=== PATIENT | female | born 1935 | race Caucasian/White ===

== ENCOUNTER 2016-10-25 12:06 | Inpatient (IN) | payer OTHER, MEDICARE ==
[2016-10-25] VITALS (7 sets, daily range): BP systolic 129–159; BP diastolic 65–78; PULSE 63–74; RESP 18–22; TEMP 95.4–97.8; O2SAT 90–99
[~2016-10-25] VITALS: Ht 144.8 cm; Wt 40.2 kg
[~2016-10-25 12:06] MED LIST: ALBU1AER INH; ALLO100 PO; CALC600T10 PO; DOCU1CAP39 PO; DUONI NEB; FERR324T4 PO; FOSA70TA PO; FURO1TAB93 PO; MAGN250T9 PO; METO50TA PO; METR-1 PO; PANT20 PO; POTA10TA2 PO; RIVA20 PO; TRAM50TA PO; Z.0.OXYGEN INH
[2016-10-25] MEDS ORDERED: ALBUAER3 INH (12:28)
[2016-10-25] MEDS ORDERED: FOSA70TA PO (12:28)
[2016-10-25] MEDS ORDERED: HYDR200T3 PO (12:28)
[2016-10-25] MEDS ORDERED: XARE20TA PO (12:28)
[2016-10-25] MEDS ORDERED: DOCU100T9 PO (12:28)
[2016-10-25] MEDS ORDERED: MAGN400T24 PO (12:28)
[2016-10-25] MEDS ORDERED: TRAM50TA PO (12:28)
[2016-10-25] MEDS ORDERED: LACTCAP8 PO (12:28)
[2016-10-25] MEDS ORDERED: METO50TA PO (12:28)
[2016-10-25] MEDS ORDERED: FERR324T4 PO (12:28)
[2016-10-25] MEDS ORDERED: IPRA0.02 NEB (12:28)
[2016-10-25] MEDS ORDERED: POTA10TA2 PO (12:28)
[2016-10-25] MEDS ORDERED: FURO1TAB60 PO (12:28)
[2016-10-25] MEDS ORDERED: ALLO100T PO (12:28)
[2016-10-25] MEDS ORDERED: PANT20 PO (12:28)
[2016-10-25] MEDS ORDERED: CALCTAB80 PO (12:28)
[2016-10-25] MEDS ORDERED: SODIUM CHLORIDE 0.9% FLUSH 10 ML FLUSH IVF PRN (12:45)
[2016-10-25 12:55] LABS: AUTOMATED NEUTROPHIL # 7.1 TH/MM3 (1.8-7.7); BASOPHIL # 0.1 TH/MM3 (0-0.2); BASOPHIL % 1.1 % (0.0-2.0); HEMATOCRIT 33.6 % (35.0-46.0); LYMPH % 15.5 % (9.0-44.0); LYMPHOCYTE # 1.4 TH/MM3 (1.0-4.8); MEAN CORPUSCULAR HEMOGLOBIN 26.6 PG (27.0-34.0); MEAN CORPUSCULAR HGB CONC 32.8 % (32.0-36.0); MONO % 6.9 % (0.0-8.0); NEUT % 76.5 % (16.0-70.0); PLATELET COUNT 367 TH/MM3 (150-450); RED BLOOD COUNT 4.14 MIL/MM3 (4.00-5.30); RED CELL DISTRIBUTION WIDTH 14.9 % (11.6-17.2); WHITE BLOOD COUNT 9.2 TH/MM3 (4.0-11.0)
--- NOTE | 2016-10-25 12:55 | PD ---
HPI Chief Complaint: Respiratory Symptoms Time Seen by Provider: 12:31 Travel History International Travel<30 days: No Contact w/Intl Traveler<30days: No Traveled to known affect area: No History of Present Illness HPI 81-year-old female with history of COPD, multiple medical issues, presents to the ER today because of one month history of worsening shortness of breath, coughing, not getting better, sent in by Dr. aguillon who is her primary care physician. She states that over last few days her breathing has been getting worse. She has been having chills but denies any fevers, vomiting, chest pains , or other symptoms. Modifying Factors: None Associated Signs & Symptoms: Worsening shortness of breath and dyspnea on exertion Risk Factors: COPD history PFSH Past Medical History Hx Anticoagulant Therapy: Yes Arthritis: Yes (RA) Asthma: Yes Atrial Fibrillation: Yes Autoimmune Disease: No Heart Rhythm Problems: Yes (afib) Cancer: No Cardiovascular Problems: Yes (PVD) High Cholesterol: No Chest Pain: No Congestive Heart Failure: No COPD: Yes Cerebrovascular Accident: Yes (TIA) Diabetes: No Diminished Hearing: No Endocrine: No Gastrointestinal Disorders: Yes (rectal prolapse, diverticulitis) GERD: Yes Gout: Yes Genitourinary: No Hepatitis: No Hiatal Hernia: No Hypertension: Yes Immune Disorder: No Kidney Stones: No Medical other: Yes (CKD STAGE 2) Musculoskeletal: No Neurologic: No Psychiatric: No Reproductive: Yes (3mm nodule r lung) Respiratory: Yes Migraines: No Renal Failure: No Seizures: No Sleep Apnea: No Thyroid Disease: No Ulcer: Yes Tetanus Vaccination: Unknown Influenza Vaccination: Yes Past Surgical History Abdominal Surgery: No AICD: No Cardiac Surgery: No Ear Surgery: No Endocrine Surgery: No Eye Surgery: Yes (Cataracts) Genitourinary Surgery: No Hysterectomy: Yes Joint Replacement: No Oral Surgery: No Pacemaker: No Thoracic Surgery: No Other Surgery: Yes Social History Alcohol Use: No Tobacco Use: No Substance Use: No Allergies-Medications (Allergen,Severity, Reaction): Coded Allergies: No Known Allergies (Unverified , 10/25/16) Reported Meds & Prescriptions Reported Meds & Active Scripts Active Reported Probiotic (Lactobacillus Acidophilus) 1 Cap Cap 1 Cap PO DAILY Calcium 1000 + D (Calcium Carbonate-Cholecalciferol) 1,000-800 Mg-Unit Tab 1 Tab PO Docusate Sodium 100 Mg Tab 100 Mg PO DIRECTED Ipratropium Neb (Ipratropium [place]) 0.5 Mg/2.5 Ml Amp 0.5 Mg NEB Q6HR NEB PRN Tramadol (Tramadol HCl) 50 Mg Tab 50 Mg PO Q8H PRN Fosamax (Alendronate Sodium) 70 Mg Tab 70 Mg PO Q7D Proair Hfa 8.5 GM Inh (Albuterol Sulfate) 90 Mcg/Act Aer 2 Puff INH Q4-6H PRN 108 mcg/actuation Ferrous Sulfate DR (Ferrous Sulfate) 324 Mg Tabdr 65 Mg PO BID Magnesium (Magnesium Oxide) 400 Mg Tablet 1 Tab PO BID Xarelto (Rivaroxaban) 20 Mg Tab 20 Mg PO DAILY Hydroxychloroquine (Hydroxychloroquine Sulfate) 200 Mg Tab 200 Mg PO BID Takw with food Protonix (Pantoprazole Sodium) 20 Mg Tab 20 Mg PO DAILY Allopurinol 100 Mg Tab 100 Mg PO DAILY Lasix (Furosemide) 40 Mg Tab 40 Mg PO DAILY Metoprolol Tartrate 50 Mg Tab 50 Mg PO Q6HR Potassium Chloride ER (Potassium Chloride) 10 Meq Tab 10 Meq PO DAILY Review of Systems Except as stated in HPI: all other systems reviewed are Neg Physical Exam Narrative GENERAL: Well-developed elderly white female patient currently in mild distress. Awake, alert, oriented 3. SKIN: Focused skin assessment warm/dry. HEAD: Atraumatic. Normocephalic. EYES: Pupils equal and round. No scleral icterus. No injection or drainage. ENT: No nasal bleeding or discharge. Mucous membranes pink and moist. NECK: Trachea midline. No JVD. CARDIOVASCULAR: Regular rate and rhythm. No murmur appreciated. RESPIRATORY: Mild accessory muscle use. Bibasilar crackles. Breath sounds equal bilaterally. GASTROINTESTINAL: Abdomen soft, non-tender, nondistended. Hepatic and splenic margins not palpable. MUSCULOSKELETAL: No obvious deformities. No clubbing. No cyanosis. No edema. NEUROLOGICAL: Awake and alert. No obvious cranial nerve deficits. Motor grossly within normal limits. Normal speech. PSYCHIATRIC: Appropriate mood and affect; insight and judgment normal. Data Data Last Documented VS Vital Signs Date Time Temp Pulse Resp B/P Pulse Ox O2 Delivery O2 Flow Rate FiO2 10/25/16 12:44 96 Nasal Cannula 3 10/25/16 12:20 10/25/16 12:15 97.8 63 22 Orders Complete Blood Count With Diff (10/25/16 12:31) Comprehensive Metabolic Panel (10/25/16 12:31) B-Type Natriuretic Peptide (10/25/16 12:31) Act Partial Throm Time (Ptt) (10/25/16 12:31) Prothrombin Time / Inr (Pt) (10/25/16 12:31) Ckmb (Isoenzyme) Profile (10/25/16 12:31) Troponin I (10/25/16 12:31) Iv Access Insert/Monitor (10/25/16 12:31) Electrocardiogram (10/25/16 12:31) Ecg Monitoring (10/25/16 12:31) Oximetry (10/25/16 12:31) Oxygen Administration (10/25/16 12:31) Chest, Single Ap (10/25/16 12:31) Sodium Chloride 0.9% Flush (Ns Flush) (10/25/16 12:45) Furosemide Inj (Lasix Inj) (10/25/16 13:45) Labs Laboratory Tests Test 10/25/16 12:40 White Blood Count 9.2 TH/MM3 Red Blood Count 4.14 MIL/MM3 Hemoglobin 11.0 GM/DL Hematocrit 33.6 % Mean Corpuscular Volume 81.0 FL Mean Corpuscular Hemoglobin 26.6 PG Mean Corpuscular Hemoglobin 32.8 % Concent Red Cell Distribution Width 14.9 % Platelet Count 367 TH/MM3 Mean Platelet Volume 7.8 FL Neutrophils (%) (Auto) 76.5 % Lymphocytes (%) (Auto) 15.5 % Monocytes (%) (Auto) 6.9 % Eosinophils (%) (Auto) 0.0 % Basophils (%) (Auto) 1.1 % Neutrophils # (Auto) 7.1 TH/MM3 Lymphocytes # (Auto) 1.4 TH/MM3 Monocytes # (Auto) 0.6 TH/MM3 Eosinophils # (Auto) 0.0 TH/MM3 Basophils # (Auto) 0.1 TH/MM3 CBC Comment DIFF FINAL Differential Comment Prothrombin Time 13.9 SEC Prothromb Time International 1.2 RATIO Ratio Activated Partial 34.5 SEC Thromboplast Time Sodium Level 136 MEQ/L Potassium Level 3.7 MEQ/L Chloride Level 94 MEQ/L Carbon Dioxide Level 35.0 MEQ/L Anion Gap 7 MEQ/L Blood Urea Nitrogen 7 MG/DL Creatinine 0.80 MG/DL Estimat Glomerular Filtration 69 ML/MIN Rate Random Glucose 87 MG/DL Calcium Level 9.4 MG/DL Total Bilirubin 0.5 MG/DL Aspartate Amino Transf 35 U/L (AST/SGOT) Alanine Aminotransferase 34 U/L (ALT/SGPT) Alkaline Phosphatase 275 U/L Total Creatine Kinase 61 U/L Troponin I LESS THAN 0.02 NG/ML B-Type Natriuretic Peptide 1079 PG/ML Total Protein 7.7 GM/DL Albumin 2.5 GM/DL [facility] Medical Decision Making Medical Screen Exam Complete: Yes Emergency Medical Condition: Yes Medical Record Reviewed: Yes Interpretation(s) EKG shows normal sinus rhythm at a rate of 60 bpm with no signs of acute ST-T elevations or depressions. Poor quality EKG. Laboratory Tests Test 10/25/16 12:40 Hemoglobin 11.0 GM/DL (11.6-15.3) Hematocrit 33.6 % (35.0-46.0) Mean Corpuscular Hemoglobin 26.6 PG (27.0-34.0) Neutrophils (%) (Auto) 76.5 % (16.0-70.0) Prothrombin Time 13.9 SEC (9.8-11.6) Activated Partial 34.5 SEC Thromboplast Time (24.3-30.1) Chloride Level 94 MEQ/L (98-107) Carbon Dioxide Level 35.0 MEQ/L (21.0-32.0) Estimat Glomerular Filtration 69 ML/MIN (>89) Rate Alkaline Phosphatase 275 U/L (45-117) Troponin I LESS THAN 0.02 NG/ML (0.02-0.05) B-Type Natriuretic Peptide 1079 PG/ML (0-100) Albumin 2.5 GM/DL (3.4-5.0) Last 24 hours Impressions Chest X-Ray 10/25/16 1231 Signed Impressions: Service Date/Time: Tuesday, October 25, 2016 13:00 - CONCLUSION: 1. Subtle ill-defined opacities in the lower lobes bilaterally which are likely artifactual. However, developing airspace disease cannot be entirely excluded. 2. Chronic diffuse interstitial lung disease. Nelson العراقي MD Differential Diagnosis Dyspnea on exertion, shortness of breathCOPD exacerbation versus pneumonia versus CHF Narrative Course Exam and lab work consistent with CHF. Patient was given Lasix in the ER. Case was discussed with Dr. Senior For admission. Diagnosis Primary Impression: CHF exacerbation Admitting Information Admitting Physician Requests: Admit Mónica Bautista MD Oct 25, 2016 12:54
[2016-10-25 13:07] LABS: CHLORIDE 94 MEQ/L (98-107); HEMO FLAGS DIFF FINAL; POTASSIUM 3.7 MEQ/L (3.5-5.1); SODIUM (NA) 136 MEQ/L (136-145)
[2016-10-25 13:11] LABS: ANION GAP 7 MEQ/L (5-15); BLOOD UREA NITROGEN 7 MG/DL (7-18)
[2016-10-25 13:14] LABS: ALT (GPT) 34 U/L (10-53); AST (GOT) 35 U/L (15-37); GLOMERULAR FILTRATION RATE 69 ML/MIN (>89)
[2016-10-25 13:16] LABS: TOTAL BILIRUBIN ADULT 0.5 MG/DL (0.2-1.0)
[2016-10-25 13:17] LABS: ALKALINE PHOSPHATASE 275 U/L (45-117); APTT (PATIENT) 34.5 SEC (24.3-30.1); INTERNATIONAL NORMALIZED RATIO 1.2 RATIO; PROTHROMBIN TIME - PATIENT 13.9 SEC (9.8-11.6)
--- NOTE | 2016-10-25 13:23 | RADHPO ---
EXAM DATE/TIME: 10/25/2016 13:00 [place] COMPARISON: CHEST SINGLE AP, September 10, 2015, 16:49. INDICATIONS : Short of breath, cough. MEDICAL HISTORY : Diverticulitis. Hypertension Chronic obstructive pulmonary disease. TIA.PVD . A-fib. Asthma. Rectal prolapse. GERD. Lung nodule. Arthritis. Osteoporosis. Gout. SURGICAL HISTORY : Partial hysterectomy. ENCOUNTER: Initial ACUITY: 1 month PAIN SCORE: 0/10 LOCATION: chest FINDINGS: Redemonstration of stable minimal blunting of the costophrenic angles bilaterally. Stable diffuse int erstitial prominence. Subtle ill-defined opacities in the lower lobes bilaterally may be artifactual in etiology. Cardiomediastinal contours are stable. Remainder of the exam is unchanged. CONCLUSION: 1. Subtle ill-defined opacities in the lower lobes bilaterally which are likely artifactual. However, developing airspace disease cannot be entirely excluded. 2. Chronic diffuse interstitial lung disease. Nelson العراقي MD on October 25, 2016 at 13:18 Board Certified Radiologist. This report was verified electronically.
[2016-10-25 13:24] LABS: CREATINE KINASE 61 U/L (26-192)
[2016-10-25] MEDS ORDERED: MAGNESIUM HYDROXIDE SUSP 30 ML CUP PO PRN (13:45)
[2016-10-25] MEDS ORDERED: SENNOSIDES 8.6 MG TAB PO PRN (13:45)
[2016-10-25] MEDS ORDERED: ACETAMINOPHEN 325 MG TAB PO PRN (13:45)
[2016-10-25] MEDS ORDERED: ONDANSETRON HCL 4 MG/2 ML VIAL IVP PRN (13:45)
[2016-10-25] MEDS ORDERED: NALOXONE HCL 0.4 MG/ML AMP IV PRN (13:45)
[2016-10-25] MEDS ORDERED: BISACODYL 10 MG SUPP RECTAL PRN (13:45)
[2016-10-25] MEDS ORDERED: SODIUM CHLORIDE 0.9% FLUSH 10 ML FLUSH IV FLUSH PRN (13:45)
[2016-10-25] MEDS ORDERED: FUROSEMIDE 40 MG/4 ML VIAL IV PUSH ONE (13:45)
[2016-10-25] MEDS ORDERED: LACTULOSE SYRUP 20 GM/30 ML CUP PO PRN (13:45)
[2016-10-25] MEDS ORDERED: HEPARIN SODIUM - SQ 10,000 UNITS/ML VIAL SQ SCH (15:00)
[2016-10-25] MEDS ORDERED: RESP: ALBUTEROL 2.5 MG/3 ML NEB (PRN) NEB (17:30)
[2016-10-25] MEDS ORDERED: BENZONATATE 100 MG CAP PO PRN (17:30)
[2016-10-25] MEDS ORDERED: traMADol HCL 50 MG TAB PO PRN (17:30)
--- NOTE | 2016-10-25 17:31 | HHI.HP ---
[facility] Primary Care Physician Khurram Apple MD Admission Diagnosis new onset CHF Diagnoses: (1) Atrial fibrillation (2) COPD (chronic obstructive pulmonary disease) (3) HTN (hypertension) (4) Dyspnea Chief Complaint: Dyspnea Travel History International Travel<30 Days: No Contact w/Intl Traveler <30 Da: No Traveled to Known Affected Are: No History of Present Illness The patient is an 81-year-old female with history of COPD. She presents to emergency department with complaint of worsening shortness of breath over the last few days. She denies chest pain. She reports significant cough that is occasionally productive. No fevers, but she does report chills. Denies nausea or vomiting. She has been seeing Dr. Esposito for pulmonology. Review of Systems Constitutional: DENIES: Fever, Chills, Night Sweats Eyes: DENIES: Blurred vision, Vision loss Ears, nose, mouth, throat: DENIES: Hearing loss Respiratory: COMPLAINS OF: Cough, Wheezing, Sputum production, Shortness of breath Cardiovascular: COMPLAINS OF: Dyspnea on Exertion, DENIES: Chest pain, Palpitations, Lower Extremity Edema Gastrointestinal: DENIES: Abdominal pain, Constipation, Diarrhea, Nausea, Vomiting Genitourinary: DENIES: Urinary frequency, Urinary incontinence, Urgency, Hematuria, Dysuria, Nocturia Musculoskeletal: DENIES: Joint pain, Muscle aches Integumentary: DENIES: Pruritus, Rash Hematologic/lymphatic: DENIES: Bruising Neurologic: DENIES: Headache Past Family Social History Past Medical History Osteoarthritis COPD History of CVA Hypertension Past Surgical History Cataract surgery Partial hysterectomy Reported Medications Probiotic (Lactobacillus Acidophilus) 1 Cap Cap 1 Cap PO DAILY Calcium 1000 + D (Calcium Carbonate-Cholecalciferol) 1,000-800 Mg-Unit Tab 1 Tab PO Docusate Sodium 100 Mg Tab 100 Mg PO DIRECTED Ipratropium Neb (Ipratropium [place]) 0.5 Mg/2.5 Ml Amp 0.5 Mg NEB Q6HR NEB PRN Tramadol (Tramadol HCl) 50 Mg Tab 50 Mg PO Q8H PRN Fosamax (Alendronate Sodium) 70 Mg Tab 70 Mg PO Q7D Proair Hfa 8.5 GM Inh (Albuterol Sulfate) 90 Mcg/Act Aer 2 Puff INH Q4-6H PRN 108 mcg/actuation Ferrous Sulfate DR (Ferrous Sulfate) 324 Mg Tabdr 65 Mg PO BID Magnesium (Magnesium Oxide) 400 Mg Tablet 1 Tab PO BID Xarelto (Rivaroxaban) 20 Mg Tab 20 Mg PO DAILY Hydroxychloroquine (Hydroxychloroquine Sulfate) 200 Mg Tab 200 Mg PO BID Takw with food Protonix (Pantoprazole Sodium) 20 Mg Tab 20 Mg PO DAILY Allopurinol 100 Mg Tab 100 Mg PO DAILY Lasix (Furosemide) 40 Mg Tab 40 Mg PO DAILY Metoprolol Tartrate 50 Mg Tab 50 Mg PO Q6HR Potassium Chloride ER (Potassium Chloride) 10 Meq Tab 10 Meq PO DAILY Allergies: Coded Allergies: No Known Allergies (Unverified , 10/25/16) Family History COPD Mouth/throat cancer CVA Social History Quit smoking about 15 years ago. Denies alcohol or illicit drug use. Physical Exam Vital Signs Vital Signs Date Time Temp Pulse Resp B/P Pulse Ox O2 Delivery O2 Flow Rate FiO2 10/25/16 16:32 95.4 70 19 152/68 95 10/25/16 15:24 97.8 66 18 159/74 99 Nasal Cannula 3 10/25/16 13:47 63 18 159/65 99 Nasal Cannula 3 10/25/16 12:44 96 Nasal Cannula 3 10/25/16 12:44 96 Nasal Cannula 3 10/25/16 12:20 10/25/16 12:15 Nasal Cannula 3 10/25/16 12:15 97.8 63 22 145/73 96 Nasal Cannula 3 Physical Exam GENERAL: Thin elderly female in no acute distress. HEENT: Normocephalic, atraumatic. Pupils equal, round and reactive. Extraocular movements intact. No scleral icterus. No injection or drainage. Oropharynx is clear. Mucous membranes are moist. CARDIOVASCULAR: Regular rate and rhythm without murmurs, gallops, or rubs. RESPIRATORY: Bilateral wheeze. Bibasilar crackles are noted. Breathing is non- labored. GASTROINTESTINAL: Abdomen soft, non-tender, nondistended. EXTREMITIES: No lower extremity edema. No calf tenderness. PSYCH: Alert and oriented x 3. Laboratory Laboratory Tests Test 10/25/16 12:40 White Blood Count 9.2 Red Blood Count 4.14 Hemoglobin 11.0 Hematocrit 33.6 Mean Corpuscular Volume 81.0 Mean Corpuscular Hemoglobin 26.6 Mean Corpuscular Hemoglobin 32.8 Concent Red Cell Distribution Width 14.9 Platelet Count 367 Mean Platelet Volume 7.8 Neutrophils (%) (Auto) 76.5 Lymphocytes (%) (Auto) 15.5 Monocytes (%) (Auto) 6.9 Eosinophils (%) (Auto) 0.0 Basophils (%) (Auto) 1.1 Neutrophils # (Auto) 7.1 Lymphocytes # (Auto) 1.4 Monocytes # (Auto) 0.6 Eosinophils # (Auto) 0.0 Basophils # (Auto) 0.1 CBC Comment DIFF FINAL Differential Comment Prothrombin Time 13.9 Prothromb Time International 1.2 Ratio Activated Partial 34.5 Thromboplast Time Sodium Level 136 Potassium Level 3.7 Chloride Level 94 Carbon Dioxide Level 35.0 Anion Gap 7 Blood Urea Nitrogen 7 Creatinine 0.80 Estimat Glomerular Filtration 69 Rate Random Glucose 87 Calcium Level 9.4 Total Bilirubin 0.5 Aspartate Amino Transf 35 (AST/SGOT) Alanine Aminotransferase 34 (ALT/SGPT) Alkaline Phosphatase 275 Total Creatine Kinase 61 Troponin I LESS THAN 0.02 B-Type Natriuretic Peptide 1079 Total Protein 7.7 Albumin 2.5 Result Diagram: 10/25/16 1240 10/25/16 1240 Imaging Last Impressions Chest X-Ray 10/25/16 1231 Signed Impressions: Service Date/Time: Tuesday, October 25, 2016 13:00 - CONCLUSION: 1. Subtle ill-defined opacities in the lower lobes bilaterally which are likely artifactual. However, developing airspace disease cannot be entirely excluded. 2. Chronic diffuse interstitial lung disease. Nelson العراقي MD Assessment and Plan Assessment and Plan 1. Dyspnea: Likely multifactorial secondary to COPD, probable CHF. BNP is elevated. Continue diuresis. Check 2-D echocardiogram. Continue supplemental oxygen, bronchodilators. Add prednisone. 2. Paroxysmal atrial fibrillation: Continue Xarelto, beta erich. 3. GI prophylaxis: PPI. 4. DVT prophylaxis: Xarelto. Mervin Senior MD Oct 25, 2016 17:31
[2016-10-25] MEDS: predniSONE 20 MG TAB PO SCH (17:51)
[2016-10-25] MEDS: METOPROLOL TARTRATE 50 MG TAB PO SCH (17:51)
[2016-10-25] MEDS: FUROSEMIDE 40 MG/4 ML VIAL IVP SCH (17:52)
[2016-10-25] MEDS: RESP: ALBUTEROL 2.5 MG/IPRATROPIUM 0.5 MG NEB (SCH) NEB (19:12)
[2016-10-25 19:32] LABS: CREATINE KINASE 52 U/L (26-192)
[2016-10-25] MEDS: HYDROXYCHLOROQUINE SULFATE 200 MG TAB PO SCH (21:47)
[2016-10-25] MEDS: POTASSIUM CHLORIDE 20 MEQ CONTROLLED RELEASE TAB PO SCH (21:47)
[2016-10-25] MEDS: MAGNESIUM OXIDE 400 MG TAB PO SCH (21:47)
[2016-10-25] MEDS: SODIUM CHLORIDE 0.9% FLUSH 10 ML FLUSH IV FLUSH SCH (21:47)
[2016-10-25] MEDS: FERROUS SULFATE 325 MG (65 MG ELEMENTAL IRON) TAB PO SCH (21:47)
[2016-10-25] MEDS: DOCUSATE SODIUM 50 MG/SENNA 8.6 MG TAB PO SCH (21:47)
[2016-10-26] VITALS (9 sets, daily range): BP systolic 116–146; BP diastolic 61–79; PULSE 59–87; RESP 16–20; TEMP 96–98.3; O2SAT 91–98
[2016-10-26] MEDS: METOPROLOL TARTRATE 50 MG TAB PO SCH ×4 (00:09→16:27)
[2016-10-26 02:02] LABS: CREATINE KINASE 43 U/L (26-192)
[2016-10-26 06:33] LABS: POTASSIUM 3.9 MEQ/L (3.5-5.1)
[2016-10-26 06:40] LABS: BICARBONATE 33.4 MEQ/L (21.0-32.0)
[2016-10-26] MEDS: RESP: ALBUTEROL 2.5 MG/IPRATROPIUM 0.5 MG NEB (SCH) NEB ×4 (07:57→19:36)
[2016-10-26] MEDS: FERROUS SULFATE 325 MG (65 MG ELEMENTAL IRON) TAB PO SCH ×2 (08:24→20:40)
[2016-10-26] MEDS: HYDROXYCHLOROQUINE SULFATE 200 MG TAB PO SCH ×2 (08:24→20:40)
[2016-10-26] MEDS: predniSONE 20 MG TAB PO SCH (08:24)
[2016-10-26] MEDS: MAGNESIUM OXIDE 400 MG TAB PO SCH ×2 (08:24→20:40)
[2016-10-26] MEDS: ALLOPURINOL 100 MG TAB PO SCH (08:24)
[2016-10-26] MEDS: PANTOPRAZOLE SOD 20 MG DELAYED RELEASE TAB PO SCH (08:24)
[2016-10-26] MEDS: LACTOBACILLUS ACIDOPHILUS TAB PO SCH (08:24)
[2016-10-26] MEDS: RIVAROXABAN 20 MG TAB PO SCH (08:24)
[2016-10-26] MEDS: SODIUM CHLORIDE 0.9% FLUSH 10 ML FLUSH IV FLUSH SCH ×2 (08:25→20:41)
[2016-10-26] MEDS: DOCUSATE SODIUM 50 MG/SENNA 8.6 MG TAB PO SCH ×2 (08:25→20:40)
[2016-10-26] MEDS: POTASSIUM CHLORIDE 20 MEQ CONTROLLED RELEASE TAB PO SCH ×2 (08:25→20:40)
[2016-10-26] MEDS: FUROSEMIDE 40 MG/4 ML VIAL IVP SCH ×2 (08:26→16:27)
--- NOTE | 2016-10-26 14:04 | HHI.PR ---
Subjective Remarks Follow-up dyspnea. Patient states that she is feeling better today. Still coughing. No chest pain. Shortness of breath has improved. Objective Vitals Vital Signs Date Time Temp Pulse Resp B/P Pulse Ox O2 Delivery O2 Flow Rate FiO2 10/26/16 11:59 98.2 67 119/61 95 10/26/16 08:00 96.3 60 18 126/77 98 10/26/16 07:58 98 Nasal Cannula 3.00 10/26/16 04:00 96.0 61 16 122/65 98 10/26/16 00:00 98.3 72 18 128/69 93 10/26/16 00:00 97.6 70 16 146/79 95 10/25/16 20:00 74 10/25/16 20:00 96.8 73 18 129/78 90 10/25/16 19:10 94 Nasal Cannula 3.00 10/25/16 16:32 95.4 70 19 152/68 95 10/25/16 15:24 97.8 66 18 159/74 99 Nasal Cannula 3 I/O 10/25/16 10/25/16 10/25/16 10/26/16 10/26/16 10/26/16 06:59 14:59 22:59 06:59 14:59 22:59 Intake Total 280 ml 240 ml Output Total 300 ml 200 ml Balance -20 ml 240 ml -200 ml Intake Oral 280 ml 240 ml Output Urine Total 300 ml 200 ml # Voids 1 0 # Bowel Movements 0 0 Result Diagram: 10/25/16 1240 10/26/16 0515 Imaging Last Impressions Chest X-Ray 10/25/16 1231 Signed Impressions: Service Date/Time: Tuesday, October 25, 2016 13:00 - CONCLUSION: 1. Subtle ill-defined opacities in the lower lobes bilaterally which are likely artifactual. However, developing airspace disease cannot be entirely excluded. 2. Chronic diffuse interstitial lung disease. Nelson العراقي MD Objective Remarks General: No acute distress. Heart: Regular rate and rhythm. No murmur. Lungs: Scattered wheeze. Bibasilar crackles. Breathing is nonlabored. Abdomen: Soft, nontender, nondistended. Extremities: No lower extremity edema. Psych: Alert and oriented. Procedures None Urinary Catheter: No Vascular Central Line Catheter: No A/P Problem List: (1) Atrial fibrillation ICD Code: I48.91 Status: Acute (2) COPD (chronic obstructive pulmonary disease) ICD Code: J44.9 Status: Chronic (3) HTN (hypertension) ICD Code: I10 Status: Chronic (4) Dyspnea ICD Code: R06.00 Status: Acute Assessment and Plan 1. Dyspnea: Likely multifactorial secondary to COPD, probable CHF. BNP is elevated. Continue diuresis. 2-D echocardiogram pending. Continue supplemental oxygen, bronchodilators, prednisone. Symptoms are improving. 2. Paroxysmal atrial fibrillation: Continue Xarelto, beta erich. 3. GI prophylaxis: PPI. 4. DVT prophylaxis: Xarelto. Discharge Planning Possible discharge home tomorrow pending further clinical improvement. Mervin Senior MD Oct 26, 2016 14:04
--- NOTE | 2016-10-26 16:51 | ECHRPT ---
Indication: Heart failure, unspecified CONCLUSIONS Normal left ventricular size. Wall thickness is normal. The left ventricular systolic function is [id number] reduced with an estimated ejection fra ction in the range of 35-40%. Trace mitral valve regurgitation. There is mild tricuspid valve regurgitation. There is estimated mild pulmonary hypertension present (range 40-50 mmHg). IVC 1.8The transthoracic study is normal by two-dimensional, color flow imaging and Doppler interrogation. BP: / HR: 63 Rhythm: MEASUREMENTS (Male / Female) Normal Values Technical Quality:Good 2D ECHO LV Diastolic Diameter PLAX 3.8 cm 4.2 - 5.9 / 3.9 - 5.3 cm LV Systolic Diameter PLAX 3.3 cm IVS Diastolic Thickness 1.2 cm 0.6 - 1.0 / 0.6 - 0.9 cm LVPW Diastolic Thickness 0.9 cm 0.6 - 1.0 / 0.6 - 0.9 cm LV Relative Wall Thickness 0.5 RV Internal Dim ED PLAX 2.4 cm M-MODE Aortic Root Diameter MM 2.3 cm LA Systolic Diameter MM 3.8 cm LA Ao Ratio MM 1.7 AV Cusp Separation MM 1.5 cm DOPPLER Mitral E Point Velocity 73.5 cm/s Mitral A Point Velocity 75.5 cm/s Mitral E to A Ratio 1.0 LV E' Lateral Velocity 8.6 cm/s Mitral E to LV E' Lateral Ratio 8.6 LV E' Septal Velocity 7.2 cm/s Mitral E to LV E' Septal Ratio 10.2 TR Peak Velocity 278.0 cm/s TR Peak Gradient 30.9 mmHg FINDINGS LEFT VENTRICLE Normal left ventricular size. Wall thickness is normal. The left ventricular systolic function is mildly reduced with an estimated ejection fraction in the range of 45- 50%. RIGHT VENTRICLE Normal right ventricular size and systolic function. MITRAL VALVE Mild mitral annular calcification. . Trace mitral valve regurgitation. Mild mitral annular calcification. AORTIC VALVE Trileaflet aortic valve. No aortic valve stenosis or rurg.aortic valve sclerosis is present. Mild aortic valve sclerosis is present. TRICUSPID VALVE Structurally normal tricuspid valve. There is mild tricuspid valve regurgitation. There is estimated mild pulmonary hypertension present (range 40-50 mmHg). PULMONARY VALVE No pulmonary valve regurgitation or stenosis. VESSELS IVC 1.8 Felix Vasquez MD (Electronically Signed) Final Date:26 October 2016 16:51 Amended: 26 October 2016 16:53
--- NOTE | 2016-10-26 16:58 | EKG ---
Date Performed: 10/25/2016 Time Performed: 12:46:34 PTAGE: 81 years EKG: Sinus rhythm MARKED LEFT AXIS DEVIATION Left anterior fasicular block. Poor R wave progression. ABNORMAL ECG PREVIOUS TRACING : 01/07/2016 18.51 DOCTOR: Christopher Mckeon Interpretating Date/Time 10/26/2016 16:57:32
--- NOTE | 2016-10-26 16:59 | EKG ---
Date Performed: 10/26/2016 Time Performed: 00:05:25 PTAGE: 81 years EKG: Sinus rhythm POSSIBLE LEFT ATRIAL ENLARGEMENT MARKED LEFT AXIS DEVIATION Left anterior fasicular block . Poor R w ave progression. ABNORMAL ECG PREVIOUS TRACING : 10/25/2016 18.15 DOCTOR: Christopher Mckeon Interpretating Date/Time 10/26/2016 16:58:36
--- NOTE | 2016-10-26 16:59 | EKG ---
Date Performed: 10/25/2016 Time Performed: 18:15:34 PTAGE: 81 years EKG: Sinus rhythm WITH OCCASIONAL VENTRICULAR PREMATURE COMPLEXES MARKED LEFT AXIS DEVIATION Left anterior fasicular b lock. Poor R wave progression. ABNORMAL ECG PREVIOUS TRACING : 10/25/2016 12.46 DOCTOR: Christopher Mckeon Interpretating Date/Time 10/26/2016 16:58:00
[2016-10-27] VITALS (12 sets, daily range): BP systolic 89–141; BP diastolic 50–68; PULSE 61–128; RESP 16–22; TEMP 96–98.4; O2SAT 94–96
[2016-10-27] MEDS: METOPROLOL TARTRATE 50 MG TAB PO SCH ×4 (05:38→11:51)
[2016-10-27] MEDS: RESP: ALBUTEROL 2.5 MG/IPRATROPIUM 0.5 MG NEB (SCH) NEB ×4 (09:00→19:17)
[2016-10-27] MEDS: FUROSEMIDE 40 MG/4 ML VIAL IVP SCH ×2 (09:18→17:26)
[2016-10-27] MEDS: MAGNESIUM OXIDE 400 MG TAB PO SCH ×2 (09:19→23:07)
[2016-10-27] MEDS: RIVAROXABAN 20 MG TAB PO SCH (09:19)
[2016-10-27] MEDS: predniSONE 20 MG TAB PO SCH (09:19)
[2016-10-27] MEDS: POTASSIUM CHLORIDE 20 MEQ CONTROLLED RELEASE TAB PO SCH ×2 (09:19→23:07)
[2016-10-27] MEDS: PANTOPRAZOLE SOD 20 MG DELAYED RELEASE TAB PO SCH (09:19)
[2016-10-27] MEDS: ALLOPURINOL 100 MG TAB PO SCH (09:19)
[2016-10-27] MEDS: HYDROXYCHLOROQUINE SULFATE 200 MG TAB PO SCH ×2 (09:19→23:06)
[2016-10-27] MEDS: DOCUSATE SODIUM 50 MG/SENNA 8.6 MG TAB PO SCH ×2 (09:19→23:06)
[2016-10-27] MEDS: LACTOBACILLUS ACIDOPHILUS TAB PO SCH (09:19)
[2016-10-27] MEDS: FERROUS SULFATE 325 MG (65 MG ELEMENTAL IRON) TAB PO SCH ×2 (09:19→23:07)
[2016-10-27] MEDS: SODIUM CHLORIDE 0.9% FLUSH 10 ML FLUSH IV FLUSH SCH ×2 (09:20→23:08)
--- NOTE | 2016-10-27 09:57 | HHI.PR ---
Subjective Remarks Follow-up CHF. Patient is now in atrial fibrillation with RVR. She denies chest pain. Dyspnea is improving. Objective Vitals Vital Signs Date Time Temp Pulse Resp B/P Pulse Ox O2 Delivery O2 Flow Rate FiO2 10/27/16 09:02 96 Nasal Cannula 3.00 10/27/16 08:00 96.9 65 20 141/61 94 10/27/16 04:00 96.0 71 16 128/67 96 10/27/16 00:00 98.4 72 16 109/64 96 10/26/16 20:00 97.3 73 18 116/70 92 10/26/16 19:35 95 Nasal Cannula 3.00 10/26/16 18:13 59 10/26/16 16:00 96.2 87 20 138/65 91 10/26/16 11:59 98.2 67 119/61 95 I/O 10/26/16 10/26/16 10/26/16 10/27/16 10/27/16 10/27/16 07:00 15:00 23:00 07:00 15:00 23:00 Intake Total 240 ml 480 ml 360 ml Output Total 200 ml Balance 240 ml -200 ml 480 ml 360 ml Intake Oral 240 ml 480 ml 360 ml Output Urine Total 200 ml # Voids 0 2 1 3 # Bowel Movements 0 0 1 Result Diagram: 10/25/16 1240 10/26/16 0515 Imaging Last Impressions Chest X-Ray 10/25/16 1231 Signed Impressions: Service Date/Time: Tuesday, October 25, 2016 13:00 - CONCLUSION: 1. Subtle ill-defined opacities in the lower lobes bilaterally which are likely artifactual. However, developing airspace disease cannot be entirely excluded. 2. Chronic diffuse interstitial lung disease. Nelson العراقي MD Objective Remarks General: No acute distress. Heart: Tachycardic, irregular. Lungs: Scattered wheeze. Bibasilar crackles. Breathing is nonlabored. Abdomen: Soft, nontender, nondistended. Extremities: No lower extremity edema. Psych: Alert and oriented. Procedures None Urinary Catheter: No Vascular Central Line Catheter: No A/P Problem List: (1) Atrial fibrillation ICD Code: I48.91 Status: Chronic (2) COPD (chronic obstructive pulmonary disease) ICD Code: J44.9 Status: Chronic (3) HTN (hypertension) ICD Code: I10 Status: Chronic (4) Dyspnea ICD Code: R06.00 Status: Acute (5) Atrial fibrillation with RVR ICD Code: I48.91 Status: Acute Assessment and Plan 1. Dyspnea: Likely multifactorial secondary to COPD, probable CHF. BNP is elevated. Continue diuresis. 2-D echocardiogram pending. Continue supplemental oxygen, bronchodilators, prednisone. Symptoms are improving. 2. Paroxysmal atrial fibrillation: Continue Xarelto, beta erich. 3. GI prophylaxis: PPI. 4. DVT prophylaxis: Xarelto. 5. Atrial fibrillation with RVR: Patient missed 1 dose of metoprolol overnight. Now with heart rate in the 130s sustained. Start Cardizem drip. 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 Discharge Planning Possible discharge home tomorrow pending further clinical improvement. Mervin Senior MD Oct 27, 2016 09:57
[2016-10-27] MEDS ORDERED: DILTIAZEM HCL 25 MG/5 ML VIAL IVP ONE (10:00)
[2016-10-27] MEDS ORDERED: DILTIAZEM INJ 125 MG in SODIUM CHLORIDE 0.9% INJ 100 ML IV SCH (10:00)
[2016-10-27] MEDS ORDERED: DILTIAZEM HCL 25 MG/5 ML VIAL IV SCH (11:00)
[2016-10-27 11:46] LABS: POTASSIUM 3.7 MEQ/L (3.5-5.1)
[2016-10-27 12:23] LABS: BICARBONATE 34.7 MEQ/L (21.0-32.0); MAGNESIUM 1.8 MG/DL (1.5-2.5)
--- NOTE | 2016-10-27 14:29 | PD.CONS ---
HPI Consult Requested By Reason for Consult Atrial fibrillation with rapid response Primary Care Physician Khurram Apple MD History of Present Illness I reviewed outside and hospital records. The patient has chronic severe dyspnea from severe obstructive lung disease and is on home oxygen. She is followed by Dr. Delvin aguillon. She was admitted with worsening dyspnea on exertion, dyspnea at rest, cough with purulent sputum. She notes no cardiac symptomatology. She has had paroxysmal rapid atrial fibrillation in the hospital and is presently on a diltiazem drip. Review of Systems Consitutional: COMPLAINS OF: Fatigue Respiratory: COMPLAINS OF: Cough, Shortness of breath, Wheezing, Sputum production Musculoskeletal: COMPLAINS OF: Joint pain Psychiatric: DENIES: Anxiety, Depression Hematologic: COMPLAINS OF: Bruising tendencies Endocrine: COMPLAINS OF: Weight loss Past Family Social History Allergies: Coded Allergies: No Known Allergies (Unverified , 10/25/16) Past Medical History Hypertension Paroxysmal atrial fibrillation COPD Chronic kidney disease 3 Possible CVA Gout osteoarthritis Past Surgical History Cataract partial hysterectomy Reported Medications Reported Meds & Active Scripts Active Reported Probiotic (Lactobacillus Acidophilus) 1 Cap Cap 1 Cap PO DAILY Calcium 1000 + D (Calcium Carbonate-Cholecalciferol) 1,000-800 Mg-Unit Tab 1 Tab PO Docusate Sodium 100 Mg Tab 100 Mg PO DIRECTED Ipratropium Neb (Ipratropium Norman) 0.5 Mg/2.5 Ml Amp 0.5 Mg NEB Q6HR NEB PRN Tramadol (Tramadol HCl) 50 Mg Tab 50 Mg PO Q8H PRN Fosamax (Alendronate Sodium) 70 Mg Tab 70 Mg PO Q7D Proair Hfa 8.5 GM Inh (Albuterol Sulfate) 90 Mcg/Act Aer 2 Puff INH Q4-6H PRN 108 mcg/actuation Ferrous Sulfate DR (Ferrous Sulfate) 324 Mg Tabdr 65 Mg PO BID Magnesium (Magnesium Oxide) 400 Mg Tablet 1 Tab PO BID Xarelto (Rivaroxaban) 20 Mg Tab 20 Mg PO DAILY Hydroxychloroquine (Hydroxychloroquine Sulfate) 200 Mg Tab 200 Mg PO BID Takw with food Protonix (Pantoprazole Sodium) 20 Mg Tab 20 Mg PO DAILY Allopurinol 100 Mg Tab 100 Mg PO DAILY Lasix (Furosemide) 40 Mg Tab 40 Mg PO DAILY Metoprolol Tartrate 50 Mg Tab 50 Mg PO Q6HR Potassium Chloride ER (Potassium Chloride) 10 Meq Tab 10 Meq PO DAILY Active Ordered Medications Current Medications Medications (Trade) Dose Ordered Sig/Jenifer Route Start Time Stop Time Status Last Admin (NS Flush) 2 ml UNSCH PRN IV FLUSH 10/25/16 13:45 (NS Flush) 2 ml BID IV FLUSH 10/25/16 21:00 10/27/16 09:20 (Tylenol) 650 mg Q4H PRN PO 10/25/16 13:45 (Zofran Inj) 4 mg Q6H PRN IVP 10/25/16 13:45 (Narcan Inj) 0.4 mg UNSCH PRN IV 10/25/16 13:45 (Venita-Colace) 1 tab BID PO 10/25/16 21:00 10/27/16 09:19 (Milk Of Magnesia Liq) 30 ml Q12H PRN PO 10/25/16 13:45 (Senokot) 17.2 mg Q12H PRN PO 10/25/16 13:45 (Dulcolax Supp) 10 mg DAILY PRN RECTAL 10/25/16 13:45 (Lactulose Liq) 30 ml DAILY PRN PO 10/25/16 13:45 (Lasix Inj) 40 mg BID@09,18 IVP 10/25/16 18:00 10/27/16 09:18 (KCl) 20 meq BID PO 10/25/16 21:00 10/27/16 09:19 (Tessalon) 100 mg TID PRN PO 10/25/16 17:30 (Deltasone) 20 mg DAILY PO 10/25/16 17:30 10/27/16 09:19 (Zyloprim) 100 mg DAILY PO 10/26/16 09:00 10/27/16 09:19 (Plaquenil) 200 mg BID PO 10/25/16 21:00 10/27/16 09:19 (Lactinex) 1 tab DAILY PO 10/26/16 09:00 10/27/16 09:19 (Mag-Ox) 400 mg BID PO 10/25/16 21:00 10/27/16 09:19 (Lopressor) 50 mg Q6HR PO 10/25/16 18:00 10/27/16 07:26 (Protonix) 20 mg DAILY PO 10/26/16 09:00 10/27/16 09:19 (Xarelto) 20 mg DAILY PO 10/26/16 09:00 10/27/16 09:19 (Ultram) 50 mg Q8H PRN PO 10/25/16 17:30 Ferrous Sulfate 325 mg 325 mg BID PO 10/25/16 21:00 10/27/16 09:19 (Cardizem Inj/NS Inj) 125 ml @ 0 mls/hr TITRATE IV 10/27/16 10:00 10/27/16 10:21 (Cardizem Inj) 5 mg UNSCH IV 10/27/16 11:00 10/28/16 11:01 Family History Noncontributory Social History The patient is a . She is a former heavy smoker. She does not drink. Physical Exam Vital Signs Vital Signs Date Time Temp Pulse Resp B/P Pulse Ox O2 Delivery O2 Flow Rate FiO2 10/27/16 12:00 97.2 67 18 135/68 95 10/27/16 10:45 61 105/60 10/27/16 10:23 94 95/64 10/27/16 10:23 128 89/66 10/27/16 09:02 96 Nasal Cannula 3.00 10/27/16 08:00 96.9 65 20 141/61 94 10/27/16 04:00 96.0 71 16 128/67 96 10/27/16 00:00 98.4 72 16 109/64 96 10/26/16 20:00 97.3 73 18 116/70 92 10/26/16 19:35 95 Nasal Cannula 3.00 10/26/16 18:13 59 10/26/16 16:00 96.2 87 20 138/65 91 Physical Exam CONSTITUTIONAL: A frail, thin patient in no apparent distress. EYES: Conjunctiva normal. Sclera nonicteric. Eyelids normal. No xanthelasma. HEENT: Oral mucosa normal without pallor or cyanosis. NECK: JVD less than or equal to 5 cm of water. RESPIRATORY: Mild shortness of breath with cough. Markedly decreased breath sounds with severe peacock expiratory wheezing. CARDIOVASCULAR: Normal point of maximal impulse. No cardiac thrill present. Regular rate and rhythm. No murmurs, gallops, rubs or clicks present. Distant heart sounds. PULSES: Carotid arteries: Normal pulses bilaterally without bruits. Palmar arteries: Radial pulses 1-2+ bilaterally Abdominal aorta: Aortic pulses normal without bruits or enlargement. Femoral arteries: 1+ bilaterally. No bruits present. Pedal pulses: Trace bilaterally PERIPHERAL CIRCULATION: No cyanosis, clubbing, edema or varicosities present. GASTROINTESTINAL: Normal bowel sounds. Nontender without rigidity or guarding. No masses present. No hepatomegaly. Liver is nontender to palpation and spleen is nonpalpable. Digital rectal exam-not indicated for cardiovascular exam. MUSCULOSKELETAL: Mild kyphosis . The patient is not ambulated. Able to undergo rehabilitation. SKIN: Skin turgor is normal. No rashes. NEUROLOGIC: Grossly oriented to person, place and time. Normal mood and appropriate affect. Laboratory Troponins negative 3. Hematocrit 33.6. BNP elevated at 1079. Echocardiogram with mild left ventricular dysfunction and mild valvular regurgitation. Laboratory Tests Test 10/27/16 11:00 Sodium Level 138 Potassium Level 3.7 Chloride Level 96 Carbon Dioxide Level 34.7 Anion Gap 7 Blood Urea Nitrogen 19 Creatinine 0.83 Estimat Glomerular Filtration 66 Rate Random Glucose 100 Calcium Level 9.8 Magnesium Level 1.8 Result Diagram: 10/25/16 1240 10/27/16 1100 Imaging Last Impressions Chest X-Ray 10/25/16 1231 Signed Impressions: Service Date/Time: Tuesday, October 25, 2016 13:00 - CONCLUSION: 1. Subtle ill-defined opacities in the lower lobes bilaterally which are likely artifactual. However, developing airspace disease cannot be entirely excluded. 2. Chronic diffuse interstitial lung disease. Nelson العراقي MD Assessment and Plan Assessment and Plan EKGs showed sinus rhythm with left axis deviation and no acute changes. Problems: Rapid atrial fibrillation Severe COPD with exacerbation Elevated BNP levelnonspecific. There is a suggestion of mild left ventricular dysfunction but I suspect the echocardiogram was suboptimal given her COPD. I do doubt think this is contributing to her wheezing or shortness of breath. Weight loss with failure to thrive Hypertension Recommendations: Switch to oral diltiazem for rate control. I am going to cut back on her beta erich as this could be exacerbating her COPD. LETY inhibitors for the mild left ventricular dysfunction. I will decrease her Xarelto to 15 mg per day as she is very tiny and elderly. Dr. Mays will follow tomorrow. All questions were answered. Jax Damon MD Oct 27, 2016 14:28
[2016-10-27] MEDS ORDERED: METOPROLOL TARTRATE 25 MG TAB PO SCH (21:00)
[2016-10-27] MEDS ORDERED: DILTIAZEM HCL 25 MG/5 ML VIAL IV PUSH ONE (21:30)
[2016-10-27] MEDS: DILTIAZEM-CD 120 MG CAP ER PO SCH (23:07)
[2016-10-27] MEDS: METOPROLOL TARTRATE 25 MG TAB PO SCH (23:07)
[2016-10-28] VITALS (10 sets, daily range): BP systolic 99–121; BP diastolic 48–67; PULSE 60–77; RESP 16–20; TEMP 96.6–97.6; O2SAT 84–96
[2016-10-28 06:33] LABS: AUTOMATED NEUTROPHIL # 11.1 TH/MM3 (1.8-7.7); BASOPHIL # 0.1 TH/MM3 (0-0.2); BASOPHIL % 0.5 % (0.0-2.0); EOSINOPHIL # 0.1 TH/MM3 (0-0.4); EOSINOPHIL % 0.8 % (0.0-4.0); HEMATOCRIT 33.2 % (35.0-46.0); HEMO FLAGS DIFF FINAL; LYMPH % 14.7 % (9.0-44.0); LYMPHOCYTE # 2.2 TH/MM3 (1.0-4.8); MEAN CELL VOLUME 81.7 FL (80.0-100.0); MEAN CORPUSCULAR HEMOGLOBIN 26.5 PG (27.0-34.0); MEAN CORPUSCULAR HGB CONC 32.5 % (32.0-36.0); MONO % 8.3 % (0.0-8.0); NEUT % 75.7 % (16.0-70.0); PLATELET COUNT 408 TH/MM3 (150-450); RED BLOOD COUNT 4.06 MIL/MM3 (4.00-5.30); RED CELL DISTRIBUTION WIDTH 14.5 % (11.6-17.2); WHITE BLOOD COUNT 14.7 TH/MM3 (4.0-11.0)
[2016-10-28 06:39] LABS: POTASSIUM 3.9 MEQ/L (3.5-5.1)
[2016-10-28 06:43] LABS: BICARBONATE 34.4 MEQ/L (21.0-32.0)
[2016-10-28] MEDS: RESP: ALBUTEROL 2.5 MG/IPRATROPIUM 0.5 MG NEB (SCH) NEB ×4 (08:05→19:23)
--- NOTE | 2016-10-28 08:40 | HHI.PR ---
Subjective Remarks Follow-up CHF, A. fib with RVR. Patient denies chest pain, dyspnea. Still coughing. Feels that her lungs are congested. Has not been out of bed yet this morning. Objective Vitals Vital Signs Date Time Temp Pulse Resp B/P Pulse Ox O2 Delivery O2 Flow Rate FiO2 10/28/16 08:09 94 Nasal Cannula 3.00 10/28/16 03:07 97.0 67 16 99/59 96 10/28/16 00:11 96.8 71 20 100/48 94 10/27/16 21:49 97.7 78 18 108/57 95 10/27/16 20:00 72 10/27/16 20:00 72 10/27/16 19:17 95 Nasal Cannula 2.00 10/27/16 17:28 69 10/27/16 16:00 97.8 71 22 89/50 94 10/27/16 12:00 97.2 67 18 135/68 95 10/27/16 10:45 61 105/60 10/27/16 10:23 94 95/64 10/27/16 10:23 128 89/66 10/27/16 09:02 96 Nasal Cannula 3.00 I/O 10/27/16 10/27/16 10/27/16 10/28/16 10/28/16 10/28/16 07:00 15:00 23:00 07:00 15:00 23:00 Intake Total 360 ml 525 ml Output Total 650 ml 400 ml 500 ml Balance 360 ml -125 ml -400 ml -500 ml Intake Oral 360 ml 525 ml Output Urine Total 650 ml 400 ml 500 ml # Voids 3 # Bowel Movements 1 0 0 Result Diagram: 10/28/16 0613 10/28/16 0613 Imaging Last Impressions Chest X-Ray 10/25/16 1231 Signed Impressions: Service Date/Time: Tuesday, October 25, 2016 13:00 - CONCLUSION: 1. Subtle ill-defined opacities in the lower lobes bilaterally which are likely artifactual. However, developing airspace disease cannot be entirely excluded. 2. Chronic diffuse interstitial lung disease. Nelson العراقي MD Objective Remarks General: Thin elderly female in no acute distress. Heart: Irregular rhythm. Lungs: Scattered rhonchi. Breathing is nonlabored. Abdomen: Soft, nontender, nondistended. Extremities: No lower extremity edema. Psych: Alert and oriented. Procedures None Urinary Catheter: No Vascular Central Line Catheter: No A/P Problem List: (1) Atrial fibrillation ICD Code: I48.91 Status: Chronic (2) COPD (chronic obstructive pulmonary disease) ICD Code: J44.9 Status: Chronic (3) HTN (hypertension) ICD Code: I10 Status: Chronic (4) Dyspnea ICD Code: R06.00 Status: Acute (5) Atrial fibrillation with RVR ICD Code: I48.91 Status: Acute Assessment and Plan 1. Dyspnea: Likely multifactorial secondary to COPD, probable CHF. BNP is elevated. Continue diuresis. 2-D echocardiogram shows ejection fraction 35-40%. Continue supplemental oxygen, bronchodilators, prednisone. Appreciate cardiology recommendations. 2. Paroxysmal atrial fibrillation: Continue Xarelto, beta erich. 3. GI prophylaxis: PPI. 4. DVT prophylaxis: Xarelto. 5. Atrial fibrillation with RVR: Rate is controlled. IV Cardizem discontinued. Started on oral Cardizem by cardiology. Metoprolol dose decreased. Discharge Planning Plan for discharge home when cleared by cardiology. Mervin Senior MD Oct 28, 2016 08:40
[2016-10-28] MEDS: DILTIAZEM-CD 120 MG CAP ER PO SCH ×2 (08:56→21:04)
[2016-10-28] MEDS: HYDROXYCHLOROQUINE SULFATE 200 MG TAB PO SCH ×2 (08:56→21:04)
[2016-10-28] MEDS: POTASSIUM CHLORIDE 20 MEQ CONTROLLED RELEASE TAB PO SCH ×2 (08:56→21:04)
[2016-10-28] MEDS: MAGNESIUM OXIDE 400 MG TAB PO SCH ×2 (08:57→21:04)
[2016-10-28] MEDS: RIVAROXABAN 15 MG TAB PO SCH (08:57)
[2016-10-28] MEDS: PANTOPRAZOLE SOD 20 MG DELAYED RELEASE TAB PO SCH (08:57)
[2016-10-28] MEDS: predniSONE 20 MG TAB PO SCH (08:57)
[2016-10-28] MEDS: ALLOPURINOL 100 MG TAB PO SCH (08:57)
[2016-10-28] MEDS: FERROUS SULFATE 325 MG (65 MG ELEMENTAL IRON) TAB PO SCH ×2 (08:57→21:05)
[2016-10-28] MEDS: LACTOBACILLUS ACIDOPHILUS TAB PO SCH (08:57)
[2016-10-28] MEDS: DOCUSATE SODIUM 50 MG/SENNA 8.6 MG TAB PO SCH ×2 (08:58→21:00)
[2016-10-28] MEDS: FUROSEMIDE 40 MG/4 ML VIAL IVP SCH ×2 (08:59→17:21)
[2016-10-28] MEDS ORDERED: METOPROLOL TARTRATE 25 MG TAB PO ONE (09:00)
[2016-10-28] MEDS: SODIUM CHLORIDE 0.9% FLUSH 10 ML FLUSH IV FLUSH SCH ×2 (09:03→21:00)
--- NOTE | 2016-10-28 09:20 | RADHPO ---
EXAM DATE/TIME: 10/28/2016 09:04 [facility] COMPARISON: CHEST SINGLE AP, March 28, 2015, 9:19. CHEST SINGLE AP, October 25, 2016, 13:00. INDICATIONS : Cough, short of breath MEDICAL HISTORY : Chronic obstructive pulmonary disease. SURGICAL HISTORY : None. ENCOUNTER: Subsequent ACUITY: 1 month PAIN SCORE: 0/10 LOCATION: Bilateral chest FINDINGS: Portable AP view of the chest demonstrates a normal-sized cardiac silhouette calcification of the aor ta. There is stable reticular interstitial prominence bilaterally relatively diffusely involving the lungs. There is stable slight blunting of the costophrenic sulci bilaterally. Bones and soft tissues demonstrate no acute finding. CONCLUSION: Chronic interstitial changes remain present bilaterally. No airspace consolidation is seen. Lexx Blair MD on October 28, 2016 at 9:15 Board Certified Radiologist. This report was verified electronically.
--- NOTE | 2016-10-28 15:41 | PD.CARD.PN ---
Subjective Subjective Remarks c/o cough Objective Medications Current Medications Medications (Trade) Dose Ordered Sig/Jenifer Route Start Time Stop Time Status Last Admin (NS Flush) 2 ml UNSCH PRN IV FLUSH 10/25/16 13:45 (NS Flush) 2 ml BID IV FLUSH 10/25/16 21:00 10/28/16 09:03 (Tylenol) 650 mg Q4H PRN PO 10/25/16 13:45 (Zofran Inj) 4 mg Q6H PRN IVP 10/25/16 13:45 (Narcan Inj) 0.4 mg UNSCH PRN IV 10/25/16 13:45 (Venita-Colace) 1 tab BID PO 10/25/16 21:00 10/27/16 23:06 (Milk Of Magnesia Liq) 30 ml Q12H PRN PO 10/25/16 13:45 (Senokot) 17.2 mg Q12H PRN PO 10/25/16 13:45 (Dulcolax Supp) 10 mg DAILY PRN RECTAL 10/25/16 13:45 (Lactulose Liq) 30 ml DAILY PRN PO 10/25/16 13:45 (Lasix Inj) 40 mg BID@09,18 IVP 10/25/16 18:00 10/28/16 08:59 (KCl) 20 meq BID PO 10/25/16 21:00 10/28/16 08:56 (Tessalon) 100 mg TID PRN PO 10/25/16 17:30 (Deltasone) 20 mg DAILY PO 10/25/16 17:30 10/28/16 08:57 (Zyloprim) 100 mg DAILY PO 10/26/16 09:00 10/28/16 08:57 (Plaquenil) 200 mg BID PO 10/25/16 21:00 10/28/16 08:56 (Lactinex) 1 tab DAILY PO 10/26/16 09:00 10/28/16 08:57 (Mag-Ox) 400 mg BID PO 10/25/16 21:00 10/28/16 08:57 (Protonix) 20 mg DAILY PO 10/26/16 09:00 10/28/16 08:57 (Ultram) 50 mg Q8H PRN PO 10/25/16 17:30 (Ferrous Sulfate) 325 mg BID PO 10/25/16 21:00 10/28/16 08:57 (Cardizem Cd) 120 mg BID PO 10/27/16 21:00 10/28/16 08:56 (Xarelto) 15 mg DAILY PO 10/28/16 09:00 10/28/16 08:57 (Lopressor) 25 mg Q12HR PO 10/28/16 09:00 10/27/16 23:07 Vital Signs / I&O Vital Signs Date Time Temp Pulse Resp B/P Pulse Ox O2 Delivery O2 Flow Rate FiO2 10/28/16 12:00 96.6 68 20 104/57 95 10/28/16 08:09 94 Nasal Cannula 3.00 10/28/16 08:00 97.3 62 18 114/61 84 10/28/16 06:15 60 10/28/16 03:07 97.0 67 16 99/59 96 10/28/16 00:11 96.8 71 20 100/48 94 10/27/16 21:49 97.7 78 18 108/57 95 10/27/16 20:00 72 10/27/16 20:00 72 10/27/16 19:17 95 Nasal Cannula 2.00 10/27/16 17:28 69 10/27/16 16:00 97.8 71 22 89/50 94 I/O 10/27/16 10/27/16 10/27/16 10/28/16 10/28/16 10/28/16 07:00 15:00 23:00 07:00 15:00 23:00 Intake Total 360 ml 525 ml 540 ml Output Total 650 ml 400 ml 500 ml Balance 360 ml -125 ml -400 ml -500 ml 540 ml Intake Oral 360 ml 525 ml 540 ml Output Urine Total 650 ml 400 ml 500 ml # Voids 3 5 # Bowel Movements 1 0 0 Physical Exam GENERAL: Well developed, well nourished. No acute distress. HEENT: Jugular venous pressure is normal. CHEST: Lungs decreased, clear to auscultation bilaterally. Unlabored respiratory effort. CARDIAC: irregular rate and rhythm without S3, S4, or murmur. ABDOMEN: Soft, nontender, no hepatosplenomegaly. Bowel sounds present. EXTREMITIES: No clubbing, cyanosis, or edema. Laboratory Laboratory Tests Test 10/28/16 06:13 White Blood Count 14.7 TH/MM3 Red Blood Count 4.06 MIL/MM3 Hemoglobin 10.8 GM/DL Hematocrit 33.2 % Mean Corpuscular Volume 81.7 FL Mean Corpuscular Hemoglobin 26.5 PG Mean Corpuscular Hemoglobin 32.5 % Concent Red Cell Distribution Width 14.5 % Platelet Count 408 TH/MM3 Mean Platelet Volume 7.8 FL Neutrophils (%) (Auto) 75.7 % Lymphocytes (%) (Auto) 14.7 % Monocytes (%) (Auto) 8.3 % Eosinophils (%) (Auto) 0.8 % Basophils (%) (Auto) 0.5 % Neutrophils # (Auto) 11.1 TH/MM3 Lymphocytes # (Auto) 2.2 TH/MM3 Monocytes # (Auto) 1.2 TH/MM3 Eosinophils # (Auto) 0.1 TH/MM3 Basophils # (Auto) 0.1 TH/MM3 CBC Comment DIFF FINAL Differential Comment Sodium Level 138 MEQ/L Potassium Level 3.9 MEQ/L Chloride Level 97 MEQ/L Carbon Dioxide Level 34.4 MEQ/L Anion Gap 7 MEQ/L Blood Urea Nitrogen 19 MG/DL Creatinine 0.83 MG/DL Estimat Glomerular Filtration 66 ML/MIN Rate Random Glucose 86 MG/DL Calcium Level 9.3 MG/DL Assessment and Plan Assessment and Plan AF- good rate control; continue metoprolol COPD- pt report 3 lpm at home is baseline -per primary Dispo- ok for D/C from CV perspective Esther Mays MD Oct 28, 2016 15:41
[2016-10-28] MEDS: METOPROLOL TARTRATE 25 MG TAB PO SCH (21:05)
[2016-10-29 00:06] VITALS: BP 109/63; PULSE 73; RESP 16; TEMP 96.8; O2SAT 94
[2016-10-29 04:17] VITALS: BP 105/63; PULSE 58; RESP 16; TEMP 96.8; O2SAT 95
[2016-10-29 06:59] VITALS: PULSE 63
[2016-10-29 07:24] LABS: AUTOMATED NEUTROPHIL # 10.1 TH/MM3 (1.8-7.7); BASOPHIL % 0.2 % (0.0-2.0); EOSINOPHIL % 0.1 % (0.0-4.0); HEMATOCRIT 34.6 % (35.0-46.0); HEMO FLAGS DIFF FINAL; LYMPH % 15.5 % (9.0-44.0); LYMPHOCYTE # 2.1 TH/MM3 (1.0-4.8); MEAN CELL VOLUME 81.5 FL (80.0-100.0); MEAN CORPUSCULAR HEMOGLOBIN 26.8 PG (27.0-34.0); MEAN CORPUSCULAR HGB CONC 32.8 % (32.0-36.0); MONO % 9.9 % (0.0-8.0); NEUT % 74.3 % (16.0-70.0); PLATELET COUNT 429 TH/MM3 (150-450); RED BLOOD COUNT 4.25 MIL/MM3 (4.00-5.30); RED CELL DISTRIBUTION WIDTH 15.1 % (11.6-17.2); WHITE BLOOD COUNT 13.6 TH/MM3 (4.0-11.0)
[2016-10-29 07:34] LABS: POTASSIUM 4.1 MEQ/L (3.5-5.1)
[2016-10-29 07:38] LABS: BICARBONATE 36.3 MEQ/L (21.0-32.0)
[2016-10-29 08:00] VITALS: BP 120/63; PULSE 59; RESP 20; TEMP 96.2; O2SAT 95
[2016-10-29] MEDS: RESP: ALBUTEROL 2.5 MG/IPRATROPIUM 0.5 MG NEB (SCH) NEB ×2 (08:39→12:28)
[2016-10-29 08:40] VITALS: O2SAT 96
[2016-10-29] MEDS: DOCUSATE SODIUM 50 MG/SENNA 8.6 MG TAB PO SCH (09:00)
[2016-10-29] MEDS: LACTOBACILLUS ACIDOPHILUS TAB PO SCH (09:02)
[2016-10-29] MEDS: ALLOPURINOL 100 MG TAB PO SCH (09:02)
[2016-10-29] MEDS: FERROUS SULFATE 325 MG (65 MG ELEMENTAL IRON) TAB PO SCH (09:02)
[2016-10-29] MEDS: RIVAROXABAN 15 MG TAB PO SCH (09:02)
[2016-10-29] MEDS: MAGNESIUM OXIDE 400 MG TAB PO SCH (09:02)
[2016-10-29] MEDS: POTASSIUM CHLORIDE 20 MEQ CONTROLLED RELEASE TAB PO SCH (09:02)
[2016-10-29] MEDS: PANTOPRAZOLE SOD 20 MG DELAYED RELEASE TAB PO SCH (09:02)
[2016-10-29] MEDS: predniSONE 20 MG TAB PO SCH (09:02)
[2016-10-29] MEDS: DILTIAZEM-CD 120 MG CAP ER PO SCH (09:03)
[2016-10-29] MEDS: HYDROXYCHLOROQUINE SULFATE 200 MG TAB PO SCH (09:03)
[2016-10-29] MEDS: METOPROLOL TARTRATE 25 MG TAB PO SCH (09:03)
[2016-10-29] MEDS: SODIUM CHLORIDE 0.9% FLUSH 10 ML FLUSH IV FLUSH SCH (09:03)
[2016-10-29] MEDS: FUROSEMIDE 40 MG/4 ML VIAL IVP SCH (09:03)
[2016-10-29] MEDS ORDERED: XARE15TA PO (09:29)
[2016-10-29] MEDS ORDERED: PRED5PAK PO (09:29)
[2016-10-29] MEDS ORDERED: POTA20TA5 PO (09:29)
[2016-10-29] MEDS ORDERED: BENZ100 PO (09:29)
[2016-10-29] MEDS ORDERED: CARD120C4 PO (09:29)
--- NOTE | 2016-10-29 09:29 | HHI.DCPOC ---
Discharge Care Plan Diagnosis: (1) Atrial fibrillation with RVR (2) Atrial fibrillation (3) HTN (hypertension) (4) Dyspnea (5) COPD (chronic obstructive pulmonary disease) (6) CHF exacerbation Goals to Promote Your Health * To prevent worsening of your condition and complications * To maintain your health at the optimal level Directions to Meet Your Goals Take your medications as prescribed Follow your dietary instruction Follow activity as directed Keep your appointments as scheduled Take your immunizations and boosters as scheduled If your symptoms worsen call your PCP, if no PCP go to Urgent Care Center or Emergency Room Smoking is Dangerous to Your Health. Avoid second hand smoke Call the 24-hour hour crisis hotline for domestic abuse at Mervin Senior MD Oct 29, 2016 09:29
--- NOTE | 2016-10-29 09:34 | HHI.DS ---
Discharge Summary Admission Date Oct 25, 2016 at 13:50 Discharge Date: Oct 29, 2016 Admitting Diagnosis new onset CHF (1) Atrial fibrillation ICD Code: I48.91 (2) COPD (chronic obstructive pulmonary disease) ICD Code: J44.9 (3) HTN (hypertension) ICD Code: I10 (4) Dyspnea ICD Code: R06.00 (5) Atrial fibrillation with RVR ICD Code: I48.91 Procedures None Brief History - From Admission The patient is an 81-year-old female with history of COPD. She presents to emergency department with complaint of worsening shortness of breath over the last few days. She denies chest pain. She reports significant cough that is occasionally productive. No fevers, but she does report chills. Denies nausea or vomiting. She has been seeing Dr. Esposito for pulmonology. CBC/BMP: 10/29/16 0645 10/29/16 0645 Significant Findings Laboratory Tests Test 10/27/16 10/28/16 10/29/16 11:00 06:13 06:45 Chloride Level 96 MEQ/L 97 MEQ/L 96 MEQ/L (98-107) (98-107) (98-107) Carbon Dioxide Level 34.7 MEQ/L 34.4 MEQ/L 36.3 MEQ/L (21.0-32.0) (21.0-32.0) (21.0-32.0) Blood Urea Nitrogen 19 MG/DL (7-18) 19 MG/DL (7-18) 26 MG/DL (7-18) Estimat Glomerular Filtration 66 ML/MIN (>89) 66 ML/MIN (>89) 59 ML/MIN (>89) Rate White Blood Count 14.7 TH/MM3 13.6 TH/MM3 (4.0-11.0) (4.0-11.0) Hemoglobin 10.8 GM/DL 11.4 GM/DL (11.6-15.3) (11.6-15.3) Hematocrit 33.2 % 34.6 % (35.0-46.0) (35.0-46.0) Mean Corpuscular Hemoglobin 26.5 PG 26.8 PG (27.0-34.0) (27.0-34.0) Neutrophils (%) (Auto) 75.7 % 74.3 % (16.0-70.0) (16.0-70.0) Monocytes (%) (Auto) 8.3 % (0.0-8.0) 9.9 % (0.0-8.0) Neutrophils # (Auto) 11.1 TH/MM3 10.1 TH/MM3 (1.8-7.7) (1.8-7.7) Monocytes # (Auto) 1.2 TH/MM3 1.4 TH/MM3 (0-0.9) (0-0.9) Imaging Last Impressions Chest X-Ray 10/28/16 0000 Signed Impressions: Service Date/Time: Sunday, October 28, 2016 09:04 - CONCLUSION: Chronic interstitial changes remain present bilaterally. No airspace consolidation is seen. Lexx Blair MD PE at Discharge General: Thin elderly female in no acute distress. Heart: Irregular rhythm. Lungs: Mild scattered rhonchi. Breathing is nonlabored. Abdomen: Soft, nontender, nondistended. Extremities: No lower extremity edema. Psych: Alert and oriented. Pt update on day of discharge The patient states that she feels much better today. Cough is improved with benzonatate. States that her breathing is at her baseline. Denies chest pain. She wants to go home. Hospital Course The patient was admitted for treatment of dyspnea, felt to be multifactorial secondary to COPD and probable CHF. She was continued on diuretics, steroids, bronchodilators. She developed atrial fibrillation with RVR. She was started on a Cardizem drip and then transitioned to oral Cardizem. Cardiology was consulted. The patient's rate was controlled on oral medications. She was cleared for discharge by cardiology. Cough improved. She was felt to be stable for discharge home. She is chronically on 3 L of oxygen continuously at home. Pt Condition on Discharge: Stable Discharge Disposition: Discharge Home Discharge Time: > 30 minutes Discharge Instructions DIET: Follow Instructions for: Heart Healthy Diet Activities you can perform: Regular-No Restrictions Follow up Referrals: Cardiology - 1 Week with Esther Mays MD PCP Follow-up - [address] Apple New Medications: Prednisone (21) 5 mg tab Dose Pack (Prednisone (21) 5 mg tab Dose Pack) 5 Mg Dspk 5 MG PO DIRECTED Inflammation #1 Ref 0 DSPK Benzonatate (Tessalon Perles) 100 Mg Cap 100 MG PO TID PRN COUGH #30 Ref 0 CAP Diltiazem CD 24 HR (Cardizem CD 24 HR) 120 Mg Caper 120 MG PO BID A-fib #60 Ref 0 CAP Potassium Chloride Microencaps (Potassium Chloride Microencaps) 20 Meq Tab 20 MEQ PO DAILY Nutritional Supplement #30 Ref 0 TAB Rivaroxaban (Xarelto) 15 Mg Tab 15 MG PO DAILY Blood Clot Prevention #30 Ref 0 TAB Continued Medications: Albuterol 8.5 GM Inh (Proair Hfa 8.5 GM Inh) 90 Mcg/Act Aer 2 PUFF INH Q4-6H 108 mcg/actuation PRN SHORTNESS OF BREATH #1 Ref 0 INHALER Alendronate (Fosamax) 70 Mg Tab 70 MG PO Q7D Osteoporosis Treatment #4 Ref 0 TAB Allopurinol (Allopurinol) 100 Mg Tab 100 MG PO DAILY Gout #30 Ref 0 TAB Calcium Carbonate-Cholecalciferol (Calcium 1000 + D) 1,000-800 Mg-Unit Tab 1 TAB PO TAB Docusate Sodium (Docusate Sodium) 100 Mg Tab 100 MG PO DIRECTED TAB Ferrous Sulfate DR (Ferrous Sulfate DR) 324 Mg Tabdr 65 MG PO BID Nutritional Supplement #30 Ref 0 TAB Furosemide (Lasix) 40 Mg Tab 40 MG PO DAILY #30 Ref 0 TAB Hydroxychloroquine (Hydroxychloroquine) 200 Mg Tab 200 MG PO BID Takw with food #60 Ref 0 TAB Ipratropium Neb (Ipratropium Neb) 0.5 Mg/2.5 Ml Amp 0.5 MG NEB Q6HR NEB PRN SHORTNESS OF BREATH #120 Ref 0 NEBULE Lactobacillus Acidophilus (Probiotic) 1 Cap Cap 1 CAP PO DAILY Nutritional Supplement #90 Ref 0 CAP Magnesium Oxide (Magnesium) 400 Mg Tablet 1 TAB PO BID Pantoprazole (Protonix) 20 Mg Tab 20 MG PO DAILY Reflux #30 Ref 0 TAB Potassium Chloride ER (Potassium Chloride ER) 10 Meq Tab 10 MEQ PO DAILY Electrolyte Replacement #30 Ref 0 TAB Tramadol (Tramadol) 50 Mg Tab 50 MG PO Q8H PRN PAIN Ref 0 TAB Discontinued Medications: Metoprolol Tartrate (Metoprolol Tartrate) 50 Mg Tab 50 MG PO Q6HR #60 Ref 0 TAB Rivaroxaban (Xarelto) 20 Mg Tab 20 MG PO DAILY Blood Clot Prevention Ref 0 TAB Mervin Senior MD Oct 29, 2016 09:34
[2016-10-29] MEDS ORDERED: METO25TA3 PO (10:17)
[2016-10-29 12:00] VITALS: BP 123/60; PULSE 52; RESP 20; TEMP 96.2; O2SAT 98
--- NOTE | 2016-11-09 11:19 | PQ ---
Physician Query Response Document PATIENT: LYNN PARNELL : 1935 ADMIT DATE: 10/25/2016 1:50 PM DISCH DATE: 10/29/2016 1:11 PM RESPONDING PROVIDER #: [email or web address] QUERY TEXT: CHF Acuity and Type Congestive Heart Failure is documented in the Medical Record. Please document the type and acuity (in cludes probable or suspected) Such as: Type: -- Systolic -- Diastolic -- Combined -- Other, please specify Acuity: -- Acute -- Chronic -- Acute on chronic -- Other, please specify Also please document the underlying cause of the CHF (includes probable or suspected) The patient's Clinical Indicators include: Dr. SENIOR, this patient has ED documentation of NEW ONSET CHF. Also documentation of probable CH F. CHF Exacerbation Patients BNP on admission was 1079 Patient's echo showed 35-40% EF on 10-26-16 please review the question below and answer to the best of your ability THANK YOU Query created by: Yvan Barrera on 11/01/2016 5:44 AM RESPONSE TEXT: Patient has acute systolic CHF. Electronically signed by: Mervin Senior MD 11/09/2016 11:14 AM
== END 2016-10-29 13:11 | disposition home or self-care (01) | DRG 291 ==
LOC: PHED 12:06 → PHEDA 13:50 → PH3B 15:45
PROVIDERS: ADMIT Family Medicine; ATTEND Family Medicine
DX: I13.0 Hypertensive heart and chronic kidney disease with heart failure and stage 1 through stage 4 chronic kidney disease, or unspecified chronic kidney disease (principal); I50.21 Acute systolic (congestive) heart failure; J44.1 Chronic obstructive pulmonary disease with (acute) exacerbation; Z99.81 Dependence on supplemental oxygen; I48.0 Paroxysmal atrial fibrillation; N18.3 Chronic kidney disease, stage 3 (moderate); M06.9 Rheumatoid arthritis, unspecified; Z79.01 Long term (current) use of anticoagulants; I73.9 Peripheral vascular disease, unspecified; Z86.73 Personal history of transient ischemic attack (TIA), and cerebral infarction without residual deficits; K21.9 Gastro-esophageal reflux disease without esophagitis; M10.9 Gout, unspecified; M19.90 Unspecified osteoarthritis, unspecified site; Z87.891 Personal history of nicotine dependence; R62.7 Adult failure to thrive; R63.4 Abnormal weight loss
CPT/HCPCS: 71010; 80048; 80053; 82550; 83735; 83880; 84484; 85025; 85610; 85730; 93005; 93306; 94640; 94664; J1644; J1940; J7512

== ENCOUNTER 2016-12-19 11:10 | Observation (INO) | payer MEDICARE, OTHER ==
[2016-12-19] VITALS (14 sets, daily range): BP systolic 84–153; BP diastolic 39–60; PULSE 79–95; RESP 18–24; TEMP 97.6–98.8; O2SAT 93–97
[~2016-12-19] VITALS: Ht 149.9 cm; Wt 44.1 kg
[~2016-12-19 11:10] MED LIST changes: -ALBU1AER INH; +ALBUAER3 INH; -ALLO100 PO; +ALLO100T PO; +BENZ100 PO; -CALC600T10 PO; +CALCTAB80 PO; +CARD120C4 PO; +DOCU100T9 PO; -DOCU1CAP39 PO; -DUONI NEB; +FURO1TAB60 PO; -FURO1TAB93 PO; +HYDR200T3 PO; +IPRA0.02 NEB; +LACTCAP8 PO; -MAGN250T9 PO; +MAGN400T24 PO; +METO25TA3 PO; -METO50TA PO; -METR-1 PO; +POTA20TA5 PO; +PRED5PAK PO; -RIVA20 PO; +XARE15TA PO; -Z.0.OXYGEN INH
--- NOTE | 2016-12-19 11:25 | PD ---
HPI Chief Complaint: Respiratory Symptoms Time Seen by Provider: 11:15 Travel History International Travel<30 days: No Contact w/Intl Traveler<30days: No Traveled to known affect area: No History of Present Illness HPI C/O RUNNY NOSE, PROD COUGH (GREYISH SPUTUM), AND SOB, WHEEZY IN NATURE SINCE TODAY THIS AM.........WEARS 3-4L NC OXYGEN AT HOME REGULARLY PFSH Past Medical History Hx Anticoagulant Therapy: Yes Arthritis: Yes (RA) Asthma: Yes Atrial Fibrillation: Yes Autoimmune Disease: No Heart Rhythm Problems: Yes (afib) Cancer: No Cardiovascular Problems: Yes (PVD) High Cholesterol: No Chest Pain: No Congestive Heart Failure: No COPD: Yes Cerebrovascular Accident: Yes (TIA) Diabetes: No Diminished Hearing: No Endocrine: No Gastrointestinal Disorders: Yes (rectal prolapse, diverticulitis) GERD: Yes Gout: Yes Genitourinary: No Hepatitis: No Hiatal Hernia: No Hypertension: Yes Immune Disorder: No Kidney Stones: No Musculoskeletal: No Neurologic: No Psychiatric: No Reproductive: Yes (3mm nodule r lung) Respiratory: Yes Migraines: No Renal Failure: No Seizures: No Sleep Apnea: No Thyroid Disease: No Ulcer: Yes Past Surgical History Abdominal Surgery: No AICD: No Cardiac Surgery: No Ear Surgery: No Endocrine Surgery: No Eye Surgery: Yes (Cataracts) Genitourinary Surgery: No Hysterectomy: Yes Joint Replacement: No Oral Surgery: No Pacemaker: No Thoracic Surgery: No Other Surgery: Yes Social History Alcohol Use: No Tobacco Use: No Substance Use: No Allergies-Medications (Allergen,Severity, Reaction): Coded Allergies: No Known Allergies (Unverified , 10/25/16) Reported Meds & Prescriptions Reported Meds & Active Scripts Active Metoprolol Tartrate 25 Mg Tab 25 Mg PO BID Xarelto (Rivaroxaban) 15 Mg Tab 15 Mg PO DAILY Potassium Chloride Microencaps 20 Meq Tab 20 Meq PO DAILY Cardizem CD 24 HR (Diltiazem CD 24 HR) 120 Mg Caper 120 Mg PO BID Reported Losartan (Losartan Potassium) 25 Mg Tab 25 Mg PO HS Probiotic (Lactobacillus Acidophilus) 1 Cap Cap 1 Cap PO DAILY Calcium 1000 + D (Calcium Carbonate-Cholecalciferol) 1,000-800 Mg-Unit Tab 1 Tab PO Docusate Sodium 100 Mg Tab 100 Mg PO DIRECTED Ipratropium Neb (Ipratropium [place]arners) 0.5 Mg/2.5 Ml Amp 0.5 Mg NEB Q6HR NEB PRN Tramadol (Tramadol HCl) 50 Mg Tab 50 Mg PO Q8H PRN Fosamax (Alendronate Sodium) 70 Mg Tab 70 Mg PO Q7D Proair Hfa 8.5 GM Inh (Albuterol Sulfate) 90 Mcg/Act Aer 2 Puff INH Q4-6H PRN 108 mcg/actuation Ferrous Sulfate DR (Ferrous Sulfate) 324 Mg Tabdr 65 Mg PO BID Magnesium (Magnesium Oxide) 400 Mg Tablet 1 Tab PO BID Hydroxychloroquine (Hydroxychloroquine Sulfate) 200 Mg Tab 200 Mg PO BID Takw with food Protonix (Pantoprazole Sodium) 20 Mg Tab 20 Mg PO DAILY Allopurinol 100 Mg Tab 100 Mg PO DAILY Lasix (Furosemide) 40 Mg Tab 40 Mg PO BID Review of Systems Except as stated in HPI: all other systems reviewed are Neg HENT: Positive: Rhinorrhea Respiratory: Positive: Cough, Shortness of Breath, Wheezing Physical Exam Narrative GENERAL: SKIN: Warm and dry. HEAD: Atraumatic. Normocephalic. EYES: Pupils equal and round. No scleral icterus. No injection or drainage. ENT: No nasal bleeding or discharge. Mucous membranes pink and moist. NECK: Trachea midline. No JVD. CARDIOVASCULAR: Regular rate and rhythm. RESPIRATORY: NO STRIDOR, BUT WHEEZING PRESENT DIFFUSELY, TACHYPNEIC, DECREASED TV GASTROINTESTINAL: Abdomen soft, non-tender, nondistended. Hepatic and splenic margins not palpable. MUSCULOSKELETAL: Extremities without clubbing, cyanosis, or edema. No obvious deformities. NEUROLOGICAL: Awake and alert. No obvious cranial nerve deficits. Motor grossly within normal limits. Five out of 5 muscle strength in the arms and legs. Normal speech. PSYCHIATRIC: Appropriate mood and affect; insight and judgment normal. Data Data Last Documented VS Vital Signs Date Time Temp Pulse Resp B/P Pulse Ox O2 Delivery O2 Flow Rate FiO2 12/19/16 12:30 79 20 111/58 96 Nasal Cannula 3 12/19/16 11:10 97.6 Orders Complete Blood Count With Diff (12/19/16 11:18) Comprehensive Metabolic Panel (12/19/16 11:18) B-Type Natriuretic Peptide (12/19/16 11:18) D-Dimer (12/19/16 11:18) Act Partial Throm Time (Ptt) (12/19/16 11:18) Prothrombin Time / Inr (Pt) (12/19/16 11:18) Troponin I (12/19/16 11:18) Influenzae A/B Antigen (12/19/16 11:18) Iv Access Insert/Monitor (12/19/16 11:18) Electrocardiogram (12/19/16 11:18) Ecg Monitoring (12/19/16 11:18) Oximetry (12/19/16 11:18) Oxygen Administration (12/19/16 11:18) Chest, Single Ap (12/19/16 11:18) Sodium Chloride 0.9% Flush (Ns Flush) (12/19/16 11:30) Methylprednisolone So Succ Inj (Solumedr (12/19/16 11:30) Albuterol Neb (Albuterol Neb) (12/19/16 11:30) Ct Pulmonary Angiogram (12/19/16 12:13) Ceftriaxone Inj (Rocephin Inj) (12/19/16 12:15) Azithromycin Inj (Zithromax Inj) (12/19/16 12:15) Iohexol 350 Inj (Omnipaque 350 Inj) (12/19/16 13:31) Place In Observation (12/19/16 ) Vital Signs (Adult) Q4H (12/19/16 14:06) Diet Heart Healthy (12/19/16 Dinner) Sodium Chloride 0.9% Flush (Ns Flush) (12/19/16 21:00) Sodium Chloride 0.9% Flush (Ns Flush) (12/19/16 14:15) Albuterol-Ipratropium Neb (Duoneb Neb) (12/19/16 20:00) Albuterol Neb (Albuterol Neb) (12/19/16 15:00) Methylprednisolone So Succ Inj (Solumedr (12/19/16 18:00) Sputum Culture And Gram Stain (12/19/16 14:09) Sputum Culture And Gram Stain (12/19/16 14:06) Arterial Blood Gas (Abg) (12/19/16 ) Resp Oxygen Bi C Titrat 1-4 L (12/19/16 ) Enoxaparin Inj (Lovenox Inj) (12/19/16 15:00) Admit Order (Ed Use Only) (12/19/16 14:10) Azithromycin (Zithromax) (12/20/16 13:00) Ceftriaxone Inj (Rocephin Inj) (12/20/16 14:00) Labs Laboratory Tests Test 12/19/16 11:30 White Blood Count 15.2 TH/MM3 Red Blood Count 4.30 MIL/MM3 Hemoglobin 11.7 GM/DL Hematocrit 35.8 % Mean Corpuscular Volume 83.2 FL Mean Corpuscular Hemoglobin 27.2 PG Mean Corpuscular Hemoglobin 32.7 % Concent Red Cell Distribution Width 15.4 % Platelet Count 428 TH/MM3 Mean Platelet Volume 7.9 FL Neutrophils (%) (Auto) 75.8 % Lymphocytes (%) (Auto) 12.8 % Monocytes (%) (Auto) 8.8 % Eosinophils (%) (Auto) 2.0 % Basophils (%) (Auto) 0.6 % Neutrophils # (Auto) 11.6 TH/MM3 Lymphocytes # (Auto) 1.9 TH/MM3 Monocytes # (Auto) 1.3 TH/MM3 Eosinophils # (Auto) 0.3 TH/MM3 Basophils # (Auto) 0.1 TH/MM3 CBC Comment DIFF FINAL Differential Comment Prothrombin Time 15.6 SEC Prothromb Time International 1.4 RATIO Ratio Activated Partial 41.0 SEC Thromboplast Time D-Dimer Quantitative (PE/DVT) 0.89 MG/L FEU Sodium Level 138 MEQ/L Potassium Level 4.1 MEQ/L Chloride Level 99 MEQ/L Carbon Dioxide Level 32.7 MEQ/L Anion Gap 6 MEQ/L Blood Urea Nitrogen 15 MG/DL Creatinine 1.00 MG/DL Estimat Glomerular Filtration 53 ML/MIN Rate Random Glucose 107 MG/DL Calcium Level 9.5 MG/DL Total Bilirubin 0.5 MG/DL Aspartate Amino Transf 23 U/L (AST/SGOT) Alanine Aminotransferase 21 U/L (ALT/SGPT) Alkaline Phosphatase 214 U/L Troponin I LESS THAN 0.02 NG/ML B-Type Natriuretic Peptide 99 PG/ML Total Protein 7.9 GM/DL Albumin 2.8 GM/DL MDM Medical Decision Making Medical Screen Exam Complete: Yes Emergency Medical Condition: Yes Medical Record Reviewed: Yes Interpretation(s) NSR 79, PMITRALE, NONSPEC STT CHANGES, NO STEMI PATTERN Differential Diagnosis FLU V PNA V COPD EXAC V CHF EXAC Narrative Course PATIENT EKG DID NOT SHOW MAJOR STEMI PATTERN, CXR DID NOT SHOW MAJOR PNA EITHER , AND WITH D DIMER ELEV WILL CT CHEST....CT CHEST NEG FOR PE BUT POSITIVE FOR HILAR LAD WHICH MAY BE DUE TO INFECTION NOT YET VISIBLE, PATIENT GIVEN IV ABX WELL HOURLONG NEBS, SOLUMEDROL AND SUPPLEMENTAL OXYGEN AFTER WHICH PATIENT FELT IMPROVED Diagnosis Primary Impression: COPD with acute exacerbation Additional Impressions: POSSIBLE PNA AFIB WITH CVR Admitting Information Admitting Physician Requests: Observation Scripts Prednisone 20 Mg Tab20 Mg PO DIRECTED #20 TAB Ref 0 40 MG twice a day x 3 days, then 20 MG daily x 3 days, then 10 MG daily x 3 days Prov:Leigh Ann Rod MD 12/20/16 Doxycycline Hyclate 100 Mg [id number] Mg PO BID #20 CAP Ref 0 Prov:Leigh Ann Rod MD 12/20/16 Paul Yeager MD Dec 19, 2016 11:24
[2016-12-19] MEDS ORDERED: methylPREDNISolone SOD SUCC 125 MG/2 ML VIAL IVP ONE (11:30)
[2016-12-19] MEDS ORDERED: SODIUM CHLORIDE 0.9% FLUSH 10 ML FLUSH IVF PRN (11:30)
[2016-12-19] MEDS: RESP: ALBUTEROL 2.5 MG/3 ML NEB (SCH) INH ×2 (11:35→11:37)
--- NOTE | 2016-12-19 11:42 | RADRPT ---
EXAM DATE/TIME: 12/19/2016 11:25 [facility] COMPARISON: CHEST SINGLE AP, October 28, 2016, 9:04. INDICATIONS : Short of breath. MEDICAL HISTORY : Chronic obstructive pulmonary disease. SURGICAL HISTORY : None. ENCOUNTER: Initial ACUITY: 1 day PAIN SCORE: 0/10 LOCATION: Bilateral chest FINDINGS: A single view of the chest demonstrates the lungs to be symmetrically aerated without evidence of mas s, infiltrate or effusion. There is hyperaeration of the lung chacko bilaterally. There is chronic b ilateral interstitial changes. The cardiomediastinal contours are unremarkable. Osseous structures a re intact. No significant changes compared to the prior study. CONCLUSION: Normal examination for a patient of this age. No significant change has occurred. Anastacio Morin MD on December 19, 2016 at 11:41 Board Certified Radiologist. This report was verified electronically.
[2016-12-19] MEDS ORDERED: LOSA25TA PO (11:44)
[2016-12-19 11:51] LABS: AUTOMATED NEUTROPHIL # 11.6 TH/MM3 (1.8-7.7); BASOPHIL # 0.1 TH/MM3 (0-0.2); BASOPHIL % 0.6 % (0.0-2.0); EOSINOPHIL # 0.3 TH/MM3 (0-0.4); HEMATOCRIT 35.8 % (35.0-46.0); LYMPH % 12.8 % (9.0-44.0); LYMPHOCYTE # 1.9 TH/MM3 (1.0-4.8); MEAN CELL VOLUME 83.2 FL (80.0-100.0); MEAN CORPUSCULAR HEMOGLOBIN 27.2 PG (27.0-34.0); MEAN CORPUSCULAR HGB CONC 32.7 % (32.0-36.0); MONO % 8.8 % (0.0-8.0); NEUT % 75.8 % (16.0-70.0); PLATELET COUNT 428 TH/MM3 (150-450); RED CELL DISTRIBUTION WIDTH 15.4 % (11.6-17.2); WHITE BLOOD COUNT 15.2 TH/MM3 (4.0-11.0)
[2016-12-19 11:56] LABS: HEMO FLAGS DIFF FINAL
[2016-12-19 12:00] LABS: CHLORIDE 99 MEQ/L (98-107); POTASSIUM 4.1 MEQ/L (3.5-5.1); SODIUM (NA) 138 MEQ/L (136-145)
[2016-12-19 12:05] LABS: ANION GAP 6 MEQ/L (5-15); BICARBONATE 32.7 MEQ/L (21.0-32.0); BLOOD UREA NITROGEN 15 MG/DL (7-18)
[2016-12-19 12:06] LABS: INTERNATIONAL NORMALIZED RATIO 1.4 RATIO; PROTHROMBIN TIME - PATIENT 15.6 SEC (9.8-11.6)
[2016-12-19 12:07] LABS: ALT (GPT) 21 U/L (10-53)
[2016-12-19 12:08] LABS: AST (GOT) 23 U/L (15-37); GLOMERULAR FILTRATION RATE 53 ML/MIN (>89)
[2016-12-19 12:09] LABS: TOTAL BILIRUBIN ADULT 0.5 MG/DL (0.2-1.0)
[2016-12-19 12:10] LABS: ALKALINE PHOSPHATASE 214 U/L (45-117)
[2016-12-19] MEDS ORDERED: cefTRIAXone INJ 1,000 MG in SODIUM CHLORIDE 0.9% INJ 100 ML IV ONE (12:15)
[2016-12-19] MEDS ORDERED: AZITHROMYCIN INJ 500 MG in SODIUM CHLOR 0.9% 250 ML INJ 250 ML IV ONE (12:15)
[2016-12-19] MEDS ORDERED: IOHEXOL 350 MG/ML 10 ML VIAL (for RAD DIAG) IV ONE (13:31)
--- NOTE | 2016-12-19 13:42 | RADRPT ---
EXAM DATE/TIME: 12/19/2016 13:22 [facility] COMPARISON: No previous studies available for comparison. INDICATIONS : Short of breath. Evaluate for embolism. IV CONTRAST: 65 cc Omnipaque 350 (iohexol) IV RADIATION DOSE: 6.91 CTDIvol (mGy) MEDICAL HISTORY : Hypertension. Chronic obstructive pulmonary disease. Gastroesophageal reflux disease.Anticoagulant th erapy. SURGICAL HISTORY : Hysterectomy. ENCOUNTER: Initial ACUITY: 1 day PAIN SCALE: 0/10 LOCATION: chest TECHNIQUE: Volumetric scanning of the chest was performed using a pulmonary embolism protocol MIP images were re constructed. Using automated exposure control and adjustment of the mA and/or kV according to patien t size, radiation dose was kept as low as reasonably achievable to obtain optimal diagnostic quality images. DICOM format image data is available electronically for review and comparison. Follow-up recommendations for incidentally detected pulmonary nodules are based at a minimum on nodul e size and patient risk factors according to Fleischner Society Guidelines. FINDINGS: PULMONARY ARTERIES: No filling defects are seen in the pulmonary arteries through the segmental level. LUNGS: There is moderate emphysematous change and patchy interstitial fibrosis. Moderate changes of bronchie ctasis are present primarily in the bases, right worse than left. There is no evidence of lobar conso lidation. PLEURAE: There is no pleural thickening or pleural effusion. MEDIASTINUM: There is bilateral poornima are martin enlargement and adenopathy in the central mediastinum, most signifi cantly in the AP window where a martin conglomerate measures greater than 2 cm in size. MUSCULOSKELETAL: Within normal limits for patient age. MISCELLANEOUS: The visualized upper abdominal organs demonstrate no acute abnormality. CONCLUSION: No evidence of pulmonary embolism. Extensive chronic lung disease. Hilar and mediastinal adenopathy. Lexx Romero MD on December 19, 2016 at 13:36 Board Certified Radiologist. This report was verified electronically.
[2016-12-19 14:27] LABS: BLOOD GAS CARBOXYHEMOGLOBIN 1.7 % (0-4); BLOOD GAS HCO3 28 mmol/L (22-26); BLOOD GAS METHEMOGLOBIN 0.7 % (0-2); BLOOD GAS O2 HGB SATURATION 91 % (90-100); BLOOD GAS OXYGEN CONTENT 14.6 Vol % (12.0-20.0); BLOOD GAS PCO2 46 mmHG (38-42); BLOOD GAS PO2 71 mmHG (61-120); BLOOD GAS TOTAL HGB 11.4 G/DL (12.0-16.0); CRITICAL VALUE NO; DRAW SITE RT RADIAL; LITER FLOW 3.5 L/M; NUMBER OF ARTERIAL PUNCTURES 1; OXYGEN DEVICE NASAL CANNULA; STAT YES; TEMP CORR TO 98.6; ULNAR PULSE PRESENT
[2016-12-19] MEDS ORDERED: RESP: ALBUTEROL 2.5 MG/3 ML NEB (PRN) INH (15:00)
[2016-12-19] MEDS ORDERED: ENOXAPARIN SODIUM 40 MG/0.4 ML SYRINGE SQ SCH (15:00)
--- NOTE | 2016-12-19 15:12 | HHI.HP ---
[facility] Khurram Apple MD Admission Diagnosis COPD EXACERBATION, POSSIBLE PNA, AFIB Diagnoses: Chief Complaint: sob and greenwood Travel History International Travel<30 Days: No Contact w/Intl Traveler <30 Da: No Traveled to Known Affected Are: No History of Present Illness 81 Female with increased sob for two weeks despite home o2 of 3-4 Liters. Increased severe GREEN[place] with daily activities and increased sputum production. She has been using her nebs usage at home and her breathing is not better. She felt better after updrafts in the ER. She is still working hard to breath but is overall improved. I reviewed the CXR and EKG and there is no evidence of pneumonia or ischemia on my review. She will be observed in the hospital. Review of Systems Constitutional: DENIES: Diaphoretic episodes, Fatigue, Fever, Weight gain, Weight loss, Chills, Dizziness, Change in appetite, Night Sweats Endocrine: DENIES: Abnorml menstrual pattern, Heat/cold intolerance, Polydipsia , Polyuria, Polyphagia Eyes: DENIES: Blurred vision, Diplopia, Eye inflammation, Eye pain, Vision loss , Photosensitivity, Double Vision Respiratory: COMPLAINS OF: Cough, Wheezing, Sputum production, Shortness of breath, DENIES: Apneas, Snoring, Hemoptysis Cardiovascular: COMPLAINS OF: Dyspnea on Exertion, DENIES: Chest pain, Palpitations, Syncope, PND, Lower Extremity Edema, Orthopnea, Claudication Gastrointestinal: DENIES: Abdominal pain, Black stools, Bloody stools, Constipation, Diarrhea, Nausea, Vomiting, Difficulty Swallowing, Anorexia Genitourinary: DENIES: Abnormal vaginal bleeding, Dysmenorrhea, Dyspareunia, Sexual dysfunction, Urinary frequency, Urinary incontinence, Urgency, Hematuria , Dysuria, Nocturia, Vaginal discharge Musculoskeletal: DENIES: Joint pain, Muscle aches, Stiffness, Joint Swelling, Back pain, Neck pain Integumentary: DENIES: Abnormal pigmentation, Pruritus, Rash, Nail changes, Breast masses, Breast skin changes, Nipple discharge Hematologic/lymphatic: DENIES: Bruising, Lymphadenopathy Immunologic/allergic: DENIES: Eczema, Urticaria Neurologic: DENIES: Abnormal gait, Headache, Localized weakness, Paresthesias, Seizures, Speech Problems, Tremor, Poor Balance Psychiatric: DENIES: Anxiety, Confusion, Mood changes, Depression, Hallucinations, Agitation, Suicidal Ideation, Homicidal Ideation, Delusions Except as stated in HPI: all other systems reviewed are Neg Past Family Social History Allergies: Coded Allergies: No Known Allergies (Unverified , 10/25/16) Physical Exam Vital Signs Vital Signs Date Time Temp Pulse Resp B/P Pulse Ox O2 Delivery O2 Flow Rate FiO2 12/19/16 14:36 82 20 118/57 94 Nasal Cannula 3 12/19/16 12:30 79 20 111/58 96 Nasal Cannula 3 12/19/16 11:30 94 Nasal Cannula 3.50 12/19/16 11:15 94 Nasal Cannula 3 12/19/16 11:15 22 94 Nasal Cannula 3 12/19/16 11:15 22 94 Nasal Cannula 3 12/19/16 11:10 97.6 82 22 153/53 94 Physical Exam GENERAL: This is a well-nourished, well-developed patient, dyspnea at rest with accessory muscle use SKIN: No rashes, ecchymoses or lesions. Cool and dry. HEAD: Atraumatic. Normocephalic. No temporal or scalp tenderness. EYES: Pupils equal round and reactive. Extraocular motions intact. No scleral icterus. No injection or drainage. ENT: Nose without bleeding, purulent drainage or septal hematoma. Throat without erythema, tonsillar hypertrophy or exudate. Uvula midline. Airway patent. NECK: Trachea midline. No JVD or lymphadenopathy. Supple, nontender, no meningeal signs. CARDIOVASCULAR: Regular rate and rhythm without murmurs, gallops, or rubs. RESPIRATORY: bilateral wheezes and ronchi, rales, or rhonchi. GASTROINTESTINAL: Abdomen soft, non-tender, nondistended. No hepato-splenomegaly , or palpable masses. No guarding. MUSCULOSKELETAL: Extremities without clubbing, cyanosis, or edema. No joint tenderness, effusion, or edema noted. No calf tenderness. Negative Homans sign bilaterally. NEUROLOGICAL: Awake and alert. Cranial nerves II through XII intact. Motor and sensory grossly within normal limits. Five out of 5 muscle strength in all muscle groups. Normal speech. Laboratory Laboratory Tests Test 12/19/16 12/19/16 11:30 14:19 White Blood Count 15.2 Red Blood Count 4.30 Hemoglobin 11.7 Hematocrit 35.8 Mean Corpuscular Volume 83.2 Mean Corpuscular Hemoglobin 27.2 Mean Corpuscular Hemoglobin 32.7 Concent Red Cell Distribution Width 15.4 Platelet Count 428 Mean Platelet Volume 7.9 Neutrophils (%) (Auto) 75.8 Lymphocytes (%) (Auto) 12.8 Monocytes (%) (Auto) 8.8 Eosinophils (%) (Auto) 2.0 Basophils (%) (Auto) 0.6 Neutrophils # (Auto) 11.6 Lymphocytes # (Auto) 1.9 Monocytes # (Auto) 1.3 Eosinophils # (Auto) 0.3 Basophils # (Auto) 0.1 CBC Comment DIFF FINAL Differential Comment Prothrombin Time 15.6 Prothromb Time International 1.4 Ratio Activated Partial 41.0 Thromboplast Time D-Dimer Quantitative (PE/DVT) 0.89 Sodium Level 138 Potassium Level 4.1 Chloride Level 99 Carbon Dioxide Level 32.7 Anion Gap 6 Blood Urea Nitrogen 15 Creatinine 1.00 Estimat Glomerular Filtration 53 Rate Random Glucose 107 Calcium Level 9.5 Total Bilirubin 0.5 Aspartate Amino Transf 23 (AST/SGOT) Alanine Aminotransferase 21 (ALT/SGPT) Alkaline Phosphatase 214 Troponin I LESS THAN 0.02 B-Type Natriuretic Peptide 99 Total Protein 7.9 Albumin 2.8 Blood Gas Puncture Site RT RADIAL Blood Gas Patient Temperature 98.6 Blood Gas HCO3 28 Blood Gas Base Excess 4.0 Blood Gas Oxygen Saturation 91 Arterial Blood pH 7.41 Arterial Blood Partial 46 Pressure CO2 Arterial Blood Partial 71 Pressure O2 Arterial Blood Oxygen Content 14.6 Arterial Blood 1.7 Carboxyhemoglobin Arterial Blood Methemoglobin 0.7 Blood Gas Hemoglobin 11.4 Oxygen Delivery Device NASAL CANNULA Blood Gas Liter Flow 3.5 Date/Time Procedure Status Source Growth 12/19/16 11:20 Influenza Types A,B Antigen (LILIAN) - Final Complete Nasal Washing NEGATIVE FOR FLU A AND B ANTIGEN.... Result Diagram: 12/19/16 1130 12/19/[address] Angiography 12/19/16 1213 Signed Impressions: Service Date/Time: Monday, December 19, 2016 13:22 - CONCLUSION: No evidence of pulmonary embolism. Extensive chronic lung disease. Hilar and mediastinal adenopathy. Lexx Romero MD Chest X-Ray 12/19/16 1118 Signed Impressions: Service Date/Time: Monday, December 19, 2016 11:25 - CONCLUSION: Normal examination for a patient of this age. No significant change has occurred. Anastacio Morin MD Assessment and Plan Problem List: (1) COPD with acute exacerbation ICD Code: J44.1 Status: Acute Plan: IV steroids, Iv Abx Bronchodilators Incentive spirometry 3 L o2 at baseline sputum pending (2) HTN (hypertension) ICD Code: I10 Status: Chronic Plan: Controlled on Metoprolol, cardizem and losartan (3) Atrial fibrillation ICD Code: I48.91 Status: Chronic Plan: rate controlled continue to monitor on metoprolol, cardizem and xarelto Code Status full code Discussed Condition With ER MD, Patient, PLATEN GRINDER Problem Qualifiers (1) Atrial fibrillation: Qualified Code: I48.2 - Chronic atrial fibrillation Leigh Ann Rod MD Dec 19, 2016 15:12
[2016-12-19] MEDS ORDERED: traMADol HCL 50 MG TAB PO PRN (15:15)
[2016-12-19] MEDS: methylPREDNISolone SOD SUCC 125 MG/2 ML VIAL IVP SCH (18:01)
[2016-12-19] MEDS: RESP: ALBUTEROL 2.5 MG/IPRATROPIUM 0.5 MG NEB (SCH) INH (20:24)
[2016-12-19] MEDS: DILTIAZEM-CD 120 MG CAP ER PO SCH (21:00)
[2016-12-19] MEDS ORDERED: LOSARTAN 25 MG TAB PO SCH (21:00)
[2016-12-19] MEDS: METOPROLOL TARTRATE 25 MG TAB PO SCH (21:00)
[2016-12-19] MEDS: SODIUM CHLORIDE 0.9% FLUSH 10 ML FLUSH IV FLUSH SCH (22:26)
[2016-12-20] VITALS (9 sets, daily range): BP systolic 18–153; BP diastolic 52–77; PULSE 86–96; RESP 22–28; TEMP 97.7–98.6; O2SAT 95–98
[2016-12-20] MEDS: SODIUM CHLORIDE 0.9% FLUSH 10 ML FLUSH IV FLUSH PRN ×2 (01:57→07:36)
[2016-12-20] MEDS: methylPREDNISolone SOD SUCC 125 MG/2 ML VIAL IVP SCH ×3 (01:57→12:00)
[2016-12-20] MEDS: RESP: ALBUTEROL 2.5 MG/IPRATROPIUM 0.5 MG NEB (SCH) INH ×2 (08:16→14:00)
[2016-12-20] MEDS: METOPROLOL TARTRATE 25 MG TAB PO SCH (08:18)
[2016-12-20] MEDS: DILTIAZEM-CD 120 MG CAP ER PO SCH (08:18)
--- NOTE | 2016-12-20 08:37 | EKG ---
Date Performed: 12/19/2016 Time Performed: 12:09:24 PTAGE: 81 years EKG: Sinus rhythm NORMAL ECG PREVIOUS TRACING : 10/26/2016 00.05 DOCTOR: Carlos Mendez Interpretating Date/Time 12/20/2016 08:32:09
[2016-12-20] MEDS ORDERED: PANTOPRAZOLE SOD 20 MG DELAYED RELEASE TAB PO SCH (09:00)
[2016-12-20] MEDS ORDERED: RIVAROXABAN 15 MG TAB PO SCH (09:00)
[2016-12-20] MEDS: SODIUM CHLORIDE 0.9% FLUSH 10 ML FLUSH IV FLUSH SCH (09:00)
[2016-12-20] MEDS ORDERED: LACTOBACILLUS ACIDOPHILUS TAB PO SCH (09:00)
[2016-12-20] MEDS ORDERED: PRED20 PO ×2 (12:28→16:24)
[2016-12-20] MEDS ORDERED: DOXY100C PO (12:28)
--- NOTE | 2016-12-20 12:28 | HHI.DCPOC ---
Discharge Care Plan Diagnosis: (1) COPD with acute exacerbation Goals to Promote Your Health * To prevent worsening of your condition and complications * To maintain your health at the optimal level Directions to Meet Your Goals Take your medications as prescribed Follow your dietary instruction Follow activity as directed Keep your appointments as scheduled Take your immunizations and boosters as scheduled If your symptoms worsen call your PCP, if no PCP go to Urgent Care Center or Emergency Room Smoking is Dangerous to Your Health. Avoid second hand smoke Call the 24-hour hour crisis hotline for domestic abuse at Leigh Ann Rod MD Dec 20, 2016 12:28
--- NOTE | 2016-12-20 12:30 | HHI.DS ---
Discharge Summary Admission Date Dec 19, 2016 at 14:11 Discharge Date: Dec 20, 2016 Admitting Diagnosis COPD EXACERBATION, POSSIBLE PNA, AFIB (1) COPD with acute exacerbation ICD Code: J44.1 (2) HTN (hypertension) ICD Code: I10 (3) Atrial fibrillation ICD Code: I48.91 Procedures none Brief History - From Admission 81 Female with increased sob for two weeks despite home o2 of 3-4 Liters. Increased severe GEORGE with daily activities and increased sputum production. She has been using her nebs usage at home and her breathing is not better. She felt better after updrafts in the ER. She is still working hard to breath but is overall improved. I reviewed the CXR and EKG and there is no evidence of pneumonia or ischemia on my review. She will be observed in the hospital. CBC/BMP: 12/19/16 1130 12/19/16 1130 Significant Findings Laboratory Tests Test 12/19/16 12/19/16 11:30 14:19 White Blood Count 15.2 TH/MM3 (4.0-11.0) Neutrophils (%) (Auto) 75.8 % (16.0-70.0) Monocytes (%) (Auto) 8.8 % (0.0-8.0) Neutrophils # (Auto) 11.6 TH/MM3 (1.8-7.7) Monocytes # (Auto) 1.3 TH/MM3 (0-0.9) Prothrombin Time 15.6 SEC (9.8-11.6) Activated Partial 41.0 SEC Thromboplast Time (24.3-30.1) D-Dimer Quantitative (PE/DVT) 0.89 MG/L FEU (0.00-0.50) Carbon Dioxide Level 32.7 MEQ/L (21.0-32.0) Estimat Glomerular Filtration 53 ML/MIN (>89) Rate Random Glucose 107 MG/DL (74-106) Alkaline Phosphatase 214 U/L (45-117) Troponin I LESS THAN 0.02 NG/ML (0.02-0.05) Albumin 2.8 GM/DL (3.4-5.0) Blood Gas HCO3 28 mmol/L (22-26) Blood Gas Base Excess 4.0 mmol/L (-2-2) Arterial Blood Partial 46 mmHG (38-42) Pressure CO2 Blood Gas Hemoglobin 11.4 G/DL (12.0-16.0) Imaging Last Impressions CT Angiography 12/19/16 1213 Signed Impressions: Service Date/Time: Monday, December 19, 2016 13:22 - CONCLUSION: No evidence of pulmonary embolism. Extensive chronic lung disease. Hilar and mediastinal adenopathy. Lexx Romero MD Chest X-Ray 12/19/16 1118 Signed Impressions: Service Date/Time: Monday, December 19, 2016 11:25 - CONCLUSION: Normal examination for a patient of this age. No significant change has occurred. Anastacio Morin MD PE at Discharge GENERAL: This is a well-nourished, well-developed patient, in no apparent distress. CARDIOVASCULAR: Regular rate and rhythm without murmurs, gallops, or rubs. RESPIRATORY: Clear to auscultation. Breath sounds equal bilaterally. No wheezes , rales, or rhonchi. GASTROINTESTINAL: Abdomen soft, non-tender, nondistended. Normal active bowel sounds MUSCULOSKELETAL: Extremities without clubbing, cyanosis, or edema. NEURO: Alert & Oriented x4 to person, place, time, situation. Moves all ext x4 Pt update on day of discharge Seen today in follow-up for COPD exacerbation. Overall doing very well. Respiratory status is at baseline. Hay patient discharge discussed with patient and daughter at bedside Hospital Course Patient is a 81-year-old female had some evidence of COPD exacerbation. She was started on antibiotics and steroids. Patient continues to improve dramatically overnight and was discharged home Pt Condition on Discharge: Good Discharge Disposition: Discharge Home Discharge Time: <= 30 minutes Discharge Instructions DIET: Follow Instructions for: As Tolerated, No Restrictions Activities you can perform: Regular-No Restrictions Follow up Referrals: Pulmonology - 2 Weeks with Trang Esposito MD New Medications: Doxycycline Hyclate (Doxycycline Hyclate) 100 Mg Cap 100 MG PO BID Infection #20 Ref 0 CAP Prednisone (Prednisone) 20 Mg Tab 20 MG PO DIRECTED 40 MG twice a day x 3 days, then 20 MG daily x 3 days, then 10 MG daily x 3 days Inflammation #15 Ref 0 TAB Continued Medications: Albuterol 8.5 GM Inh (Proair Hfa 8.5 GM Inh) 90 Mcg/Act Aer 2 PUFF INH Q4-6H 108 mcg/actuation PRN SHORTNESS OF BREATH #1 Ref 0 INHALER Alendronate (Fosamax) 70 Mg Tab 70 MG PO Q7D Osteoporosis Treatment #4 Ref 0 TAB Allopurinol (Allopurinol) 100 Mg Tab 100 MG PO DAILY Gout #30 Ref 0 TAB Calcium Carbonate-Cholecalciferol (Calcium 1000 + D) 1,000-800 Mg-Unit Tab 1 TAB PO TAB Diltiazem CD 24 HR (Cardizem CD 24 HR) 120 Mg Caper 120 MG PO BID A-fib #60 Ref 0 CAP Docusate Sodium (Docusate Sodium) 100 Mg Tab 100 MG PO DIRECTED TAB Ferrous Sulfate DR (Ferrous Sulfate DR) 324 Mg Tabdr 65 MG PO BID Nutritional Supplement #30 Ref 0 TAB Furosemide (Lasix) 40 Mg Tab 40 MG PO BID #30 Ref 0 TAB Hydroxychloroquine (Hydroxychloroquine) 200 Mg Tab 200 MG PO BID Takw with food #60 Ref 0 TAB Ipratropium Neb (Ipratropium Neb) 0.5 Mg/2.5 Ml Amp 0.5 MG NEB Q6HR NEB PRN SHORTNESS OF BREATH #120 Ref 0 NEBULE Lactobacillus Acidophilus (Probiotic) 1 Cap Cap 1 CAP PO DAILY Nutritional Supplement #90 Ref 0 CAP Losartan (Losartan) 25 Mg Tab 25 MG PO HS Blood Pressure Management #30 Ref 0 TAB Magnesium Oxide (Magnesium) 400 Mg Tablet 1 TAB PO BID Metoprolol Tartrate (Metoprolol Tartrate) 25 Mg Tab 25 MG PO BID A-fib #60 Ref 0 TAB Pantoprazole (Protonix) 20 Mg Tab 20 MG PO DAILY Reflux #30 Ref 0 TAB Potassium Chloride Microencaps (Potassium Chloride Microencaps) 20 Meq Tab 20 MEQ PO DAILY Nutritional Supplement #30 Ref 0 TAB Rivaroxaban (Xarelto) 15 Mg Tab 15 MG PO DAILY Blood Clot Prevention #30 Ref 0 TAB Tramadol (Tramadol) 50 Mg Tab 50 MG PO Q8H PRN PAIN Ref 0 TAB Leigh Ann Rod MD Dec 20, 2016 12:30
[2016-12-20] MEDS ORDERED: AZITHROMYCIN 250 MG TAB PO SCH (13:00)
[2016-12-20] MEDS ORDERED: cefTRIAXone INJ 1,000 MG in SODIUM CHLORIDE 0.9% INJ 100 ML IV SCH (14:00)
== END 2016-12-20 14:38 | disposition home or self-care (01) ==
LOC: PHED 11:10 → PHEDA 14:11 → PHICU 21:36
PROVIDERS: ADMIT Hospitalist; ATTEND Hospitalist
DX: J44.1 Chronic obstructive pulmonary disease with (acute) exacerbation (principal); I10 Essential (primary) hypertension; K21.9 Gastro-esophageal reflux disease without esophagitis; I73.9 Peripheral vascular disease, unspecified; Z79.899 Other long term (current) drug therapy; I48.91 Unspecified atrial fibrillation; M10.9 Gout, unspecified; Z86.73 Personal history of transient ischemic attack (TIA), and cerebral infarction without residual deficits; Z99.81 Dependence on supplemental oxygen; Z79.01 Long term (current) use of anticoagulants; M06.9 Rheumatoid arthritis, unspecified
CPT/HCPCS: 36600; 71010; 71275; 80053; 82805; 83880; 84484; 85025; 85379; 85610; 85730; 87804; 93005; 94150; 94640; 94664; 96365; 96366; 96372; 96375; 96376; 99285; G0378; J0456; J0696; J1650; J2930; J7050; J7613; Q9967

== ENCOUNTER 2017-03-01 15:02 | Emergency (ER) | payer OTHER ==
[~2017-03-01] VITALS: Ht 147.3 cm; Wt 45.0 kg
[~2017-03-01 15:02] MED LIST changes: -BENZ100 PO; +DOXY100C PO; +LOSA25TA PO; -POTA10TA2 PO; +PRED20 PO; -PRED5PAK PO
[2017-03-01 15:09] VITALS: BP 121/56; PULSE 90; RESP 18; TEMP 97.9; O2SAT 93
[2017-03-01] MEDS ORDERED: PRED5TAB PO (15:31)
[2017-03-01] MEDS ORDERED: METO25TA3 PO (15:31)
[2017-03-01] MEDS ORDERED: METH2.5T PO (15:31)
[2017-03-01] MEDS ORDERED: TYLE325T PO (15:40)
--- NOTE | 2017-03-01 15:51 | PD ---
HPI Chief Complaint: Fall Time Seen by Provider: 15:19 Travel History International Travel<30 days: No Contact w/Intl Traveler<30days: No Traveled to known affect area: No History of Present Illness HPI This 81-year-old female is complaining of pain in her left hand. She had a fall 2 days ago and landed on her hand. She is on Xarelto. He is also been having pain in both of her legs. In the past she has seen Dr. St, the vascular surgeon. He advised that she was not a candidate for surgery because of her significant comorbidities of severe COPD. She is on oxygen continuously. She has had increasing pain in her legs. The left leg is worse than the right of the right leg is also affected. She had taken tramadol for pain but did not like the way it made her feel. Her daughter thinks that he cannot take Tylenol but do not see any contraindications. I reviewed her recent lab work and her liver function tests are fine. She is ONLY able to walk a few feet because of pain in her legs. This has been going on for at least 2 years PFSH Past Medical History Hx Anticoagulant Therapy: Yes Arthritis: Yes (RA hands and feet) Asthma: Yes Atrial Fibrillation: Yes Autoimmune Disease: No Heart Rhythm Problems: Yes (afib sees Dr Chaudhary) Cancer: No Cardiovascular Problems: Yes (PVD, AFIB) High Cholesterol: No Chest Pain: No Congestive Heart Failure: No COPD: Yes Cerebrovascular Accident: Yes (TIA 20 yrs ago) Diabetes: No Diminished Hearing: No Endocrine: No Gastrointestinal Disorders: Yes (rectal prolapse, diverticulitis) GERD: No Gout: Yes Genitourinary: No Headaches: No Hepatitis: No Hiatal Hernia: No Hypertension: Yes Immune Disorder: No Implanted Vascular Access Dvce: No Kidney Stones: No Musculoskeletal: No Neurologic: No Psychiatric: No Reproductive: Yes (3mm nodule r lung) Respiratory: Yes (COPD, EMPHYSEMA) Migraines: No Renal Failure: No Seizures: No Sleep Apnea: No Thyroid Disease: No Ulcer: Yes Tetanus Vaccination: Unknown ?: Not Past Surgical History Abdominal Surgery: Yes (abd surgery for "holes in my stomach" about 2 yrs ago) AICD: No Cardiac Surgery: No Ear Surgery: No Endocrine Surgery: No Eye Surgery: Yes (Cataracts) Genitourinary Surgery: No Hysterectomy: Yes Joint Replacement: No Neurologic Surgery: No Oral Surgery: No Pacemaker: No Thoracic Surgery: No Other Surgery: Yes Social History Alcohol Use: No Tobacco Use: No Substance Use: No Allergies-Medications (Allergen,Severity, Reaction): Coded Allergies: No Known Allergies (Unverified , 03/01/17) Reported Meds & Prescriptions Reported Meds & Active Scripts Active Tylenol (Acetaminophen) 325 Mg Tab 650 Mg PO Q4H PRN Xarelto (Rivaroxaban) 15 Mg Tab 15 Mg PO DAILY Potassium Chloride Microencaps 20 Meq Tab 20 Meq PO DAILY Cardizem CD 24 HR (Diltiazem CD 24 HR) 120 Mg Caper 120 Mg PO BID Reported Metoprolol Tartrate 25 Mg Tab 25 Mg PO BID Prednisone 5 Mg Tab 5 Mg PO DAILY Methotrexate 2.5 Mg Tab 2.5 Mg PO Q7D Losartan (Losartan Potassium) 25 Mg Tab 25 Mg PO HS Probiotic (Lactobacillus Acidophilus) 1 Cap Cap 1 Cap PO DAILY Calcium 1000 + D (Calcium Carbonate-Cholecalciferol) 1,000-800 Mg-Unit Tab 1 Tab PO Docusate Sodium 100 Mg Tab 100 Mg PO DIRECTED Ipratropium Neb (Ipratropium Lorman) 0.5 Mg/2.5 Ml Amp 0.5 Mg NEB Q6HR NEB PRN Fosamax (Alendronate Sodium) 70 Mg Tab 70 Mg PO Q7D Proair Hfa 8.5 GM Inh (Albuterol Sulfate) 90 Mcg/Act Aer 2 Puff INH Q4-6H PRN 108 mcg/actuation Ferrous Sulfate DR (Ferrous Sulfate) 324 Mg Tabdr 65 Mg PO BID Magnesium (Magnesium Oxide) 400 Mg Tablet 1 Tab PO BID Protonix (Pantoprazole Sodium) 20 Mg Tab 20 Mg PO DAILY Allopurinol 100 Mg Tab 100 Mg PO DAILY Lasix (Furosemide) 40 Mg Tab 40 Mg PO BID Review of Systems General / Constitutional: No: Fever, Chills Eyes: No: Diploplia, Blurred Vision HENT: No: Headaches, Vertigo Cardiovascular: No: Chest Pain or Discomfort, Palpitations Respiratory: No: Cough, Shortness of Breath Gastrointestinal: No: Nausea, Vomiting Musculoskeletal: Positive: Myalgias, Arthralgias Physical Exam Narrative GENERAL: Chronically ill-appearing female. She is on supplemental oxygen SKIN: Focused skin assessment warm/dry. HEAD: Atraumatic. Normocephalic. EYES: Pupils equal and round. No scleral icterus. No injection or drainage. ENT: No nasal bleeding or discharge. Mucous membranes pink and moist. NECK: Trachea midline. No JVD. CARDIOVASCULAR: Regular rate and rhythm. No murmur appreciated. RESPIRATORY: Diminished breath sounds bilaterally GASTROINTESTINAL: Abdomen soft, non-tender, nondistended. Hepatic and splenic margins not palpable. MUSCULOSKELETAL: No obvious deformities. No clubbing. No cyanosis. No edema. The left leg is slightly cooler than the right. I really don't feel pulses in either foot. She does have brisk pulses bilaterally at the groin. She is able to wiggle her toes bilaterally and has sensation NEUROLOGICAL: Awake and alert. No obvious cranial nerve deficits. Motor grossly within normal limits. Normal speech. PSYCHIATRIC: Appropriate mood and affect; insight and judgment normal. Data Data Last Documented VS Vital Signs Date Time Temp Pulse Resp B/P (MAP) Pulse Ox O2 Delivery O2 Flow Rate FiO2 03/01/17 15:19 18 93 Nasal Cannula 3.00 03/01/17 15:09 97.9 90 121/56 (77) Orders Orders Hand, Complete ([id number]) (03/01/17 15:36) [facility] Medical Decision Making Medical Screen Exam Complete: Yes Emergency Medical Condition: Yes Medical Record Reviewed: Yes Differential Diagnosis Differential includes contusion of the hand, fracture, peripheral vascular disease Narrative Course Patient does have severe peripheral vascular disease. She has been fully evaluated by Dr. St and was said not to be a candidate for surgery. sHe is on Xarelto. She does not smoke. She is requesting something for pain for her legs. She had taken tramadol but didn't like the way it made her feel. She cannot take anti-inflammatories because of the Xarelto. I have written a prescription for Tylenol because daughter says that facility will not even give her Tylenol without a prescription. X-ray of the hand is negative for fracture. There is evidence of rheumatoid arthritis Diagnosis Primary Impression: Contusion of hand Qualified Codes: S60.222A - Contusion of left hand, initial encounter Scripts Acetaminophen (Tylenol) 325 Mg Tab 650 MG PO Q4H Y for pain, #90 TAB 0 Refills Prov: Renzo Cristina MD 03/01/17 Disposition: 01 DISCHARGE HOME Condition: Stable Renzo Cristina MD Mar 01, 2017 15:51
--- NOTE | 2017-03-01 15:53 | RADRPT ---
EXAM DATE/TIME: 03/01/2017 15:40 [facility] COMPARISON: No previous studies available for comparison. INDICATIONS : Fell two days ago. MEDICAL HISTORY : Chronic obstructive pulmonary disease. SURGICAL HISTORY : None. ENCOUNTER: Initial ACUITY: 2 days PAIN SCORE: 8/10 LOCATION: Left Hand FINDINGS: 3 views of the left hand demonstrate undermineralization of the bones. There is ulnar deviation and s ubluxation at the second through fifth metacarpophalangeal joints. No fracture is identified. There i s mild posterior hand soft tissue swelling. Arterial vascular calcification is present in the wrist. CONCLUSION: 1. No acute fracture is identified. 2. Under mineralized bones with ulnar deviation at the MCP joints suggestive of rheumatoid arthritis. Lexx Blair MD on March 01, 2017 at 15:50 Board Certified Radiologist. This report was verified electronically.
== END 2017-03-01 17:58 | disposition home or self-care (01) ==
LOC: PHED 15:02
DX: S60.222A Contusion of left hand, initial encounter (principal); I73.9 Peripheral vascular disease, unspecified; W19.XXXA Unspecified fall, initial encounter; Z79.01 Long term (current) use of anticoagulants
CPT/HCPCS: 73130; 99283

== ENCOUNTER 2017-03-06 13:44 | Inpatient (IN) | payer OTHER, MEDICARE ==
[2017-03-06] VITALS (12 sets, daily range): BP systolic 84–101; BP diastolic 40–51; PULSE 73–94; RESP 20–31; TEMP 98.6–99.8; O2SAT 87–95
[~2017-03-06] VITALS: Ht 142.2 cm; Wt 48.6 kg
[~2017-03-06 13:44] MED LIST changes: -DOXY100C PO; -HYDR200T3 PO; +METH2.5T PO; -PRED20 PO; +PRED5TAB PO; -TRAM50TA PO; +TYLE325T PO
[2017-03-06] MEDS ORDERED: PLAQ200T PO (14:25)
[2017-03-06] MEDS ORDERED: RESP: LIDOCAINE HCL 4% PF 5 ML NEB NEB ONE (14:30)
[2017-03-06] MEDS ORDERED: methylPREDNISolone SOD SUCC 125 MG/2 ML VIAL IV PUSH ONE (14:30)
[2017-03-06] MEDS ORDERED: SODIUM CHLORIDE 0.9% FLUSH 10 ML FLUSH IVF PRN (14:30)
[2017-03-06] MEDS: RESP: ALBUTEROL 2.5 MG/IPRATROPIUM 0.5 MG NEB (SCH) INH ×2 (14:33→14:34)
[2017-03-06 14:35] LABS: BASOPHIL # 0.7 TH/MM3 (0-0.2); BASOPHIL % 2.6 % (0.0-2.0); HEMATOCRIT 29.6 % (35.0-46.0); HEMOGLOBIN 9.9 GM/DL (11.6-15.3); LYMPH % 4.5 % (9.0-44.0); LYMPHOCYTE # 1.1 TH/MM3 (1.0-4.8); MEAN CELL VOLUME 85.7 FL (80.0-100.0); MEAN CORPUSCULAR HEMOGLOBIN 28.7 PG (27.0-34.0); MEAN CORPUSCULAR HGB CONC 33.4 % (32.0-36.0); MEAN PLATELET VOLUME 8.4 FL (7.0-11.0); MONO % 6.2 % (0.0-8.0); MONOCYTE # 1.6 TH/MM3 (0-0.9); NEUT % 86.7 % (16.0-70.0); PLATELET COUNT 356 TH/MM3 (150-450); RED BLOOD COUNT 3.45 MIL/MM3 (4.00-5.30); RED CELL DISTRIBUTION WIDTH 14.9 % (11.6-17.2); WHITE BLOOD COUNT 25.4 TH/MM3 (4.0-11.0)
--- NOTE | 2017-03-06 14:50 | PD ---
HPI Chief Complaint: Respiratory Symptoms Time Seen by Provider: 13:58 Travel History International Travel<30 days: No Contact w/Intl Traveler<30days: No Traveled to known affect area: No History of Present Illness HPI The patient is a 81-year-old female who presents to the emergency department for shortness of breath from her physician's office, Dr. Khurram Apple. The patient has a history of COPD and is on oxygen at home 3 L. The patient also uses nebulizers at home. The patient notes increasing shortness of breath for the last 24-48 hours with a productive cough producing green sputum. She also complains of wheezing, shortness of breath worse with exertion , and subjective fevers without chills or sweats. The patient denies any chest pain, nausea, vomiting, or abdominal pain. Symptoms are moderate, possibly exacerbated by underlying COPD, there are no current alleviating factors. The patient saw primary physician earlier today and was referred to the emergency department for IV steroids and outpatient follow-up with her diagnostics sales developer, Dr. Delvin Esposito. PFSH Past Medical History Hx Anticoagulant Therapy: Yes Arthritis: Yes (RA hands and feet) Asthma: Yes Atrial Fibrillation: Yes Autoimmune Disease: No Heart Rhythm Problems: Yes (afib sees Dr Chaudhary) Cancer: No Cardiovascular Problems: Yes High Cholesterol: No Chest Pain: No Congestive Heart Failure: No COPD: Yes Cerebrovascular Accident: Yes (TIA 20 yrs ago) Diabetes: No Diminished Hearing: No Endocrine: No Gastrointestinal Disorders: Yes (rectal prolapse, diverticulitis) GERD: No Gout: Yes Genitourinary: No Headaches: No Hepatitis: No Hiatal Hernia: No Hypertension: Yes Immune Disorder: No Implanted Vascular Access Dvce: No Kidney Stones: No Musculoskeletal: No Neurologic: No Psychiatric: No Reproductive: Yes (3mm nodule r lung) Respiratory: Yes Migraines: No Renal Failure: No Seizures: No Sleep Apnea: No Thyroid Disease: No Ulcer: Yes Tetanus Vaccination: > 5 Years Influenza Vaccination: Yes Past Surgical History Abdominal Surgery: Yes (abd surgery for "holes in my stomach" about 2 yrs ago) AICD: No Cardiac Surgery: No Ear Surgery: No Endocrine Surgery: No Eye Surgery: Yes (Cataracts) Genitourinary Surgery: No Hysterectomy: Yes Joint Replacement: No Neurologic Surgery: No Oral Surgery: No Pacemaker: No Thoracic Surgery: No Other Surgery: Yes Social History Alcohol Use: No Tobacco Use: No Substance Use: No Allergies-Medications (Allergen,Severity, Reaction): Coded Allergies: No Known Allergies (Unverified , 03/01/17) Reported Meds & Prescriptions Reported Meds & Active Scripts Active Tylenol (Acetaminophen) 325 Mg Tab 650 Mg PO Q4H PRN Xarelto (Rivaroxaban) 15 Mg Tab 15 Mg PO DAILY Potassium Chloride Microencaps 20 Meq Tab 20 Meq PO DAILY Cardizem CD 24 HR (Diltiazem CD 24 HR) 120 Mg Caper 120 Mg PO BID Reported Plaquenil (Hydroxychloroquine Sulfate) 200 Mg Tab 200 Mg PO BID Take with food Metoprolol Tartrate 25 Mg Tab 25 Mg PO BID Prednisone 5 Mg Tab 5 Mg PO DAILY Methotrexate 2.5 Mg Tab 2.5 Mg PO Q7D Losartan (Losartan Potassium) 25 Mg Tab 25 Mg PO HS Probiotic (Lactobacillus Acidophilus) 1 Cap Cap 1 Cap PO DAILY Calcium 1000 + D (Calcium Carbonate-Cholecalciferol) 1,000-800 Mg-Unit Tab 1 Tab PO Docusate Sodium 100 Mg Tab 100 Mg PO DIRECTED Ipratropium Neb (Ipratropium Kirwin) 0.5 Mg/2.5 Ml Amp 0.5 Mg NEB Q6HR NEB PRN Fosamax (Alendronate Sodium) 70 Mg Tab 70 Mg PO Q7D Proair Hfa 8.5 GM Inh (Albuterol Sulfate) 90 Mcg/Act Aer 2 Puff INH Q4-6H PRN 108 mcg/actuation Ferrous Sulfate DR (Ferrous Sulfate) 324 Mg Tabdr 65 Mg PO BID Magnesium (Magnesium Oxide) 400 Mg Tablet 1 Tab PO BID Protonix (Pantoprazole Sodium) 20 Mg Tab 20 Mg PO DAILY Allopurinol 100 Mg Tab 100 Mg PO DAILY Lasix (Furosemide) 40 Mg Tab 40 Mg PO BID Review of Systems Except as stated in HPI: all other systems reviewed are Neg General / Constitutional: Positive: Fever (subjective) Cardiovascular: Positive: Dyspnea on exertion, No: Chest Pain or Discomfort Respiratory: Positive: Cough, Shortness of Breath, Wheezing Gastrointestinal: No: Nausea, Vomiting Genitourinary: No: Dysuria Musculoskeletal: No: Edema Physical Exam Narrative GENERAL: Awake, alert, pleasant 81-year-old female who appears her stated age and is in mild respiratory distress. SKIN: Focused skin assessment warm/dry. HEAD: Atraumatic. Normocephalic. EYES: No injection or drainage. ENT: No nasal bleeding or discharge. Mucous membranes pink and moist. NECK: Trachea midline. No JVD. CARDIOVASCULAR: Regular rate and rhythm. No murmur appreciated. RESPIRATORY: Mild tachypnea with a respiratory rate of 22. Diffuse prolonged expiratory wheezes with a few scattered rhonchi. GASTROINTESTINAL: Abdomen soft, non-tender, nondistended. No rebound tenderness. MUSCULOSKELETAL: No obvious deformities. No clubbing. No cyanosis. No edema. NEUROLOGICAL: Awake and alert. No obvious cranial nerve deficits. Motor grossly within normal limits. Normal speech. PSYCHIATRIC: Appropriate mood and affect; insight and judgment normal. Data Data Last Documented VS Vital Signs Date Time Temp Pulse Resp B/P (MAP) Pulse Ox O2 Delivery O2 Flow Rate FiO2 03/06/17 15:37 98.6 89 20 93/49 (64) 93 Nasal Cannula 3.00 Orders Orders Complete Blood Count With Diff (03/06/17 14:17) Comprehensive Metabolic Panel (03/06/17 14:17) B-Type Natriuretic Peptide (03/06/17 14:17) Magnesium (Mg) (03/06/17 14:17) Iv Access Insert/Monitor (03/06/17 14:17) Electrocardiogram (03/06/17 14:17) Ecg Monitoring (03/06/17 14:17) Oximetry (03/06/17 14:17) Oxygen Administration (03/06/17 14:17) Chest, Single Ap (03/06/17 14:17) Sodium Chloride 0.9% Flush (Ns Flush) (03/06/17 14:30) Methylprednisolone So Succ Inj (Solumedr (03/06/17 14:30) Albuterol-Ipratropium Neb (Duoneb Neb) (03/06/17 14:30) Lidocaine Pf 4% Neb (Lidocaine Pf 4% Neb (03/06/17 14:30) Lactic Acid (03/06/17 15:42) Blood Culture (03/06/17 15:42) Ceftriaxone Inj (Rocephin Inj) (03/06/17 15:45) Azithromycin Inj (Zithromax Inj) (03/06/17 15:45) Sodium Chlor 0.9% 1000 Ml Inj (Ns 1000 M (03/06/17 15:45) Sodium Chlor 0.9% 1000 Ml Inj (Ns 1000 M (03/06/17 15:45) Admit Order (Ed Use Only) (03/06/17 ) Perpetual Inventory Clerk / Telemetry [id number] (03/06/17 15:50) Vital Signs (Adult) Q4H (03/06/17 15:50) Diet Heart Healthy (03/06/17 Dinner) Activity Oob With Assistance (03/06/17 15:50) Labs Laboratory Tests Test 03/06/17 14:30 White Blood Count 25.4 TH/MM3 Red Blood Count 3.45 MIL/MM3 Hemoglobin 9.9 GM/DL Hematocrit 29.6 % Mean Corpuscular Volume 85.7 FL Mean Corpuscular Hemoglobin 28.7 PG Mean Corpuscular Hemoglobin Concent 33.4 % Red Cell Distribution Width 14.9 % Platelet Count 356 TH/MM3 Mean Platelet Volume 8.4 FL Neutrophils (%) (Auto) 86.7 % Lymphocytes (%) (Auto) 4.5 % Monocytes (%) (Auto) 6.2 % Eosinophils (%) (Auto) 0.0 % Basophils (%) (Auto) 2.6 % Neutrophils # (Auto) 22.0 TH/MM3 Lymphocytes # (Auto) 1.1 TH/MM3 Monocytes # (Auto) 1.6 TH/MM3 Eosinophils # (Auto) 0.0 TH/MM3 Basophils # (Auto) 0.7 TH/MM3 CBC Comment AUTO DIFF Differential Comment AUTO DIFF CONFIRMED Toxic Granulation 1+ Platelet Estimate NORMAL Platelet Morphology Comment NORMAL Blood Urea Nitrogen 18 MG/DL Creatinine 1.20 MG/DL Random Glucose 115 MG/DL Total Protein 7.9 GM/DL Albumin 2.8 GM/DL Calcium Level 9.8 MG/DL Magnesium Level 1.4 MG/DL Alkaline Phosphatase 245 U/L Aspartate Amino Transf (AST/SGOT) 35 U/L Alanine Aminotransferase (ALT/SGPT) 26 U/L Total Bilirubin 0.9 MG/DL Sodium Level 131 MEQ/L Potassium Level 4.0 MEQ/L Chloride Level 92 MEQ/L Carbon Dioxide Level 30.3 MEQ/L Anion Gap 9 MEQ/L Estimat Glomerular Filtration Rate 43 ML/MIN B-Type Natriuretic Peptide 227 PG/ML MDM Medical Decision Making Medical Screen Exam Complete: Yes Emergency Medical Condition: Yes Medical Record Reviewed: Yes Interpretation(s) EKG reveals normal sinus rhythm with a rate in 92. Nonspecific T wave changes. Last Impressions Chest X-Ray 03/06/17 1417 Signed Impressions: Service Date/Time: Monday, March 06, 2017 14:39 - CONCLUSION: Bilateral lower lung infiltrates, left greater than right and possible small left pleural effusion. Joe Green MD Laboratory Tests Test 03/06/17 14:30 White Blood Count 25.4 TH/MM3 Red Blood Count 3.45 MIL/MM3 Hemoglobin 9.9 GM/DL Hematocrit 29.6 % Mean Corpuscular Volume 85.7 FL Mean Corpuscular Hemoglobin 28.7 PG Mean Corpuscular Hemoglobin Concent 33.4 % Red Cell Distribution Width 14.9 % Platelet Count 356 TH/MM3 Mean Platelet Volume 8.4 FL Neutrophils (%) (Auto) 86.7 % Lymphocytes (%) (Auto) 4.5 % Monocytes (%) (Auto) 6.2 % Eosinophils (%) (Auto) 0.0 % Basophils (%) (Auto) 2.6 % Neutrophils # (Auto) 22.0 TH/MM3 Lymphocytes # (Auto) 1.1 TH/MM3 Monocytes # (Auto) 1.6 TH/MM3 Eosinophils # (Auto) 0.0 TH/MM3 Basophils # (Auto) 0.7 TH/MM3 CBC Comment AUTO DIFF Differential Comment AUTO DIFF CONFIRMED Toxic Granulation 1+ Platelet Estimate NORMAL Platelet Morphology Comment NORMAL Blood Urea Nitrogen 18 MG/DL Creatinine 1.20 MG/DL Random Glucose 115 MG/DL Total Protein 7.9 GM/DL Albumin 2.8 GM/DL Calcium Level 9.8 MG/DL Magnesium Level 1.4 MG/DL Alkaline Phosphatase 245 U/L Aspartate Amino Transf (AST/SGOT) 35 U/L Alanine Aminotransferase (ALT/SGPT) 26 U/L Total Bilirubin 0.9 MG/DL Sodium Level 131 MEQ/L Potassium Level 4.0 MEQ/L Chloride Level 92 MEQ/L Carbon Dioxide Level 30.3 MEQ/L Anion Gap 9 MEQ/L Estimat Glomerular Filtration Rate 43 ML/MIN B-Type Natriuretic Peptide 227 PG/ML Differential Diagnosis Differential diagnosis includes COPD exacerbation, bursitis, pneumonia, congestive heart rate, pulmonary edema, pleural effusion, pulmonary embolism. Narrative Course IV was established, labs are drawn and sent, and the patient was placed on cardiac telemetry monitoring and continuous pulse oximetry monitoring. Patient' s white count was noted be elevated at 25.4. LFTs and lipase are unremarkable. Creatinine is elevated at 1.2. BNP is mildly elevated at 227. Chest x-ray reveals bilateral lower lobe infiltrates, white count is elevated, patient's blood pressure systolic was in the 90s, she has a history of hypertension in the past. She is not tachycardic, lightheaded, or dizzy. However, she does meet severe sepsis criteria, therefore, lactic acid blood cultures were sent to lab, the patient was administered 2 L of IV fluids, Rocephin 1 g intravenously, Zithromax 500 mg intravenously. The patient will be medicine medical floor. The patient has [employer], therefore, [facility]. Sepsis Criteria SIRS Criteria (2 or more): Heart rate over 90, WBC > 30107, < 4000 or > 10% bands Sepsis Criteria (SIRS+source): Infect source susp/known Criteria Outcome: Meets sepsis criteria Physician Communication Physician Communication [facility] I discussed the patient with Dr. Ying who agrees with admission. Diagnosis Primary Impression: PNA (pneumonia) Qualified Codes: J18.9 - Pneumonia, unspecified organism Additional Impressions: COPD with acute exacerbation Sepsis Qualified Codes: A41.9 - Sepsis, unspecified organism Admitting Information Admitting Physician Requests: Admit Condition: Stable Navdeep Ortez MD Mar 06, 2017 14:50
[2017-03-06 14:56] LABS: CHLORIDE 92 MEQ/L (98-107); SODIUM (NA) 131 MEQ/L (136-145)
[2017-03-06 14:58] LABS: CALCIUM 9.8 MG/DL (8.5-10.1)
[2017-03-06 14:59] LABS: ALBUMIN 2.8 GM/DL (3.4-5.0); BLOOD UREA NITROGEN 18 MG/DL (7-18); GLUCOSE,RANDOM 115 MG/DL (74-106); MAGNESIUM 1.4 MG/DL (1.5-2.5)
[2017-03-06 15:02] LABS: ALT (GPT) 26 U/L (10-53); AST (GOT) 35 U/L (15-37); GLOMERULAR FILTRATION RATE 43 ML/MIN (>89)
[2017-03-06 15:04] LABS: TOTAL BILIRUBIN ADULT 0.9 MG/DL (0.2-1.0); TOTAL PROTEIN 7.9 GM/DL (6.4-8.2)
[2017-03-06 15:05] LABS: ALKALINE PHOSPHATASE 245 U/L (45-117); BICARBONATE 30.3 MEQ/L (21.0-32.0)
[2017-03-06 15:29] LABS: TOXIC GRANULATION 1+ (NORMAL)
--- NOTE | 2017-03-06 15:32 | RADRPT ---
EXAM DATE/TIME: 03/06/2017 14:39 [facility] COMPARISON: CHEST SINGLE AP, October 28, 2016, 9:04. CHEST SINGLE AP, December 19, 2016, 11:25. INDICATIONS : Short of breath. MEDICAL HISTORY : Hypertension. Chronic obstructive pulmonary disease. Gastroesophageal reflux disease.Anticoagulant th erapy. SURGICAL HISTORY : Hysterectomy. ENCOUNTER: Initial ACUITY: 1 day PAIN SCORE: 0/10 LOCATION: chest FINDINGS: There are patchy partially consolidative infiltrates in the left lower lobe and patchy non-consolidat sharath infiltrates in the lateral right lower lung. Diffuse mild interstitial prominence throughout bot h lungs is unchanged from prior chest x-rays. The heart is normal in size. Mild loss of delineation of the left hemidiaphragm may be due to the infiltrates or a small pleural effusion. CONCLUSION: Bilateral lower lung infiltrates, left greater than right and possible small left pleural effusion. Joe Green MD on March 06, 2017 at 15:27 Board Certified Radiologist. This report was verified electronically.
[2017-03-06] MEDS ORDERED: AZITHROMYCIN INJ 500 MG in SODIUM CHLOR 0.9% 250 ML INJ 250 ML IV ONE (15:45)
[2017-03-06] MEDS ORDERED: cefTRIAXone INJ 1,000 MG in SODIUM CHLORIDE 0.9% INJ 100 ML IV ONE (15:45)
[2017-03-06] MEDS ORDERED: SODIUM CHLOR 0.9% 1000 ML INJ 1,000 ML IV ONE ×2 (15:45)
[2017-03-06] MEDS ORDERED: VANCOMYCIN INJ 700 MG in SODIUM CHLOR 0.9% 250 ML INJ 250 ML IV SCH (16:15)
[2017-03-06] MEDS ORDERED: SODIUM CHLORIDE 0.9% FLUSH 10 ML FLUSH IV FLUSH PRN (16:15)
[2017-03-06] MEDS ORDERED: NALOXONE HCL 0.4 MG/ML AMP IV PUSH PRN (16:15)
[2017-03-06] MEDS ORDERED: ACETAMINOPHEN 325 MG TAB PO PRN (16:15)
[2017-03-06] MEDS ORDERED: Vancomycin Consult Pharmacy 1 EA OTHER SCH (17:00)
--- NOTE | 2017-03-06 17:32 | HHI.HP ---
[facility] Non-Staff Admission Diagnosis sepsis, bilateral pneumonia, COPD exacerbation, dyspnea Diagnoses: (1) Severe sepsis Diagnosis: Principal (2) Acute and chronic respiratory failure with hypoxia Diagnosis: Principal (3) Hypotension Diagnosis: Principal (4) Acute systolic congestive heart failure Diagnosis: Principal (5) COPD with acute exacerbation Diagnosis: Principal (6) Acute renal failure superimposed on stage 2 chronic kidney disease Diagnosis: Principal (7) Atrial fibrillation Diagnosis: Secondary Chief Complaint: Shortness of breath and dyspnea Travel History International Travel<30 Days: No Contact w/Intl Traveler <30 Da: No Traveled to Known Affected Are: No Sepsis Criteria SIRS Criteria (2 or more): Heart rate over 90, WBC > 98015, < 4000 or > 10% bands Sepsis Criteria (SIRS+source): Infect source susp/known Severe Sepsis (+one): Hypotension Criteria Outcome: Meets severe sepsis criteria History of Present Illness Written by Mervin Forrester, acting as scribe for Dr. Ying on 03/06/17 at 17 :08. 81-year-old female rather complex medical history of chronic hypoxic respiratory failure, chronic systolic congestive heart failure, chronic atrial fibrillation, chronic obstructive pulmonary disease, chronic kidney disease stage II, peripheral blasts or disease, history CVA, rheumatoid arthritis who presented to hospital because of shortness of breath and dyspnea. Patient states that her last 3-4 days she has had difficulty with shortness of breath, dyspnea. Patient does have chronic oxygen use at 3 L at home. She states that she is had difficulty with getting air out. She is had a significant cough with brown green phlegm production. She states that last night she could not sleep very well because of the cough and shortness of breath. She does walk at home with walker, and indicates that walking from one side of the mobile home to the other she has been getting shortness of breath. She does not indicate that this is any worse than usual. She denies any lower extremity edema. She states that recently she has been discontinued off of her prednisone. She does go to Dr. Esposito for pulmonology and Dr. Mays for cardiology. Patient had workup done in emergency department found to have multiple medical problems with severe sepsis, hypotension, hypoxia, acute renal failure, bilateral infiltrates. Patient is undergoing IV bolus at this time to maintain blood pressure and will be monitored in the ICU. Review of Systems Constitutional: COMPLAINS OF: Fever Respiratory: COMPLAINS OF: Cough, Shortness of breath Cardiovascular: COMPLAINS OF: Dyspnea on Exertion Neurologic: COMPLAINS OF: Abnormal gait Except as stated in HPI: all other systems reviewed are Neg Past Family Social History Past Medical History Hypertension Atrial fibrillation Chronic systolic congestive heart failure Chronic hypoxic respiratory failure Chronic obstructive pulmonary disease History CVA Atherosclerosis History gout Peripheral vascular disease History of rectal prolapse history of C. difficile infection 2 Past Surgical History Cataract surgery EGD/colonoscopy Partial hysterectomy Reported Medications Reported Meds & Active Scripts Active Tylenol (Acetaminophen) 325 Mg Tab 650 Mg PO Q4H PRN Xarelto (Rivaroxaban) 15 Mg Tab 15 Mg PO DAILY Potassium Chloride Microencaps 20 Meq Tab 20 Meq PO DAILY Cardizem CD 24 HR (Diltiazem CD 24 HR) 120 Mg Caper 120 Mg PO BID Reported Plaquenil (Hydroxychloroquine Sulfate) 200 Mg Tab 200 Mg PO BID Take with food Metoprolol Tartrate 25 Mg Tab 25 Mg PO BID Prednisone 5 Mg Tab 5 Mg PO DAILY Methotrexate 2.5 Mg Tab 2.5 Mg PO Q7D Losartan (Losartan Potassium) 25 Mg Tab 25 Mg PO HS Probiotic (Lactobacillus Acidophilus) 1 Cap Cap 1 Cap PO DAILY Calcium 1000 + D (Calcium Carbonate-Cholecalciferol) 1,000-800 Mg-Unit Tab 1 Tab PO Docusate Sodium 100 Mg Tab 100 Mg PO DIRECTED Ipratropium Neb (Ipratropium [place]) 0.5 Mg/2.5 Ml Amp 0.5 Mg NEB Q6HR NEB PRN Fosamax (Alendronate Sodium) 70 Mg Tab 70 Mg PO Q7D Proair Hfa 8.5 GM Inh (Albuterol Sulfate) 90 Mcg/Act Aer 2 Puff INH Q4-6H PRN 108 mcg/actuation Ferrous Sulfate DR (Ferrous Sulfate) 324 Mg Tabdr 65 Mg PO BID Magnesium (Magnesium Oxide) 400 Mg Tablet 1 Tab PO BID Protonix (Pantoprazole Sodium) 20 Mg Tab 20 Mg PO DAILY Allopurinol 100 Mg Tab 100 Mg PO DAILY Lasix (Furosemide) 40 Mg Tab 40 Mg PO BID Allergies: Coded Allergies: No Known Allergies (Unverified , 03/01/17) Family History Reviewed is significant for cancer, heart disease, diabetes Social History Patient states that she quit smoking 16 years ago prior to that she smoked 2-3 pack a cigarettes a day for 15 years. She drinks 1 beer monthly. Denies any illicit drug use Physical Exam Vital Signs Vital Signs Date Time Temp Pulse Resp B/P (MAP) Pulse Ox O2 Delivery O2 Flow Rate FiO2 03/06/17 16:20 92 20 94/44 (61) 91 Nasal Cannula 3.00 03/06/17 15:52 94 20 94/49 (64) 89 Nasal Cannula 3.00 03/06/17 15:37 98.6 89 20 93/49 (64) 93 Nasal Cannula 3.00 03/06/17 15:01 86 20 92/51 (65) 91 Nasal Cannula 3.00 03/06/17 14:40 73 22 89/48 (62) 93 Nasal Cannula 3.00 03/06/17 14:35 95 Nasal Cannula 3.00 03/06/17 14:35 Nasal Cannula 03/06/17 14:35 93 Nasal Cannula 3.00 03/06/17 14:34 82 22 101/40 (60) 92 Nasal Cannula 3.00 03/06/17 14:08 90 Nasal Cannula 3.00 03/06/17 13:55 99.8 87 22 94/48 (63) 87 Physical Exam GENERAL: Well-developed, frail and cachectic, in no acute distress. alert and orientated HEENT: Head is normocephalic without any lesions or masses noted. Facial features are symmetric. Eyes: Pupils equal round reactive to light. Extraocular muscles are intact. Conjunctivae were clear. Oropharyngeal: Pharynx without any erythema edema. Tongue is midline without deviation. Buccal mucosa is moist without any masses or lesions NECK: Supple without any masses. Trachea midline no deviation. No JVD, no bruits are appreciated CARDIAC: Regular rhythm, regular rate. S1/S2 are heard. No murmurs gallops or rubs. LUNGS: Clear to auscultation bilaterally. Wheeze noted bilaterally, no rhonchi or rales. No use of accessory muscles on inspiration or expiration. Pain on palpation of right lateral ribs. Patient with obvious productive cough and green phlegm ABDOMEN: Soft, nontender. Nondistended. Bowel sounds heard in all 4 quadrants. No organomegaly or masses. Negative rebound, negative guarding EXTREMITIES: No edema, pulses are equal bilaterally. No cyanosis or clubbing, obvious hand deformity from arthritis NEUROLOGY: Mood and affect appear appropriate. Cranial nerves II through XII grossly intact. Muscle strength 5/5 in upper and lower extremities bilaterally. Deep tendon reflexes are 2+ in upper and lower extremities bilaterally. Laboratory Laboratory Tests Test 03/06/17 14:30 03/06/17 16:20 White Blood Count 25.4 Red Blood Count 3.45 Hemoglobin 9.9 Hematocrit 29.6 Mean Corpuscular Volume 85.7 Mean Corpuscular Hemoglobin 28.7 Mean Corpuscular Hemoglobin Concent 33.4 Red Cell Distribution Width 14.9 Platelet Count 356 Mean Platelet Volume 8.4 Neutrophils (%) (Auto) 86.7 Lymphocytes (%) (Auto) 4.5 Monocytes (%) (Auto) 6.2 Eosinophils (%) (Auto) 0.0 Basophils (%) (Auto) 2.6 Neutrophils # (Auto) 22.0 Lymphocytes # (Auto) 1.1 Monocytes # (Auto) 1.6 Eosinophils # (Auto) 0.0 Basophils # (Auto) 0.7 CBC Comment AUTO DIFF Differential Comment AUTO DIFF CONFIRMED Toxic Granulation 1+ Platelet Estimate NORMAL Platelet Morphology Comment NORMAL Blood Urea Nitrogen 18 Creatinine 1.20 Random Glucose 115 Total Protein 7.9 Albumin 2.8 Calcium Level 9.8 Magnesium Level 1.4 Alkaline Phosphatase 245 Aspartate Amino Transf (AST/SGOT) 35 Alanine Aminotransferase (ALT/SGPT) 26 Total Bilirubin 0.9 Sodium Level 131 Potassium Level 4.0 Chloride Level 92 Carbon Dioxide Level 30.3 Anion Gap 9 Estimat Glomerular Filtration Rate 43 B-Type Natriuretic Peptide 227 Lactic Acid Level 1.4 Date/Time Source Procedure Growth Status 03/06/17 16:20 Blood Peripheral Aerobic Blood Culture Pending Received 03/06/17 16:20 Blood Peripheral Anaerobic Blood Culture Pending Received Result Diagram: 03/06/17 1430 03/06/17 1430 Imaging Last Impressions Chest X-Ray 03/06/17 1417 Signed Impressions: Service Date/Time: Monday, March 06, 2017 14:39 - CONCLUSION: Bilateral lower lung infiltrates, left greater than right and possible small left pleural effusion. Joe Green MD Septic Shock Reassessment Heart: Irregular Lungs: Course Skin: Warm, [employer] Peripheral Pulses: Bounding Right Radial Bounding Left Radial Capillary Refill: Brisk, <2 seconds Caprini VTE Risk Assessment Caprini VTE Risk Assessment: Mod/High Risk (score >= 2) Caprini Risk Assessment Model Point Value = 1 Point Value = 2 Point Value = 3 Point Value = 5 Age 41-60 Minor surgery BMI > 25 kg/m2 Swollen legs Varicose veins or History of unexplained or recurrent spontaneous Oral contraceptives or hormone replacement Sepsis (< 1 month) Serious lung disease, including pneumonia (< 1 month) Abnormal pulmonary function Acute myocardial infarction Congestive heart failure (< 1 month) History of inflammatory bowel disease Medical patient at bed rest Age 61-74 Arthroscopic surgery Major open surgery (> 45 min) Laparoscopic surgery (> 45 min) Malignancy Confined to bed (> 72 hours) Immobilizing plaster cast Central venous access Age >= 75 History of VTE Family history of VTE Factor V Leiden Prothrombin [id number] Lupus anticoagulant Anticardiolipin antibodies Elevated serum homocysteine Heparin-induced thrombocytopenia Other congenital or acquired thrombophilia Stroke (< 1 month) Elective arthroplasty Hip, pelvis, or leg fracture Acute spinal cord injury (< 1 month) Prophylaxis Regimen Total Risk Factor Score Risk Level Prophylaxis Regimen 0-1 Low Early ambulation 2 Moderate Order ONE of the following: *Sequential Compression Device (SCD) *Heparin 5000 units SQ BID 3-4 Higher Order ONE of the following medications: *Heparin 5000 units SQ TID *Enoxaparin/Lovenox 40 mg SQ daily (WT < 150 kg, CrCl > 30 mL/min) *Enoxaparin/Lovenox 30 mg SQ daily (WT < 150 kg, CrCl > 10-29 mL/min) *Enoxaparin/Lovenox 30 mg SQ BID (WT < 150 kg, CrCl > 30 mL/min) AND/OR *Sequential Compression Device (SCD) 5 or more Highest Order ONE of the following medications: *Heparin 5000 units SQ TID (Preferred with Epidurals) *Enoxaparin/Lovenox 40 mg SQ daily (WT < 150 kg, CrCl > 30 mL/min) *Enoxaparin/Lovenox 30 mg SQ daily (WT < 150 kg, CrCl > 10-29 mL/min) *Enoxaparin/Lovenox 30 mg SQ BID (WT < 150 kg, CrCl > 30 mL/min) AND *Sequential Compression Device (SCD) Assessment and Plan Assessment and Plan Severe sepsis Patient meets criteria with leukocytosis, tachycardia, bilateral infiltrates on x-ray, hypotension Patient given 1 L IV fluid bolus Patient to be monitored in ICU for more aggressive management and care Continue monitor blood pressure to keep map above 65 Patient started on empirical antibiotics to include Zosyn, vancomycin to cover for HCAP (recently hospitalized) Influenza testing is negative Continue monitor blood cultures Obtain sputum culture, pneumococcal antigen, Legionella antigen Obtain urinalysis - repeat CXR in AM Acute on chronic hypoxic respiratory failure Etiology would include chronic obstructive pulmonary disease exacerbation, bilateral pneumonia, acute systolic congestive heart failure continue O2 someone takes maintain O2 sats greater 92% Continue nebulizer treatment Cautious hydration, will need to monitor for fluid overload Acute systolic congestive heart failure Chest x-ray does show bilateral infiltrates which could be heart failure Patient being treated for hypotension this time, will need monitor hydration status closely Patient has not had any lower extremity edema or worsening dyspnea on exertion Strict input and output Unable to continue Lasix, losartan, metoprolol secondary to hypotension. Will resume as clinically indicated. Acute renal failure superimposed on chronic kidney disease stage II Patient undergoing IV hydration this time Monitor renal function Avoid nephrotoxins Atrial fibrillation Rate controlled at this time Unable continue metoprolol, Cardizem due to hypotension Continue telemetry, monitor heart rate DVT prevention Patient is on Xarelto Code Status Full code Physician Certification 2 Midnight Certification Type: Admission for Inpatient Services Order for Inpatient Services The services are ordered in accordance with Medicare regulations or non- Medicare payer requirements, as applicable. In the case of services not specified as inpatient-only, they are appropriately provided as inpatient services in accordance with the 2-midnight benchmark. Estimated LOS (days): 4 days is the estimated time the patient will need to remain in the hospital, assuming treatment plan goals are met and no additional complications. Post-Hospital Plan: Not yet determined Notes: This note was transcribed by joanne Forrester. I, Dr. Imtiaz Ying personally performed the history, physical exam, and medical decision making; and confirmed the accuracy of the information in the transcribed note. Authenticated by Dr. Imtiaz Ying on 03/06/17 at 18:05. Mervin Forrester Mar 06, 2017 17:32 Imtiaz Ying DO Mar 06, 2017 18:05
[2017-03-06] MEDS: SODIUM CHLOR 0.9% 1000 ML INJ 1,000 ML IV SCH (18:40)
[2017-03-06] MEDS: PIPERACIL-TAZO 3.375 GM PREMIX 50 ML IV SCH ×2 (18:44→23:34)
[2017-03-06] MEDS: FERROUS SULFATE 325 MG (65 MG ELEMENTAL IRON) TAB PO SCH (20:01)
[2017-03-06] MEDS: DOCUSATE SODIUM 50 MG/SENNA 8.6 MG TAB PO SCH (20:01)
[2017-03-06] MEDS: VANCOMYCIN 500 MG/NS 100 ML IV SCH ×2 (20:01)
[2017-03-06] MEDS: SODIUM CHLORIDE 0.9% FLUSH 10 ML FLUSH IV FLUSH SCH (20:02)
[2017-03-06] MEDS: RESP: ALBUTEROL 2.5 MG/IPRATROPIUM 0.5 MG NEB (SCH) NEB (20:49)
[2017-03-06] MEDS: HYDROXYCHLOROQUINE SULFATE 200 MG TAB PO SCH (21:23)
--- NOTE | 2017-03-06 21:58 | EKG ---
Date Performed: 03/06/2017 Time Performed: 14:30:07 PTAGE: 81 years EKG: Sinus rhythm BORDERLINE LEFT AXIS DEVIATION NONSPECIFIC T-WAVE ABNORMALITY BORDERLINE ECG PREVIOUS TRACING : 12/19/2016 12.09 Compared to prior tracing no significant change DOCTOR: Mica Shaikh Interpretating Date/Time 03/06/2017 21:57:58
[2017-03-06] MEDS: ACETAMINOPHEN/CODEINE ELIX 120 MG/12 MG/5 ML CUP PO PRN (22:00)
[2017-03-07] VITALS (8 sets, daily range): BP systolic 101–143; BP diastolic 51–71; PULSE 27–112; RESP 18–29; TEMP 98.2–98.8; O2SAT 9–99
[2017-03-07] MEDS: ACETAMINOPHEN/CODEINE ELIX 120 MG/12 MG/5 ML CUP PO PRN ×4 (03:09→23:33)
[2017-03-07 05:10] LABS: AUTOMATED NEUTROPHIL # 17.6 TH/MM3 (1.8-7.7); EOSINOPHIL % 0.1 % (0.0-4.0); HEMATOCRIT 23.9 % (35.0-46.0); HEMOGLOBIN 7.9 GM/DL (11.6-15.3); LYMPH % 3.5 % (9.0-44.0); LYMPHOCYTE # 0.7 TH/MM3 (1.0-4.8); MEAN CELL VOLUME 86.2 FL (80.0-100.0); MEAN CORPUSCULAR HEMOGLOBIN 28.5 PG (27.0-34.0); MEAN PLATELET VOLUME 7.8 FL (7.0-11.0); MONOCYTE # 0.4 TH/MM3 (0-0.9); NEUT % 94.4 % (16.0-70.0); PLATELET COUNT 338 TH/MM3 (150-450); RED BLOOD COUNT 2.77 MIL/MM3 (4.00-5.30); RED CELL DISTRIBUTION WIDTH 15.1 % (11.6-17.2); WHITE BLOOD COUNT 18.7 TH/MM3 (4.0-11.0)
--- NOTE | 2017-03-07 05:22 | RADRPT ---
EXAM DATE/TIME: 03/07/2017 04:52 [facility] COMPARISON: CHEST SINGLE AP, March 06, 2017, 14:39. INDICATIONS : Short of breath. MEDICAL HISTORY : Hypertension. Chronic obstructive pulmonary disease. Gastroesophageal reflux disease. SURGICAL HISTORY : Hysterectomy. ENCOUNTER: Subsequent ACUITY: 2 days PAIN SCORE: Non-responsive. LOCATION: Bilateral chest FINDINGS: A single view of the chest demonstrates hyperinflation which can be seen with COPD. Patchy bibasilar densities. Heart is normal in size. The mediastinal contours are unremarkable. Osseous structures ar e intact. CONCLUSION: Hyperinflation which can be seen with COPD. Bibasilar patchy infiltrates, unchanged. Avel Paiz MD on March 07, 2017 at 5:19 Board Certified Radiologist. This report was verified electronically.
[2017-03-07 05:39] LABS: ALBUMIN 2.1 GM/DL (3.4-5.0); ALKALINE PHOSPHATASE 236 U/L (45-117); ALT (GPT) 24 U/L (10-53); AST (GOT) 20 U/L (15-37); BICARBONATE 25.1 MEQ/L (21.0-32.0); BLOOD UREA NITROGEN 19 MG/DL (7-18); CALCIUM 7.8 MG/DL (8.5-10.1); CHLORIDE 103 MEQ/L (98-107); GLOMERULAR FILTRATION RATE 53 ML/MIN (>89); GLUCOSE,RANDOM 162 MG/DL (74-106); SODIUM (NA) 139 MEQ/L (136-145); TOTAL BILIRUBIN ADULT 0.3 MG/DL (0.2-1.0); TOTAL PROTEIN 6.2 GM/DL (6.4-8.2)
[2017-03-07] MEDS: RESP: ALBUTEROL 2.5 MG/IPRATROPIUM 0.5 MG NEB (PRN) NEB ×2 (05:40→10:59)
[2017-03-07] MEDS: SODIUM CHLOR 0.9% 1000 ML INJ 1,000 ML IV SCH (05:49)
[2017-03-07] MEDS: PIPERACIL-TAZO 3.375 GM PREMIX 50 ML IV SCH ×4 (05:49→23:32)
[2017-03-07] MEDS: RESP: ALBUTEROL 2.5 MG/IPRATROPIUM 0.5 MG NEB (SCH) NEB ×3 (07:26→20:15)
[2017-03-07] MEDS: RIVAROXABAN 15 MG TAB PO SCH (08:26)
[2017-03-07] MEDS: DOCUSATE SODIUM 50 MG/SENNA 8.6 MG TAB PO SCH ×2 (08:26→20:57)
[2017-03-07] MEDS: PANTOPRAZOLE SOD 20 MG DELAYED RELEASE TAB PO SCH (08:26)
[2017-03-07] MEDS: ALLOPURINOL 100 MG TAB PO SCH (08:26)
[2017-03-07] MEDS: SODIUM CHLORIDE 0.9% FLUSH 10 ML FLUSH IV FLUSH SCH ×2 (08:26→20:57)
[2017-03-07] MEDS: FERROUS SULFATE 325 MG (65 MG ELEMENTAL IRON) TAB PO SCH ×2 (08:26→20:59)
[2017-03-07] MEDS: HYDROXYCHLOROQUINE SULFATE 200 MG TAB PO SCH ×2 (08:26→20:57)
[2017-03-07] MEDS ORDERED: predniSONE 5 MG TAB PO SCH (09:00)
[2017-03-07] MEDS: ACETAMINOPHEN 325 MG TAB PO PRN (11:11)
--- NOTE | 2017-03-07 12:49 | HHI.PR ---
Subjective Remarks The pt said she was congested earlier, but was breathing better now. She complained of chronic left thigh pain. She had no other acute complaints. Discussed with nursing. Objective Vitals Vital Signs Date Time Temp Pulse Resp B/P (MAP) Pulse Ox O2 Delivery O2 Flow Rate FiO2 03/07/17 12:00 110 03/07/17 08:00 98.2 110 29 101/51 (68) 90 03/07/17 07:40 92 Nasal Cannula 3.00 03/07/17 04:00 84 03/07/17 04:00 98.8 84 21 109/52 (71) 95 03/07/17 00:00 86 03/07/17 00:00 98.6 86 23 101/51 (68) 92 03/06/17 20:49 92 Nasal Cannula 3.00 03/06/17 20:00 99.1 88 31 97/43 (61) 94 03/06/17 20:00 88 03/06/17 17:25 98.7 89 24 91/44 (60) 92 03/06/17 17:20 92 22 84/48 (60) 90 3.00 03/06/17 16:20 92 20 94/44 (61) 91 Nasal Cannula 3.00 03/06/17 15:52 94 20 94/49 (64) 89 Nasal Cannula 3.00 03/06/17 15:37 98.6 89 20 93/49 (64) 93 Nasal Cannula 3.00 03/06/17 15:01 86 20 92/51 (65) 91 Nasal Cannula 3.00 03/06/17 14:40 73 22 89/48 (62) 93 Nasal Cannula 3.00 03/06/17 14:35 95 Nasal Cannula 3.00 03/06/17 14:35 Nasal Cannula 03/06/17 14:35 93 Nasal Cannula 3.00 03/06/17 14:34 82 22 101/40 (60) 92 Nasal Cannula 3.00 03/06/17 14:08 90 Nasal Cannula 3.00 03/06/17 13:55 99.8 87 22 94/48 (63) 87 I/O 03/06/17 03/06/17 03/06/17 03/07/17 03/07/17 03/07/17 07:00 15:00 23:00 07:00 15:00 23:00 Intake Total 2500 ml 1100 ml Output Total 500 ml Balance 2500 ml 600 ml Intake IV Total 2500 ml 1100 ml Output Urine Total 500 ml Result Diagram: 03/07/1743403/07/17 043 Imaging Last Impressions Chest X-Ray 03/07/17 0600 Signed Impressions: Service Date/Time: Tuesday, March 07, 2017 04:52 - CONCLUSION: Hyperinflation which can be seen with COPD. Bibasilar patchy infiltrates, unchanged. Avel Paiz MD Objective Remarks GENERAL: Well-developed, frail and cachectic, in no acute distress. HEENT: Head is normocephalic without any lesions or masses noted. Facial features are symmetric. Eyes: Pupils equal round reactive to light. Extraocular muscles are intact. Conjunctivae were clear. Oropharyngeal: Pharynx without any erythema edema. Tongue is midline without deviation. Buccal mucosa is moist without any masses or lesions NECK: Supple without any masses. Trachea midline no deviation. No JVD, no bruits are appreciated CARDIAC: Tachycardic. S1/S2 are heard. No murmurs gallops or rubs. LUNGS: No rhonchi or rales. Decreased air movement. No use of accessory muscles on inspiration or expiration. Pain on palpation of right lateral ribs. ABDOMEN: Soft, nontender. Nondistended. Bowel sounds heard in all 4 quadrants. No organomegaly or masses. Negative rebound, negative guarding. EXTREMITIES: No edema, pulses are equal bilaterally. No cyanosis or clubbing, obvious hand deformity from arthritis. NEUROLOGY: Cranial nerves II through XII grossly intact. Muscle strength 5/5 in upper and lower extremities bilaterally. Deep tendon reflexes are 2+ in upper and lower extremities bilaterally. PSYCH: Mood and affect appropriate. Medications and IVs Current Medications Medications (Trade) Dose Ordered Sig/Jenifer Route Start Time Stop Time Status Last Admin (Zyloprim) 100 mg DAILY PO 03/07/17 09:00 03/07/17 08:26 (Plaquenil) 200 mg BID PO 03/06/17 21:00 03/07/17 08:26 (Protonix) 20 mg DAILY PO 03/07/17 09:00 03/07/17 08:26 (Xarelto) 15 mg DAILY PO 03/07/17 09:00 03/07/17 08:26 (Ferrous Sulfate) 325 mg BID PO 03/06/17 21:00 03/07/17 08:26 Pharmacy Profile Note 0 ml @ 0 mls/hr UNSCH OTHER 03/06/17 17:00 Piperacillin Sod/ Tazobactam Sod 50 ml @ 200 mls/hr Q6H IV 03/06/17 18:00 03/07/17 12:37 Sodium Chloride 1,000 ml @ 75 mls/hr [id number] IV 03/06/17 16:05 03/07/17 18:44 03/07/17 05:49 (NS Flush) 2 ml UNSCH PRN IV FLUSH 03/06/17 16:15 (NS Flush) 2 ml BID IV FLUSH 03/06/17 21:00 03/07/17 08:26 (Tylenol) 650 mg Q4H PRN PO 03/06/17 16:15 (Tylenol) 650 mg Q6H PRN PO 03/06/17 16:15 03/07/17 11:11 (Narcan Inj) 0.4 mg UNSCH PRN IV PUSH 03/06/17 16:15 (Venita-Colace) 1 tab BID PO 03/06/17 21:00 03/07/17 08:26 Vancomycin HCl 500 mg/Sodium Chloride 100 ml @ 200 mls/hr Q24H IV 03/06/17 20:00 03/06/17 20:01 Miscellaneous Information SPECIFIC LAB TO BE DRAWN:VANCOMYCIN TROUGH DATE TO... ONCE ONCE .XX 03/09/17 19:45 03/09/17 19:46 (Tylenol - Codeine 120-12 Liq) 10 ml Q4H PRN PO 03/06/17 17:15 03/07/17 08:25 (Duoneb Neb) 1 ampule Q2HR NEB PRN NEB 03/06/17 17:15 03/07/17 10:59 (Duoneb Neb) 1 ampule Q6HR WHILE AWAKE NEB NEB 03/06/17 20:00 03/07/17 07:26 A/P Problem List: (1) Severe sepsis ICD Code: A41.9 - Sepsis, unspecified organism; R65.20 - Severe sepsis without septic shock (2) Acute and chronic respiratory failure with hypoxia ICD Code: J96.21 - Acute and chronic respiratory failure with hypoxia (3) Hypotension ICD Code: I95.9 - Hypotension, unspecified (4) Acute systolic congestive heart failure ICD Code: I50.21 - Acute systolic (congestive) heart failure (5) COPD with acute exacerbation ICD Code: J44.1 - Chronic obstructive pulmonary disease with (acute) exacerbation Status: Acute (6) Acute renal failure superimposed on stage 2 chronic kidney disease ICD Code: N17.9 - Acute kidney failure, unspecified; N18.2 - Chronic kidney disease, stage 2 (mild) (7) Atrial fibrillation ICD Code: I48.91 - Unspecified atrial fibrillation Status: Chronic Assessment and Plan Severe sepsis Patient meets criteria with leukocytosis, tachycardia, bilateral infiltrates on x-ray, hypotension. Patient given 1 L IV fluid bolus. - Patient to be monitored in ICU for more aggressive management and care - Patient started on empirical antibiotics to include Zosyn and vancomycin to cover for HCAP (recently hospitalized). - Influenza testing is negative - Continue monitor blood cultures - Obtain sputum culture, pneumococcal antigen, Legionella antigen. - Obtain urinalysis Acute on chronic hypoxemic respiratory failure Etiology would include chronic obstructive pulmonary disease exacerbation and bilateral pneumonia - antibiotics as above. - incentive spirometry. - encourage ambulation. - continue O2 someone takes maintain O2 sats greater 92%. - Continue nebulizer treatment. - Solumedrol IV. - Codeine and Tessalon for cough. Chronic systolic congestive heart failure Stable. - Patient being treated for hypotension this time, will need to monitor hydration status closely. - Patient has not had any lower extremity edema or worsening dyspnea on exertion. - Strict input and output - Unable to continue Lasix, losartan. Will resume as clinically indicated. Acute renal failure Superimposed on chronic kidney disease stage II. Improved with fluids. - Monitor renal function - Avoid nephrotoxins Atrial fibrillation HR has been elevated. - resume metoprolol and Cardizem with holding parameters. - Continue telemetry, monitor heart rate Anemia May be dilutional. Pt on Xarelto. - check iron studies, B12 level, folate level and Hemoccult. DVT prevention Patient is on Xarelto Discharge Planning Awaiting improvement Imtiaz Ying DO Mar 07, 2017 12:49
[2017-03-07] MEDS: BENZONATATE 100 MG CAP PO PRN ×2 (14:06→22:23)
[2017-03-07] MEDS: methylPREDNISolone SOD SUCC 40 MG/1 ML VIAL IV PUSH SCH ×2 (14:06→21:59)
[2017-03-07] MEDS: METOPROLOL TARTRATE 25 MG TAB PO SCH ×2 (14:06→20:58)
[2017-03-07 15:57] LABS: % SATURATION IRON PROFILE 6.3 % (20-50); IRON (FE) 12 MCG/DL (50-170); TOTAL IRON BINDING CAPACITY 189 MCG/DL (250-450)
[2017-03-07 16:21] LABS: FERRITIN 531 NG/ML (8-252); FOLATE 10.5 NG/ML (3.1-17.5)
[2017-03-07] MEDS: VANCOMYCIN 500 MG/NS 100 ML IV SCH ×2 (19:42)
[2017-03-07] MEDS: DILTIAZEM-CD 120 MG CAP ER PO SCH (20:58)
[2017-03-07] MEDS ORDERED: LORazepam 2 MG/ML VIAL IV PUSH ONE (23:45)
[2017-03-08] VITALS (7 sets, daily range): BP systolic 103–132; BP diastolic 57–87; PULSE 65–91; RESP 20–29; TEMP 98.1–98.7; O2SAT 89–94
[2017-03-08] MEDS: ACETAMINOPHEN/CODEINE ELIX 120 MG/12 MG/5 ML CUP PO PRN ×2 (03:58→16:04)
[2017-03-08 05:25] LABS: HEMATOCRIT 26.6 % (35.0-46.0); HEMOGLOBIN 8.6 GM/DL (11.6-15.3); MEAN CELL VOLUME 86.8 FL (80.0-100.0); MEAN CORPUSCULAR HEMOGLOBIN 27.9 PG (27.0-34.0); MEAN CORPUSCULAR HGB CONC 32.2 % (32.0-36.0); MEAN PLATELET VOLUME 7.9 FL (7.0-11.0); PLATELET COUNT 395 TH/MM3 (150-450); RED BLOOD COUNT 3.06 MIL/MM3 (4.00-5.30); RED CELL DISTRIBUTION WIDTH 14.9 % (11.6-17.2); WHITE BLOOD COUNT 26.1 TH/MM3 (4.0-11.0)
[2017-03-08 05:32] LABS: CALCIUM 8.1 MG/DL (8.5-10.1)
[2017-03-08 05:33] LABS: BICARBONATE 27.9 MEQ/L (21.0-32.0); MAGNESIUM 1.8 MG/DL (1.5-2.5)
[2017-03-08 05:36] LABS: CREATININE 0.86 MG/DL (0.50-1.00)
[2017-03-08] MEDS: PIPERACIL-TAZO 3.375 GM PREMIX 50 ML IV SCH ×4 (05:49→23:47)
[2017-03-08] MEDS: methylPREDNISolone SOD SUCC 40 MG/1 ML VIAL IV PUSH SCH ×2 (05:50→20:40)
[2017-03-08] MEDS: RESP: ALBUTEROL 2.5 MG/IPRATROPIUM 0.5 MG NEB (SCH) NEB ×3 (08:00→19:58)
[2017-03-08] MEDS: DOCUSATE SODIUM 50 MG/SENNA 8.6 MG TAB PO SCH ×2 (09:00→20:42)
[2017-03-08] MEDS: SODIUM CHLORIDE 0.9% FLUSH 10 ML FLUSH IV FLUSH SCH ×2 (09:00→20:41)
[2017-03-08] MEDS: DILTIAZEM-CD 120 MG CAP ER PO SCH ×2 (10:12→20:40)
[2017-03-08] MEDS: METOPROLOL TARTRATE 25 MG TAB PO SCH ×2 (10:12→20:40)
[2017-03-08] MEDS: ALLOPURINOL 100 MG TAB PO SCH (10:12)
[2017-03-08] MEDS: RIVAROXABAN 15 MG TAB PO SCH (10:13)
[2017-03-08] MEDS: PANTOPRAZOLE SOD 20 MG DELAYED RELEASE TAB PO SCH (10:13)
[2017-03-08] MEDS: FERROUS SULFATE 325 MG (65 MG ELEMENTAL IRON) TAB PO SCH ×2 (10:13→20:41)
[2017-03-08] MEDS: HYDROXYCHLOROQUINE SULFATE 200 MG TAB PO SCH ×2 (10:13→20:40)
[2017-03-08] MEDS ORDERED: GLUCAGON 1 MG/ML VIAL OTHER PRN (11:15)
[2017-03-08] MEDS ORDERED: DEXTROSE 50% IN WATER 50 ML VIAL(D50) IV PUSH PRN (11:15)
[2017-03-08] MEDS: BENZONATATE 100 MG CAP PO PRN (11:42)
[2017-03-08] MEDS: INSULIN ASPART SUPPLEMENTAL SCALE SQ SCH ×3 (12:00→20:52)
--- NOTE | 2017-03-08 14:49 | HHI.PR ---
Subjective Remarks The patient was feeling much better this afternoon. She said that she has been breathing better. She says she has not had much of an appetite. She has not had a bowel movement in the past few days. Overall, she is feeling better. Objective Vitals Vital Signs Date Time Temp Pulse Resp B/P (MAP) Pulse Ox O2 Delivery O2 Flow Rate FiO2 03/08/17 12:06 84 03/08/17 12:06 98.7 88 29 113/60 (77) 89 03/08/17 11:18 90 Venturi Mask 26 Humidified 03/08/17 08:41 94 Nasal Cannula 3.50 03/08/17 08:00 88 03/08/17 08:00 88 20 103/66 (78) 90 03/08/17 04:00 98.6 83 24 132/70 (90) 90 03/08/17 04:00 79 03/08/17 00:33 23 03/08/17 00:00 98.1 81 24 119/87 (98) 92 03/08/17 00:00 65 03/07/17 20:15 92 Nasal Cannula 3.50 03/07/17 20:00 98.8 90 18 143/71 (95) 99 03/07/17 20:00 89 03/07/17 16:00 98.3 27 27 133/70 (91) 90 03/07/17 16:00 96 I/O 03/07/17 03/07/17 03/07/17 03/08/17 03/08/17 03/08/17 07:00 15:00 23:00 07:00 15:00 23:00 Intake Total 1100 ml 50 ml 530 ml 240 ml Output Total 500 ml 350 ml 4 ml Balance 600 ml 50 ml 180 ml 236 ml Intake Oral 480 ml 240 ml IV Total 1100 ml 50 ml 50 ml Output Urine Total 500 ml 350 ml 4 ml # Bowel Movements 0 1 Result Diagram: 03/08/1742903/08/17 043 Imaging Last Impressions Chest X-Ray 03/07/17 06 Signed Impressions: Service Date/Time: Tuesday, March 07, 2017 04:52 - CONCLUSION: Hyperinflation which can be seen with COPD. Bibasilar patchy infiltrates, unchanged. Avel Paiz MD Objective Remarks GENERAL: Well-developed, frail, in no acute distress. HEENT: Head is normocephalic without any lesions or masses noted. Facial features are symmetric. Eyes: Pupils equal round reactive to light. Extraocular muscles are intact. Conjunctivae were clear. Oropharyngeal: Pharynx without any erythema edema. Tongue is midline without deviation. Buccal mucosa is moist without any masses or lesions NECK: Supple without any masses. Trachea midline no deviation. No JVD, no bruits are appreciated CARDIAC: Tachycardic. S1/S2 are heard. No murmurs gallops or rubs. LUNGS: Decreased air movement. No use of accessory muscles on inspiration or expiration. ABDOMEN: Soft, nontender. Nondistended. Bowel sounds heard in all 4 quadrants. No organomegaly or masses. Negative rebound, negative guarding. EXTREMITIES: No edema, pulses are equal bilaterally. No cyanosis or clubbing, obvious hand deformity from arthritis. NEUROLOGY: Cranial nerves II through XII grossly intact. Muscle strength 5/5 in upper and lower extremities bilaterally. Deep tendon reflexes are 2+ in upper and lower extremities bilaterally. PSYCH: Mood and affect appropriate. Medications and IVs Current Medications Medications (Trade) Dose Ordered Sig/Jenifer Route Start Time Stop Time Status Last Admin (Zyloprim) 100 mg DAILY PO 03/07/17 09:00 03/08/17 10:12 (Plaquenil) 200 mg BID PO 03/06/17 21:00 03/08/17 10:13 (Protonix) 20 mg DAILY PO 03/07/17 09:00 03/08/17 10:13 (Xarelto) 15 mg DAILY PO 03/07/17 09:00 03/08/17 10:13 (Ferrous Sulfate) 325 mg BID PO 03/06/17 21:00 03/08/17 10:13 Pharmacy Profile Note 0 ml @ 0 mls/hr UNSCH OTHER 03/06/17 17:00 Piperacillin Sod/ Tazobactam Sod 50 ml @ 200 mls/hr Q6H IV 03/06/17 18:00 03/08/17 12:51 (NS Flush) 2 ml UNSCH PRN IV FLUSH 03/06/17 16:15 (NS Flush) 2 ml BID IV FLUSH 03/06/17 21:00 03/08/17 09:00 (Tylenol) 650 mg Q4H PRN PO 10/24/17 16:15 (Tylenol) 650 mg Q6H PRN PO 03/06/17 16:15 03/07/17 11:11 (Narcan Inj) 0.4 mg UNSCH PRN IV PUSH 03/06/17 16:15 (Venita-Colace) 1 tab BID PO 03/06/17 21:00 03/08/17 09:00 Miscellaneous Information SPECIFIC LAB TO BE DRAWN:VANCOMY... ONCE ONCE .XX 03/10/17 19:45 03/10/17 19:46 (Tylenol - Codeine 120-12 Liq) 10 ml Q4H PRN PO 03/06/17 17:15 03/08/17 03:58 (Duoneb Neb) 1 ampule Q2HR NEB PRN NEB 03/06/17 17:15 03/07/17 10:59 (Duoneb Neb) 1 ampule Q6HR WHILE AWAKE NEB NEB 03/06/17 20:00 03/08/17 13:42 (Lopressor) 25 mg Q12HR PO 03/07/17 13:00 03/08/17 10:12 (Cardizem Cd) 120 mg BID PO 03/07/17 21:00 03/08/17 10:12 (Tessalon) 200 mg TID PRN PO 03/07/17 13:00 03/08/17 11:42 (NovoLOG SUPPLEMENTAL SCALE) 1 ACHS SLIDING SCALE SQ 03/08/17 12:00 (D50w (Vial) Inj) 50 ml UNSCH PRN IV PUSH 03/08/17 11:15 (Glucagon Inj) 1 mg UNSCH PRN OTHER 03/08/17 11:15 Vancomycin HCl 750 mg/Sodium Chloride 257.5 ml @ 200 mls/hr DAILY@1999 IV 03/08/17 20:00 (SoluMEDROL INJ) 40 mg BID IV PUSH 03/08/17 21:00 UNV A/P Problem List: (1) Severe sepsis ICD Code: A41.9 - Sepsis, unspecified organism; R65.20 - Severe sepsis without septic shock (2) Acute and chronic respiratory failure with hypoxia ICD Code: J96.21 - Acute and chronic respiratory failure with hypoxia (3) Hypotension ICD Code: I95.9 - Hypotension, unspecified (4) Acute systolic congestive heart failure ICD Code: I50.21 - Acute systolic (congestive) heart failure (5) COPD with acute exacerbation ICD Code: J44.1 - Chronic obstructive pulmonary disease with (acute) exacerbation Status: Acute (6) Acute renal failure superimposed on stage 2 chronic kidney disease ICD Code: N17.9 - Acute kidney failure, unspecified; N18.2 - Chronic kidney disease, stage 2 (mild) (7) Atrial fibrillation ICD Code: I48.91 - Unspecified atrial fibrillation Status: Chronic Assessment and Plan Severe sepsis/ HCAP Patient meets criteria with leukocytosis, tachycardia, bilateral infiltrates on x-ray, hypotension. Patient given 1 L IV fluid bolus. Patient initially monitored in the ICU for more aggressive management and care. Sputum culture with normal rajani. - Patient started on empirical antibiotics to include Zosyn and vancomycin to cover for HCAP (recently hospitalized). - Influenza testing is negative. - Continue monitor blood cultures. - Obtain urinalysis. Acute on chronic hypoxemic respiratory failure Etiology would include chronic obstructive pulmonary disease exacerbation and bilateral pneumonia. - antibiotics as above. - incentive spirometry. - encourage ambulation. - continue O2 someone takes maintain O2 sats greater 92%. - Continue nebulizer treatment. - Solumedrol IV BID. - Codeine and Tessalon for cough. Chronic systolic congestive heart failure Stable. - Patient being treated for hypotension this time, will need to monitor hydration status closely. - Patient has not had any lower extremity edema or worsening dyspnea on exertion. - Strict input and output - Unable to continue Lasix, losartan. Will resume as clinically indicated. Acute renal failure Superimposed on chronic kidney disease stage II. Improved with fluids. - Monitor renal function - Avoid nephrotoxins Atrial fibrillation HR has been elevated. Improved. - resume metoprolol and Cardizem with holding parameters. - Continue telemetry, monitor heart rate Anemia May be dilutional. Pt on Xarelto. Seems consistent with anemia of chronic disease. - check Hemoccult. DVT prevention Patient is on Xarelto Discharge Planning Transfer to floor. Anticipate discharge in 1-2 days. Imtiaz Ying DO Mar 08, 2017 14:49
[2017-03-08] MEDS ORDERED: POTASSIUM CHLORIDE 25 MEQ EFFERVESCENT TAB PO ONE (15:00)
[2017-03-08] MEDS: VANCOMYCIN INJ 750 MG in SODIUM CHLOR 0.9% 250 ML INJ 250 ML IV SCH (19:46)
[2017-03-08] MEDS: ALPRAZolam 0.25 MG TAB PO PRN (21:07)
[2017-03-09] VITALS (9 sets, daily range): BP systolic 124–158; BP diastolic 58–73; PULSE 69–88; RESP 18–20; TEMP 96.4–98.8; O2SAT 93–98
[2017-03-09] MEDS: ACETAMINOPHEN/CODEINE ELIX 120 MG/12 MG/5 ML CUP PO PRN ×4 (02:27→20:08)
[2017-03-09] MEDS: PIPERACIL-TAZO 3.375 GM PREMIX 50 ML IV SCH ×4 (06:33→23:41)
[2017-03-09 07:14] LABS: HEMATOCRIT 24.5 % (35.0-46.0); HEMOGLOBIN 8.2 GM/DL (11.6-15.3); MEAN CELL VOLUME 87.9 FL (80.0-100.0); MEAN CORPUSCULAR HEMOGLOBIN 29.4 PG (27.0-34.0); MEAN CORPUSCULAR HGB CONC 33.4 % (32.0-36.0); MEAN PLATELET VOLUME 7.8 FL (7.0-11.0); PLATELET COUNT 340 TH/MM3 (150-450); RED BLOOD COUNT 2.79 MIL/MM3 (4.00-5.30); RED CELL DISTRIBUTION WIDTH 15.7 % (11.6-17.2); WHITE BLOOD COUNT 18.3 TH/MM3 (4.0-11.0)
[2017-03-09 07:26] LABS: CALCIUM 8.2 MG/DL (8.5-10.1)
[2017-03-09 07:27] LABS: BICARBONATE 29.9 MEQ/L (21.0-32.0); MAGNESIUM 2.1 MG/DL (1.5-2.5)
[2017-03-09 07:30] LABS: CREATININE 0.83 MG/DL (0.50-1.00)
[2017-03-09] MEDS: INSULIN ASPART SUPPLEMENTAL SCALE SQ SCH ×4 (08:00→20:14)
[2017-03-09] MEDS: RESP: ALBUTEROL 2.5 MG/IPRATROPIUM 0.5 MG NEB (SCH) NEB ×3 (08:32→21:12)
[2017-03-09] MEDS: DOCUSATE SODIUM 50 MG/SENNA 8.6 MG TAB PO SCH ×2 (08:37→20:06)
[2017-03-09] MEDS: ALLOPURINOL 100 MG TAB PO SCH (08:37)
[2017-03-09] MEDS: HYDROXYCHLOROQUINE SULFATE 200 MG TAB PO SCH ×2 (08:37→20:07)
[2017-03-09] MEDS: PANTOPRAZOLE SOD 20 MG DELAYED RELEASE TAB PO SCH (08:37)
[2017-03-09] MEDS: BENZONATATE 100 MG CAP PO PRN ×2 (08:37→20:07)
[2017-03-09] MEDS: FERROUS SULFATE 325 MG (65 MG ELEMENTAL IRON) TAB PO SCH ×2 (08:37→20:07)
[2017-03-09] MEDS: RIVAROXABAN 15 MG TAB PO SCH (08:37)
[2017-03-09] MEDS: METOPROLOL TARTRATE 25 MG TAB PO SCH ×2 (08:37→20:07)
[2017-03-09] MEDS: ACETAMINOPHEN 325 MG TAB PO PRN (08:37)
[2017-03-09] MEDS: DILTIAZEM-CD 120 MG CAP ER PO SCH ×2 (08:38→20:07)
[2017-03-09] MEDS: ALPRAZolam 0.25 MG TAB PO PRN ×2 (08:38→20:07)
[2017-03-09] MEDS: methylPREDNISolone SOD SUCC 40 MG/1 ML VIAL IV PUSH SCH ×2 (08:38→20:06)
[2017-03-09] MEDS: SODIUM CHLORIDE 0.9% FLUSH 10 ML FLUSH IV FLUSH SCH ×2 (08:39→20:05)
--- NOTE | 2017-03-09 14:36 | HHI.PR ---
Subjective Remarks The patient said she was feeling better. She said she was sleepy all day. She says she has still not had a bowel movement. She is hoping to go home in the next few days. Objective Vitals Vital Signs Date Time Temp Pulse Resp B/P (MAP) Pulse Ox O2 Delivery O2 Flow Rate FiO2 03/09/17 12:00 97.8 73 20 124/60 (81) 95 03/09/17 11:30 94 Nasal Cannula 4.00 03/09/17 09:37 22 03/09/17 08:00 69 03/09/17 08:00 92 Nasal Cannula 4.00 03/09/17 08:00 96.5 73 20 133/65 (87) 95 03/09/17 07:33 22 03/09/17 07:00 89 Nasal Cannula 4.00 03/09/17 04:00 98.8 78 18 133/69 (90) 95 03/09/17 00:00 98.8 78 18 134/64 (87) 96 03/08/17 21:16 86 Venturi Mask 35 03/08/17 20:00 92 Nasal Cannula 3.50 03/08/17 20:00 98.3 90 29 124/57 (79) 90 03/08/17 20:00 78 03/08/17 20:00 Nasal Cannula 03/08/17 20:00 91 03/08/17 19:00 90 Nasal Cannula 3.00 03/08/17 17:44 80 20 126/63 (84) 93 I/O 03/08/17 03/08/17 03/08/17 03/09/17 03/09/17 03/09/17 07:00 15:00 23:00 07:00 15:00 23:00 Intake Total 240 ml 50 ml 50 ml 50 ml 480 ml Output Total 4 ml 125 ml 300 ml Balance 236 ml 50 ml -75 ml -250 ml 480 ml Intake Oral 240 ml 480 ml IV Total 50 ml 50 ml 50 ml Output Urine Total 4 ml 125 ml 300 ml # Voids 3 # Bowel Movements 1 Result Diagram: 03/09/1761003/09/17610 Imaging Last Impressions Chest X-Ray 03/07/17599 Signed Impressions: Service Date/Time: Tuesday, March 07, 2017 04:52 - CONCLUSION: Hyperinflation which can be seen with COPD. Bibasilar patchy infiltrates, unchanged. Avel Paiz MD Objective Remarks GENERAL: Well-developed, frail, in no acute distress. HEENT: Head is normocephalic without any lesions or masses noted. Facial features are symmetric. Eyes: Pupils equal round reactive to light. Extraocular muscles are intact. Conjunctivae were clear. Oropharyngeal: Pharynx without any erythema edema. Tongue is midline without deviation. Buccal mucosa is moist without any masses or lesions NECK: Supple without any masses. Trachea midline no deviation. No JVD, no bruits are appreciated CARDIAC: Regular rate and rhythm. S1/S2 are heard. No murmurs gallops or rubs. LUNGS: Bilateral crackles. ABDOMEN: Soft, nontender. Nondistended. No organomegaly or masses. Negative rebound, negative guarding. EXTREMITIES: No edema, pulses are equal bilaterally. No cyanosis or clubbing. NEUROLOGY: Cranial nerves II through XII grossly intact. Muscle strength 5/5 in upper and lower extremities bilaterally. Deep tendon reflexes are 2+ in upper and lower extremities bilaterally. PSYCH: Mood and affect appropriate. Medications and IVs Current Medications Medications (Trade) Dose Ordered Sig/Jenifer Route Start Time Stop Time Status Last Admin (Zyloprim) 100 mg DAILY PO 03/07/17 09:00 03/09/17 08:37 (Plaquenil) 200 mg BID PO 03/06/17 21:00 03/09/17 08:37 (Protonix) 20 mg DAILY PO 03/07/17 09:00 03/09/17 08:37 (Xarelto) 15 mg DAILY PO 03/07/17 09:00 03/09/17 08:37 (Ferrous Sulfate) 325 mg BID PO 03/06/17 21:00 03/09/17 08:37 Pharmacy Profile Note 0 ml @ 0 mls/hr UNSCH OTHER 03/06/17 17:00 Piperacillin Sod/ Tazobactam Sod 50 ml @ 200 mls/hr Q6H IV 03/06/17 18:00 03/09/17 06:33 (NS Flush) 2 ml UNSCH PRN IV FLUSH 03/06/17 16:15 (NS Flush) 2 ml BID IV FLUSH 03/06/17 21:00 03/09/17 08:39 (Tylenol) 650 mg Q4H PRN PO 03/06/17 16:15 (Tylenol) 650 mg Q6H PRN PO 03/06/17 16:15 03/09/17 08:37 (Narcan Inj) 0.4 mg UNSCH PRN IV PUSH 03/06/17 16:15 (Venita-Colace) 1 tab BID PO 03/06/17 21:00 03/09/17 08:37 Miscellaneous Information SPECIFIC LAB TO BE DRAWN:VANCOMY... ONCE ONCE .XX 03/10/17 19:45 03/10/17 19:46 (Tylenol - Codeine 120-12 Liq) 10 ml Q4H PRN PO 03/06/17 17:15 03/09/17 06:33 (Duoneb Neb) 1 ampule Q2HR NEB PRN NEB 03/06/17 17:15 03/07/17 10:59 (Duoneb Neb) 1 ampule Q6HR WHILE AWAKE NEB NEB 03/06/17 20:00 03/09/17 08:32 (Lopressor) 25 mg Q12HR PO 03/07/17 13:00 03/09/17 08:37 (Cardizem Cd) 120 mg BID PO 03/07/17 21:00 03/09/17 08:38 (Tessalon) 200 mg TID PRN PO 03/07/17 13:00 03/09/17 08:37 (NovoLOG SUPPLEMENTAL SCALE) 1 ACHS SLIDING SCALE SQ 03/08/17 12:00 03/08/17 20:52 (D50w (Vial) Inj) 50 ml UNSCH PRN IV PUSH 03/08/17 11:15 (Glucagon Inj) 1 mg UNSCH PRN OTHER 03/08/17 11:15 Vancomycin HCl 750 mg/Sodium Chloride 257.5 ml @ 200 mls/hr DAILY@2000 IV 03/08/17 20:00 03/08/17 19:46 (SoluMEDROL INJ) 40 mg BID IV PUSH 03/08/17 21:00 03/09/17 08:38 (Xanax) 0.25 mg Q8H PRN PO 03/08/17 17:30 03/09/17 08:38 A/P Problem List: (1) Severe sepsis ICD Code: A41.9 - Sepsis, unspecified organism; R65.20 - Severe sepsis without septic shock (2) Acute and chronic respiratory failure with hypoxia ICD Code: J96.21 - Acute and chronic respiratory failure with hypoxia (3) Hypotension ICD Code: I95.9 - Hypotension, unspecified (4) Acute systolic congestive heart failure ICD Code: I50.21 - Acute systolic (congestive) heart failure (5) COPD with acute exacerbation ICD Code: J44.1 - Chronic obstructive pulmonary disease with (acute) exacerbation Status: Acute (6) Acute renal failure superimposed on stage 2 chronic kidney disease ICD Code: N17.9 - Acute kidney failure, unspecified; N18.2 - Chronic kidney disease, stage 2 (mild) (7) Atrial fibrillation ICD Code: I48.91 - Unspecified atrial fibrillation Status: Chronic Assessment and Plan Severe sepsis/ HCAP Patient meets criteria with leukocytosis, tachycardia, bilateral infiltrates on x-ray, hypotension. Patient given 1 L IV fluid bolus. Patient initially monitored in the ICU for more aggressive management and care. Sputum culture with normal rajani. - Patient started on empirical antibiotics to include Zosyn and vancomycin to cover for HCAP (recently hospitalized). - Influenza testing is negative. - Continue monitor blood cultures. - Obtain urinalysis. Acute on chronic hypoxemic respiratory failure Etiology would include chronic obstructive pulmonary disease exacerbation and bilateral pneumonia. On 3L home oxygen. - antibiotics as above. - incentive spirometry. - encourage ambulation. - continue O2 someone takes maintain O2 sats greater 92%. - Continue nebulizer treatment. - Solumedrol IV BID. Wean to prednisone in a.m. - Codeine and Tessalon for cough. Chronic systolic congestive heart failure Stable. Patient has not had any lower extremity edema. - Strict input and output - Resume Lasix. Hold losartan for now. Acute renal failure Superimposed on chronic kidney disease stage II. Improved with fluids. - Monitor renal function while being diuresed. - Avoid nephrotoxins Atrial fibrillation HR has been elevated. Improved. - resume metoprolol and Cardizem with holding parameters. - Continue telemetry, monitor heart rate Anemia May be dilutional. Pt on Xarelto. Seems consistent with anemia of chronic disease. - check Hemoccult. DVT prevention Patient is on Xarelto Discharge Planning Anticipate discharge with home health care in 1-2 days. Imtiaz Ying DO Mar 09, 2017 14:36
[2017-03-09] MEDS ORDERED: PILL SPLITTER OTHER PRN (14:45)
[2017-03-09] MEDS: POLYETHYLENE GLYCOL 17 GM PKG PO SCH (15:00)
[2017-03-09] MEDS: VANCOMYCIN INJ 750 MG in SODIUM CHLOR 0.9% 250 ML INJ 250 ML IV SCH (20:05)
[2017-03-09] MEDS: FUROSEMIDE 40 MG TAB PO SCH (20:07)
[2017-03-10] VITALS (8 sets, daily range): BP systolic 130–167; BP diastolic 63–76; PULSE 78–93; RESP 18–20; TEMP 96.4–98; O2SAT 91–98
[2017-03-10] MEDS: ACETAMINOPHEN/CODEINE ELIX 120 MG/12 MG/5 ML CUP PO PRN (05:45)
[2017-03-10] MEDS: PIPERACIL-TAZO 3.375 GM PREMIX 50 ML IV SCH ×4 (05:45→23:20)
[2017-03-10] MEDS: BENZONATATE 100 MG CAP PO PRN ×2 (05:45→20:17)
[2017-03-10] MEDS ORDERED: ONDANSETRON HCL 4 MG/2 ML VIAL IV PUSH PRN (06:15)
[2017-03-10] MEDS: RESP: ALBUTEROL 2.5 MG/IPRATROPIUM 0.5 MG NEB (SCH) NEB ×2 (08:00→14:18)
[2017-03-10] MEDS: INSULIN ASPART SUPPLEMENTAL SCALE SQ SCH ×4 (08:00→20:59)
[2017-03-10] MEDS: POLYETHYLENE GLYCOL 17 GM PKG PO SCH (09:00)
[2017-03-10] MEDS: methylPREDNISolone SOD SUCC 40 MG/1 ML VIAL IV PUSH SCH (10:00)
[2017-03-10] MEDS: DILTIAZEM-CD 120 MG CAP ER PO SCH ×2 (10:01→20:17)
[2017-03-10] MEDS: SODIUM CHLORIDE 0.9% FLUSH 10 ML FLUSH IV FLUSH SCH ×2 (10:01→20:23)
[2017-03-10] MEDS: DOCUSATE SODIUM 50 MG/SENNA 8.6 MG TAB PO SCH ×2 (10:01→20:17)
[2017-03-10] MEDS: METOPROLOL TARTRATE 25 MG TAB PO SCH ×2 (10:01→20:17)
[2017-03-10] MEDS: ALLOPURINOL 100 MG TAB PO SCH (10:01)
[2017-03-10] MEDS: FERROUS SULFATE 325 MG (65 MG ELEMENTAL IRON) TAB PO SCH ×2 (10:02→20:17)
[2017-03-10] MEDS: RIVAROXABAN 15 MG TAB PO SCH (10:02)
[2017-03-10] MEDS: PANTOPRAZOLE SOD 20 MG DELAYED RELEASE TAB PO SCH (10:02)
[2017-03-10] MEDS: FUROSEMIDE 40 MG TAB PO SCH ×2 (10:02→20:17)
[2017-03-10] MEDS: HYDROXYCHLOROQUINE SULFATE 200 MG TAB PO SCH ×2 (10:02→20:17)
[2017-03-10] MEDS ORDERED: MINERAL OIL ENEMA 118 ML BTL RECTAL ONE (12:00)
[2017-03-10] MEDS ORDERED: BISACODYL EC 5 MG TABEC PO ONE (12:00)
--- NOTE | 2017-03-10 12:13 | HHI.PR ---
Subjective Remarks The patient said she did not sleep well because there was a patient yelling all night. She said she thought her breathing was better and was hoping to go home by tomorrow if possible. She says she still has not had a bowel movement and she was concerned about that. Objective Vitals Vital Signs Date Time Temp Pulse Resp B/P (MAP) Pulse Ox O2 Delivery O2 Flow Rate FiO2 03/10/17 08:08 92 Nasal Cannula 3.00 03/10/17 08:00 97.1 78 20 136/63 (87) 95 03/10/17 07:00 16 03/10/17 04:00 96.4 92 18 167/76 (106) 93 03/10/17 00:00 97.6 93 18 142/75 (97) 91 03/09/17 21:15 93 Nasal Cannula 3.00 03/09/17 20:00 93 Nasal Cannula 3.00 03/09/17 20:00 96.4 88 18 158/73 (101) 93 03/09/17 20:00 86 03/09/17 16:00 92 Nasal Cannula 3.00 03/09/17 16:00 97.3 73 20 128/58 (81) 98 03/09/17 15:43 97.3 73 20 128/58 (81) 98 03/09/17 15:15 93 Nasal Cannula 3.00 I/O 03/09/17 03/09/17 03/09/17 03/10/17 03/10/17 03/10/17 07:00 15:00 23:00 07:00 15:00 23:00 Intake Total 50 ml 480 ml 650 ml 820 ml Output Total 300 ml Balance -250 ml 480 ml 650 ml 820 ml Intake Oral 480 ml 400 ml 720 ml IV Total 50 ml 250 ml 100 ml Output Urine Total 300 ml # Voids 3 3 3 # Bowel Movements 0 Result Diagram: 03/09/1761003/09/17610 Imaging Last Impressions Chest X-Ray 03/07/17599 Signed Impressions: Service Date/Time: Tuesday, March 07, 2017 04:52 - CONCLUSION: Hyperinflation which can be seen with COPD. Bibasilar patchy infiltrates, unchanged. Avel Paiz MD Objective Remarks GENERAL: Well-developed, frail, in no acute distress. HEENT: Head is normocephalic without any lesions or masses noted. Facial features are symmetric. Eyes: Pupils equal round reactive to light. Extraocular muscles are intact. Conjunctivae were clear. Oropharyngeal: Pharynx without any erythema edema. Tongue is midline without deviation. Buccal mucosa is moist without any masses or lesions NECK: Supple without any masses. Trachea midline no deviation. No JVD, no bruits are appreciated CARDIAC: Regular rate and rhythm. S1/S2 are heard. No murmurs gallops or rubs. LUNGS: Bilateral crackles. No wheezing. ABDOMEN: Soft, nontender. Nondistended. No organomegaly or masses. Negative rebound, negative guarding. Positive bowel sounds. EXTREMITIES: No edema, pulses are equal bilaterally. No cyanosis or clubbing. NEUROLOGY: Cranial nerves II through XII grossly intact. Muscle strength 5/5 in upper and lower extremities bilaterally. Deep tendon reflexes are 2+ in upper and lower extremities bilaterally. PSYCH: Mood and affect appropriate. Medications and IVs Current Medications Medications (Trade) Dose Ordered Sig/[facility] Route Start Time Stop Time Status Last Admin (Zyloprim) 100 mg DAILY PO 03/07/17 09:00 03/10/17 10:01 (Plaquenil) 200 mg BID PO 03/06/17 21:00 03/10/17 10:02 (Protonix) 20 mg DAILY PO 03/07/17 09:00 03/10/17 10:02 (Xarelto) 15 mg DAILY PO 03/07/17 09:00 03/10/17 10:02 (Ferrous Sulfate) 325 mg BID PO 03/06/17 21:00 03/10/17 10:02 Pharmacy Profile Note 0 ml @ 0 mls/hr UNSCH OTHER 03/06/17 17:00 Piperacillin Sod/ Tazobactam Sod 50 ml @ 200 mls/hr Q6H IV 03/06/17 18:00 03/10/17 05:45 (NS Flush) 2 ml UNSCH PRN IV FLUSH 03/06/17 16:15 (NS Flush) 2 ml BID IV FLUSH 03/06/17 21:00 03/10/17 10:01 (Tylenol) 650 mg Q4H PRN PO 03/06/17 16:15 (Tylenol) 650 mg Q6H PRN PO 03/06/17 16:15 03/09/17 08:37 (Narcan Inj) 0.4 mg UNSCH PRN IV PUSH 03/06/17 16:15 (Venita-Colace) 1 tab BID PO 03/06/17 21:00 03/10/17 10:01 Miscellaneous Information SPECIFIC LAB TO BE DRAWN:VANCOMY... ONCE ONCE .XX 03/10/17 19:45 03/10/17 19:46 (Tylenol - Codeine 120-12 Liq) 10 ml Q4H PRN PO 03/06/17 17:15 03/10/17 05:45 (Duoneb Neb) 1 ampule Q2HR NEB PRN NEB 03/06/17 17:15 03/07/17 10:59 (Duoneb Neb) 1 ampule Q6HR WHILE AWAKE NEB NEB 03/06/17 20:00 03/09/17 21:12 (Lopressor) 25 mg Q12HR PO 03/07/17 13:00 03/10/17 10:01 (Cardizem Cd) 120 mg BID PO 03/07/17 21:00 03/10/17 10:01 (Tessalon) 200 mg TID PRN PO 03/07/17 13:00 03/10/17 05:45 (NovoLOG SUPPLEMENTAL SCALE) 1 ACHS SLIDING SCALE SQ 03/08/17 12:00 03/08/17 20:52 (D50w (Vial) Inj) 50 ml UNSCH PRN IV PUSH 03/08/17 11:15 (Glucagon Inj) 1 mg UNSCH PRN OTHER 03/08/17 11:15 Vancomycin HCl 750 mg/Sodium Chloride 257.5 ml @ 200 mls/hr DAILY@2000 IV 03/08/17 20:00 03/09/17 20:05 (Xanax) 0.125 mg Q8H PRN PO 03/09/17 17:30 03/09/17 20:07 (Miralax) 17 gm DAILY PO 03/09/17 15:00 03/10/17 09:00 (Lasix) 40 mg BID PO 03/09/17 21:00 03/10/17 10:02 (Pill Splitter) 1 ea UNSCH PRN OTHER 03/09/17 14:45 (Zofran Inj) 4 mg Q6HR PRN IV PUSH 03/10/17 06:15 03/10/17 06:23 (Dulcolax Ec) 10 mg ONCE ONCE PO 03/10/17 12:00 03/10/17 12:01 UNV (Fleet Mineral Oil Enema) 118 ml ONCE ONCE RECTAL 03/10/17 12:00 03/10/17 12:01 UNV (Deltasone) 20 mg BID PO 03/10/17 21:00 UNV A/P Problem List: (1) Severe sepsis ICD Code: A41.9 - Sepsis, unspecified organism; R65.20 - Severe sepsis without septic shock (2) Acute and chronic respiratory failure with hypoxia ICD Code: J96.21 - Acute and chronic respiratory failure with hypoxia (3) Hypotension ICD Code: I95.9 - Hypotension, unspecified (4) Acute systolic congestive heart failure ICD Code: I50.21 - Acute systolic (congestive) heart failure (5) COPD with acute exacerbation ICD Code: J44.1 - Chronic obstructive pulmonary disease with (acute) exacerbation Status: Acute (6) Acute renal failure superimposed on stage 2 chronic kidney disease ICD Code: N17.9 - Acute kidney failure, unspecified; N18.2 - Chronic kidney disease, stage 2 (mild) (7) Atrial fibrillation ICD Code: I48.91 - Unspecified atrial fibrillation Status: Chronic Assessment and Plan Severe sepsis/ HCAP Patient meets criteria with leukocytosis, tachycardia, bilateral infiltrates on x-ray, hypotension. Patient given 1 L IV fluid bolus. Patient initially monitored in the ICU for more aggressive management and care. Sputum culture with normal rajani. - Patient started on empirical antibiotics to include Zosyn and vancomycin to cover for HCAP (recently hospitalized). Antibiotics will be complete on 03/12. - Influenza testing is negative. - Continue monitor blood cultures. - Obtain urinalysis. Acute on chronic hypoxemic respiratory failure Etiology would include chronic obstructive pulmonary disease exacerbation and bilateral pneumonia. On 3L home oxygen. Improving. - antibiotics as above. - incentive spirometry. - encourage ambulation. - continue O2 someone takes maintain O2 sats greater 92%. - Continue nebulizer treatment. - Solumedrol weaned to prednisone BID. - Codeine and Tessalon for cough. Chronic systolic congestive heart failure Stable. Patient has not had any lower extremity edema. - Strict input and output - Resume Lasix, metoprolol and losartan. Acute renal failure Superimposed on chronic kidney disease stage II. Improved with fluids. - Monitor renal function while being diuresed. Stable. - Avoid nephrotoxins Atrial fibrillation HR has been elevated. Improved. - resume metoprolol and Cardizem with holding parameters. - Continue telemetry, monitor heart rate Anemia May be dilutional. Pt on Xarelto. Seems consistent with anemia of chronic disease. - check Hemoccult. Constipation The patient does have bowel sounds. - Stool softeners. MiraLAX daily. Dulcolax by mouth 1. Enema if no resolution. DVT prevention Patient is on Xarelto Discharge Planning Anticipate discharge with home health care in 1-2 days. Imtiaz Ying DO Mar 10, 2017 12:13
[2017-03-10 16:59] LABS: BILIRUBIN, URINE NEG (NEG); BLOOD, URINE NEG (NEG); GLUCOSE,URINE NEG (NEG); KETONE, URINE NEG (NEG); NITRITE,URINE NEG (NEG); PH, URINE 5.5 (5.0-8.5); URINE LEUKOCYTE ESTERASE NEG (NEG)
[2017-03-10 17:04] LABS: URINE COLOR YELLOW (YELLW/STRAW)
[2017-03-10 17:05] LABS: SQUAMOUS EPITHELIAL CELL URINE 0-5 /hpf (0-5)
[2017-03-10] MEDS ORDERED: VANCOMYCIN TROUGH ONE (19:45)
[2017-03-10] MEDS: LOSARTAN 25 MG TAB PO SCH (20:17)
[2017-03-10] MEDS: predniSONE 20 MG TAB PO SCH (20:17)
[2017-03-10] MEDS: VANCOMYCIN INJ 750 MG in SODIUM CHLOR 0.9% 250 ML INJ 250 ML IV SCH (20:23)
[2017-03-10] MEDS: RESP: ALBUTEROL 2.5 MG/IPRATROPIUM 0.5 MG NEB (PRN) NEB (20:51)
[2017-03-11] VITALS (8 sets, daily range): BP systolic 120–175; BP diastolic 63–88; PULSE 72–93; RESP 18–20; TEMP 95.6–97.3; O2SAT 93–100
[2017-03-11] MEDS: ACETAMINOPHEN/CODEINE ELIX 120 MG/12 MG/5 ML CUP PO PRN ×2 (00:15→20:59)
[2017-03-11] MEDS: PIPERACIL-TAZO 3.375 GM PREMIX 50 ML IV SCH ×3 (05:00→18:35)
[2017-03-11] MEDS: INSULIN ASPART SUPPLEMENTAL SCALE SQ SCH ×4 (08:00→20:58)
[2017-03-11 08:14] LABS: BICARBONATE 38.8 MEQ/L (21.0-32.0); CREATININE 0.84 MG/DL (0.50-1.00); MAGNESIUM 1.5 MG/DL (1.5-2.5)
[2017-03-11] MEDS: DOCUSATE SODIUM 50 MG/SENNA 8.6 MG TAB PO SCH ×2 (08:34→20:46)
[2017-03-11] MEDS: ALLOPURINOL 100 MG TAB PO SCH (08:34)
[2017-03-11] MEDS: predniSONE 20 MG TAB PO SCH ×2 (08:34→20:46)
[2017-03-11] MEDS: FUROSEMIDE 40 MG TAB PO SCH ×2 (08:35→20:46)
[2017-03-11] MEDS: METOPROLOL TARTRATE 25 MG TAB PO SCH ×2 (08:35→20:46)
[2017-03-11] MEDS: PANTOPRAZOLE SOD 20 MG DELAYED RELEASE TAB PO SCH (08:35)
[2017-03-11] MEDS: DILTIAZEM-CD 120 MG CAP ER PO SCH ×2 (08:35→20:46)
[2017-03-11] MEDS: HYDROXYCHLOROQUINE SULFATE 200 MG TAB PO SCH ×2 (08:35→20:46)
[2017-03-11] MEDS: POLYETHYLENE GLYCOL 17 GM PKG PO SCH (08:35)
[2017-03-11] MEDS: RIVAROXABAN 15 MG TAB PO SCH (08:35)
[2017-03-11] MEDS: FERROUS SULFATE 325 MG (65 MG ELEMENTAL IRON) TAB PO SCH ×2 (08:35→20:46)
[2017-03-11] MEDS: SODIUM CHLORIDE 0.9% FLUSH 10 ML FLUSH IV FLUSH SCH ×2 (08:36→20:47)
[2017-03-11] MEDS ORDERED: POTASSIUM CHLORIDE 10 MEQ CONTROLLED RELEASE TAB PO SCH (10:00)
[2017-03-11] MEDS: ALPRAZolam 0.25 MG TAB PO PRN (12:27)
--- NOTE | 2017-03-11 17:28 | HHI.PR ---
Subjective Remarks Patient seen and examined today for follow-up on acute on chronic respiratory failure, bilateral pneumonia, systolic congestive heart failure. Breathing has improved. She is on her baseline oxygenation at 3 L. Physical therapy walked here today without any worsening of her respiratory status. Patient states that she is doing much better and if she continues to improve she thinks that she might be only go back to the [facility] in the next 24-48 hours Objective Vitals Vital Signs Date Time Temp Pulse Resp B/P (MAP) Pulse Ox O2 Delivery O2 Flow Rate FiO2 03/11/17 12:00 96.8 80 20 137/71 (93) 100 03/11/17 08:17 96 Nasal Cannula 3.00 03/11/17 08:00 Nasal Cannula 3.00 35 03/11/17 08:00 95.6 83 18 154/88 (110) 98 03/11/17 04:00 96.4 72 20 175/74 (107) 99 03/11/17 01:30 18 03/11/17 00:00 97.3 72 18 132/88 (103) 93 03/10/17 20:49 98 Nasal Cannula 3.00 03/10/17 20:00 81 03/10/17 20:00 96.7 79 18 158/74 (102) 96 03/10/17 20:00 94 Nasal Cannula 3.00 I/O 03/10/17 03/10/17 03/10/17 03/11/17 03/11/17 03/11/17 07:00 15:00 23:00 07:00 15:00 23:00 Intake Total 820 ml 50 ml 325 ml 820 ml 480 ml Balance 820 ml 50 ml 325 ml 820 ml 480 ml Intake Oral 720 ml 720 ml 480 ml IV Total 100 ml 50 ml 325 ml 100 ml # Voids 3 2 2 3 # Bowel Movements 1 2 3 Result Diagram: 03/09/17 0611 03/11/17 0732 Objective Remarks GENERAL: Well-developed, well-nourished, in no acute distress. alert and orientated HEENT: Head is normocephalic without any lesions or masses noted. Facial features are symmetric. Eyes: Extraocular muscles are intact. Conjunctivae were clear. NECK: Supple without any masses. Trachea midline no deviation. No JVD, CARDIAC: Regular rhythm, regular rate. S1/S2 are heard. No murmurs gallops or rubs. LUNGS: Clear to auscultation, with diminished lung sounds. No wheeze, rhonchi or rales. No use of accessory muscles on inspiration or expiration. ABDOMEN: Soft, nontender. Nondistended. Bowel sounds heard in all 4 quadrants. No organomegaly or masses. Negative rebound, negative guarding EXTREMITIES: No edema, pulses are equal bilaterally. No cyanosis or clubbing NEUROLOGY: Mood and affect appear appropriate. Cranial nerves II through XII grossly intact. Moving all extremities, speech is clear Urinary Catheter: No Vascular Central Line Catheter: No A/P Assessment and Plan Severe sepsis, improved - Patient met criteria with leukocytosis, tachycardia, bilateral infiltrates on x-ray, hypotension - Patient was monitored in ICU for more aggressive management and suddenly transferred to medical floor - Status post Patient given 1 L IV fluid bolus - Patient started on empirical antibiotics to include Zosyn, vancomycin to cover for HCAP (recently hospitalized) - Influenza testing is negative, blood cultures are negative for 5 days, Legionella, streptococcal testing were negative, sputum culture heavy growth normal rajani - Continue monitor blood cultures, pneumococcal antigen, Legionella antigen were negative, sputum culture shows mixed respiratory rajani. Urinalysis was clear Acute on chronic hypoxic respiratory failure, stable - Etiology would include chronic obstructive pulmonary disease exacerbation, bilateral pneumonia, acute systolic congestive heart failure - continue O2 supplementation to maintain O2 sats greater 92%, patient is at baseline 3 L - Continue nebulizer treatment - Patient has been weaned down to prednisone 20 mg twice daily - Codeine and Tessalon for cough Chronic systolic congestive heart failure - Patient has not had any lower extremity edema or worsening dyspnea on exertion - Strict input and output - Metoprolol, Lasix, Cozaar has been continued Acute renal failure superimposed on chronic kidney disease stage II, improved - Monitor renal function - Avoid nephrotoxins Atrial fibrillation - Rate is controlled, however patient has had episodes of tachycardia 120-140. With movement and albuterol treatment - Home medications have been continued - Patient anticoagulated on Xarelto DVT prevention - Patient is on Xarelto Discharge Planning Discharge planning, hopefully back to [facility] with home health care within 24-48 hours Mervin Forrester Mar 11, 2017 17:28
--- NOTE | 2017-03-11 17:43 | HHI.FF ---
Face to Face Verification Diagnosis: (1) Acute and chronic respiratory failure with hypoxia (2) COPD with acute exacerbation Physical Therapy Order: Evaluate and Treat, Improve ambulation, Strength and gait training Home Health Nursing Order: Medical education Signs/symptoms of disease process CHF education Nursing assessment with vital signs I have seen patient Zoë Cummings on 03/11/17. My clinical findings support the need for the requested home health care services because: Patient has SOB Deconditioned w/ increased weakness I certify that my clinical findings support that this patient is homebound because: Hx COPD- exertion dyspnea/weakness Mervin Forrester Mar 11, 2017 17:43
[2017-03-11] MEDS: RESP: ALBUTEROL 1.25 MG/3 ML NEB (SCH) NEB (19:19)
[2017-03-11] MEDS ORDERED: VANCOMYCIN INJ 900 MG in SODIUM CHLOR 0.9% 250 ML INJ 250 ML IV SCH (20:00)
[2017-03-11] MEDS: LOSARTAN 25 MG TAB PO SCH (20:46)
[2017-03-12] VITALS (8 sets, daily range): BP systolic 126–169; BP diastolic 69–79; PULSE 72–100; RESP 17–20; TEMP 96.2–97.8; O2SAT 93–99
[2017-03-12] MEDS: PIPERACIL-TAZO 3.375 GM PREMIX 50 ML IV SCH ×3 (00:20→12:00)
[2017-03-12] MEDS: BENZONATATE 100 MG CAP PO PRN (00:54)
[2017-03-12] MEDS: ACETAMINOPHEN/CODEINE ELIX 120 MG/12 MG/5 ML CUP PO PRN ×2 (03:23→16:46)
[2017-03-12] MEDS: RESP: ALBUTEROL 1.25 MG/3 ML NEB (SCH) NEB ×3 (07:27→21:27)
[2017-03-12] MEDS: INSULIN ASPART SUPPLEMENTAL SCALE SQ SCH ×4 (08:00→21:00)
[2017-03-12] MEDS: DOCUSATE SODIUM 50 MG/SENNA 8.6 MG TAB PO SCH ×2 (09:00→21:06)
[2017-03-12] MEDS: POLYETHYLENE GLYCOL 17 GM PKG PO SCH (09:00)
[2017-03-12 09:08] LABS: AUTOMATED NEUTROPHIL # 25.7 TH/MM3 (1.8-7.7); BASOPHIL % 0.1 % (0.0-2.0); EOSINOPHIL # 0.1 TH/MM3 (0-0.4); EOSINOPHIL % 0.3 % (0.0-4.0); HEMATOCRIT 34.5 % (35.0-46.0); HEMOGLOBIN 10.9 GM/DL (11.6-15.3); LYMPH % 7.4 % (9.0-44.0); LYMPHOCYTE # 2.2 TH/MM3 (1.0-4.8); MEAN CELL VOLUME 87.9 FL (80.0-100.0); MEAN CORPUSCULAR HEMOGLOBIN 27.7 PG (27.0-34.0); MEAN CORPUSCULAR HGB CONC 31.5 % (32.0-36.0); MONO % 4.5 % (0.0-8.0); MONOCYTE # 1.3 TH/MM3 (0-0.9); NEUT % 87.7 % (16.0-70.0); PLATELET COUNT 525 TH/MM3 (150-450); RED BLOOD COUNT 3.93 MIL/MM3 (4.00-5.30); RED CELL DISTRIBUTION WIDTH 15.3 % (11.6-17.2); WHITE BLOOD COUNT 29.3 TH/MM3 (4.0-11.0)
[2017-03-12 09:39] LABS: BICARBONATE 42.8 MEQ/L (21.0-32.0); CALCIUM 8.5 MG/DL (8.5-10.1); CREATININE 0.91 MG/DL (0.50-1.00); MAGNESIUM 1.4 MG/DL (1.5-2.5)
[2017-03-12 09:47] LABS: STOMATOCYTES 1+ (NORMAL); TARGET CELLS 2+ (NORMAL)
[2017-03-12 09:48] LABS: TOXIC GRANULATION 2+ (NORMAL)
[2017-03-12 09:49] LABS: HYPERSEGMENTED POLYS 1+ (NORMAL)
[2017-03-12] MEDS: HYDROXYCHLOROQUINE SULFATE 200 MG TAB PO SCH ×2 (09:54→21:06)
[2017-03-12] MEDS: RIVAROXABAN 15 MG TAB PO SCH (09:54)
[2017-03-12] MEDS: PANTOPRAZOLE SOD 20 MG DELAYED RELEASE TAB PO SCH (09:54)
[2017-03-12] MEDS: ALLOPURINOL 100 MG TAB PO SCH (09:54)
[2017-03-12] MEDS: predniSONE 20 MG TAB PO SCH (09:54)
[2017-03-12] MEDS: FERROUS SULFATE 325 MG (65 MG ELEMENTAL IRON) TAB PO SCH ×2 (09:54→21:07)
[2017-03-12] MEDS: METOPROLOL TARTRATE 25 MG TAB PO SCH ×2 (09:54→21:06)
[2017-03-12] MEDS: SODIUM CHLORIDE 0.9% FLUSH 10 ML FLUSH IV FLUSH SCH ×2 (09:55→21:07)
[2017-03-12] MEDS: DILTIAZEM-CD 120 MG CAP ER PO SCH ×2 (09:55→21:06)
[2017-03-12] MEDS: FUROSEMIDE 40 MG TAB PO SCH ×2 (09:55→20:12)
[2017-03-12] MEDS: POTASSIUM CHLORIDE 20 MEQ CONTROLLED RELEASE TAB PO SCH ×2 (11:00→21:00)
[2017-03-12] MEDS: POTASSIUM CHLOR 20 MEQ PREMIX 100 ML IV SCH ×2 (11:24→14:41)
[2017-03-12] MEDS: RESP: ALBUTEROL 2.5 MG/IPRATROPIUM 0.5 MG NEB (PRN) NEB (14:10)
--- NOTE | 2017-03-12 15:53 | HHI.PR ---
Subjective Remarks Patient seen and examined today for follow-up on acute on chronic respiratory failure, bilateral pneumonia, systolic congestive heart failure. Patient breathing much better. She is very eager to go back to the [facility]. Objective Vitals Vital Signs Date Time Temp Pulse Resp B/P (MAP) Pulse Ox O2 Delivery O2 Flow Rate FiO2 03/12/17 11:17 96.2 72 18 161/75 (103) 99 03/12/17 08:00 97.5 79 19 126/79 (95) 93 03/12/17 07:30 98 Nasal Cannula 3.00 03/12/17 03:47 96.7 72 20 161/75 (103) 94 03/12/17 00:00 97.0 100 18 169/69 (102) 95 03/11/17 20:00 95 Nasal Cannula 3.00 03/11/17 19:55 97.0 93 19 139/63 (88) 95 03/11/17 19:19 95 Nasal Cannula 3.00 03/11/17 16:00 97.3 86 18 120/79 (93) 98 I/O 03/11/17 03/11/17 03/11/17 03/12/17 03/12/17 03/12/17 07:00 15:00 23:00 07:00 15:00 23:00 Intake Total 820 ml 480 ml 499 ml 580 ml Balance 820 ml 480 ml 499 ml 580 ml Intake Oral 720 ml 480 ml 240 ml 480 ml IV Total 100 ml 259 ml 100 ml # Voids 2 3 3 # Bowel Movements 2 3 1 Result Diagram: 03/12/17 0850 03/12/17 0850 Objective Remarks GENERAL: Well-developed, well-nourished, in no acute distress. alert and orientated HEENT: Head is normocephalic without any lesions or masses noted. Facial features are symmetric. Eyes: Extraocular muscles are intact. Conjunctivae were clear. NECK: Supple without any masses. Trachea midline no deviation. No JVD, CARDIAC: Regular rhythm, regular rate. S1/S2 are heard. No murmurs gallops or rubs. LUNGS: Clear to auscultation, with diminished lung sounds. No wheeze, rhonchi or rales. No use of accessory muscles on inspiration or expiration. ABDOMEN: Soft, nontender. Nondistended. Bowel sounds heard in all 4 quadrants. No organomegaly or masses. Negative rebound, negative guarding EXTREMITIES: No edema, pulses are equal bilaterally. No cyanosis or clubbing NEUROLOGY: Mood and affect appear appropriate. Cranial nerves II through XII grossly intact. Moving all extremities, speech is clear Urinary Catheter: No Vascular Central Line Catheter: No A/P Assessment and Plan Severe sepsis, improved - Patient met criteria with leukocytosis, tachycardia, bilateral infiltrates on x-ray, hypotension - Patient was monitored in ICU for more aggressive management and suddenly transferred to medical floor - Status post Patient given 1 L IV fluid bolus - Discontinue Zosyn, vancomycin to cover for HCAP (recently hospitalized) patient received 7 days of antibiotics - Influenza testing is negative, blood cultures are negative for 5 days, Legionella, streptococcal testing were negative, sputum culture heavy growth normal rajani - Blood cultures negative for 5 days, pneumococcal, Legionella testing was negative, sputum culture heavy growth of normal respiratory rajani,urinalysis was clear Acute on chronic hypoxic respiratory failure, patient is now baseline - Etiology would include chronic obstructive pulmonary disease exacerbation, bilateral pneumonia, acute systolic congestive heart failure - continue O2 supplementation to maintain O2 sats greater 92%, patient is at baseline 3 L - Continue nebulizer treatment - Patient has been weaned down to prednisone 10 mg twice daily for 2 more days - Codeine and Tessalon for cough Chronic systolic congestive heart failure - Patient has not had any lower extremity edema or worsening dyspnea on exertion - Strict input and output - Metoprolol, Lasix, Cozaar has been continued Acute renal failure superimposed on chronic kidney disease stage II, improved - Monitor renal function - Avoid nephrotoxins Electrolyte abnormalities with hypokalemia, hypomagnesemia - Continue to monitor and replete as needed Atrial fibrillation - Rate is controlled, - Home medications have been continued - Patient anticoagulated on Xarelto DVT prevention - Patient is on Xarelto Discharge Planning Discharge to [facility] with home health care has been arranged with case management. However due to inability of nursing staff to replace electrolytes in a timely manner in order to obtain follow-up labs because of patient intolerance. Patient is unable to discharge today. Patient will likely discharge tomorrow morning Mervin Forrester Mar 12, 2017 15:53
--- NOTE | 2017-03-12 15:54 | HHI.DCPOC ---
Discharge Care Plan Diagnosis: (1) Acute and chronic respiratory failure with hypoxia (2) Acute systolic congestive heart failure (3) Acute renal failure superimposed on stage 2 chronic kidney disease (4) PNA (pneumonia) Goals to Promote Your Health * To prevent worsening of your condition and complications * To maintain your health at the optimal level Directions to Meet Your Goals Take your medications as prescribed Follow your dietary instruction Follow activity as directed Keep your appointments as scheduled Take your immunizations and boosters as scheduled If your symptoms worsen call your PCP, if no PCP go to Urgent Care Center or Emergency Room Smoking is Dangerous to Your Health. Avoid second hand smoke Call the 24-hour hour crisis hotline for domestic abuse at Mervin Forrester Mar 12, 2017 15:54
--- NOTE | 2017-03-12 15:54 | HHI.DCPOC ---
Discharge Care Plan Diagnosis: (1) Acute and chronic respiratory failure with hypoxia (2) Acute systolic congestive heart failure (3) Acute renal failure superimposed on stage 2 chronic kidney disease (4) PNA (pneumonia) Goals to Promote Your Health * To prevent worsening of your condition and complications * To maintain your health at the optimal level Directions to Meet Your Goals Take your medications as prescribed Follow your dietary instruction Follow activity as directed Keep your appointments as scheduled Take your immunizations and boosters as scheduled If your symptoms worsen call your PCP, if no PCP go to Urgent Care Center or Emergency Room Smoking is Dangerous to Your Health. Avoid second hand smoke Call the 24-hour hour crisis hotline for domestic abuse at Mervin Forrester Mar 12, 2017 15:54
--- NOTE | 2017-03-12 15:54 | HHI.DCPOC ---
Discharge Care Plan Diagnosis: (1) Acute and chronic respiratory failure with hypoxia (2) Acute systolic congestive heart failure (3) Acute renal failure superimposed on stage 2 chronic kidney disease (4) PNA (pneumonia) Goals to Promote Your Health * To prevent worsening of your condition and complications * To maintain your health at the optimal level Directions to Meet Your Goals Take your medications as prescribed Follow your dietary instruction Follow activity as directed Keep your appointments as scheduled Take your immunizations and boosters as scheduled If your symptoms worsen call your PCP, if no PCP go to Urgent Care Center or Emergency Room Smoking is Dangerous to Your Health. Avoid second hand smoke Call the 24-hour hour crisis hotline for domestic abuse at Mervin Forrester Mar 12, 2017 15:54
[2017-03-12 16:00] LABS: BICARBONATE 38.5 MEQ/L (21.0-32.0)
[2017-03-12] MEDS: MAGNESIUM SULFATE 1 GM PREMIX 100 ML IV SCH ×2 (17:24→18:53)
[2017-03-12] MEDS: LOSARTAN 25 MG TAB PO SCH (21:05)
[2017-03-12] MEDS: predniSONE 10 MG TAB PO SCH (21:07)
[2017-03-12 21:28] LABS: MAGNESIUM 1.6 MG/DL (1.5-2.5)
[2017-03-13] VITALS: BP 158/74; PULSE 70; RESP 16; TEMP 96.5; O2SAT 97
[2017-03-13] MEDS: RESP: ALBUTEROL 1.25 MG/3 ML NEB (SCH) NEB (07:32)
[2017-03-13 07:36] VITALS: O2SAT 96
[2017-03-13 07:44] LABS: AUTOMATED NEUTROPHIL # 27.3 TH/MM3 (1.8-7.7); BASOPHIL % 0.1 % (0.0-2.0); EOSINOPHIL # 0.2 TH/MM3 (0-0.4); EOSINOPHIL % 0.7 % (0.0-4.0); HEMATOCRIT 32.9 % (35.0-46.0); HEMOGLOBIN 10.7 GM/DL (11.6-15.3); LYMPH % 7.2 % (9.0-44.0); LYMPHOCYTE # 2.2 TH/MM3 (1.0-4.8); MEAN CELL VOLUME 86.9 FL (80.0-100.0); MEAN CORPUSCULAR HEMOGLOBIN 28.4 PG (27.0-34.0); MEAN CORPUSCULAR HGB CONC 32.6 % (32.0-36.0); MEAN PLATELET VOLUME 7.5 FL (7.0-11.0); MONO % 3.6 % (0.0-8.0); MONOCYTE # 1.1 TH/MM3 (0-0.9); NEUT % 88.4 % (16.0-70.0); PLATELET COUNT 495 TH/MM3 (150-450); RED BLOOD COUNT 3.78 MIL/MM3 (4.00-5.30); RED CELL DISTRIBUTION WIDTH 15.2 % (11.6-17.2); WHITE BLOOD COUNT 30.8 TH/MM3 (4.0-11.0)
[2017-03-13 07:58] LABS: BICARBONATE 39.7 MEQ/L (21.0-32.0); CALCIUM 8.3 MG/DL (8.5-10.1)
[2017-03-13 08:00] VITALS: BP 175/79; PULSE 73; RESP 18; TEMP 96.3; O2SAT 96
[2017-03-13] MEDS: INSULIN ASPART SUPPLEMENTAL SCALE SQ SCH (08:00)
[2017-03-13 08:01] LABS: CREATININE 0.83 MG/DL (0.50-1.00)
[2017-03-13 08:20] LABS: BANDS 2 % (0-6); LYMPHOCYTES 6 % (9-44); METAMYELOCYTES 2 % (0-1); MONOCYTES 3 % (0-8); POLYS (SEG NEUTROPHILS) 87 % (16-70)
[2017-03-13 08:21] LABS: STOMATOCYTES 1+ (NORMAL); TARGET CELLS 1+ (NORMAL); TOXIC GRANULATION 1+ (NORMAL)
[2017-03-13] MEDS: ALLOPURINOL 100 MG TAB PO SCH (08:49)
[2017-03-13] MEDS: METOPROLOL TARTRATE 25 MG TAB PO SCH (08:49)
[2017-03-13] MEDS: predniSONE 10 MG TAB PO SCH (08:50)
[2017-03-13] MEDS: HYDROXYCHLOROQUINE SULFATE 200 MG TAB PO SCH (08:50)
[2017-03-13] MEDS: PANTOPRAZOLE SOD 20 MG DELAYED RELEASE TAB PO SCH (08:50)
[2017-03-13] MEDS: POTASSIUM CHLORIDE 20 MEQ CONTROLLED RELEASE TAB PO SCH (08:50)
[2017-03-13] MEDS: RIVAROXABAN 15 MG TAB PO SCH (08:50)
[2017-03-13] MEDS: DOCUSATE SODIUM 50 MG/SENNA 8.6 MG TAB PO SCH (08:50)
[2017-03-13] MEDS: FERROUS SULFATE 325 MG (65 MG ELEMENTAL IRON) TAB PO SCH (08:51)
[2017-03-13] MEDS: FUROSEMIDE 40 MG TAB PO SCH (08:51)
[2017-03-13] MEDS: SODIUM CHLORIDE 0.9% FLUSH 10 ML FLUSH IV FLUSH SCH (08:51)
[2017-03-13] MEDS: DILTIAZEM-CD 120 MG CAP ER PO SCH (08:51)
--- NOTE | 2017-03-13 11:25 | HHI.PR ---
Subjective Remarks Patient seen and evaluated today in follow-up for discharge planning. Patient feels well. Respiratory status is stable. Leukocytosis discussed with patient , daughter and with nursing team. I do believe is related to her steroids. Patient had made a decision today for DO NOT RESUSCITATE status with our conversation at the bedside in the presence of her daughter. Objective Vitals Vital Signs Date Time Temp Pulse Resp B/P (MAP) Pulse Ox O2 Delivery O2 Flow Rate FiO2 03/13/17 08:00 96.3 73 18 175/79 (111) 96 03/13/17 07:36 96 Nasal Cannula 3.00 03/13/17 00:00 96.5 70 16 158/74 (102) 97 03/12/17 21:30 95 3.00 03/12/17 21:00 Nasal Cannula 3.00 35 03/12/17 20:00 96.8 80 18 161/73 (102) 96 03/12/17 18:55 18 03/12/17 16:00 97.8 81 17 133/75 (94) 95 I/O 03/12/17 03/12/17 03/12/17 03/13/17 03/13/17 03/13/17 07:00 15:00 23:00 07:00 15:00 23:00 Intake Total 580 ml 120 ml 640 ml Output Total 600 ml Balance 580 ml 120 ml 40 ml Intake Oral 480 ml 120 ml 640 ml IV Total 100 ml Output Urine Total 600 ml # Voids 3 # Bowel Movements 1 2 Result Diagram: 03/13/17 0720 03/13/17 0720 Objective Remarks GENERAL: This is a well-nourished, well-developed patient, frail elderly female CARDIOVASCULAR: Regular rate and rhythm without murmurs, gallops, or rubs. RESPIRATORY: Clear to auscultation. Breath sounds equal bilaterally. No wheezes , rales, or rhonchi. GASTROINTESTINAL: Abdomen soft, non-tender, nondistended. Normal active bowel sounds MUSCULOSKELETAL: Extremities without clubbing, cyanosis, or edema. NEURO: Alert & Oriented x4 to person, place, time, situation. Moves all ext x4 A/P Problem List: (1) Severe sepsis ICD Code: A41.9 - Sepsis, unspecified organism; R65.20 - Severe sepsis without septic shock (2) Acute and chronic respiratory failure with hypoxia ICD Code: J96.21 - Acute and chronic respiratory failure with hypoxia (3) Hypotension ICD Code: I95.9 - Hypotension, unspecified (4) Acute systolic congestive heart failure ICD Code: I50.21 - Acute systolic (congestive) heart failure (5) COPD with acute exacerbation ICD Code: J44.1 - Chronic obstructive pulmonary disease with (acute) exacerbation Status: Acute (6) Acute renal failure superimposed on stage 2 chronic kidney disease ICD Code: N17.9 - Acute kidney failure, unspecified; N18.2 - Chronic kidney disease, stage 2 (mild) (7) Atrial fibrillation ICD Code: I48.91 - Unspecified atrial fibrillation Status: Chronic Assessment and Plan Continue with plans for discharge. Electrolytes have been replaced. Home health care has been arranged. I did discuss with the patient regarding DO NOT RESUSCITATE status and she has made the decision in our conversation to elect DO NOT RESUSCITATE status. Care plan discussed with Nalini JACINTO, case management Leigh Ann Rod MD Mar 13, 2017 11:25
[2017-03-13] MEDS: BENZONATATE 100 MG CAP PO PRN (11:48)
[2017-03-13 11:49] VITALS: BP 148/78
[2017-03-14] MEDS ORDERED: VANCOMYCIN TROUGH ONE (19:45)
== END 2017-03-13 12:12 | disposition home health service (06) | DRG 871 ==
LOC: PHED 13:44 → PHEDA 15:51 → PHICU 17:25 → PH3A 03-08 23:32
PROVIDERS: ADMIT Hospitalist; ATTEND Hospitalist
DX: A41.9 Sepsis, unspecified organism (principal); J18.9 Pneumonia, unspecified organism; J96.21 Acute and chronic respiratory failure with hypoxia; I50.23 Acute on chronic systolic (congestive) heart failure; N17.9 Acute kidney failure, unspecified; I95.9 Hypotension, unspecified; J44.0 Chronic obstructive pulmonary disease with (acute) lower respiratory infection; I13.0 Hypertensive heart and chronic kidney disease with heart failure and stage 1 through stage 4 chronic kidney disease, or unspecified chronic kidney disease; E83.42 Hypomagnesemia; J44.1 Chronic obstructive pulmonary disease with (acute) exacerbation; Z99.81 Dependence on supplemental oxygen; I48.2 Chronic atrial fibrillation; M06.9 Rheumatoid arthritis, unspecified; Z66 Do not resuscitate; M10.9 Gout, unspecified; N18.2 Chronic kidney disease, stage 2 (mild); R65.20 Severe sepsis without septic shock; D63.8 Anemia in other chronic diseases classified elsewhere; E87.6 Hypokalemia; I73.9 Peripheral vascular disease, unspecified; K59.00 Constipation, unspecified; Y95 Nosocomial condition; Z79.01 Long term (current) use of anticoagulants; Z87.891 Personal history of nicotine dependence; Z86.73 Personal history of transient ischemic attack (TIA), and cerebral infarction without residual deficits
CPT/HCPCS: 71010; 80048; 80053; 80202; 81001; 82607; 82728; 82746; 82948; 83540; 83550; 83605; 83735; 83880; 84132; 84484; 85007; 85025; 85027; 87040; 87070; 87205; 87449; 93005; 94150; 94640; 94664; 96374; J0456; J0696; J1815; J2060; J2405; J2543; J2920; J2930; J3370; J3475; J3480; J7030; J7050; J7512; J7613

== ENCOUNTER 2017-03-31 19:55 | Emergency (ER) | payer MEDICARE, OTHER ==
[~2017-03-31] VITALS: Ht 142.2 cm; Wt 42.5 kg
[~2017-03-31 19:55] MED LIST changes: +PLAQ200T PO
[2017-03-31] MEDS ORDERED: SODIUM CHLORIDE 0.9% FLUSH 10 ML FLUSH IVF PRN (20:15)
[2017-03-31] MEDS ORDERED: methylPREDNISolone SOD SUCC 125 MG/2 ML VIAL IV PUSH ONE (20:15)
[2017-03-31] MEDS: RESP: ALBUTEROL 2.5 MG/IPRATROPIUM 0.5 MG NEB (SCH) INH ×3 (20:19→20:42)
[2017-03-31 20:25] VITALS: BP 124/74; PULSE 88; RESP 20; TEMP 98.6; O2SAT 95
--- NOTE | 2017-03-31 20:27 | PD ---
HPI Chief Complaint: Respiratory Symptoms Time Seen by Provider: 19:59 Travel History International Travel<30 days: No Contact w/Intl Traveler<30days: No Traveled to known affect area: No History of Present Illness HPI The patient was seen and examined in the presence of the nurse. This patient complains of shortness of breath. Duration 2 days. Symptoms are moderately severe. She has chronic severe COPD on 3 L oxygen around the clock. She uses nebulizers. She denies fever or chest pain. She does have a cough. She was discharged hospital 2 weeks ago for respiratory problems of pneumonia and COPD. No alleviating factors. Symptoms are exacerbated her severe chronic lung disease. PFSH Past Medical History Hx Anticoagulant Therapy: Yes Arthritis: Yes (RA hands and feet) Asthma: Yes Atrial Fibrillation: Yes Autoimmune Disease: No Heart Rhythm Problems: Yes (afib sees Dr Chaudhary) Cancer: No Cardiovascular Problems: Yes High Cholesterol: No Chest Pain: No Congestive Heart Failure: No COPD: Yes Cerebrovascular Accident: Yes (TIA 35 yrs ago) Diabetes: No Diminished Hearing: No Endocrine: No Gastrointestinal Disorders: Yes (rectal prolapse, diverticulitis) GERD: No Gout: Yes Genitourinary: No Headaches: No Hepatitis: No Hiatal Hernia: No Hypertension: Yes Immune Disorder: No Implanted Vascular Access Dvce: No Kidney Stones: No Musculoskeletal: No Neurologic: No Psychiatric: No Reproductive: Yes Respiratory: Yes (3MM MASS RIGHT LUNG) Migraines: No Renal Failure: No Seizures: No Sleep Apnea: No Thyroid Disease: No Ulcer: Yes Past Surgical History Abdominal Surgery: Yes (abd surgery for "holes in my stomach" ) AICD: No Cardiac Surgery: No Ear Surgery: No Endocrine Surgery: No Eye Surgery: Yes (Cataracts) Genitourinary Surgery: No Hysterectomy: Yes Joint Replacement: No Neurologic Surgery: No Oral Surgery: No Pacemaker: No Thoracic Surgery: No Other Surgery: Yes Social History Alcohol Use: No Tobacco Use: No Substance Use: No Allergies-Medications (Allergen,Severity, Reaction): Coded Allergies: No Known Allergies (Unverified , 03/01/17) Reported Meds & Prescriptions Reported Meds & Active Scripts Active Tylenol (Acetaminophen) 325 Mg Tab 650 Mg PO Q4H PRN Xarelto (Rivaroxaban) 15 Mg Tab 15 Mg PO DAILY Potassium Chloride Microencaps 20 Meq Tab 20 Meq PO DAILY Cardizem CD 24 HR (Diltiazem CD 24 HR) 120 Mg Caper 120 Mg PO BID Reported Plaquenil (Hydroxychloroquine Sulfate) 200 Mg Tab 200 Mg PO BID Take with food Metoprolol Tartrate 25 Mg Tab 25 Mg PO BID Prednisone 5 Mg Tab 5 Mg PO DAILY Methotrexate 2.5 Mg Tab 2.5 Mg PO Q7D Losartan (Losartan Potassium) 25 Mg Tab 25 Mg PO HS Probiotic (Lactobacillus Acidophilus) 1 Cap Cap 1 Cap PO DAILY Calcium 1000 + D (Calcium Carbonate-Cholecalciferol) 1,000-800 Mg-Unit Tab 1 Tab PO Docusate Sodium 100 Mg Tab 100 Mg PO DIRECTED Ipratropium Neb (Ipratropium [place]) 0.5 Mg/2.5 Ml Amp 0.5 Mg NEB Q6HR NEB PRN Fosamax (Alendronate Sodium) 70 Mg Tab 70 Mg PO Q7D Proair Hfa 8.5 GM Inh (Albuterol Sulfate) 90 Mcg/Act Aer 2 Puff INH Q4-6H PRN 108 mcg/actuation Ferrous Sulfate DR (Ferrous Sulfate) 324 Mg Tabdr 65 Mg PO BID Magnesium (Magnesium Oxide) 400 Mg Tablet 1 Tab PO BID Protonix (Pantoprazole Sodium) 20 Mg Tab 20 Mg PO DAILY Allopurinol 100 Mg Tab 100 Mg PO DAILY Lasix (Furosemide) 40 Mg Tab 40 Mg PO BID Review of Systems General / Constitutional: No: Fever Eyes: No: Visual changes HENT: No: Headaches Cardiovascular: No: Chest Pain or Discomfort Respiratory: Positive: Cough, Shortness of Breath Gastrointestinal: No: Abdominal Pain Genitourinary: No: Dysuria Musculoskeletal: No: Pain Skin: No Rash Neurologic: No: Weakness Psychiatric: No: Depression Endocrine: No: Polydipsia Hematologic/Lymphatic: No: Easy Bruising Physical Exam Narrative GENERAL: Thin elderly well-developed patient with shortness of breath . SKIN: Focused skin assessment reveals no rash and nodules. Skin is Warm and dry. HEAD: Atraumatic. Normocephalic. EYES: Pupils equal and round. No scleral icterus. No injection or drainage. ENT: No nasal bleeding or discharge. Mucous membranes pink and moist. NECK: Trachea midline. No JVD. CARDIOVASCULAR: Regular rate and rhythm. No murmur appreciated. RESPIRATORY: Positive accessory muscle use. Diffuse rhonchi with some expiratory wheeze. Breath sounds equal bilaterally. GASTROINTESTINAL: Abdomen soft, non-tender, nondistended. Hepatic and splenic margins not palpable. MUSCULOSKELETAL: No obvious deformities. No clubbing. No cyanosis. No edema. NEUROLOGICAL: Awake and alert. No obvious cranial nerve deficits. Motor grossly within normal limits. Normal speech. PSYCHIATRIC: Appropriate mood and affect; insight and judgment normal. Data Data Last Documented VS Vital Signs Date Time Temp Pulse Resp B/P (MAP) Pulse Ox O2 Delivery O2 Flow Rate FiO2 03/31/17 20:56 95 20 122/50 (74) 93 Nasal Cannula 3.00 03/31/17 20:25 98.6 Orders Orders Complete Blood Count With Diff (03/31/17 20:13) Basic Metabolic Panel (Bmp) (03/31/17 20:13) Influenzae A/B Antigen (03/31/17 20:13) Iv Access Insert/Monitor (03/31/17 20:13) Electrocardiogram (03/31/17 20:13) Ecg Monitoring (03/31/17 20:13) Oximetry (03/31/17 20:13) Oxygen Administration (03/31/17 20:13) Chest, Single Ap (03/31/17 20:13) Sodium Chloride 0.9% Flush (Ns Flush) (03/31/17 20:15) Methylprednisolone So Succ Inj (Solumedr (03/31/17 20:15) Albuterol-Ipratropium Neb (Duoneb Neb) (03/31/17 20:15) Labs Laboratory Tests Test 03/31/17 20:21 White Blood Count 11.7 TH/MM3 Red Blood Count 3.56 MIL/MM3 Hemoglobin 9.9 GM/DL Hematocrit 31.3 % Mean Corpuscular Volume 88.0 FL Mean Corpuscular Hemoglobin 27.9 PG Mean Corpuscular Hemoglobin Concent 31.8 % Red Cell Distribution Width 16.1 % Platelet Count 271 TH/MM3 Mean Platelet Volume 8.3 FL Neutrophils (%) (Auto) 71.3 % Lymphocytes (%) (Auto) 14.5 % Monocytes (%) (Auto) 6.8 % Eosinophils (%) (Auto) 5.5 % Basophils (%) (Auto) 1.9 % Neutrophils # (Auto) 8.4 TH/MM3 Lymphocytes # (Auto) 1.7 TH/MM3 Monocytes # (Auto) 0.8 TH/MM3 Eosinophils # (Auto) 0.6 TH/MM3 Basophils # (Auto) 0.2 TH/MM3 CBC Comment DIFF FINAL Differential Comment Blood Urea Nitrogen 14 MG/DL Creatinine 0.81 MG/DL Random Glucose 145 MG/DL Calcium Level 9.1 MG/DL Sodium Level 137 MEQ/L Potassium Level 4.4 MEQ/L Chloride Level 104 MEQ/L Carbon Dioxide Level 25.8 MEQ/L Anion Gap 7 MEQ/L Estimat Glomerular Filtration Rate 68 ML/MIN MDM Medical Decision Making Medical Screen Exam Complete: Yes Emergency Medical Condition: Yes Medical Record Reviewed: Yes Differential Diagnosis Differential diagnosis includes COPD, asthma, pneumonia, bronchitis, CHF Narrative Course I have reviewed the patient's electronic medical record. Reviewed her admission history and physical from February 2017 IV placed I gave her series of 3 nebulizer treatments and placed her on her usual oxygen I gave her IV Solu-Medrol I reviewed her EKG which shows sinus rhythm with ectopic beats but no ST elevation I reviewed her chest x-ray which shows no pneumonia or pneumothorax. There is some chronic scarring unchanged from prior CBC shows mild anemia and her white count is much improved from prior Metabolic profile is normal On recheck the patient looks remarkably much better. She has saturations between 95 and 97% on her usual oxygen She wants to go home. I don't see a compelling indication to hospitalize her given that she has nebulizers and oxygen at home and is probably doing is clinically well as can be expected given her poor baseline lung function I did write her 5 days of prednisone She should call her physician Sunday for follow-up but will return if worsening Diagnosis Primary Impression: COPD (chronic obstructive pulmonary disease) Qualified Codes: J44.1 - Chronic obstructive pulmonary disease with (acute) exacerbation Additional Instructions: The patient was advised to follow up with their physician and return if they worsen. Med/Other Pt SpecificInfo: Prescription(s) given Scripts Prednisone (Prednisone) 20 Mg Tab 40 MG PO DAILY, #10 TAB 0 Refills Take 40 mg (2 tablets) daily for 5 days Prov: Mervin Martinez MD 03/31/17 Disposition: 01 DISCHARGE HOME Condition: Stable Mervin Martinez MD Mar 31, 2017 20:27
[2017-03-31 20:31] LABS: AUTOMATED NEUTROPHIL # 8.4 TH/MM3 (1.8-7.7); BASOPHIL # 0.2 TH/MM3 (0-0.2); BASOPHIL % 1.9 % (0.0-2.0); EOSINOPHIL # 0.6 TH/MM3 (0-0.4); EOSINOPHIL % 5.5 % (0.0-4.0); HEMATOCRIT 31.3 % (35.0-46.0); HEMO FLAGS DIFF FINAL; LYMPH % 14.5 % (9.0-44.0); LYMPHOCYTE # 1.7 TH/MM3 (1.0-4.8); MEAN CORPUSCULAR HEMOGLOBIN 27.9 PG (27.0-34.0); MEAN CORPUSCULAR HGB CONC 31.8 % (32.0-36.0); MONO % 6.8 % (0.0-8.0); NEUT % 71.3 % (16.0-70.0); PLATELET COUNT 271 TH/MM3 (150-450); RED BLOOD COUNT 3.56 MIL/MM3 (4.00-5.30); RED CELL DISTRIBUTION WIDTH 16.1 % (11.6-17.2); WHITE BLOOD COUNT 11.7 TH/MM3 (4.0-11.0)
--- NOTE | 2017-03-31 20:38 | RADRPT ---
EXAM DATE/TIME: 03/31/2017 20:23 [facility] COMPARISON: CHEST SINGLE AP, September 10, 2015, 16:49. CHEST SINGLE AP, March 07, 2017, 4:52. INDICATIONS : Shortness of breath. MEDICAL HISTORY : Hypertension. Chronic obstructive pulmonary disease. Gastroesophageal reflux disease. Anticoagula nt therapy SURGICAL HISTORY : Hysterectomy. ENCOUNTER: Initial ACUITY: 1 day PAIN SCORE: 0/10 LOCATION: Bilateral chest FINDINGS: Mild to moderate subpleural chronic interstitial opacities are again noted, not significantly changed . Mild basilar pleural scarring also similar to before. No acute pneumonia seen. No pleural effusion or pneumothorax. Heart size stable, normal. CONCLUSION: Chronic scarring and interstitial lung disease, similar to before. No pneumonia or other acute cardio pulmonary disease demonstrated. Lexx Graves MD on March 31, 2017 at 20:36 Board Certified Radiologist. This report was verified electronically.
[2017-03-31 20:39] VITALS: RESP 20; O2SAT 98
[2017-03-31 20:42] VITALS: O2SAT 96
[2017-03-31 20:42] LABS: BICARBONATE 25.8 MEQ/L (21.0-32.0)
[2017-03-31 20:56] VITALS: BP 122/50; PULSE 95; RESP 20; O2SAT 93
[2017-03-31 21:03] LABS: POTASSIUM 4.4 MEQ/L (3.5-5.1)
[2017-03-31] MEDS ORDERED: PRED20 PO (21:28)
[2017-03-31 21:46] VITALS: BP 152/66
--- NOTE | 2017-04-01 11:50 | EKG ---
Date Performed: 03/31/2017 Time Performed: 20:03:53 PTAGE: 81 years EKG: Sinus rhythm WITH OCCASIONAL SUPRAVENTRICULAR PREMATURE COMPLEXES Nonspecific ST-T changes ABNORMAL ECG PREVIOUS TRACING 03/06/2017 Compared to prior tracing no significant change DOCTOR: Kenneth Rojas Interpretating Date/Time 04/01/2017 11:48:16
== END 2017-03-31 21:52 | disposition home or self-care (01) ==
LOC: PHED 19:55
DX: J44.1 Chronic obstructive pulmonary disease with (acute) exacerbation (principal); I10 Essential (primary) hypertension; R94.31 Abnormal electrocardiogram [ECG] [EKG]; M06.9 Rheumatoid arthritis, unspecified; Z86.73 Personal history of transient ischemic attack (TIA), and cerebral infarction without residual deficits; Z79.52 Long term (current) use of systemic steroids; Z79.899 Other long term (current) drug therapy
CPT/HCPCS: 71010; 80048; 85025; 93005; 94640; 94664; 96374; 99285; J2930

== ENCOUNTER 2017-05-04 13:53 | Emergency (ER) | payer OTHER ==
[~2017-05-04] VITALS: Ht 142.2 cm; Wt 47.6 kg
[~2017-05-04 13:53] MED LIST changes: +PRED20 PO
[2017-05-04 14:06] VITALS: BP 137/67; PULSE 83; RESP 16; TEMP 98.5; O2SAT 95
[2017-05-04] MEDS ORDERED: L. A1CAP (14:40)
[2017-05-04] MEDS ORDERED: PROPARACAINE HCL 0.5% OPHT SOLN 15 ML BTL LEFT EYE ONE (14:45)
--- NOTE | 2017-05-04 14:46 | PD ---
HPI Chief Complaint: Eye Problems/Injury Time Seen by Provider: 14:21 Travel History International Travel<30 days: No Contact w/Intl Traveler<30days: No Traveled to known affect area: No History of Present Illness HPI The patient was seen and examined in the presence of the nurse. This patient has had blurry vision in the left eye for a solid month. She saw her primary physician and get a referral to an solvent mixer but that hasn't happened yet. 4 days ago she developed redness and pain in the left eye. She has history of glaucoma and had laser eye surgery bilaterally. Moderate to severe in nature. No alleviating factors. No exacerbating factors. PFSH Past Medical History Hx Anticoagulant Therapy: Yes Arthritis: Yes (RA hands and feet) Asthma: Yes Atrial Fibrillation: Yes Autoimmune Disease: No Heart Rhythm Problems: Yes (afib sees Dr Chaudhary) Cancer: No Cardiovascular Problems: Yes High Cholesterol: No Chest Pain: No Congestive Heart Failure: No COPD: Yes Cerebrovascular Accident: Yes (TIA 35 yrs ago) Diabetes: No Diminished Hearing: No Endocrine: No Gastrointestinal Disorders: Yes (rectal prolapse, diverticulitis) GERD: No Gout: Yes Genitourinary: No Headaches: No Hepatitis: No Hiatal Hernia: No Hypertension: Yes Immune Disorder: No Implanted Vascular Access Dvce: No Kidney Stones: No Musculoskeletal: No Neurologic: No Psychiatric: No Reproductive: Yes Respiratory: Yes (3MM MASS RIGHT LUNG) Migraines: No Renal Failure: No Seizures: No Sleep Apnea: No Thyroid Disease: No Ulcer: Yes Past Surgical History Abdominal Surgery: Yes (abd surgery for "holes in my stomach" ) AICD: No Cardiac Surgery: No Ear Surgery: No Endocrine Surgery: No Eye Surgery: Yes (Cataracts) Genitourinary Surgery: No Hysterectomy: Yes Joint Replacement: No Neurologic Surgery: No Oral Surgery: No Pacemaker: No Thoracic Surgery: No Other Surgery: Yes Social History Alcohol Use: No Tobacco Use: No Substance Use: No Allergies-Medications (Allergen,Severity, Reaction): Coded Allergies: No Known Allergies (Verified Adverse Reaction, Unknown, 05/04/17) Reported Meds & Prescriptions Reported Meds & Active Scripts Active Prednisone 20 Mg Tab 40 Mg PO DAILY Take 40 mg (2 tablets) daily for 5 days Tylenol (Acetaminophen) 325 Mg Tab 650 Mg PO Q4H PRN Xarelto (Rivaroxaban) 15 Mg Tab 15 Mg PO DAILY Potassium Chloride Microencaps 20 Meq Tab 20 Meq PO DAILY Cardizem CD 24 HR (Diltiazem CD 24 HR) 120 Mg Caper 120 Mg PO BID Reported Acidophilus Capsule (L. Acidophilus/Pectin, [place]) 7.5 Mg (30 Million Cell)- 100 Mg Capsule Plaquenil (Hydroxychloroquine Sulfate) 200 Mg Tab 200 Mg PO BID Take with food Metoprolol Tartrate 25 Mg Tab 25 Mg PO BID Prednisone 5 Mg Tab 5 Mg PO DAILY Methotrexate 2.5 Mg Tab 2.5 Mg PO Q7D Losartan (Losartan Potassium) 25 Mg Tab 25 Mg PO HS Probiotic (Lactobacillus Acidophilus) 1 Cap Cap 1 Cap PO DAILY Calcium 1000 + D (Calcium Carbonate-Cholecalciferol) 1,000-800 Mg-Unit Tab 1 Tab PO Docusate Sodium 100 Mg Tab 100 Mg PO DIRECTED Ipratropium Neb (Ipratropium [place]) 0.5 Mg/2.5 Ml Amp 0.5 Mg NEB Q6HR NEB PRN Proair Hfa 8.5 GM Inh (Albuterol Sulfate) 90 Mcg/Act Aer 2 Puff INH Q4-6H PRN 108 mcg/actuation Ferrous Sulfate DR (Ferrous Sulfate) 324 Mg Tabdr 65 Mg PO BID Magnesium (Magnesium Oxide) 400 Mg Tablet 1 Tab PO BID Protonix (Pantoprazole Sodium) 20 Mg Tab 20 Mg PO DAILY Allopurinol 100 Mg Tab 100 Mg PO DAILY Lasix (Furosemide) 40 Mg Tab 40 Mg PO BID Review of Systems General / Constitutional: No: Fever Eyes: Positive: Blurred Vision, Redness, Pain, Tearing, Visual changes HENT: No: Headaches Cardiovascular: No: Chest Pain or Discomfort Respiratory: No: Shortness of Breath Gastrointestinal: No: Abdominal Pain Genitourinary: No: Dysuria Musculoskeletal: No: Pain Skin: No Rash Neurologic: No: Weakness Psychiatric: No: Depression Endocrine: No: Polydipsia Hematologic/Lymphatic: No: Easy Bruising Physical Exam Narrative GENERAL: Well-nourished, well-developed patient in no apparent distress. SKIN: Focused skin assessment reveals no rash and nodules. Skin is Warm and dry. HEAD: Atraumatic. Normocephalic. EYES: Pupils are not equal. Both react to light. Both are round. Left eye is 7 mm and right eyes 4 mm. Right eyes clear. Left eye shows conjunctival injection diffusely. No drainage. ENT: No nasal bleeding or discharge. Mucous membranes pink and moist. NECK: Trachea midline. No JVD. CARDIOVASCULAR: Regular rate and rhythm. No murmur appreciated. RESPIRATORY: No accessory muscle use. Clear to auscultation. Breath sounds equal bilaterally. GASTROINTESTINAL: Abdomen soft, non-tender, nondistended. Hepatic and splenic margins not palpable. MUSCULOSKELETAL: No obvious deformities. No clubbing. No cyanosis. No edema. NEUROLOGICAL: Awake and alert. No obvious cranial nerve deficits. Motor grossly within normal limits. Normal speech. PSYCHIATRIC: Appropriate mood and affect; insight and judgment normal. Data Data Last Documented VS Vital Signs Date Time Temp Pulse Resp B/P (MAP) Pulse Ox O2 Delivery O2 Flow Rate FiO2 05/04/17 15:30 85 20 149/75 (99) 93 Nasal Cannula 2.00 05/04/17 14:06 98.5 Orders Orders Proparacaine 0.5% Opth Soln (Alcaine 0.5 (05/04/17 14:45) MDM Medical Decision Making Medical Screen Exam Complete: Yes Emergency Medical Condition: Yes Medical Record Reviewed: Yes Differential Diagnosis Glaucoma, foreign body, iritis Narrative Course I have reviewed the patient's electronic medical record. Patient's visual acuity is very poor in the left eye. She can see how many fingers held up in front of her eye at about 8 inches but beyond that she cannot tell Placed a drop of proparacaine followed by fluorescein exam which is negative Brian-Pen readings were done twice, I received readings of 17 and 31 I reviewed the case in detail with the solvent mixer court commissioner from [facility]. I do not have any local solvent mixer available. I spoke with Dr. Pereira and he recommended I start her on [facility]. He is going to see her on Sunday in his office. He says most of her symptoms are expected for her diagnosis of central retinal vein occlusion. As noted her vision loss is chronic. He did not feel emergent transfer for evaluation right now was indicated. Diagnosis Primary Impression: Central retinal vein occlusion of left eye Additional Impression: Vision loss of left eye Additional Instructions: Call the office of Dr. Pereira [phone] and he will see you on Sunday Med/Other Pt SpecificInfo: Prescription(s) given Scripts Brimonidine-Timolol Opth Drops (Combigan Opth Drops) 0.2-0.5% Soln 1 DROP LEFT EYE Q12HR for Glaucoma, #1 BOTTLE 0 Refills Prov: Mervin Martinez MD 05/04/17 Disposition: 01 DISCHARGE HOME Condition: Stable Mervin Martinez MD May 04, 2017 14:45
[2017-05-04 15:30] VITALS: BP 149/75; PULSE 85; RESP 20; O2SAT 93
[2017-05-04] MEDS ORDERED: COMB0.2S LEFT EYE (16:06)
== END 2017-05-04 16:22 | disposition home or self-care (01) ==
LOC: PHED 13:53
DX: H34.8122 Central retinal vein occlusion, left eye, stable (principal); H54.62 Unqualified visual loss, left eye, normal vision right eye; M06.9 Rheumatoid arthritis, unspecified; I48.91 Unspecified atrial fibrillation; J44.9 Chronic obstructive pulmonary disease, unspecified; M10.9 Gout, unspecified; I10 Essential (primary) hypertension; Z86.73 Personal history of transient ischemic attack (TIA), and cerebral infarction without residual deficits; Z79.899 Other long term (current) drug therapy
CPT/HCPCS: 99283

== ENCOUNTER 2017-06-12 22:10 | Emergency (ER) | payer OTHER ==
[~2017-06-12] VITALS: Ht 147.3 cm; Wt 46.8 kg
[~2017-06-12 22:10] MED LIST changes: +COMB0.2S LEFT EYE; -FOSA70TA PO; +L. A1CAP
[2017-06-12 22:18] VITALS: BP 120/56; PULSE 91; RESP 20; TEMP 97.8; O2SAT 85
[2017-06-12 22:53] VITALS: BP 126/70; PULSE 85; RESP 18; O2SAT 95
--- NOTE | 2017-06-12 22:59 | PD ---
HPI Chief Complaint: Back/ Neck Pain or Injury Time Seen by Provider: 22:50 Travel History International Travel<30 days: No Contact w/Intl Traveler<30days: No Traveled to known affect area: No History of Present Illness HPI 82-year-old female presents to the emergency department for 3-4 days of low back pain. Pain is nonradiating. Patient denies any new lower extremity numbness tingling or weakness saddle anesthesia or bladder or bowel dysfunction. Patient denies injury or fall. Patient denies fever or chills. Patient's had no dysuria frequency urgency flank pain or hematuria. Patient denies abdominal pain. Patient's had no new shortness of breath or chest pain. Patient denies orthopnea or PND. Patient states sitting for prolonged amount of time or trying to get in and out of her chair or attempted walking increases her low back pain. Patient has history of COPD and is on continuous supplemental oxygen 3 L/m nasal cannula at all times as well as atrial fibrillation on Xarelto PAD and the care of Dr. St or recent left eye visual disturbance with possible retinal vein occlusion rheumatoid arthritis gouty arthritis CVA and hypertension. Patient rates back pain 10 over 10 in intensity. Patient states tramadol has provided no relief. Patient denies shortness of breath; reportedly noted in triage on 3 L/m nasal cannula to have O2 saturation of 85%, but patient denies experiencing any shortness of breath chest pain pleuritic chest pain midscapular pain or abdominal pain. [facility] Past Medical History Narrative Medical COPD and is on continuous supplemental oxygen 3 L/m nasal cannula at all times as well as atrial fibrillation on Xarelto PAD and the care of Dr. St or recent left eye visual disturbance with possible retinal vein occlusion rheumatoid arthritis gouty arthritis CVA and hypertension; nursing notes reviewed Hx Anticoagulant Therapy: Yes Arthritis: Yes (RA hands and feet) Asthma: Yes Atrial Fibrillation: Yes Autoimmune Disease: No Heart Rhythm Problems: Yes (afib sees Dr Chaudhary) Cancer: No Cardiovascular Problems: Yes High Cholesterol: No Chest Pain: No Congestive Heart Failure: No COPD: Yes Cerebrovascular Accident: Yes Diabetes: No Diminished Hearing: No Endocrine: No Gastrointestinal Disorders: Yes (rectal prolapse, diverticulitis) GERD: No Gout: Yes Genitourinary: No Headaches: No Hepatitis: No Hiatal Hernia: No Hypertension: Yes Immune Disorder: No Implanted Vascular Access Dvce: No Kidney Stones: No Musculoskeletal: No Neurologic: No Psychiatric: No Reproductive: Yes Respiratory: Yes (O2 3L) Migraines: No Renal Failure: No Seizures: No Sleep Apnea: No Thyroid Disease: No Ulcer: Yes ?: Not Menopausal: Yes Past Surgical History Abdominal Surgery: Yes (abd surgery for "holes in my stomach" ) AICD: No Cardiac Surgery: No Ear Surgery: No Endocrine Surgery: No Eye Surgery: Yes (Cataracts) Genitourinary Surgery: No Hysterectomy: Yes Joint Replacement: No Neurologic Surgery: No Oral Surgery: No Pacemaker: No Thoracic Surgery: No Other Surgery: Yes Social History Alcohol Use: No Tobacco Use: No Substance Use: No Allergies-Medications (Allergen,Severity, Reaction): Coded Allergies: No Known Allergies (Verified Adverse Reaction, Unknown, 06/12/17) Reported Meds & Prescriptions Reported Meds & Active Scripts Active Combigan Opth Drops (Brimonidine-Timolol Opth Drops) 0.2-0.5% Soln 1 Drop LEFT EYE Q12HR Prednisone 20 Mg Tab 40 Mg PO DAILY Take 40 mg (2 tablets) daily for 5 days Tylenol (Acetaminophen) 325 Mg Tab 650 Mg PO Q4H PRN Xarelto (Rivaroxaban) 15 Mg Tab 15 Mg PO DAILY Potassium Chloride Microencaps 20 Meq Tab 20 Meq PO DAILY Cardizem CD 24 HR (Diltiazem CD 24 HR) 120 Mg Caper 120 Mg PO BID Reported Acidophilus Capsule (L. Acidophilus/Pectin, [place]) 7.5 Mg (30 Million Cell)- 100 Mg Capsule Plaquenil (Hydroxychloroquine Sulfate) 200 Mg Tab 200 Mg PO BID Take with food Metoprolol Tartrate 25 Mg Tab 25 Mg PO BID Prednisone 5 Mg Tab 5 Mg PO DAILY Methotrexate 2.5 Mg Tab 2.5 Mg PO Q7D Losartan (Losartan Potassium) 25 Mg Tab 25 Mg PO HS Probiotic (Lactobacillus Acidophilus) 1 Cap Cap 1 Cap PO DAILY Calcium 1000 + D (Calcium Carbonate-Cholecalciferol) 1,000-800 Mg-Unit Tab 1 Tab PO Docusate Sodium 100 Mg Tab 100 Mg PO DIRECTED Ipratropium Neb (Ipratropium [place]) 0.5 Mg/2.5 Ml Amp 0.5 Mg NEB Q6HR NEB PRN Proair Hfa 8.5 GM Inh (Albuterol Sulfate) 90 Mcg/Act Aer 2 Puff INH Q4-6H PRN 108 mcg/actuation Ferrous Sulfate DR (Ferrous Sulfate) 324 Mg Tabdr 65 Mg PO BID Magnesium (Magnesium Oxide) 400 Mg Tablet 1 Tab PO BID Protonix (Pantoprazole Sodium) 20 Mg Tab 20 Mg PO DAILY Allopurinol 100 Mg Tab 100 Mg PO DAILY Lasix (Furosemide) 40 Mg Tab 40 Mg PO BID Review of Systems Except as stated in HPI: all other systems reviewed are Neg Physical Exam Narrative GENERAL: Well-developed well-nourished female in no acute distress no respiratory distress; using supplemental oxygen 2 L per minute nasal cannula O2 saturation 94% SKIN: Warm and dry. HEAD: Normocephalic. EYES: No scleral icterus. No injection or drainage. NECK: Supple, trachea midline. No JVD or lymphadenopathy. CARDIOVASCULAR: Regular rate and rhythm without murmurs, gallops, or rubs. RESPIRATORY: Breath sounds equal bilaterally except for crackles right base no palpable pulsatile mass. No guarding or rebound.. No accessory muscle use. GASTROINTESTINAL: Abdomen soft, non-tender, nondistended. MUSCULOSKELETAL: No cyanosis, or edema. BACK: Nontender without obvious deformity except for reproducible lower lumbar spine tenderness to direct palpation without bony step-off.. No CVA tenderness. Data Data Last Documented VS Vital Signs Date Time Temp Pulse Resp B/P (MAP) Pulse Ox O2 Delivery O2 Flow Rate FiO2 06/13/17 00:03 16 06/12/17 22:53 85 126/70 (88) 95 Room Air 06/12/17 22:18 97.8 Orders Orders Chest, Single Ap (06/12/17 ) Spine, Lumbar - Ltd (Ap & Lat) (06/12/17 ) Albuterol-Ipratropium Neb (Duoneb Neb) (06/12/17 23:00) Complete Blood Count With Diff (06/12/17 22:50) Basic Metabolic Panel (Bmp) (06/12/17 22:50) B-Type Natriuretic Peptide (06/12/17 22:50) Troponin I (06/12/17 22:50) Urinalysis - C+S If Indicated (06/12/17 22:50) Ondansetron Inj (Zofran Inj) (06/12/17 23:00) Morphine Inj (Morphine Inj) (06/12/17 23:00) Ct Abd/Pel W Iv Contrast(Rout) (06/13/17 ) Iohexol 350 Inj (Omnipaque 350 Inj) (06/13/17 01:14) Labs Laboratory Tests Test 06/12/17 23:13 06/12/17 23:30 Urine Color YELLOW Urine Turbidity CLEAR Urine pH 6.5 Urine Specific [place] 1.011 Urine Protein NEG mg/dL Urine Glucose (UA) NEG mg/dL Urine Ketones NEG mg/dL Urine Occult Blood NEG Urine Nitrite NEG Urine Bilirubin NEG Urine Leukocyte Esterase NEG Urine WBC 0-2 /hpf Urine Squamous Epithelial Cells 0-5 /hpf Urine Hyaline Casts 6-9 /lpf Urine Mucus OCC /lpf Microscopic Urinalysis Comment CULT NOT INDICATED White Blood Count 15.3 TH/MM3 Red Blood Count 3.72 MIL/MM3 Hemoglobin 10.6 GM/DL Hematocrit 33.0 % Mean Corpuscular Volume 88.8 FL Mean Corpuscular Hemoglobin 28.5 PG Mean Corpuscular Hemoglobin Concent 32.1 % Red Cell Distribution Width 16.4 % Platelet Count 492 TH/MM3 Mean Platelet Volume 7.0 FL Neutrophils (%) (Auto) 83.2 % Lymphocytes (%) (Auto) 10.2 % Monocytes (%) (Auto) 6.5 % Eosinophils (%) (Auto) 0.1 % Basophils (%) (Auto) 0.0 % Neutrophils # (Auto) 12.7 TH/MM3 Lymphocytes # (Auto) 1.6 TH/MM3 Monocytes # (Auto) 1.0 TH/MM3 Eosinophils # (Auto) 0.0 TH/MM3 Basophils # (Auto) 0.0 TH/MM3 CBC Comment AUTO DIFF Differential Comment AUTO DIFF CONFIRMED Platelet Estimate HIGH Platelet Morphology Comment NORMAL Red Cell Morphology Comment NORMAL Blood Urea Nitrogen 15 MG/DL Creatinine 1.20 MG/DL Random Glucose 114 MG/DL Calcium Level 9.5 MG/DL Sodium Level 132 MEQ/L Potassium Level 3.7 MEQ/L Chloride Level 91 MEQ/L Carbon Dioxide Level 32.1 MEQ/L Anion Gap 9 MEQ/L Estimat Glomerular Filtration Rate 43 ML/MIN Troponin I LESS THAN 0.02 NG/ML B-Type Natriuretic Peptide 76 PG/ML MDM Medical Decision Making Medical Screen Exam Complete: Yes Emergency Medical Condition: Yes Medical Record Reviewed: Yes Interpretation(s) CT A/P: FINDINGS: On the first image obtained through the lung bases there is a 1 cm nodule in the lingula which was not present on prior CT from December 2016. Further evaluation with chest CT is recommended. There is bronchiectasis at the lung bases with peribronchial thickening and distal airway disease as well as some mild fibrotic changes. No acute findings in the liver, spleen, adrenals, kidneys or pancreas. There is no free fluid. There is no bowel obstruction. There is no adenopathy. Mild constipation present. Colonic diverticula noted without evidence for diverticulitis. Moderate compression deformity of L1 probably subacute. CONCLUSION: 1. No acute findings within the abdomen or pelvis 2 mild constipation. Colonic diverticula without evidence for diverticulitis. 2. 1 cm nodule in the lingula not seen on prior chest CT. Further evaluation with chest CT is recommended. 3. Bronchiectasis at the lung bases with peribronchial thickening and distal airway disease and minimal subsegmental air space consolidation. 4. Compression deformity of L1 which appears subacute although it does appear to be a new finding compared to March 2015. Bebeto Rajan MD on June 13, 2017 at 1:24 Board Certified Radiologist. This report was verified electronically. Last Impressions Lumbar Spine X-Ray 06/12/17 0000 Signed Impressions: Service Date/Time: Monday, June 12, 2017 23:07 - CONCLUSION: 1. Moderate compression deformity of L1. Moderate degenerative change. Bebeto Rajan MD Chest X-Ray 06/12/17 0000 Signed Impressions: Service Date/Time: Monday, June 12, 2017 23:07 - CONCLUSION: 1. No acute findings. Stable mild fibrotic changes at the lung bases compared with March 31, 2017. No new infiltrate or effusion. Bebeto Rajan MD CBC & BMP Diagram 06/12/17 23:30 Calcium Level 9.5 Vital Signs Date Time Temp Pulse Resp B/P (MAP) Pulse Ox O2 Delivery O2 Flow Rate FiO2 06/13/17 00:03 16 06/12/17 23:21 20 06/12/17 22:53 85 18 126/70 (88) 95 Room Air 06/12/17 22:18 97.8 91 20 120/56 (77) 85 trop: less than 0.02, not elevated; BNP: 76, not elevated Differential Diagnosis Lumbar disc disease, compression fracture, sciatica, abdominal aortic aneurysm, dissection, CHF, PE, ACS, UTI; no exam findings for limits ischemia or ischemic bowel Narrative Course Imaging studies and lab values ordered to be collected; patient compensation administrator Zofran 4 mg IV and morphine sulfate 1 mg IV as well as DuoNeb updraft 1 @ 12:40 patient feels well O2 sat 96% denies ever having dyspnea; cxr nad; patient and son informed of lab and imaging results; CT a/p pending CT abdomen and pelvis identifies the L1 compression fracture to be subacute and probable with a source of the patient's pain. Patient remains comfortable and essentially pain-free after 1 mg of morphine. Patient will be given prescription for Percocet for breakthrough pain for use related to back pain greater than 5/10 in intensity but encouraged to use tramadol if that controls her pain. Patient was sent at bedside also informed of CT identifies a small pulmonary nodule that will require follow-up with CT imaging of the chest. Patient is otherwise stable for outpatient management and follow-up with her managing provider. Diagnosis Primary Impression: Acute lumbar back pain Qualified Codes: M54.5 - Low back pain Additional Impressions: Non-traumatic compression fracture of L1 lumbar vertebra Pulmonary nodule, left Constipation Referrals: Primary Care Physician call for appointment Patient Instructions: General Instructions, Narcotic given in the ED Additional Instructions: Continue current medications as prescribed Use nebulizer as needed and as prescribed routinely May take pain medication Percocet for breakthrough pain be aware that this may increase risk for fall, impaired judgment, altered mentation, and cause constipation Take MiraLAX for constipation Return to the emergency department for a concerns or change in condition Med/Other Pt SpecificInfo: Prescription(s) given Scripts Oxycodone-Acetaminophen (Percocet) 5-325 mg Tab 0.5-1 TAB PO Q6H Y for PAIN GREATER THAN 5, #10 TAB 0 Refills Prov: Aracely Garcia MD 06/13/17 Disposition: 01 DISCHARGE HOME Condition: Stable Aracely Garcia MD Jun 12, 2017 22:59
[2017-06-12] MEDS ORDERED: RESP: ALBUTEROL 2.5 MG/IPRATROPIUM 0.5 MG NEB (SCH) NEB ONE (23:00)
[2017-06-12] MEDS ORDERED: ONDANSETRON HCL 4 MG/2 ML VIAL IV PUSH ONE (23:00)
[2017-06-12] MEDS ORDERED: MORPHINE SULFATE 2 MG/ML INJ IV PUSH ONE (23:00)
--- NOTE | 2017-06-12 23:40 | RADRPT ---
EXAM DATE/TIME: 06/12/2017 23:07 [facility] COMPARISON: No previous studies available for comparison. INDICATIONS : Short of breath. MEDICAL HISTORY : Chronic obstructive pulmonary disease. SURGICAL HISTORY : None. ENCOUNTER: Initial ACUITY: 1 day PAIN SCORE: 0/10 LOCATION: Bilateral chest FINDINGS: A single view of the chest demonstrates the lungs to be symmetrically aerated without evidence of mas s, infiltrate or effusion. Interstitial prominence at the lung bases. The cardiomediastinal contours are unremarkable. Osseous structures are intact. CONCLUSION: 1. No acute findings. Stable mild fibrotic changes at the lung bases compared with March 31, 2017. No new infiltrate or effusion. Bebeto Rjaan MD on June 12, 2017 at 23:36 Board Certified Radiologist. This report was verified electronically.
--- NOTE | 2017-06-12 23:42 | RADRPT ---
EXAM DATE/TIME: 06/12/2017 23:07 [facility] COMPARISON: No previous studies available for comparison. INDICATIONS : Lower back pain from unknown injury. MEDICAL HISTORY : None. SURGICAL HISTORY : None. ENCOUNTER: Initial ACUITY: 1 day PAIN SCORE: 10/10 LOCATION: Bilateral lower back. FINDINGS: Two view examination was performed. There is a moderate compression fracture of L1 of unknown age. No acute fracture identified the remainder of the lumbar spine. There is moderate degenerative disc dis ease and facet arthropathy. Bones are osteopenic. CONCLUSION: 1. Moderate compression deformity of L1. Moderate degenerative change. Bebeto Rajan MD on June 12, 2017 at 23:38 Board Certified Radiologist. This report was verified electronically.
[2017-06-12 23:45] LABS: AUTOMATED NEUTROPHIL # 12.7 TH/MM3 (1.8-7.7); EOSINOPHIL % 0.1 % (0.0-4.0); HEMOGLOBIN 10.6 GM/DL (11.6-15.3); LYMPH % 10.2 % (9.0-44.0); LYMPHOCYTE # 1.6 TH/MM3 (1.0-4.8); MEAN CELL VOLUME 88.8 FL (80.0-100.0); MEAN CORPUSCULAR HEMOGLOBIN 28.5 PG (27.0-34.0); MEAN CORPUSCULAR HGB CONC 32.1 % (32.0-36.0); MONO % 6.5 % (0.0-8.0); NEUT % 83.2 % (16.0-70.0); PLATELET COUNT 492 TH/MM3 (150-450); RED BLOOD COUNT 3.72 MIL/MM3 (4.00-5.30); RED CELL DISTRIBUTION WIDTH 16.4 % (11.6-17.2); WHITE BLOOD COUNT 15.3 TH/MM3 (4.0-11.0)
[2017-06-12 23:50] VITALS: BP 151/63; PULSE 92; RESP 18; O2SAT 95
[2017-06-12 23:51] LABS: CHLORIDE 91 MEQ/L (98-107); SODIUM (NA) 132 MEQ/L (136-145)
[2017-06-12 23:54] LABS: BICARBONATE 32.1 MEQ/L (21.0-32.0); BLOOD UREA NITROGEN 15 MG/DL (7-18); CALCIUM 9.5 MG/DL (8.5-10.1); GLUCOSE,RANDOM 114 MG/DL (74-106)
[2017-06-12 23:57] LABS: GLOMERULAR FILTRATION RATE 43 ML/MIN (>89)
[2017-06-13 00:02] LABS: TROPONIN I LESS THAN 0.02 NG/ML (0.02-0.05)
[2017-06-13 00:09] LABS: BILIRUBIN, URINE NEG (NEG); BLOOD, URINE NEG (NEG); GLUCOSE,URINE NEG (NEG); KETONE, URINE NEG (NEG); NITRITE,URINE NEG (NEG); PH, URINE 6.5 (5.0-8.5); URINE LEUKOCYTE ESTERASE NEG (NEG)
[2017-06-13 00:23] LABS: MUCUS URINE OCC /lpf (OCC); URINE COLOR YELLOW (YELLW/STRAW)
[2017-06-13 00:24] LABS: SQUAMOUS EPITHELIAL CELL URINE 0-5 /hpf (0-5); WBC, URINE 0-2 /hpf (0-5)
[2017-06-13 00:42] VITALS: BP 124/55; PULSE 82; RESP 18; O2SAT 95
[2017-06-13] MEDS ORDERED: IOHEXOL 350 MG/ML 10 ML VIAL (for RAD DIAG) IVCONTRAST ONE (01:14)
--- NOTE | 2017-06-13 01:35 | RADRPT ---
EXAM DATE/TIME: 06/13/2017 01:01 [facility] COMPARISON: CT PULMONARY ANGIOGRAM, December 19, 2016, 13:22. INDICATIONS : Lower back pain for three days. Evaluate for diverticulitis. IV CONTRAST: 75 cc Omnipaque 350 (iohexol) IV ORAL CONTRAST: No oral contrast ingested. RADIATION DOSE: 5.96 CTDIvol (mGy) MEDICAL HISTORY : Diverticulitis. Chronic obstructive pulmonary disease. Hypertension. SURGICAL HISTORY : Hysterectomy. ENCOUNTER: Initial ACUITY: 3 days PAIN SCALE: 3/10 LOCATION: Bilateral lower quadrant lower back TECHNIQUE: Volumetric scanning of the abdomen and pelvis was performed. Using automated exposure control and ad justment of the mA and/or kV according to patient size, radiation dose was kept as low as reasonably achievable to obtain optimal diagnostic quality images. DICOM format image data is available electro nically for review and comparison. FINDINGS: On the first image obtained through the lung bases there is a 1 cm nodule in the lingula which was no t present on prior CT from December 2016. Further evaluation with chest CT is recommended. There is bronchiectasis at the lung bases with peribronchial thickening and distal airway disease as well as some mild fibrotic changes. No acute findings in the liver, spleen, adrenals, kidneys or pancreas. There is no free fluid. There is no bowel obstruction. There is no adenopathy. Mild constipation pres ent. Colonic diverticula noted without evidence for diverticulitis. Moderate compression deformity of L1 probably subacute. CONCLUSION: 1. No acute findings within the abdomen or pelvis 2 mild constipation. Colonic diverticula without ev idence for diverticulitis. 2. 1 cm nodule in the lingula not seen on prior chest CT. Further evaluation with chest CT is recomme nded. 3. Bronchiectasis at the lung bases with peribronchial thickening and distal airway disease and minim al subsegmental air space consolidation. 4. Compression deformity of L1 which appears subacute although it does appear to be a new finding com pared to March 2015. Bebeto Rajan MD on June 13, 2017 at 1:24 Board Certified Radiologist. This report was verified electronically.
[2017-06-13] MEDS ORDERED: PERC5TAB12 PO (01:42)
[2017-06-13 02:00] VITALS: BP 142/60
== END 2017-06-13 02:00 | disposition home or self-care (01) ==
LOC: PHED 22:10
DX: M54.5 Low back pain (principal); M48.56XA Collapsed vertebra, not elsewhere classified, lumbar region, initial encounter for fracture; R91.1 Solitary pulmonary nodule; K59.00 Constipation, unspecified; J47.9 Bronchiectasis, uncomplicated; J44.9 Chronic obstructive pulmonary disease, unspecified; I10 Essential (primary) hypertension; I48.91 Unspecified atrial fibrillation; M06.9 Rheumatoid arthritis, unspecified; M10.9 Gout, unspecified; Z86.73 Personal history of transient ischemic attack (TIA), and cerebral infarction without residual deficits; Z79.01 Long term (current) use of anticoagulants; Z79.899 Other long term (current) drug therapy
CPT/HCPCS: 71045; 72100; 74177; 80048; 81001; 83880; 84484; 85025; 94664; 96374; 96375; 99285; J2270; J2405; Q9967

== ENCOUNTER 2017-06-21 15:24 | Inpatient (IN) | payer OTHER, MEDICARE ==
[2017-06-21] VITALS (7 sets, daily range): BP systolic 111–168; BP diastolic 54–72; PULSE 71–77; RESP 16–20; TEMP 97.4–98.1; O2SAT 96–98
[~2017-06-21] VITALS: Ht 147.3 cm; Wt 41.4 kg
[~2017-06-21 15:24] MED LIST changes: +PERC5TAB12 PO
[2017-06-21] MEDS ORDERED: SODIUM CHLORIDE 0.9% FLUSH 10 ML FLUSH IV FLUSH PRN (16:15)
[2017-06-21] MEDS ORDERED: ACETAMINOPHEN/HYDROcodone 325 MG/5 MG TAB PO ONE (16:15)
[2017-06-21 16:37] LABS: HEMATOCRIT 31.9 % (35.0-46.0); HEMOGLOBIN 10.6 GM/DL (11.6-15.3); MEAN CORPUSCULAR HEMOGLOBIN 29.1 PG (27.0-34.0); MEAN CORPUSCULAR HGB CONC 33.1 % (32.0-36.0); MEAN PLATELET VOLUME 7.4 FL (7.0-11.0); PLATELET COUNT 469 TH/MM3 (150-450); RED BLOOD COUNT 3.63 MIL/MM3 (4.00-5.30); RED CELL DISTRIBUTION WIDTH 15.5 % (11.6-17.2); WHITE BLOOD COUNT 19.1 TH/MM3 (4.0-11.0)
[2017-06-21 16:56] LABS: CALCIUM 9.6 MG/DL (8.5-10.1)
[2017-06-21 16:57] LABS: BICARBONATE 30.2 MEQ/L (21.0-32.0)
[2017-06-21 17:00] LABS: CREATININE 1.8 MG/DL (0.50-1.00)
--- NOTE | 2017-06-21 17:03 | PD ---
HPI Chief Complaint: Pain: Acute or Chronic Time Seen by Provider: 15:51 Travel History International Travel<30 days: No Contact w/Intl Traveler<30days: No Traveled to known affect area: No History of Present Illness HPI Patient 82-year-old female presents emergency department for evaluation of intractable lower back pain. She was seen here a few days ago had a compression fracture of L1 and since then she is return to her assisted living facility where she is normally independent but has been requiring staff to carry her to the bathroom so she can urinate. Patient denies any saddle anesthesia and denies any numbness tingling in the lower extremities. She is here with her daughter who states that she thinks needs be upgraded to a rehab facility. Patient denies any further injury, states the pain is severe, she had been taking some oxycodone tablets as prescribed but this severely sedated her and she did not tolerate it, she took 1 of her daughters Ultram which was not alleviating any of the pain. States pain is severe, low back, context as above, associated sinus symptoms as above PFSH Past Medical History Hx Anticoagulant Therapy: Yes Arthritis: Yes (RA hands and feet) Asthma: Yes Atrial Fibrillation: Yes Autoimmune Disease: No Heart Rhythm Problems: Yes (afib sees Dr Chuadhary) Cancer: No Cardiovascular Problems: Yes High Cholesterol: No Chest Pain: No Congestive Heart Failure: Yes COPD: Yes Cerebrovascular Accident: Yes Diabetes: No Diminished Hearing: No Endocrine: No Gastrointestinal Disorders: Yes (rectal prolapse, diverticulitis) GERD: No Gout: Yes Genitourinary: No Headaches: No Hepatitis: No Hiatal Hernia: No Hypertension: Yes Immune Disorder: No Implanted Vascular Access Dvce: No Kidney Stones: No Musculoskeletal: No Neurologic: No Psychiatric: No Reproductive: Yes Respiratory: Yes (O2 3L) Migraines: No Renal Failure: No Seizures: No Sleep Apnea: No Thyroid Disease: No Ulcer: Yes Influenza Vaccination: Yes ?: Not Menopausal: Yes Past Surgical History Abdominal Surgery: Yes (abd surgery for "holes in my stomach" ) AICD: No Cardiac Surgery: No Ear Surgery: No Endocrine Surgery: No Eye Surgery: Yes (Cataracts) Genitourinary Surgery: No Hysterectomy: Yes Joint Replacement: No Neurologic Surgery: No Oral Surgery: No Pacemaker: No Thoracic Surgery: No Other Surgery: Yes Social History Alcohol Use: No Tobacco Use: No (quit 15+yrs ago) Substance Use: No Allergies-Medications (Allergen,Severity, Reaction): Coded Allergies: No Known Allergies (Verified Adverse Reaction, Unknown, 06/21/17) Reported Meds & Prescriptions Reported Meds & Active Scripts Active Percocet (Oxycodone-Acetaminophen) 5-325 mg Tab 0.5-1 Tab PO Q6H PRN Combigan Opth Drops (Brimonidine-Timolol Opth Drops) 0.2-0.5% Soln 1 Drop LEFT EYE Q12HR Tylenol (Acetaminophen) 325 Mg Tab 650 Mg PO Q4H PRN Xarelto (Rivaroxaban) 15 Mg Tab 15 Mg PO DAILY Potassium Chloride Microencaps 20 Meq Tab 20 Meq PO DAILY Cardizem CD 24 HR (Diltiazem CD 24 HR) 120 Mg Caper 120 Mg PO BID Reported Plaquenil (Hydroxychloroquine Sulfate) 200 Mg Tab 200 Mg PO BID Take with food Metoprolol Tartrate 25 Mg Tab 25 Mg PO BID Prednisone 5 Mg Tab 5 Mg PO DAILY Methotrexate 2.5 Mg Tab 2.5 Mg PO Q7D Losartan (Losartan Potassium) 25 Mg Tab 25 Mg PO HS Probiotic (Lactobacillus Acidophilus) 1 Cap Cap 1 Cap PO DAILY Calcium 1000 + D (Calcium Carbonate-Cholecalciferol) 1,000-800 Mg-Unit Tab 1 Tab PO Docusate Sodium 100 Mg Tab 100 Mg PO DIRECTED Ipratropium Neb (Ipratropium [place]) 0.5 Mg/2.5 Ml Amp 0.5 Mg NEB Q6HR NEB PRN Proair Hfa 8.5 GM Inh (Albuterol Sulfate) 90 Mcg/Act Aer 2 Puff INH Q4-6H PRN 108 mcg/actuation Ferrous Sulfate DR (Ferrous Sulfate) 324 Mg Tabdr 65 Mg PO BID Magnesium (Magnesium Oxide) 400 Mg Tablet 1 Tab PO BID Protonix (Pantoprazole Sodium) 20 Mg Tab 20 Mg PO DAILY Allopurinol 100 Mg Tab 100 Mg PO DAILY Lasix (Furosemide) 40 Mg Tab 40 Mg PO BID Review of Systems Except as stated in HPI: all other systems reviewed are Neg Physical Exam Narrative GENERAL: Well-developed well-nourished no obvious distress SKIN: Focused skin assessment warm/dry. HEAD: Atraumatic. Normocephalic. EYES: Pupils equal and round. No scleral icterus. No injection or drainage. ENT: No nasal bleeding or discharge. Mucous membranes pink and moist. NECK: Trachea midline. No JVD. CARDIOVASCULAR: Regular rate and rhythm. No murmur appreciated. RESPIRATORY: No accessory muscle use. Clear to auscultation. Breath sounds equal bilaterally. GASTROINTESTINAL: Abdomen soft, non-tender, nondistended. Hepatic and splenic margins not palpable. MUSCULOSKELETAL: No obvious deformities. No clubbing. No cyanosis. No edema. Patient has significant tenderness to her low back especially when she tries to sit forward. She is unable to ambulate secondary to pain. She has full strength in bilateral lower extremities. NEUROLOGICAL: Awake and alert. No obvious cranial nerve deficits. Motor grossly within normal limits. Normal speech. Patient has post motor and sensory intact distally in all 4 extremities. PSYCHIATRIC: Appropriate mood and affect; insight and judgment normal. Data Data Last Documented VS Vital Signs Date Time Temp Pulse Resp B/P (MAP) Pulse Ox O2 Delivery O2 Flow Rate FiO2 06/21/17 17:00 71 16 111/54 (73) 96 Nasal Cannula 3.00 06/21/17 15:35 98.1 Orders Orders Basic Metabolic Panel (Bmp) (06/21/17 16:10) Complete Blood Count With Diff (06/21/17 16:10) Urinalysis - C+S If Indicated (06/21/17 16:10) Iv Access Insert/Monitor (06/21/17 16:10) Ecg Monitoring (06/21/17 16:10) Oximetry (06/21/17 16:10) Sodium Chloride 0.9% Flush (Ns Flush) (06/21/17 16:15) Acetamin-Hydrocod 325-5 Mg ([place] 5-325 (06/21/17 16:15) Sodium Chlorid 0.9% 500 Ml Inj (Ns 500 M (06/21/17 17:15) Admit Order (Ed Use Only) (06/21/17 ) Labs Laboratory Tests Test 06/21/17 16:30 White Blood Count 19.1 TH/MM3 Red Blood Count 3.63 MIL/MM3 Hemoglobin 10.6 GM/DL Hematocrit 31.9 % Mean Corpuscular Volume 88.0 FL Mean Corpuscular Hemoglobin 29.1 PG Mean Corpuscular Hemoglobin Concent 33.1 % Red Cell Distribution Width 15.5 % Platelet Count 469 TH/MM3 Mean Platelet Volume 7.4 FL CBC Comment AUTO DIFF Differential Total Cells Counted 100 Neutrophils % (Manual) 86 % Band Neutrophils % 2 % Lymphocytes % 7 % Monocytes % 4 % Basophils % 1 % Neutrophils # (Manual) 16.8 TH/MM3 Differential Comment FINAL DIFF MANUAL Platelet Estimate HIGH Platelet Morphology Comment NORMAL Blood Urea Nitrogen 28 MG/DL Creatinine 1.80 MG/DL Random Glucose 167 MG/DL Calcium Level 9.6 MG/DL Sodium Level 130 MEQ/L Potassium Level 4.1 MEQ/L Chloride Level 94 MEQ/L Carbon Dioxide Level 30.2 MEQ/L Anion Gap 6 MEQ/L Estimat Glomerular Filtration Rate 27 ML/MIN MDM Medical Decision Making Medical Screen Exam Complete: Yes Emergency Medical Condition: Yes Differential Diagnosis L1 fracture, radiculopathy, intractable pain, cauda equina unlikely Narrative Course Patient room to the emergency department, is chronically elevated white blood cell count, no sign symptoms of infection at this time, she is unable to walk secondary to pain. She does have an acute kidney injury by definition her creatinine usually runs about 1 maximum 1.2 and today is 1.8. She was given gentle hydration with 500 cc normal saline, was given hydrocodone at her request. She is unfortunately unable to bear weight secondary to pain, no red flags for cauda equina syndrome. Discussed with Dr. Espinosa for admission Diagnosis Primary Impression: Lumbar compression fracture Admitting Information Admitting Physician Requests: Observation Condition: Stable Ulisses Thompson MD Jun 21, 2017 17:03
[2017-06-21 17:14] LABS: BANDS 2 % (0-6); BASOPHILS 1 % (0-2); LYMPHOCYTES 7 % (9-44); MONOCYTES 4 % (0-8); NEUTROPHIL # MANUAL DIFF 16.8 TH/MM3 (1.8-7.7); POLYS (SEG NEUTROPHILS) 86 % (16-70)
[2017-06-21] MEDS ORDERED: SODIUM CHLORID 0.9% 500 ML INJ 500 ML IV ONE (17:15)
--- NOTE | 2017-06-21 18:09 | HHI.HP ---
[facility] Service [facility] Primary Care Physician Khurram Apple MD Admission Diagnosis Intractible back pain, inability to ambulate, MAYELIN. Diagnoses: Chief Complaint: back pain Travel History International Travel<30 Days: No Contact w/Intl Traveler <30 Da: No Traveled to Known Affected Are: No History of Present Illness 82-year-old white female being admitted for intractable back pain along with acute kidney injury. History is very limited from the patient and she is a poor historian and says she does not remember much about which medications she helped her the most regarding her back pain. History largely obtained from emergency room physician and emergency room records. Patient was in her usual state of health until her back pain got much worse off of her Percocet and required substantial assistance from the [employer] staff at her assisted living facility to help her with basic activities of daily living including transferring, repositioning, and ambulating. Recently the patient was diagnosed with some low back pain about a week ago at the emergency department and was discharged back to her assisted-living facility. Her back pain was thought to be due to a chronic compression fracture at L1. At that time the patient was able to ambulate in the emergency department as well as in her assisted living facility with Percocet. However the patient reports that they discontinued the Percocet because it was "too strong" and it "knocked her out." She is not sure exactly from the days she was on the Percocet. She says she took her daughter's tramadol and a provider her only mild relief. However her pain was too strong off of the Percocet and she required too much assistance beyond with the staff at provided assisted-living facility this she presented to the emergency department. Patient states that ambulating significantly worsens her back pain; lying still eases it. Patient denies any dysuria, acute fecal incontinence or urinary incontinence or any other acute issues. Past medical history is significant for rheumatoid arthritis, atrial fibrillation, congestive heart, asthma, COPD and chronic hypoxic respiratory failure requiring 3 L, diverticulitis, gout. Review of Systems Except as stated in HPI: all other systems reviewed are Neg Past Family Social History Allergies: Coded Allergies: No Known Allergies (Verified Adverse Reaction, Unknown, 06/21/17) Family History denies any family hx of frequent compression fractures Social History used to smoke up until 15 years ago Physical Exam Vital Signs Vital Signs Date Time Temp Pulse Resp B/P (MAP) Pulse Ox O2 Delivery O2 Flow Rate FiO2 06/21/17 15:55 16 06/21/17 15:35 98.1 75 16 119/57 (77) 97 Physical Exam VS: afebrile GENERAL: sleeping, easily awoken and is AO x 3, NAD SKIN: Warm and dry. EYES: No scleral icterus. No injection or drainage. ENT: No nasal bleeding or discharge. Mucous membranes pink and moist. CARDIOVASCULAR: Regular rate and rhythm. no murmurs RESPIRATORY: No accessory muscle use. Clear to auscultation. Breath sounds equal bilaterally. GASTROINTESTINAL: Abdomen soft, non-tender, nondistended. Extremities: No clubbing, cyanosis, or edema. No obvious deformities. MUSCULOSKELETAL: adequate muscle bulk and tone for age and habitus; patient had demonstrated intact hip and knee flexion bilaterally; was able to perform straight leg raise bilaterally up to about 40 actively at which point she could not go any further due to her pain. NEUROLOGICAL: Awake and alert. No obvious cranial nerve deficits. No facial droop nor slurred speech noted. PSYCHIATRIC: Appropriate mood and affect; insight and judgment normal. Laboratory Laboratory Tests Test 06/21/17 16:30 White Blood Count 19.1 Red Blood Count 3.63 Hemoglobin 10.6 Hematocrit 31.9 Mean Corpuscular Volume 88.0 Mean Corpuscular Hemoglobin 29.1 Mean Corpuscular Hemoglobin Concent 33.1 Red Cell Distribution Width 15.5 Platelet Count 469 Mean Platelet Volume 7.4 CBC Comment AUTO DIFF Differential Total Cells Counted 100 Neutrophils % (Manual) 86 Band Neutrophils % 2 Lymphocytes % 7 Monocytes % 4 Basophils % 1 Neutrophils # (Manual) 16.8 Differential Comment FINAL DIFF MANUAL Platelet Estimate HIGH Platelet Morphology Comment NORMAL Blood Urea Nitrogen 28 Creatinine 1.80 Random Glucose 167 Calcium Level 9.6 Sodium Level 130 Potassium Level 4.1 Chloride Level 94 Carbon Dioxide Level 30.2 Anion Gap 6 Estimat Glomerular Filtration Rate 27 Result Diagram: 06/21/17 1630 06/21/17 1630 Caprini VTE Risk Assessment Caprini VTE Risk Assessment: Mod/High Risk (score >= 2) Caprini Risk Assessment Model Point Value = 1 Point Value = 2 Point Value = 3 Point Value = 5 Age 41-60 Minor surgery BMI > 25 kg/m2 Swollen legs Varicose veins or History of unexplained or recurrent spontaneous Oral contraceptives or hormone replacement Sepsis (< 1 month) Serious lung disease, including pneumonia (< 1 month) Abnormal pulmonary function Acute myocardial infarction Congestive heart failure (< 1 month) History of inflammatory bowel disease Medical patient at bed rest Age 61-74 Arthroscopic surgery Major open surgery (> 45 min) Laparoscopic surgery (> 45 min) Malignancy Confined to bed (> 72 hours) Immobilizing plaster cast Central venous access Age >= 75 History of VTE Family history of VTE Factor V Leiden Prothrombin [id number] Lupus anticoagulant Anticardiolipin antibodies Elevated serum homocysteine Heparin-induced thrombocytopenia Other congenital or acquired thrombophilia Stroke (< 1 month) Elective arthroplasty Hip, pelvis, or leg fracture Acute spinal cord injury (< 1 month) Prophylaxis Regimen Total Risk Factor Score Risk Level Prophylaxis Regimen 0-1 Low Early ambulation 2 Moderate Order ONE of the following: *Sequential Compression Device (SCD) *Heparin 5000 units SQ BID 3-4 Higher Order ONE of the following medications: *Heparin 5000 units SQ TID *Enoxaparin/Lovenox 40 mg SQ daily (WT < 150 kg, CrCl > 30 mL/min) *Enoxaparin/Lovenox 30 mg SQ daily (WT < 150 kg, CrCl > 10-29 mL/min) *Enoxaparin/Lovenox 30 mg SQ BID (WT < 150 kg, CrCl > 30 mL/min) AND/OR *Sequential Compression Device (SCD) 5 or more Highest Order ONE of the following medications: *Heparin 5000 units SQ TID (Preferred with Epidurals) *Enoxaparin/Lovenox 40 mg SQ daily (WT < 150 kg, CrCl > 30 mL/min) *Enoxaparin/Lovenox 30 mg SQ daily (WT < 150 kg, CrCl > 10-29 mL/min) *Enoxaparin/Lovenox 30 mg SQ BID (WT < 150 kg, CrCl > 30 mL/min) AND *Sequential Compression Device (SCD) Assessment and Plan Assessment and Plan Acute worsening of recent onset low back pain - Last CT scan performed about one week ago shows a subacute fracture which was stable from March 2015. Given her worsening's picture, I will obtain another CT scan to see if there is any new fracture or worsening of this old fracture. scheduled nasal calcitonin until CT confirms no new fx; norco prn pain otherwise - Etiology otherwise includes musculoskeletal pain at which point a heating pad and a lidocaine patch would be highly beneficial - If there is no worsening of her old fracture, we'll consider a physical therapy consult and rehabilitation disposition RA - continue home plaquenil MAYELIN - likely 2/2 dehydration as pt endorses decreased PO intake, gentle IVF as started in ER. afib - contine home cardizem, lovenox while inpt, xarelto upon discharge COPD and chronic resp failure - O2 and home inhalers and prednisone CHF - home lasix and KCL Physician Certification 2 Midnight Certification Type: Admission for Inpatient Services Order for Inpatient Services The services are ordered in accordance with Medicare regulations or non- Medicare payer requirements, as applicable. In the case of services not specified as inpatient-only, they are appropriately provided as inpatient services in accordance with the 2-midnight benchmark. Estimated LOS (days): 2 2 days is the estimated time the patient will need to remain in the hospital, assuming treatment plan goals are met and no additional complications. Post-Hospital Plan: Not yet determined Enoch Uriostegui MD Jun 21, 2017 18:09
[2017-06-21 18:13] LABS: BILIRUBIN, URINE NEG (NEG); BLOOD, URINE NEG (NEG); GLUCOSE,URINE NEG (NEG); KETONE, URINE NEG (NEG); NITRITE,URINE NEG (NEG); PH, URINE 7.5 (5.0-8.5); URINE LEUKOCYTE ESTERASE NEG (NEG)
[2017-06-21 18:29] LABS: SQUAMOUS EPITHELIAL CELL URINE 0-5 /hpf (0-5); URINE COLOR YELLOW (YELLW/STRAW); WBC, URINE 0-2 /hpf (0-5)
[2017-06-21] MEDS: DILTIAZEM-CD 120 MG CAP ER PO SCH (20:56)
[2017-06-21] MEDS: HYDROXYCHLOROQUINE SULFATE 200 MG TAB PO SCH (20:56)
[2017-06-21] MEDS: LOSARTAN 25 MG TAB PO SCH (20:57)
[2017-06-21] MEDS: FUROSEMIDE 40 MG TAB PO SCH (20:57)
[2017-06-21] MEDS: ACETAMINOPHEN/HYDROcodone 325 MG/7.5 MG TAB PO PRN (20:57)
[2017-06-21] MEDS: MAGNESIUM OXIDE 400 MG TAB PO SCH (20:57)
[2017-06-21] MEDS: BRIMONIDINE TARTRATE 0.2% OPHT SOLN 5 ML BTL LEFT EYE SCH (21:33)
[2017-06-21] MEDS: TIMOLOL MALEATE 0.5% OPHT SOLN 5 ML BTL LEFT EYE SCH (21:34)
[2017-06-21] MEDS: METHYLNALTREXONE BROMIDE 12 MG/0.6 ML VIAL SQ SCH (21:35)
--- NOTE | 2017-06-21 21:56 | RADRPT ---
EXAM DATE/TIME: 06/21/2017 20:16 [facility] COMPARISON: No previous studies available for comparison. INDICATIONS : Severe low back pain. RADIATION DOSE: 13.73 CTDIvol (mGy) MEDICAL HISTORY : Chronic obstructive pulmonary disease. Congestive heart failure. Cerebrovascular disease.Hypertension , Asthma SURGICAL HISTORY : Hysterectomy. ENCOUNTER: Initial ACUITY: 1 day PAIN SCALE: 10/10 LOCATION: lower back TECHNIQUE: Volumetric scanning of the lumbar spine was performed. Multiplanar reconstructions in the sagittal, coronal and oblique axial planes were performed. Using automated exposure control and adjustment of the mA and/or kV according to patient size, radiation dose was kept as low as reasonably achievable t o obtain optimal diagnostic quality images. DICOM format image data is available electronically for review and comparison. FINDINGS: VERTEBRAE: There is a severe compression deformity of L1 and mild compression deformity of L2, neither appearing acute. ALIGNMENT: There is a proximally 7 mm of degenerative appearing anterolisthesis at L4/L5. No pars defect or othe r fracture. T12-L1: The posterior/superior corner of L1 is slightly retropulsed and with associated mild spinal stenosis. No foraminal stenosis. L1-L2: The posterior/inferior corner of L1 is slightly retropulsed and with associated mild spinal stenosis. There is also mild bilateral foraminal stenosis. L2-L3: Diffuse bulging of the disc annulus with mild bilateral foraminal encroachment. L3-L4: There is a small, broad/diffuse disc protrusion and mild bilateral facet osteoarthritis. Mild bilater al foraminal stenosis and mild left more so than right. L4-L5: The disc has mild to moderate loss of height. Grade 1 degenerative appearing anterolisthesis. Small, broad posterior protrusion and moderate to severe bilateral facet osteoarthritis with hypertrophic xi ne and thickening of the ligamentum flavum. There is moderate spinal stenosis and moderate right, mil d left foraminal stenosis. L5-S1: Small, broad posterior disc protrusion and moderate bilateral facet osteoarthritis. There is mild to moderate right and mild left foraminal stenosis. CONCLUSION: 1. Nonacute appearing compression fractures as above, severe at L1 and mild of L2. L1 fracture associ ated with mild spinal stenosis and mild bilateral L1/L2 foraminal stenosis. 2. Multilevel lumbar spine degenerative changes as above. 3. Moderate right foraminal stenosis at L4/L5 and mild to moderate right foraminal stenosis at L5/S1. Otherwise generally mild degrees of foraminal stenosis. 4. Moderate spinal stenosis at L4/L5 5. There is grade 1 degenerative appearing anterolisthesis of L4/L5. No acute fracture or acute appea ring malalignment seen. Lexx Graves MD on June 21, 2017 at 21:48 Board Certified Radiologist. This report was verified electronically.
[2017-06-22] VITALS (7 sets, daily range): BP systolic 104–142; BP diastolic 54–63; PULSE 70–79; RESP 14–20; TEMP 96.6–98.2; O2SAT 95–98
[2017-06-22] MEDS ORDERED: ACETAMINOPHEN/HYDROcodone 325 MG/7.5 MG TAB PO ONE (01:00)
[2017-06-22 05:18] LABS: BICARBONATE 30.4 MEQ/L (21.0-32.0); CALCIUM 8.9 MG/DL (8.5-10.1)
[2017-06-22 05:22] LABS: CREATININE 1.7 MG/DL (0.50-1.00)
[2017-06-22] MEDS: HYDROXYCHLOROQUINE SULFATE 200 MG TAB PO SCH ×2 (08:44→20:47)
[2017-06-22] MEDS: DILTIAZEM-CD 120 MG CAP ER PO SCH ×2 (08:44→20:47)
[2017-06-22] MEDS: LACTOBACILLUS ACIDOPHILUS TAB PO SCH (08:45)
[2017-06-22] MEDS: predniSONE 5 MG TAB PO SCH (08:45)
[2017-06-22] MEDS: MAGNESIUM OXIDE 400 MG TAB PO SCH ×2 (08:45→20:48)
[2017-06-22] MEDS: ALLOPURINOL 100 MG TAB PO SCH (08:45)
[2017-06-22] MEDS: PANTOPRAZOLE SOD 20 MG DELAYED RELEASE TAB PO SCH (08:45)
[2017-06-22] MEDS: POTASSIUM CHLORIDE 20 MEQ CONTROLLED RELEASE TAB PO SCH (08:45)
[2017-06-22] MEDS: ENOXAPARIN SODIUM 30 MG/0.3 ML SYRINGE SQ SCH (08:47)
[2017-06-22] MEDS: TIMOLOL MALEATE 0.5% OPHT SOLN 5 ML BTL LEFT EYE SCH ×2 (08:51→20:48)
[2017-06-22] MEDS: BRIMONIDINE TARTRATE 0.2% OPHT SOLN 5 ML BTL LEFT EYE SCH ×2 (08:51→20:48)
[2017-06-22] MEDS: FUROSEMIDE 40 MG TAB PO SCH ×2 (08:51→20:48)
[2017-06-22] MEDS: CALCITONIN SALM 200 UNIT/SPRAY 3.7 ML BTLN NASAL SCH (08:52)
[2017-06-22] MEDS: METHYLNALTREXONE BROMIDE 12 MG/0.6 ML VIAL SQ SCH (08:52)
[2017-06-22] MEDS ORDERED: SODIUM CHLORID 0.9% 500 ML INJ 500 ML IV ONE (16:15)
--- NOTE | 2017-06-22 17:31 | RADRPT ---
EXAM DATE/TIME: 06/22/2017 17:00 [facility] COMPARISON: CT LUMBAR SPINE W/O CONTRAST, June 21, 2017, 20:16. INDICATIONS : Pain. Abnormal CT. MEDICAL HISTORY : Arthritis. Chronic obstructive pulmonary disease. Cerebrovascular disease. SURGICAL HISTORY : Hysterectomy. ENCOUNTER: Initial ACUITY: 1 day PAIN SCORE: 7/10 LOCATION: [place] TECHNIQUE: Multiplanar multisequence MRI of the lumbar spine was performed without contrast. FINDINGS: The most caudal appearing lumbar vertebra is numbered as L5. VERTEBRAE: Subacute compression fracture L1 with minimal retropulsed fragments. CONUS: Normal level and configuration. T12-L1: No significant canal stenosis. L1-L2: Minimal encroachment on the thecal space without significant spinal stenosis. Conus is unremarkable. L2-L3: The thecal sac has a normal diameter. No evidence of disc bulge or protrusion. The neural foramina are patent bilaterally. L3-L4: The thecal sac has a normal diameter. No evidence of disc bulge or protrusion. The neural foramina are patent bilaterally. L4-L5: Minimal anterolisthesis L4 on L5 with moderate facet disease. There is mild spinal stenosis with min imal bilateral neural foramina encroachment. L5-S1: Mild disc bulging eccentric to the right. Moderate facet disease. SI joints are normal. CONCLUSION: Subacute compression L1 without canal stenosis Mild stenosis L4-5 and moderate facet disease. Archie Dickson MD FACR on June 22, 2017 at 17:26 Board Certified Radiologist. This report was verified electronically.
--- NOTE | 2017-06-22 18:32 | HHI.PR ---
Subjective Remarks Nursing reports the patient had substantial pain while shifting just to get the bedpan underneath her for a bowel movement. Patient is apparently okay when lying still but still has substantial pain upon repositioning, especially anything that requires weightbearing. Patient thinks she has more mobility and straight leg raise today. Patient affirms that her pain is localized only in her lower back, does not radiate to her lower legs. Objective Vital Signs Date Time Temp Pulse Resp B/P (MAP) Pulse Ox O2 Delivery O2 Flow Rate FiO2 06/22/17 16:00 97.0 70 16 129/60 (83) 95 06/22/17 12:30 96.6 73 14 142/63 (89) 96 06/22/17 08:51 97 Nasal Cannula 3.00 06/22/17 08:00 97.0 75 14 123/60 (81) 96 06/22/17 00:00 97.1 73 20 104/54 (71) 95 06/21/17 23:51 98 Nasal Cannula 3.00 06/21/17 20:00 97.4 77 20 145/62 (89) 97 06/21/17 19:06 06/21/17 18:27 74 16 119/59 (79) 98 Nasal Cannula 3.00 I/O 06/21/17 06/21/17 06/21/17 06/22/17 06/22/17 06/22/17 07:00 15:00 23:00 07:00 15:00 23:00 Intake Total 500 ml Balance 500 ml Intake IV Total 500 ml # Voids 1 Result Diagram: 06/21/17 1630 06/22/17 0405 Objective Remarks Is able to leg both of her legs in a straight leg fashion bilaterally actively to about 55. Intact sensation to gross touch on bilateral lower remedies. Lying in bed, awake, alert, no acute distress. A/P Assessment and Plan Acute worsening of recent onset low back pain - Still having significant pain. Discussed case with neurosurgery who recommended MRI and consulting pain management. Dr. Amin reviewed the CT images and recommended MRI, sees significant stenosis. Spoke with Dr. Kate from pain management, will see patient on 06/25 with plan to have her NPO since midnight for Mon AM. Hold lovenox after 06/23 dose. - continue calcitonin, lidocaine patch, and k thermia - physical therapy consult and rehabilitation disposition RA - continue home Plaquenil MAYELIN - likely 2/2 dehydration as pt endorses decreased PO intake, gentle IVF as started in ER. afib - contine home cardizem, lovenox while inpt, xarelto upon discharge COPD and chronic resp failure - O2 and home inhalers and prednisone CHF - home lasix and KCL Enoch Uriostegui MD Jun 22, 2017 18:32
[2017-06-22] MEDS: LOSARTAN 25 MG TAB PO SCH (20:48)
[2017-06-22] MEDS: REMOVE OLD LIDOCAINE PATCH T-DERMAL SCH (22:04)
[2017-06-22] MEDS: LIDOCAINE HCL 5% PATCH T-DERMAL SCH (23:01)
[2017-06-23 00:30] VITALS: BP 129/61; PULSE 71; RESP 18; TEMP 98; O2SAT 97
[2017-06-23] MEDS: ACETAMINOPHEN/HYDROcodone 325 MG/7.5 MG TAB PO PRN (01:14)
[2017-06-23 07:50] VITALS: BP 116/65; PULSE 117; RESP 20; TEMP 97.3; O2SAT 98
[2017-06-23 07:53] LABS: CALCIUM 8.9 MG/DL (8.5-10.1)
[2017-06-23 07:54] LABS: BICARBONATE 30.7 MEQ/L (21.0-32.0)
[2017-06-23 07:57] LABS: CREATININE 1.2 MG/DL (0.50-1.00)
[2017-06-23] MEDS: MAGNESIUM OXIDE 400 MG TAB PO SCH ×2 (08:21→20:52)
[2017-06-23] MEDS: FUROSEMIDE 40 MG TAB PO SCH ×2 (08:21→20:52)
[2017-06-23] MEDS: DILTIAZEM-CD 120 MG CAP ER PO SCH ×2 (08:21→20:52)
[2017-06-23] MEDS: LACTOBACILLUS ACIDOPHILUS TAB PO SCH (08:22)
[2017-06-23] MEDS: PANTOPRAZOLE SOD 20 MG DELAYED RELEASE TAB PO SCH (08:22)
[2017-06-23] MEDS: HYDROXYCHLOROQUINE SULFATE 200 MG TAB PO SCH ×2 (08:22→20:52)
[2017-06-23] MEDS: predniSONE 5 MG TAB PO SCH (08:22)
[2017-06-23] MEDS: ALLOPURINOL 100 MG TAB PO SCH (08:22)
[2017-06-23] MEDS: METHYLNALTREXONE BROMIDE 12 MG/0.6 ML VIAL SQ SCH (08:23)
[2017-06-23] MEDS: POTASSIUM CHLORIDE 20 MEQ CONTROLLED RELEASE TAB PO SCH (08:23)
[2017-06-23] MEDS: ENOXAPARIN SODIUM 30 MG/0.3 ML SYRINGE SQ SCH (08:23)
[2017-06-23] MEDS: LIDOCAINE HCL 5% PATCH T-DERMAL SCH (08:24)
[2017-06-23] MEDS: REMOVE OLD LIDOCAINE PATCH T-DERMAL SCH (08:24)
[2017-06-23] MEDS: TIMOLOL MALEATE 0.5% OPHT SOLN 5 ML BTL LEFT EYE SCH ×2 (08:30→20:51)
[2017-06-23] MEDS: BRIMONIDINE TARTRATE 0.2% OPHT SOLN 5 ML BTL LEFT EYE SCH ×2 (08:30→20:52)
[2017-06-23] MEDS: CALCITONIN SALM 200 UNIT/SPRAY 3.7 ML BTLN NASAL SCH (08:30)
[2017-06-23 11:50] VITALS: BP 103/53; PULSE 75; RESP 20; TEMP 97.3; O2SAT 95
[2017-06-23 13:44] VITALS: O2SAT 97
[2017-06-23] MEDS ORDERED: POTASSIUM CHLORIDE 10 MEQ CONTROLLED RELEASE TAB PO ONE (15:00)
--- NOTE | 2017-06-23 15:02 | HHI.PR ---
Subjective Remarks Follow-up lumbar stenosis. Patient seen and examined, sitting up in bed eating lunch. States that pain is well-controlled. Denies any acute events overnight. Vital signs are stable. Afebrile. Tolerating by mouth intake, denies any abdominal, nausea or vomiting. Objective Vitals Vital Signs Date Time Temp Pulse Resp B/P (MAP) Pulse Ox O2 Delivery O2 Flow Rate FiO2 06/23/17 13:44 97 Nasal Cannula 3.00 06/23/17 11:50 97.3 75 20 103/53 (70) 95 06/23/17 07:50 97.3 117 20 116/65 (82) 98 06/23/17 00:30 98.0 71 18 129/61 (83) 97 06/22/17 21:25 97 Nasal Cannula 3.00 06/22/17 20:00 98.2 79 16 125/60 (81) 98 06/22/17 16:00 97.0 70 16 129/60 (83) 95 I/O 06/22/17 06/22/17 06/22/17 06/23/17 06/23/17 06/23/17 07:00 15:00 23:00 07:00 15:00 23:00 Intake Total 944 ml 280 ml Output Total 400 ml 800 ml Balance 544 ml -520 ml Intake Oral 444 ml 280 ml IV Total 500 ml Output Urine Total 400 ml 800 ml # Voids 1 # Bowel Movements 0 Result Diagram: 06/21/17 1630 06/23/17 0615 Imaging Last Impressions Lumbar Spine MRI 06/22/17 0000 Signed Impressions: Service Date/Time: Thursday, June 22, 2017 17:00 - CONCLUSION: Subacute compression L1 without canal stenosis Mild stenosis L4-5 and moderate facet disease. Archie Dickson MD FACR Lumbar Spine CT 06/21/17 0000 Signed Impressions: Service Date/Time: June 20:16 - CONCLUSION: 1. Nonacute appearing compression fractures as above, severe at L1 and mild of L2. L1 fracture associated with mild spinal stenosis and mild bilateral L1/L2 foraminal stenosis. 2. Multilevel lumbar spine degenerative changes as above. 3. Moderate right foraminal stenosis at L4/L5 and mild to moderate right foraminal stenosis at L5/S1. Otherwise generally mild degrees of foraminal stenosis. 4. Moderate spinal stenosis at L4/L5 5. There is grade 1 degenerative appearing anterolisthesis of L4/L5. No acute fracture or acute appearing malalignment seen. Lexx Graves MD Objective Remarks GENERAL: Well-nourished, well-developed patient in NAD. SKIN: Warm and dry. No rash. HEENT: Normocephalic. Atraumatic. Pupils equal and round. No scleral icterus. No injection or drainage. No nasal bleeding or discharge. Mucous membranes pink and moist. NECK: Supple. Trachea midline. CARDIOVASCULAR: Regular rate and rhythm. S1, S2 noted. No murmur appreciated. RESPIRATORY: No accessory muscle use. Clear to auscultation. Breath sounds equal bilaterally. GASTROINTESTINAL: Abdomen soft, non-tender, nondistended. Normoactive bowel sounds x4. MUSCULOSKELETAL: No obvious deformities. Extremities without clubbing, cyanosis , or edema. NEUROLOGICAL: Awake and alert. No obvious cranial nerve deficits. Motor grossly within normal limits. 4/5 muscle strength in bilateral upper and lower extremities. Normal speech. PSYCHIATRIC: Appropriate mood and affect; insight and judgment normal. A/P Assessment and Plan Acute worsening of recent onset low back pain - Consult placed to Neurosurgeon. Dr. Amin reviewed the CT images and recommended MRI, sees significant stenosis. - Plan is for Dr. Kate from pain management to see patient on 06/25 with plan to have her NPO at [place] for Mon AM. Hold Lovenox. - continue calcitonin, lidocaine patch, and k thermia - physical therapy consult and rehabilitation disposition Rheumatoid arthritis - continue home Plaquenil Acute kidney injury suspect secondary to dehydration: Improving. Patient endorses decreased PO intake, Continue gentle IVF. Encouraged PO intake. Atrial fibrillation, chronic: Continue home Cardizem, Lovenox while inpt, Xarelto upon discharge COPD and chronic Resp failure - O2 and home inhalers and prednisone CHF - home Lasix and KCL. Monitor intake and output. Hypokalemia: Status post replacement. Obstipation: Patient states she has not had a bowel movement for five days. Relistor has been started. Will order enema as requested by patient. DVT prophylaxis: SCDs. Lovenox. Andra Sesay Jun 23, 2017 15:02
[2017-06-23] MEDS ORDERED: SOD PHOSPHATE/SOD BIPHOSPHATE (ADULT) ENEMA 133ML RECTAL ONE (15:15)
[2017-06-23] MEDS: RESP: IPRATROPIUM 0.5 MG/2.5 ML NEB NEB PRN (19:38)
[2017-06-23 19:39] VITALS: O2SAT 98
[2017-06-23] MEDS: LOSARTAN 25 MG TAB PO SCH (20:52)
[2017-06-23 21:21] VITALS: BP 141/66; PULSE 76; RESP 16; TEMP 98.8; O2SAT 97
[2017-06-24] VITALS (7 sets, daily range): BP systolic 114–147; BP diastolic 53–77; PULSE 75–93; RESP 16–20; TEMP 94.6–98; O2SAT 90–99
[2017-06-24] MEDS: TIMOLOL MALEATE 0.5% OPHT SOLN 5 ML BTL LEFT EYE SCH ×2 (08:52→20:53)
[2017-06-24] MEDS: BRIMONIDINE TARTRATE 0.2% OPHT SOLN 5 ML BTL LEFT EYE SCH ×2 (08:52→20:53)
[2017-06-24] MEDS: CALCITONIN SALM 200 UNIT/SPRAY 3.7 ML BTLN NASAL SCH (08:53)
[2017-06-24] MEDS: LACTOBACILLUS ACIDOPHILUS TAB PO SCH (08:53)
[2017-06-24] MEDS: POTASSIUM CHLORIDE 20 MEQ CONTROLLED RELEASE TAB PO SCH (08:53)
[2017-06-24] MEDS: HYDROXYCHLOROQUINE SULFATE 200 MG TAB PO SCH ×2 (08:53→20:53)
[2017-06-24] MEDS: ALLOPURINOL 100 MG TAB PO SCH (08:53)
[2017-06-24] MEDS: FUROSEMIDE 40 MG TAB PO SCH ×2 (08:53→20:53)
[2017-06-24] MEDS: METHYLNALTREXONE BROMIDE 12 MG/0.6 ML VIAL SQ SCH (08:54)
[2017-06-24] MEDS: MAGNESIUM OXIDE 400 MG TAB PO SCH ×2 (08:54→20:53)
[2017-06-24] MEDS: DILTIAZEM-CD 120 MG CAP ER PO SCH ×2 (08:54→20:53)
[2017-06-24] MEDS: predniSONE 5 MG TAB PO SCH (08:54)
[2017-06-24] MEDS: LIDOCAINE HCL 5% PATCH T-DERMAL SCH (08:55)
[2017-06-24] MEDS: PANTOPRAZOLE SOD 20 MG DELAYED RELEASE TAB PO SCH (09:06)
--- NOTE | 2017-06-24 09:58 | HHI.PR ---
Subjective Remarks Follow-up lumbar stenosis. Patient seen and examined, lying in bed sleeping. Awakens to voice. Pleasant and alert. Denies any acute events overnight. Pain is well-controlled. Eating well, denies any abdominal pain, nausea or vomiting. Vital signs are stable overnight. Afebrile. Objective Vitals Vital Signs Date Time Temp Pulse Resp B/P (MAP) Pulse Ox O2 Delivery O2 Flow Rate FiO2 06/24/17 07:50 97.9 85 20 138/63 (88) 95 06/24/17 04:54 06/24/17 00:03 98.0 78 18 147/77 (100) 96 06/23/17 21:21 98.8 76 16 141/66 (91) 97 06/23/17 20:00 98 Nasal Cannula 3.00 06/23/17 19:39 98 Nasal Cannula 3.00 06/23/17 13:44 97 Nasal Cannula 3.00 06/23/17 11:50 97.3 75 20 103/53 (70) 95 I/O 06/23/17 06/23/17 06/23/17 06/24/17 06/24/17 06/24/17 07:00 15:00 23:00 07:00 15:00 23:00 Intake Total 280 ml 120 ml Output Total 800 ml 450 ml 500 ml Balance -520 ml -330 ml -500 ml Intake Oral 280 ml 120 ml Output Urine Total 800 ml 450 ml 500 ml # Voids 2 # Bowel Movements 2 0 Result Diagram: 06/21/17 1630 06/23/17 0615 Imaging Last Impressions Lumbar Spine MRI 06/22/17 0000 Signed Impressions: Service Date/Time: Thursday, June 22, 2017 17:00 - CONCLUSION: Subacute compression L1 without canal stenosis Mild stenosis L4-5 and moderate facet disease. Archie Dickson MD FACR Lumbar Spine CT 06/21/17 0000 Signed Impressions: Service Date/Time: June 20:16 - CONCLUSION: 1. Nonacute appearing compression fractures as above, severe at L1 and mild of L2. L1 fracture associated with mild spinal stenosis and mild bilateral L1/L2 foraminal stenosis. 2. Multilevel lumbar spine degenerative changes as above. 3. Moderate right foraminal stenosis at L4/L5 and mild to moderate right foraminal stenosis at L5/S1. Otherwise generally mild degrees of foraminal stenosis. 4. Moderate spinal stenosis at L4/L5 5. There is grade 1 degenerative appearing anterolisthesis of L4/L5. No acute fracture or acute appearing malalignment seen. Lexx Graves MD Objective Remarks GENERAL: Well-nourished, well-developed patient in NAD. SKIN: Warm and dry. No rash. HEENT: Normocephalic. Atraumatic. Pupils equal and round. No scleral icterus. No injection or drainage. No nasal bleeding or discharge. Mucous membranes pink and moist. NECK: Supple. Trachea midline. CARDIOVASCULAR: Regular rate and rhythm. S1, S2 noted. No murmur appreciated. RESPIRATORY: No accessory muscle use. Clear to auscultation. Breath sounds equal bilaterally. GASTROINTESTINAL: Abdomen soft, non-tender, nondistended. Normoactive bowel sounds x4. MUSCULOSKELETAL: No obvious deformities. Extremities without clubbing, cyanosis , or edema. NEUROLOGICAL: Awake and alert. No obvious cranial nerve deficits. Motor grossly within normal limits. 4/5 muscle strength in bilateral upper and lower extremities. Normal speech. PSYCHIATRIC: Appropriate mood and affect; insight and judgment normal. A/P Assessment and Plan Acute worsening of recent onset low back pain secondary to subacute compression of L1 without canal stenosis - Consult placed to Neurosurgeon. Dr. Amin reviewed the CT images and recommended MRI, sees significant stenosis. Awaiting further recommendations from neurosurgery. - Plan is for Dr. Kate from pain management to see patient on 06/25 with plan to have her NPO at [place] for Mon AM. Hold Lovenox. - continue calcitonin, lidocaine patch, and k thermia - physical therapy consult and rehabilitation disposition, recommendations for rehabilitation Leukocytosis: White blood cell 19.1. Of unknown cause suspect secondary to chronic steroid use. Afebrile. Urine culture negative. Monitor for infection. Awaiting CBC today. Follow. Rheumatoid arthritis - continue home Plaquenil Acute kidney injury suspect secondary to dehydration: Improving. Creatinine today 1.2. Continue gentle IVF. Encouraged PO intake. Atrial fibrillation, chronic: Continue home Cardizem, Lovenox while inpt, Xarelto upon discharge COPD and chronic Resp failure - O2 and home inhalers and prednisone CHF - home Lasix and KCL. Monitor intake and output. Hypokalemia: Status post replacement. Awaiting BMP today. Follow. Obstipation: Resolved. Documented bowel movement yesterday. Continue Relistor. Status post enema. DVT prophylaxis: SCDs. Lovenox. Andra Sesay Jun 24, 2017 09:58
[2017-06-24] MEDS: RESP: IPRATROPIUM 0.5 MG/2.5 ML NEB NEB PRN ×2 (14:54→20:29)
[2017-06-24 15:26] LABS: BASOPHIL % 0.2 % (0.0-2.0); HEMOGLOBIN 11.1 GM/DL (11.6-15.3); LYMPH % 7.2 % (9.0-44.0); LYMPHOCYTE # 1.2 TH/MM3 (1.0-4.8); MEAN CELL VOLUME 89.1 FL (80.0-100.0); MEAN CORPUSCULAR HGB CONC 32.6 % (32.0-36.0); MEAN PLATELET VOLUME 7.6 FL (7.0-11.0); MONO % 7.6 % (0.0-8.0); MONOCYTE # 1.3 TH/MM3 (0-0.9); PLATELET COUNT 484 TH/MM3 (150-450); RED BLOOD COUNT 3.81 MIL/MM3 (4.00-5.30); RED CELL DISTRIBUTION WIDTH 16.4 % (11.6-17.2); WHITE BLOOD COUNT 16.5 TH/MM3 (4.0-11.0)
[2017-06-24 15:50] LABS: BICARBONATE 31.1 MEQ/L (21.0-32.0); CALCIUM 9.8 MG/DL (8.5-10.1); CREATININE 1.2 MG/DL (0.50-1.00)
[2017-06-24] MEDS: LOSARTAN 25 MG TAB PO SCH (20:53)
[2017-06-24] MEDS: REMOVE OLD LIDOCAINE PATCH T-DERMAL SCH (20:54)
[2017-06-25] VITALS (7 sets, daily range): BP systolic 113–124; BP diastolic 54–60; PULSE 72–88; RESP 14–20; TEMP 96.5–98.8; O2SAT 94–99
[2017-06-25] MEDS: LACTOBACILLUS ACIDOPHILUS TAB PO SCH (08:22)
[2017-06-25] MEDS: TIMOLOL MALEATE 0.5% OPHT SOLN 5 ML BTL LEFT EYE SCH ×2 (08:22→22:04)
[2017-06-25] MEDS: DILTIAZEM-CD 120 MG CAP ER PO SCH ×2 (08:22→22:01)
[2017-06-25] MEDS: BRIMONIDINE TARTRATE 0.2% OPHT SOLN 5 ML BTL LEFT EYE SCH ×2 (08:22→22:07)
[2017-06-25] MEDS: POTASSIUM CHLORIDE 20 MEQ CONTROLLED RELEASE TAB PO SCH (08:22)
[2017-06-25] MEDS: PANTOPRAZOLE SOD 20 MG DELAYED RELEASE TAB PO SCH (08:22)
[2017-06-25] MEDS: MAGNESIUM OXIDE 400 MG TAB PO SCH ×2 (08:23→22:01)
[2017-06-25] MEDS: LIDOCAINE HCL 5% PATCH T-DERMAL SCH (08:23)
[2017-06-25] MEDS: predniSONE 5 MG TAB PO SCH (08:23)
[2017-06-25] MEDS: METHYLNALTREXONE BROMIDE 12 MG/0.6 ML VIAL SQ SCH (08:23)
[2017-06-25] MEDS: HYDROXYCHLOROQUINE SULFATE 200 MG TAB PO SCH ×2 (08:23→22:01)
[2017-06-25] MEDS: FUROSEMIDE 40 MG TAB PO SCH ×2 (08:23→22:01)
[2017-06-25] MEDS: ALLOPURINOL 100 MG TAB PO SCH (08:23)
--- NOTE | 2017-06-25 08:37 | HHI.PR ---
Subjective Remarks Follow-up lumbar stenosis. Patient seen and examined, lying in bed comfortably. Denies any acute events overnight. Pain is well-controlled. Eating well, denies any nausea or vomiting. Vital signs are stable overnight. Afebrile. Plan to go to the OR today with pain management for injection. Nothing by mouth. Objective Vitals Vital Signs Date Time Temp Pulse Resp B/P (MAP) Pulse Ox O2 Delivery O2 Flow Rate FiO2 06/25/17 08:26 Nasal Cannula 3.00 06/25/17 08:04 98 Nasal Cannula 3.00 06/25/17 00:00 96.6 72 16 113/56 (75) 99 06/24/17 20:29 94 Nasal Cannula 2.00 06/24/17 20:00 94.6 93 16 130/62 (84) 97 06/24/17 19:00 94 Nasal Cannula 3.00 06/24/17 15:50 97.0 86 20 124/56 (78) 90 06/24/17 11:50 96.3 75 20 114/53 (73) 97 06/24/17 10:12 99 Nasal Cannula 3.00 06/24/17 08:52 Nasal Cannula 3.00 I/O 06/24/17 06/24/17 06/24/17 06/25/17 06/25/17 06/25/17 07:00 15:00 23:00 07:00 15:00 23:00 Intake Total 480 ml 420 ml Output Total 500 ml 900 ml 200 ml Balance -500 ml -420 ml 220 ml Intake Oral 480 ml 420 ml Output Urine Total 500 ml 900 ml 200 ml # Voids 2 # Bowel Movements 0 3 0 Result Diagram: 06/24/17 1500 06/24/17 1500 Imaging Last Impressions Lumbar Spine MRI 06/22/17 0000 Signed Impressions: Service Date/Time: Thursday, June 22, 2017 17:00 - CONCLUSION: Subacute compression L1 without canal stenosis Mild stenosis L4-5 and moderate facet disease. Archie Dickson MD FACR Lumbar Spine CT 06/21/17 0000 Signed Impressions: Service Date/Time: June 20:16 - CONCLUSION: 1. Nonacute appearing compression fractures as above, severe at L1 and mild of L2. L1 fracture associated with mild spinal stenosis and mild bilateral L1/L2 foraminal stenosis. 2. Multilevel lumbar spine degenerative changes as above. 3. Moderate right foraminal stenosis at L4/L5 and mild to moderate right foraminal stenosis at L5/S1. Otherwise generally mild degrees of foraminal stenosis. 4. Moderate spinal stenosis at L4/L5 5. There is grade 1 degenerative appearing anterolisthesis of L4/L5. No acute fracture or acute appearing malalignment seen. Lexx Graves MD Objective Remarks GENERAL: Well-nourished, well-developed patient in NAD. SKIN: Warm and dry. No rash. HEENT: Normocephalic. Atraumatic. Pupils equal and round. No scleral icterus. No injection or drainage. No nasal bleeding or discharge. Mucous membranes pink and moist. NECK: Supple. Trachea midline. CARDIOVASCULAR: Regular rate and rhythm. S1, S2 noted. No murmur appreciated. RESPIRATORY: No accessory muscle use. Clear to auscultation. Breath sounds equal bilaterally. GASTROINTESTINAL: Abdomen soft, non-tender, nondistended. Normoactive bowel sounds x4. MUSCULOSKELETAL: No obvious deformities. Extremities without clubbing, cyanosis , or edema. NEUROLOGICAL: Awake and alert. No obvious cranial nerve deficits. Motor grossly within normal limits. 4/5 muscle strength in bilateral upper and lower extremities. Normal speech. PSYCHIATRIC: Appropriate mood and affect; insight and judgment normal. A/P Assessment and Plan Acute worsening of recent onset low back pain secondary to subacute compression of L1 without canal stenosis - Consult placed to Neurosurgeon. Dr. Amin reviewed the CT images and recommended MRI, sees significant stenosis. Awaiting further recommendations from neurosurgery. - Plan is for Dr. Kate, pain management, to OR today for pain intervention. - continue calcitonin, lidocaine patch, and k thermia - physical therapy consult and rehabilitation disposition, recommendations for rehabilitation. Leukocytosis: White blood cell 19.1 --> 16.5. Of unknown cause suspect secondary to chronic steroid use. Afebrile. Urine culture negative. Monitor for infection. Rheumatoid arthritis: Continue home Plaquenil Acute kidney injury suspect secondary to dehydration: Improving. Creatinine 1.2. Continue gentle IVF. Encouraged PO intake. Atrial fibrillation, chronic: Continue home Cardizem, Lovenox while inpt, Xarelto upon discharge COPD and chronic Resp failure: O2 and home inhalers and prednisone. On home O2 3L NC. CHF: Home Lasix and KCL. Monitor intake and output. Hypokalemia: Status post replacement. Stable. 4.1. Obstipation: Resolved. Continue Relistor. Status post enema. DVT prophylaxis: SCDs. Lovenox. Discharge Planning Patient recd lumbar/facet injection by Dr. Kate today in OR. Patient expressing much improvement in pain with activity and lying in bed. Patient can be dcd to SNF when accepted. Medically stable for DC. Andra Sesay Jun 25, 2017 08:37
[2017-06-25] MEDS ORDERED: TEMA30CA PO (10:03)
[2017-06-25] MEDS ORDERED: PROPOFOL 200 MG/20 ML AMP IV ONE (10:35)
[2017-06-25] MEDS ORDERED: TRIAMCINOLONE ACETONIDE 40 MG/ML VIAL I-ARTICULR ONE (10:35)
[2017-06-25] MEDS ORDERED: BUPIVACAINE HCL PF 0.75% 30 ML VIAL ONE (10:35)
--- NOTE | 2017-06-25 12:01 | HHI.DCPOC ---
Discharge Care Plan Diagnosis: (1) Acute renal failure superimposed on stage 2 chronic kidney disease (2) Sepsis (3) COPD (chronic obstructive pulmonary disease) (4) Acute and chronic respiratory failure with hypoxia Goals to Promote Your Health * To prevent worsening of your condition and complications * To maintain your health at the optimal level Directions to Meet Your Goals Take your medications as prescribed Follow your dietary instruction Follow activity as directed Keep your appointments as scheduled Take your immunizations and boosters as scheduled If your symptoms worsen call your PCP, if no PCP go to Urgent Care Center or Emergency Room Smoking is Dangerous to Your Health. Avoid second hand smoke Call the 24-hour hour crisis hotline for domestic abuse at Andra Sesay Jun 25, 2017 12:01
--- NOTE | 2017-06-25 12:02 | HHI.DS ---
Discharge Summary Admission Date Jun 21, 2017 at 17:56 Discharge Date: Jun 25, 2017 Admitting Diagnosis Intractable back pain, inability to ambulate, MAYELIN. (1) COPD (chronic obstructive pulmonary disease) ICD Code: J44.9 - Chronic obstructive pulmonary disease, unspecified Status: Chronic (2) Acute and chronic respiratory failure with hypoxia ICD Code: J96.21 - Acute and chronic respiratory failure with hypoxia (3) Acute renal failure superimposed on stage 2 chronic kidney disease ICD Code: N17.9 - Acute kidney failure, unspecified; N18.2 - Chronic kidney disease, stage 2 (mild) (4) Sepsis ICD Code: A41.9 - Sepsis, unspecified organism Status: Resolved Procedures Pain management took patient to OR for facet/lumbar injection. Brief History - From Admission 82-year-old white female being admitted for intractable back pain along with acute kidney injury. History is very limited from the patient and she is a poor historian and says she does not remember much about which medications she helped her the most regarding her back pain. History largely obtained from emergency room physician and emergency room records. Patient was in her usual state of health until her back pain got much worse off of her Percocet and required substantial assistance from the [employer] staff at her assisted living facility to help her with basic activities of daily living including transferring, repositioning, and ambulating. Recently the patient was diagnosed with some low back pain about a week ago at the emergency department and was discharged back to her assisted-living facility. Her back pain was thought to be due to a chronic compression fracture at L1. At that time the patient was able to ambulate in the emergency department as well as in her assisted living facility with Percocet. However the patient reports that they discontinued the Percocet because it was "too strong" and it "knocked her out." She is not sure exactly from the days she was on the Percocet. She says she took her daughter's tramadol and a provider her only mild relief. However her pain was too strong off of the Percocet and she required too much assistance beyond with the staff at provided assisted-living facility this she presented to the emergency department. Patient states that ambulating significantly worsens her back pain; lying still eases it. Patient denies any dysuria, acute fecal incontinence or urinary incontinence or any other acute issues. Past medical history is significant for rheumatoid arthritis, atrial fibrillation, congestive heart, asthma, COPD and chronic hypoxic respiratory failure requiring 3 L, diverticulitis, gout. CBC/BMP: 06/24/17 1500 06/24/17 1500 Significant Findings Laboratory Tests Test 06/23/17 06:15 06/24/17 15:00 Creatinine 1.20 MG/DL (0.50-1.00) 1.20 MG/DL (0.50-1.00) Sodium Level 134 MEQ/L (136-145) 130 MEQ/L (136-145) Potassium Level 3.1 MEQ/L (3.5-5.1) Chloride Level 96 MEQ/L (98-107) 91 MEQ/L (98-107) Estimat Glomerular Filtration Rate 43 ML/MIN (>89) 43 ML/MIN (>89) White Blood Count 16.5 TH/MM3 (4.0-11.0) Red Blood Count 3.81 MIL/MM3 (4.00-5.30) Hemoglobin 11.1 GM/DL (11.6-15.3) Hematocrit 34.0 % (35.0-46.0) Platelet Count 484 TH/MM3 (150-450) Neutrophils (%) (Auto) 85.0 % (16.0-70.0) Lymphocytes (%) (Auto) 7.2 % (9.0-44.0) Neutrophils # (Auto) 14.0 TH/MM3 (1.8-7.7) Monocytes # (Auto) 1.3 TH/MM3 (0-0.9) Random Glucose 107 MG/DL (74-106) Imaging Last Impressions Lumbar Spine MRI 06/22/17 0000 Signed Impressions: Service Date/Time: Thursday, June 22, 2017 17:00 - CONCLUSION: Subacute compression L1 without canal stenosis Mild stenosis L4-5 and moderate facet disease. Archie Dickson MD FACR Lumbar Spine CT 06/21/17 0000 Signed Impressions: Service Date/Time: June 20:16 - CONCLUSION: 1. Nonacute appearing compression fractures as above, severe at L1 and mild of L2. L1 fracture associated with mild spinal stenosis and mild bilateral L1/L2 foraminal stenosis. 2. Multilevel lumbar spine degenerative changes as above. 3. Moderate right foraminal stenosis at L4/L5 and mild to moderate right foraminal stenosis at L5/S1. Otherwise generally mild degrees of foraminal stenosis. 4. Moderate spinal stenosis at L4/L5 5. There is grade 1 degenerative appearing anterolisthesis of L4/L5. No acute fracture or acute appearing malalignment seen. Lexx Graves MD PE at Discharge GENERAL: Well-nourished, well-developed patient in NAD. SKIN: Warm and dry. No rash. HEENT: Normocephalic. Atraumatic. Pupils equal and round. No scleral icterus. No injection or drainage. No nasal bleeding or discharge. Mucous membranes pink and moist. NECK: Supple. Trachea midline. CARDIOVASCULAR: Regular rate and rhythm. S1, S2 noted. No murmur appreciated. RESPIRATORY: No accessory muscle use. Clear to auscultation. Breath sounds equal bilaterally. GASTROINTESTINAL: Abdomen soft, non-tender, nondistended. Normoactive bowel sounds x4. MUSCULOSKELETAL: No obvious deformities. Extremities without clubbing, cyanosis , or edema. NEUROLOGICAL: Awake and alert. No obvious cranial nerve deficits. Motor grossly within normal limits. 4/5 muscle strength in bilateral upper and lower extremities. Normal speech. PSYCHIATRIC: Appropriate mood and affect; insight and judgment normal. Hospital Course Acute worsening of recent onset low back pain secondary to subacute compression of L1 without canal stenosis. Dr. Amin consulted and reviewed the CT images and recommended MRI, sees significant stenosis with recommendations to consult Dr. Kate, pain management, to inject the facet/lumbar area for pain relief and assess response before surgical intervention. Patient much improved after injections with pain almost all resolved. Continued on lidocaine patch, calcitonin and k thermia. Physical therapy consult and rehabilitation disposition, recommendations for rehabilitation. Leukocytosis seen during hospitalization, suspect secondary to chronic steroid use. Afebrile. Urine culture negative. Rheumatoid arthritis: Continue home Plaquenil. Acute kidney injury on presentation, suspect secondary to dehydration, improved upon discharge, Creatinine 1.2. Patient with chronic atrial fibrillation continued home Cardizem , Lovenox while inpt, Xarelto upon discharge. Pt Condition on Discharge: Stable Discharge Disposition: Discharge to SNF Discharge Time: > 30 minutes Discharge Instructions DIET: Follow Instructions for: As Tolerated, No Restrictions Speech Therapy-Diet Recommends: Regular Activities you can perform: Regular-No Restrictions Follow up Referrals: Neurosurgery - 1 Week PCP Follow-up - 1 Week Continued Medications: Acetaminophen (Tylenol) 325 Mg Tab 650 MG PO Q4H PRN for pain, #90 TAB 0 Refills Albuterol 8.5 GM Inh (Proair Hfa 8.5 GM Inh) 90 Mcg/Act Aer 2 PUFF INH Q4-6H PRN for SHORTNESS OF BREATH, #1 INHALER 0 Refills 108 mcg/actuation Allopurinol (Allopurinol) 100 Mg Tab 100 MG PO DAILY for Gout, #30 TAB 0 Refills Brimonidine-Timolol Opth Drops (Combigan Opth Drops) 0.2-0.5% Soln 1 DROP LEFT EYE Q12HR for Glaucoma, #1 BOTTLE 0 Refills Calcium Carbonate-Cholecalciferol (Calcium 1000 + D) 1,000-800 Mg-Unit Tab 1 TAB PO, TAB Diltiazem CD 24 HR (Cardizem CD 24 HR) 120 Mg Caper 120 MG PO BID for A-fib, #60 CAP 0 Refills Docusate Sodium (Docusate Sodium) 100 Mg Tab 100 MG PO DIRECTED, TAB Ferrous Sulfate DR (Ferrous Sulfate DR) 324 Mg Tabdr 65 MG PO BID for Nutritional Supplement, #30 TAB 0 Refills Furosemide (Lasix) 40 Mg Tab 40 MG PO BID, #30 TAB 0 Refills Hydroxychloroquine (Plaquenil) 200 Mg Tab 200 MG PO BID, #60 TAB 0 Refills Take with food Ipratropium Neb (Ipratropium Neb) 0.5 Mg/2.5 Ml Amp 0.5 MG NEB Q6HR NEB PRN for SHORTNESS OF BREATH, #120 NEBULE 0 Refills Lactobacillus Acidophilus (Probiotic) 1 Cap Cap 1 CAP PO DAILY for Nutritional Supplement, #90 CAP 0 Refills Losartan (Losartan) 25 Mg Tab 25 MG PO HS for Blood Pressure Management, #30 TAB 0 Refills Magnesium Oxide (Magnesium) 400 Mg Tablet 1 TAB PO BID Methotrexate (Methotrexate) 2.5 Mg Tab 2.5 MG PO Q7D, TAB 0 Refills Metoprolol Tartrate (Metoprolol Tartrate) 25 Mg Tab 25 MG PO BID, #60 TAB 0 Refills Oxycodone-Acetaminophen (Percocet) 5-325 mg Tab 0.5-1 TAB PO Q6H PRN for PAIN GREATER THAN 5, #10 TAB 0 Refills Pantoprazole (Protonix) 20 Mg Tab 20 MG PO DAILY for Reflux, #30 TAB 0 Refills Potassium Chloride Microencaps (Potassium Chloride Microencaps) 20 Meq Tab 20 MEQ PO DAILY for Nutritional Supplement, #30 TAB 0 Refills Prednisone (Prednisone) 5 Mg Tab 5 MG PO DAILY, TAB 0 Refills Rivaroxaban (Xarelto) 15 Mg Tab 15 MG PO DAILY for Blood Clot Prevention, #30 TAB 0 Refills Temazepam (Temazepam) 30 Mg Cap 30 MG PO HS PRN for INSOMNIA, #30 CAP 0 Refills Andra Sesay Jun 25, 2017 12:02
[2017-06-25] MEDS ORDERED: guaiFENesin/DEXTROMETHORPHAN 200 MG/20 MG/10 ML CUP PO PRN (18:00)
[2017-06-25] MEDS: LOSARTAN 25 MG TAB PO SCH (22:01)
[2017-06-25] MEDS: REMOVE OLD LIDOCAINE PATCH T-DERMAL SCH (22:08)
[2017-06-26] VITALS: BP 102/65; PULSE 83; RESP 18; TEMP 97.4; O2SAT 97
[2017-06-26 08:00] VITALS: BP 117/58; PULSE 88; RESP 14; TEMP 98.6; O2SAT 95
[2017-06-26] MEDS: CALCITONIN SALM 200 UNIT/SPRAY 3.7 ML BTLN NASAL SCH (09:03)
[2017-06-26] MEDS: predniSONE 5 MG TAB PO SCH (09:04)
[2017-06-26] MEDS: PANTOPRAZOLE SOD 20 MG DELAYED RELEASE TAB PO SCH (09:04)
[2017-06-26] MEDS: FUROSEMIDE 40 MG TAB PO SCH (09:04)
[2017-06-26] MEDS: LACTOBACILLUS ACIDOPHILUS TAB PO SCH (09:04)
[2017-06-26] MEDS: HYDROXYCHLOROQUINE SULFATE 200 MG TAB PO SCH (09:04)
[2017-06-26] MEDS: MAGNESIUM OXIDE 400 MG TAB PO SCH (09:04)
[2017-06-26] MEDS: ALLOPURINOL 100 MG TAB PO SCH (09:04)
[2017-06-26] MEDS: DILTIAZEM-CD 120 MG CAP ER PO SCH (09:04)
[2017-06-26] MEDS: TIMOLOL MALEATE 0.5% OPHT SOLN 5 ML BTL LEFT EYE SCH (09:05)
[2017-06-26] MEDS: LIDOCAINE HCL 5% PATCH T-DERMAL SCH (09:05)
[2017-06-26] MEDS: BRIMONIDINE TARTRATE 0.2% OPHT SOLN 5 ML BTL LEFT EYE SCH (09:05)
[2017-06-26] MEDS: POTASSIUM CHLORIDE 20 MEQ CONTROLLED RELEASE TAB PO SCH (09:05)
--- NOTE | 2017-06-26 09:26 | HHI.PR ---
Subjective Remarks Patient seen and examined today for follow-up on intractable back pain. Patient doing well today. Pain is controlled. Patient was discharged yesterday to [facility] facility, however was awaiting insurance authorization. Plans for discharge today. Once arrangements made by case management. Objective Vitals Vital Signs Date Time Temp Pulse Resp B/P (MAP) Pulse Ox O2 Delivery O2 Flow Rate FiO2 06/26/17 08:00 98.6 88 14 117/58 (77) 95 06/26/17 00:00 97.4 83 18 102/65 (77) 97 06/25/17 21:45 96 Nasal Cannula 3.00 06/25/17 20:00 96.5 88 20 114/60 (78) 97 06/25/17 19:00 97 Nasal Cannula 3.00 06/25/17 18:28 98.7 85 16 120/56 (77) 94 06/25/17 12:00 98.7 75 14 113/54 (73) 99 I/O 06/25/17 06/25/17 06/25/17 06/26/17 06/26/17 06/26/17 07:00 15:00 23:00 07:00 15:00 23:00 Intake Total 420 ml 118 ml 220 ml Output Total 200 ml 600 ml 300 ml 450 ml Balance 220 ml -600 ml -182 ml -230 ml Intake Oral 420 ml 118 ml 220 ml Output Urine Total 200 ml 600 ml 300 ml 450 ml # Bowel Movements 0 0 2 Result Diagram: 06/24/17 1500 06/24/17 1500 Objective Remarks GENERAL: Well-developed, well-nourished, in no acute distress. alert and orientated HEENT: Head is normocephalic without any lesions or masses noted. Facial features are symmetric. Eyes: Extraocular muscles are intact. Conjunctivae were clear. NECK: Supple without any masses. Trachea midline no deviation. No JVD, CARDIAC: Regular rhythm, regular rate. S1/S2 are heard. No murmurs gallops or rubs. LUNGS: Clear to auscultation bilaterally. No wheeze, rhonchi or rales. No use of accessory muscles on inspiration or expiration. ABDOMEN: Soft, nontender. Nondistended. Bowel sounds heard in all 4 quadrants. No organomegaly or masses. Negative rebound, negative guarding EXTREMITIES: No edema, pulses are equal bilaterally. No cyanosis or clubbing NEUROLOGY: Mood and affect appear appropriate. Cranial nerves II through XII grossly intact. Moving all extremities, speech is clear Procedures Pain management took patient to OR for facet/lumbar injection. Urinary Catheter: No Vascular Central Line Catheter: No A/P Assessment and Plan Subacute compression of L1 without canal stenosis with intractable back pain Neurosurgery was consulted who reviewed the MRI studies did not indicate any significant stenosis. Dr. Kate performed facet injections of the lumbar sacral spine with improvement of her back pain Continue calcitonin, lidocaine patch, [place] and k thermia for pain control Physical therapy evaluated patient and recommending rehabilitation Leukocytosis Likely secondary to chronic steroid use. 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 Lovenox. Discharge Planning Case management discharge planning. Plan discharge to [facility] facility once arrangements made and approval from insurance Mervin Forrester Jun 26, 2017 09:26
[2017-06-26 11:42] VITALS: BP 100/72; PULSE 91; RESP 18; TEMP 99.4; O2SAT 93
--- NOTE | 2017-06-27 09:25 | M6 ---
cc: DAVID YOST M.D. DATE 06/25/2017 DATE OF 1935 PROCEDURE Fluoroscopically guided injection bilateral lumbar facet joints (bilateral L3-4, L4-5 and L5-S1 facet joints). PREPROCEDURE NOTE Ms. Cummings is an 82-year-old female who was admitted to [facility] with low back pain. I was contacted by Dr. Uriostegui regarding the patient who was having severe back pain. Her MRI and her CT scan show a subacute compression fracture at L1 but also show moderate to severe facet joint changes at L4 and L5 particularly. The patient is complaining of back pain in the sacral area. When I ask her to point to her pain she points to the sacral area, not her mid or upper lumbar area. If the patient's pain is coming from her compression fracture, I would not have much to offer the patient. On the other hand if her pain is primarily lumbar facet joint arthropathy we should be able to help significantly. So the plan is to perform fluoroscopically guided injections of her bilateral low lumbar facet joints and evaluate the patient immediately and with follow-up. If she improves today and there are no other medical reasons for keeping the patient in the hospital, she can be discharged. PROCEDURE NOTE An IV was started, blood pressure cuff, pulse oximeter and EKG were applied. The patient was placed in the prone position on a Zechariah table, sedated with small amounts of propofol titrated to effect. Vital signs were monitored and remained stable throughout the procedure. The lumbar area was prepped with alcohol and 10% Betadine solution, draped with sterile drapes. Fluoroscopy was used in a Shailesh dog view to clearly visualize the bilateral lumbar facet joints at L3-4, L4-5 and L5-S1. Separate sterile 3-1/2 inch, 25-gauge spinal needles were advanced into these joints under fluoroscopic guidance. There was negative aspiration for blood or any other type of fluid and at each location the patient was given 1 mL of Marcaine 0.75% which contained 10 mg of Kenalog. Following the procedure the patient was taken to the recovery room with stable vital signs. W. MD BROOK Andrade/TASHA /10:49 AM /8:59 AM
== END 2017-06-26 12:00 | DRG 552 ==
LOC: PHED 15:24 → INTOOBSV 17:17 → PHEDA 17:17 → OBSVTOIN 17:56 → PH3A 19:06
PROVIDERS: ADMIT Hospitalist; ATTEND Hospitalist
PROC: 3E0U3BZ Introduction of Anesthetic Agent into Joints, Percutaneous Approach (ICD-10-PCS; principal; 2017-06-25)
PROC: 3E0U33Z Introduction of Anti-inflammatory into Joints, Percutaneous Approach (ICD-10-PCS; 2017-06-25)
DX: M46.86 Other specified inflammatory spondylopathies, lumbar region (principal); N17.9 Acute kidney failure, unspecified; J96.11 Chronic respiratory failure with hypoxia; E86.0 Dehydration; Z99.81 Dependence on supplemental oxygen; J44.9 Chronic obstructive pulmonary disease, unspecified; I13.0 Hypertensive heart and chronic kidney disease with heart failure and stage 1 through stage 4 chronic kidney disease, or unspecified chronic kidney disease; I50.22 Chronic systolic (congestive) heart failure; M48.56XA Collapsed vertebra, not elsewhere classified, lumbar region, initial encounter for fracture; I48.2 Chronic atrial fibrillation; M10.9 Gout, unspecified; N18.2 Chronic kidney disease, stage 2 (mild); M06.9 Rheumatoid arthritis, unspecified; E87.6 Hypokalemia; K59.00 Constipation, unspecified; Z87.891 Personal history of nicotine dependence
CPT/HCPCS: 64493; 64494; 64495; 72131; 72148; 80048; 81001; 85007; 85025; 85027; 94003; 94640; 94664; 99152; J1650; J2212; J3301; J7040; J7512; J7644

== ENCOUNTER 2017-07-25 14:51 | Emergency (ER) | payer MEDICARE, OTHER ==
[~2017-07-25] VITALS: Ht 142.2 cm; Wt 45.0 kg
[~2017-07-25 14:51] MED LIST changes: -L. A1CAP; -PRED20 PO; +TEMA30CA PO
[2017-07-25 14:59] VITALS: BP 106/53; PULSE 85; RESP 16; TEMP 97.8; O2SAT 87
[2017-07-25] MEDS ORDERED: SODIUM CHLOR 0.9% 250 ML INJ 250 ML IV ONE (15:30)
[2017-07-25 15:48] LABS: AUTOMATED NEUTROPHIL # 12.8 TH/MM3 (1.8-7.7); BASOPHIL % 0.1 % (0.0-2.0); HEMATOCRIT 27.1 % (35.0-46.0); HEMOGLOBIN 9.2 GM/DL (11.6-15.3); LYMPH % 5.3 % (9.0-44.0); LYMPHOCYTE # 0.8 TH/MM3 (1.0-4.8); MEAN CELL VOLUME 91.6 FL (80.0-100.0); MEAN CORPUSCULAR HGB CONC 33.8 % (32.0-36.0); MEAN PLATELET VOLUME 7.3 FL (7.0-11.0); MONO % 5.6 % (0.0-8.0); MONOCYTE # 0.8 TH/MM3 (0-0.9); PLATELET COUNT 376 TH/MM3 (150-450); RED BLOOD COUNT 2.96 MIL/MM3 (4.00-5.30); WHITE BLOOD COUNT 14.4 TH/MM3 (4.0-11.0)
[2017-07-25] MEDS ORDERED: AZOP1SUS LEFT EYE (15:53)
[2017-07-25] MEDS ORDERED: CILO50TA PO (15:53)
[2017-07-25] MEDS ORDERED: FOSA70TA PO (15:53)
--- NOTE | 2017-07-25 15:54 | PD ---
HPI . Anemia Chief Complaint: Abnormal Results Time Seen by Provider: 15:27 Travel History International Travel<30 days: No Contact w/Intl Traveler<30days: No Traveled to known affect area: No History of Present Illness HPI Patient presents to us stating that her doctor sent her in for anemia. She states that she lives in an assisted living facility. As far as she knows, she had routine blood work done recently. She states that she was not having a medical issue that prompted her blood work. She states that she received a phone call today stating that she needed to come to the emergency department for a blood transfusion. She reports chronic shortness of breath related to COPD. She is on oxygen chronically. She denies any increased shortness of breath. She denies chest pain. She denies dizziness. She and her daughter both state that she is set up some dark-appearing sputum couple of weeks ago. She felt that it was secondary to eating darkly colored grapes. She reports no further issues since then. She has not noted any change in her stools. PFSH Past Medical History Hx Anticoagulant Therapy: Yes Anemia: Yes Arthritis: Yes (RA hands and feet) Asthma: Yes Atrial Fibrillation: Yes Autoimmune Disease: No Heart Rhythm Problems: Yes (afib sees Dr Chaudhary) Cancer: No Cardiovascular Problems: Yes High Cholesterol: No Chest Pain: No Congestive Heart Failure: Yes COPD: Yes Cerebrovascular Accident: Yes Diabetes: No Diminished Hearing: No Endocrine: No Gastrointestinal Disorders: Yes (rectal prolapse, diverticulitis) GERD: No Gout: Yes Genitourinary: No Headaches: No Hepatitis: No Hiatal Hernia: No Hypertension: Yes Immune Disorder: No Implanted Vascular Access Dvce: No Kidney Stones: No Musculoskeletal: No Neurologic: No Psychiatric: No Reproductive: Yes Respiratory: Yes (COPD) Migraines: No Renal Failure: No Seizures: No Sleep Apnea: No Thyroid Disease: No Ulcer: Yes Tetanus Vaccination: > 5 Years Influenza Vaccination: Yes Menopausal: Yes Past Surgical History Abdominal Surgery: Yes (abd surgery for "holes in my stomach" ) AICD: No Cardiac Surgery: No Ear Surgery: No Endocrine Surgery: No Eye Surgery: Yes (Cataracts) Genitourinary Surgery: No Hysterectomy: Yes Joint Replacement: No Neurologic Surgery: No Oral Surgery: No Pacemaker: No Thoracic Surgery: No Other Surgery: Yes Social History Alcohol Use: No Tobacco Use: No (quit 15+yrs ago) Substance Use: No Allergies-Medications (Allergen,Severity, Reaction): Coded Allergies: No Known Allergies (Verified Adverse Reaction, Unknown, 07/25/17) Reported Meds & Prescriptions Reported Meds & Active Scripts Active Combigan Opth Drops (Brimonidine-Timolol Opth Drops) 0.2-0.5% Soln 1 Drop LEFT EYE Q12HR Tylenol (Acetaminophen) 325 Mg Tab 650 Mg PO Q4H PRN Xarelto (Rivaroxaban) 15 Mg Tab 15 Mg PO DAILY Potassium Chloride Microencaps 20 Meq Tab 20 Meq PO DAILY Cardizem CD 24 HR (Diltiazem CD 24 HR) 120 Mg Caper 120 Mg PO BID Reported Folic Acid 0.8 Mg Tab 1 Mg PO DAILY Travatan Z Opth Drops (Travoprost) 0.004 % Soln 1 Drop LEFT EYE HS Trazodone (Trazodone HCl) 50 Mg Tab 50 Mg PO HS Cilostazol 50 Mg Tab 50 Mg PO BID Azopt Opth Drops (Brinzolamide) 1% Susp 1 Drop LEFT EYE BID Fosamax (Alendronate Sodium) 70 Mg Tab 70 Mg PO Q7D Plaquenil (Hydroxychloroquine Sulfate) 200 Mg Tab 200 Mg PO BID Take with food Metoprolol Tartrate 25 Mg Tab 25 Mg PO BID Prednisone 5 Mg Tab 5 Mg PO DAILY Methotrexate 2.5 Mg Tab 2.5 Mg PO Q7D Losartan (Losartan Potassium) 25 Mg Tab 25 Mg PO HS Probiotic (Lactobacillus Acidophilus) 1 Cap Cap 1 Cap PO DAILY Docusate Sodium 100 Mg Tab 100 Mg PO DIRECTED Ipratropium Neb (Ipratropium [place]) 0.5 Mg/2.5 Ml Amp 0.5 Mg NEB Q6HR NEB PRN Proair Hfa 8.5 GM Inh (Albuterol Sulfate) 90 Mcg/Act Aer 2 Puff INH Q4-6H PRN 108 mcg/actuation Magnesium (Magnesium Oxide) 400 Mg Tablet 1 Tab PO BID Protonix (Pantoprazole Sodium) 20 Mg Tab 20 Mg PO DAILY Allopurinol 100 Mg Tab 100 Mg PO DAILY Lasix (Furosemide) 40 Mg Tab 40 Mg PO BID Review of Systems Except as stated in HPI: all other systems reviewed are Neg Respiratory: Positive: Shortness of Breath Gastrointestinal: No: Hematemesis, Hematochezia Physical Exam Narrative GENERAL: Pleasant, elderly woman who is sitting on the stretcher wearing oxygen. SKIN: warm/dry. HEAD: Normocephalic. Atraumatic. EYES: Pupils equal and round. No scleral icterus. No injection or drainage. ENT: No nasal bleeding or discharge. Mucous membranes pink and moist. NECK: Trachea midline. Full range of motion without pain.. CARDIOVASCULAR: Regular rate and rhythm. RESPIRATORY: No accessory muscle use. Clear to auscultation. Breath sounds equal bilaterally. GASTROINTESTINAL: Abdomen soft. Nontender. Bowel sounds present. Nondistended. RECTAL: Soft brown stool in the rectal vault. MUSCULOSKELETAL: No obvious deformities. NEUROLOGICAL: Awake and alert. No obvious cranial nerve deficits. Motor grossly within normal limits. Normal speech. PSYCHIATRIC: Appropriate mood and affect; insight and judgment normal. Data Data Last Documented VS Vital Signs Date Time Temp Pulse Resp B/P (MAP) Pulse Ox O2 Delivery O2 Flow Rate FiO2 07/25/17 15:15 85 97 Nasal Cannula 4.00 07/25/17 14:59 97.8 16 106/53 (70) Orders Orders Complete Blood Count With Diff (07/25/17 15:28) Type And Screen (07/25/17 15:28) Sodium Chlor 0.9% 250 Ml Inj (Ns 250 Ml (07/25/17 15:30) Labs Laboratory Tests Test 07/25/17 15:25 White Blood Count 14.4 TH/MM3 Red Blood Count 2.96 MIL/MM3 Hemoglobin 9.2 GM/DL Hematocrit 27.1 % Mean Corpuscular Volume 91.6 FL Mean Corpuscular Hemoglobin 31.0 PG Mean Corpuscular Hemoglobin Concent 33.8 % Red Cell Distribution Width 16.0 % Platelet Count 376 TH/MM3 Mean Platelet Volume 7.3 FL Neutrophils (%) (Auto) 89.0 % Lymphocytes (%) (Auto) 5.3 % Monocytes (%) (Auto) 5.6 % Eosinophils (%) (Auto) 0.0 % Basophils (%) (Auto) 0.1 % Neutrophils # (Auto) 12.8 TH/MM3 Lymphocytes # (Auto) 0.8 TH/MM3 Monocytes # (Auto) 0.8 TH/MM3 Eosinophils # (Auto) 0.0 TH/MM3 Basophils # (Auto) 0.0 TH/MM3 CBC Comment DIFF FINAL Differential Comment MDM Medical Decision Making Medical Screen Exam Complete: Yes Emergency Medical Condition: Yes Differential Diagnosis Differential diagnosis of anemia includes but is not limited to iron deficiency anemia, acute blood loss anemia, B12 deficiency, folate deficiency Narrative Course This patient presents to us stating that her doctor's office called her today told her to come to the emergency department for a blood transfusion. I have subsequently received her laboratory for. Blood was drawn on 07/24 and her hemoglobin was 7.7. I will repeat her H&H. CBC Diagram 07/25/17 15:25 This patient does not need a blood transfusion today. She will be discharged back to her assisted living facility. [facility] Point of Care Internal Pos. & Neg. Controls: Passed Fecal Specimen Occult Blood: Negative Diagnosis Primary Impression: History of anemia Disposition: DISCHARGE HOME Condition: Stable Liliane Oliver MD Jul 25, 2017 15:54
[2017-07-25] MEDS ORDERED: TRAV0.00 LEFT EYE (16:00)
[2017-07-25] MEDS ORDERED: TRAZ50TA12 PO (16:00)
[2017-07-25] MEDS ORDERED: FOLI800T PO (16:02)
[2017-07-25 16:44] VITALS: BP 117/54
== END 2017-07-25 16:55 | disposition home or self-care (01) ==
LOC: PHED 14:51
DX: D64.9 Anemia, unspecified (principal); I11.0 Hypertensive heart disease with heart failure; I50.9 Heart failure, unspecified
CPT/HCPCS: 85025; 86850; 86900; 86901; 99283

== ENCOUNTER 2017-08-10 17:57 | Inpatient (IN) | payer OTHER, MEDICARE ==
[~2017-08-10] VITALS: Ht 149.9 cm; Wt 55.2 kg
[2017-08-10] VITALS (19 sets, daily range): BP systolic 62–104; BP diastolic 38–56; PULSE 106–158; RESP 16–28; TEMP 97.8–98.8; O2SAT 81–100
[~2017-08-10 17:57] MED LIST changes: +AZOP1SUS LEFT EYE; -CALCTAB80 PO; +CILO50TA PO; -FERR324T4 PO; +FOLI800T PO; +FOSA70TA PO; -PERC5TAB12 PO; -TEMA30CA PO; +TRAV0.00 LEFT EYE; +TRAZ50TA12 PO
--- NOTE | 2017-08-10 18:12 | PD ---
HPI Chief Complaint: General Weakness Time Seen by Provider: 18:11 Travel History International Travel<30 days: No Contact w/Intl Traveler<30days: No Traveled to known affect area: No History of Present Illness HPI 82-year-old female complains of increasing dyspnea for the last week. She has had a cough. The cough is chronic however has been worse over the past couple days. No fever or chest pain. Dyspnea on exertion is reported. The patient also reports palpitations. She reports compliance with Xarelto and Lasix. She reports a history of CHF and atrial fibrillation. She also reports a history of peripheral artery disease. PFSH Past Medical History Hx Anticoagulant Therapy: Yes Anemia: Yes Arthritis: Yes (RA hands and feet) Asthma: Yes Atrial Fibrillation: Yes Autoimmune Disease: No Heart Rhythm Problems: Yes (afib sees Dr Chaudhary) Cancer: No Cardiovascular Problems: Yes High Cholesterol: No Chest Pain: No Congestive Heart Failure: Yes COPD: Yes Cerebrovascular Accident: Yes Diabetes: No Diminished Hearing: No Endocrine: No Gastrointestinal Disorders: Yes (rectal prolapse, diverticulitis) GERD: No Gout: Yes Genitourinary: No Headaches: No Hepatitis: No Hiatal Hernia: No Hypertension: Yes Immune Disorder: No Implanted Vascular Access Dvce: No Kidney Stones: No Musculoskeletal: No Neurologic: No Psychiatric: No Reproductive: Yes Respiratory: Yes (COPD) Migraines: No Renal Failure: No Seizures: No Sleep Apnea: No Thyroid Disease: No Ulcer: Yes Menopausal: Yes Past Surgical History Abdominal Surgery: Yes (abd surgery for "holes in my stomach" ) AICD: No Cardiac Surgery: No Ear Surgery: No Endocrine Surgery: No Eye Surgery: Yes (Cataracts) Genitourinary Surgery: No Hysterectomy: Yes Joint Replacement: No Neurologic Surgery: No Oral Surgery: No Pacemaker: No Thoracic Surgery: No Other Surgery: Yes Social History Alcohol Use: No Tobacco Use: No (quit 15+yrs ago) Substance Use: No Allergies-Medications (Allergen,Severity, Reaction): Coded Allergies: No Known Allergies (Verified Adverse Reaction, Unknown, 08/10/17) Reported Meds & Prescriptions Reported Meds & Active Scripts Active Combigan Opth Drops (Brimonidine-Timolol Opth Drops) 0.2-0.5% Soln 1 Drop LEFT EYE Q12HR Tylenol (Acetaminophen) 325 Mg Tab 650 Mg PO Q4H PRN Xarelto (Rivaroxaban) 15 Mg Tab 15 Mg PO DAILY Potassium Chloride Microencaps 20 Meq Tab 20 Meq PO DAILY Cardizem CD 24 HR (Diltiazem CD 24 HR) 120 Mg Caper 120 Mg PO BID Reported Folic Acid 0.8 Mg Tab 1 Mg PO DAILY Travatan Z Opth Drops (Travoprost) 0.004 % Soln 1 Drop LEFT EYE HS Trazodone (Trazodone HCl) 50 Mg Tab 50 Mg PO HS Cilostazol 50 Mg Tab 50 Mg PO BID Azopt Opth Drops (Brinzolamide) 1% Susp 1 Drop LEFT EYE BID Fosamax (Alendronate Sodium) 70 Mg Tab 70 Mg PO Q7D Plaquenil (Hydroxychloroquine Sulfate) 200 Mg Tab 200 Mg PO BID Take with food Metoprolol Tartrate 25 Mg Tab 25 Mg PO BID Prednisone 5 Mg Tab 5 Mg PO DAILY Methotrexate 2.5 Mg Tab 6 Tab PO Q7D Losartan (Losartan Potassium) 25 Mg Tab 25 Mg PO HS Docusate Sodium 100 Mg Tab 100 Mg PO DIRECTED Ipratropium Neb (Ipratropium [place]) 0.5 Mg/2.5 Ml Amp 0.5 Mg NEB Q6HR NEB PRN Proair Hfa 8.5 GM Inh (Albuterol Sulfate) 90 Mcg/Act Aer 2 Puff INH Q4-6H PRN 108 mcg/actuation Magnesium (Magnesium Oxide) 400 Mg Tablet 1 Tab PO BID Protonix (Pantoprazole Sodium) 20 Mg Tab 20 Mg PO DAILY Allopurinol 100 Mg Tab 100 Mg PO DAILY Lasix (Furosemide) 40 Mg Tab 40 Mg PO BID Review of Systems Except as stated in HPI: all other systems reviewed are Neg General / Constitutional: No: Fever Physical Exam Narrative GENERAL: 82-year-old female mild to moderate distress secondary to pain and/or anxiety Vital Signs Date Time Temp Pulse Resp B/P (MAP) Pulse Ox O2 Delivery O2 Flow Rate FiO2 08/10/17 18:54 146 20 85/53 (64) 98 Nasal Cannula 4.00 08/10/17 18:46 148 20 64/44 (51) 97 Nasal Cannula 4.00 08/10/17 18:45 138 20 62/39 (47) 98 Nasal Cannula 4.00 08/10/17 18:30 152 20 82/38 (53) 98 Nasal Cannula 4.00 08/10/17 18:28 140 97 Nasal Cannula 4.00 18 18:26 145 20 89/52 (64) 97 Nasal Cannula 4.00 08/10/17 18:25 95 Nasal Cannula 4.00 08/10/17 18:25 97 Nasal Cannula 4.00 08/10/17 18:02 97.8 158 28 74/56 (62) 81 SKIN: Warm and dry. HEAD: Atraumatic. Normocephalic. EYES: Pupils equal and round. No scleral icterus. No injection or drainage. ENT: No nasal bleeding or discharge. Mucous membranes pink and moist. NECK: Trachea midline. No JVD. CARDIOVASCULAR: Irregular. Tachycardia. Rate approx 150s. RESPIRATORY: Tachypnea. Wheezing present. GASTROINTESTINAL: Abdomen soft, non-tender, nondistended. Hepatic and splenic margins not palpable. MUSCULOSKELETAL: Extremities without clubbing, cyanosis, or edema. No obvious deformities. There is a palpable posterior tibialis pulse on the right side. On the left lower extremity there is no dopplerable pulse. There is no erythema or induration about the calf on either side to suggest DVT. NEUROLOGICAL: Awake and alert. No obvious cranial nerve deficits. Motor grossly within normal limits. Five out of 5 muscle strength in the arms and legs. Normal speech. PSYCHIATRIC: Appropriate mood and affect; insight and judgment normal. Data Data Last Documented VS Vital Signs Date Time Temp Pulse Resp B/P (MAP) Pulse Ox O2 Delivery O2 Flow Rate FiO2 08/10/17 19:00 122 16 75/39 (51) 100 Nasal Cannula 3.00 08/10/17 18:02 97.8 Orders Orders Complete Blood Count With Diff (08/10/17 18:36) Comprehensive Metabolic Panel (08/10/17 18:36) B-Type Natriuretic Peptide (08/10/17 18:36) Act Partial Throm Time (Ptt) (08/10/17 18:36) Prothrombin Time / Inr (Pt) (08/10/17 18:36) Magnesium (Mg) (08/10/17 18:36) Ckmb (Isoenzyme) Profile (08/10/17 18:36) Troponin I (08/10/17 18:36) Arterial Blood Gas (Abg) (08/10/17 18:36) Urinalysis - C+S If Indicated (08/10/17 18:36) Iv Access Insert/Monitor (08/10/17 18:36) Electrocardiogram (08/10/17 18:36) Ecg Monitoring (08/10/17 18:36) Oximetry (08/10/17 18:36) Oxygen Administration (08/10/17 18:36) Chest, Single Ap (08/10/17 18:36) Sodium Chloride 0.9% Flush (Ns Flush) (08/10/17 18:45) Sodium Chlorid 0.9% 500 Ml Inj (Ns 500 M (08/10/17 18:45) Digoxin Inj (Lanoxin Inj) (08/10/17 19:15) Cefepime Inj (Maxipime Inj) (08/10/17 19:04) Azithromycin Inj (Zithromax Inj) (08/10/17 19:04) Lactic Acid Sepsis Protocol (08/10/17 19:04) Blood Culture (08/10/17 19:04) Admit Order (Ed Use Only) (08/10/17 ) Russian Language Instructor / Telemetry MAE.Q8H (08/10/17 19:36) Vital Signs (Adult) Q4H (08/10/17 19:36) Diet Npo (08/11/17 Breakfast) Activity Bed Rest (08/10/17 19:36) Notify Dr: Other (08/10/17 19:36) Labs Laboratory Tests Test 08/10/17 18:25 08/10/17 18:50 08/10/17 19:30 White Blood Count 29.4 TH/MM3 Red Blood Count 3.11 MIL/MM3 Hemoglobin 9.4 GM/DL Hematocrit 28.1 % Mean Corpuscular Volume 90.4 FL Mean Corpuscular Hemoglobin 30.4 PG Mean Corpuscular Hemoglobin Concent 33.5 % Red Cell Distribution Width 14.8 % Platelet Count 470 TH/MM3 Mean Platelet Volume 7.6 FL Neutrophils (%) (Auto) 87.7 % Lymphocytes (%) (Auto) 4.3 % Monocytes (%) (Auto) 4.8 % Eosinophils (%) (Auto) 0.0 % Basophils (%) (Auto) 3.2 % Neutrophils # (Auto) 25.8 TH/MM3 Lymphocytes # (Auto) 1.3 TH/MM3 Monocytes # (Auto) 1.4 TH/MM3 Eosinophils # (Auto) 0.0 TH/MM3 Basophils # (Auto) 0.9 TH/MM3 CBC Comment AUTO DIFF Differential Comment AUTO DIFF CONFIRMED Platelet Estimate HIGH Platelet Morphology Comment NORMAL Red Cell Morphology Comment NORMAL Prothrombin Time 16.9 SEC Prothromb Time International Ratio 1.7 RATIO Activated Partial Thromboplast Time 40.4 SEC Blood Urea Nitrogen 18 MG/DL Creatinine 1.60 MG/DL Random Glucose 180 MG/DL Total Protein 7.4 GM/DL Albumin 2.6 GM/DL Calcium Level 9.0 MG/DL Magnesium Level 1.8 MG/DL Alkaline Phosphatase 112 U/L Aspartate Amino Transf (AST/SGOT) 32 U/L Alanine Aminotransferase (ALT/SGPT) 24 U/L Total Bilirubin 0.6 MG/DL Sodium Level 135 MEQ/L Potassium Level 3.6 MEQ/L Chloride Level 97 MEQ/L Carbon Dioxide Level 27.6 MEQ/L Anion Gap 10 MEQ/L Estimat Glomerular Filtration Rate 31 ML/MIN Total Creatine Kinase 80 U/L Troponin I 0.02 NG/ML B-Type Natriuretic Peptide 43 PG/ML Blood Gas Puncture Site LT RADIAL Blood Gas Patient Temperature 98.6 Blood Gas HCO3 26 mmol/L Blood Gas Base Excess 2.4 mmol/L Blood Gas Oxygen Saturation 96 % Arterial Blood pH 7.45 Arterial Blood Partial Pressure CO2 39 mmHG Arterial Blood Partial Pressure O2 87 mmHG Arterial Blood Oxygen Content 12.7 Vol % Arterial Blood Carboxyhemoglobin 2.0 % Arterial Blood Methemoglobin 0.8 % Blood Gas Hemoglobin 9.4 G/DL Oxygen Delivery Device NASAL CANNULA Blood Gas Liter Flow 4 L/M MDM Medical Decision Making Medical Screen Exam Complete: Yes Emergency Medical Condition: Yes Medical Record Reviewed: Yes Differential Diagnosis anemia, sepsis, afib rvr Narrative Course CBC & BMP Diagram 08/10/17 18:25 Total Protein 7.4, Albumin 2.6 L, Calcium Level 9.0, Magnesium Level 1.8, Alkaline Phosphatase 112, Aspartate Amino Transf (AST/SGOT) 32, Alanine Aminotransferase (ALT/SGPT) 24, Total Bilirubin 0.6 Troponin < 0.02 INR is 1.7 AB.45/39/26 ABG pO2 87 EKG: AFib rate 120 Last Impressions Chest X-Ray 08/10/17 8546 Signed Impressions: Service Date/Time: Thursday, August 10, 2017 18:52 - CONCLUSION: 1. Persistent diffuse interstitial disease being worse in the bases. 2. Mild increased density seen at the left base which may worsen some superimposed consolidation or atelectasis. 3. Blunting of the costophrenic angles which may represent minimal effusions. Lexx Lynch MD Cefepime and azithromycin started. 0.25 mg IV diltiazem ordered. 500 cc normal saline ordered. Sepsis protocol initiated. The case was discussed with vascular surgery, Dr Dan: in the setting of renal insufficiency and the patient's ability to move the left lower extremity with no pulse reflects probable chronic disease in which case stat CTA will be deferred until after resuscitative measures performed. Pt has remained hypotensive throughout ER course ranging from 65/35 to 106/64. HR has trended down to 112 Patient has been alert and awake with warm dry skin throughout the ER stay such that cardioversion at this time is considered safely defer bolus pressure with a downward trending pulse. We will continue to monitor the patient closely until time of transport to the [facility]. Case d/w Dr Shetty Diagnosis Primary Impression: Atrial fibrillation with RVR Additional Impressions: Sepsis Qualified Codes: A41.9 - Sepsis, unspecified organism Arterial occlusive disease PNA (pneumonia) Qualified Codes: J18.9 - Pneumonia, unspecified organism Admitting Information Admitting Physician Requests: Admit Eloy Gannon MD Aug 10, 2017 18:12
[2017-08-10] MEDS ORDERED: SODIUM CHLORID 0.9% 500 ML INJ 500 ML IV ONE (18:45)
[2017-08-10] MEDS ORDERED: SODIUM CHLORIDE 0.9% FLUSH 10 ML FLUSH IVF PRN (18:45)
[2017-08-10 18:48] LABS: AUTOMATED NEUTROPHIL # 25.8 TH/MM3 (1.8-7.7); BASOPHIL # 0.9 TH/MM3 (0-0.2); BASOPHIL % 3.2 % (0.0-2.0); HEMATOCRIT 28.1 % (35.0-46.0); HEMOGLOBIN 9.4 GM/DL (11.6-15.3); LYMPH % 4.3 % (9.0-44.0); LYMPHOCYTE # 1.3 TH/MM3 (1.0-4.8); MEAN CELL VOLUME 90.4 FL (80.0-100.0); MEAN CORPUSCULAR HEMOGLOBIN 30.4 PG (27.0-34.0); MEAN CORPUSCULAR HGB CONC 33.5 % (32.0-36.0); MEAN PLATELET VOLUME 7.6 FL (7.0-11.0); MONO % 4.8 % (0.0-8.0); MONOCYTE # 1.4 TH/MM3 (0-0.9); NEUT % 87.7 % (16.0-70.0); PLATELET COUNT 470 TH/MM3 (150-450); RED BLOOD COUNT 3.11 MIL/MM3 (4.00-5.30); RED CELL DISTRIBUTION WIDTH 14.8 % (11.6-17.2); WHITE BLOOD COUNT 29.4 TH/MM3 (4.0-11.0)
[2017-08-10 19:02] LABS: CHLORIDE 97 MEQ/L (98-107); SODIUM (NA) 135 MEQ/L (136-145)
[2017-08-10] MEDS ORDERED: AZITHROMYCIN INJ 500 MG in SODIUM CHLOR 0.9% 250 ML INJ 250 ML IV STA (19:04)
[2017-08-10] MEDS ORDERED: CEFEPIME INJ 2,000 MG in SODIUM CHLORIDE 0.9% INJ 100 ML IV STA (19:04)
[2017-08-10 19:05] LABS: ALBUMIN 2.6 GM/DL (3.4-5.0); BICARBONATE 27.6 MEQ/L (21.0-32.0); GLUCOSE,RANDOM 180 MG/DL (74-106); MAGNESIUM 1.8 MG/DL (1.5-2.5)
--- NOTE | 2017-08-10 19:05 | RADRPT ---
EXAM DATE/TIME: 08/10/2017 18:52 [place] COMPARISON: CHEST SINGLE AP, June 12, 2017, 23:07. INDICATIONS : Shortness of breath. MEDICAL HISTORY : Arthritis. Chronic obstructive pulmonary disease. Cerebrovascular disease SURGICAL HISTORY : Hysterectomy. ENCOUNTER: Initial ACUITY: 2 days PAIN SCORE: 0/10 LOCATION: Bilateral chest FINDINGS: The heart size is normal. There is chronic interstitial disease seen throughout being worse at the ba ses. There may be some superimposed worsening at the left lower lobe. There is blunting of the costop hrenic angles bilaterally. CONCLUSION: 1. Persistent diffuse interstitial disease being worse in the bases. 2. Mild increased density seen at the left base which may worsen some superimposed consolidation or a telectasis. 3. Blunting of the costophrenic angles which may represent minimal effusions. Lexx Lynch MD on August 10, 2017 at 19:01 Board Certified Radiologist. This report was verified electronically.
[2017-08-10 19:06] LABS: BLOOD UREA NITROGEN 18 MG/DL (7-18)
[2017-08-10 19:07] LABS: INTERNATIONAL NORMALIZED RATIO 1.7 RATIO; PROTHROMBIN TIME - PATIENT 16.9 SEC (9.8-11.6)
[2017-08-10 19:09] LABS: ALT (GPT) 24 U/L (10-53); AST (GOT) 32 U/L (15-37); GLOMERULAR FILTRATION RATE 31 ML/MIN (>89)
[2017-08-10 19:10] LABS: TOTAL BILIRUBIN ADULT 0.6 MG/DL (0.2-1.0); TOTAL PROTEIN 7.4 GM/DL (6.4-8.2)
[2017-08-10 19:11] LABS: ALKALINE PHOSPHATASE 112 U/L (45-117)
[2017-08-10 19:14] LABS: TROPONIN I 0.02 NG/ML (0.02-0.05)
[2017-08-10] MEDS ORDERED: DIGOXIN 0.5 MG/2 ML VIAL IV PUSH ONE (19:15)
[2017-08-10 20:16] LABS: LACTIC ACID SEPSIS PROTOCOL 3.7 mmol/L (0.4-2.0)
[2017-08-10 22:26] LABS: BILIRUBIN, URINE NEG (NEG); BLOOD, URINE NEG (NEG); GLUCOSE,URINE NEG (NEG); KETONE, URINE NEG (NEG); NITRITE,URINE NEG (NEG); URINE COLOR YELLOW (YELLW/STRAW); URINE LEUKOCYTE ESTERASE SMALL (NEG)
[2017-08-10 22:32] LABS: BACTERIA, URINE OCC /hpf; RBC, URINE 0-3 /hpf (0-3); SQUAMOUS EPITHELIAL CELL URINE > 8 /hpf (0-5)
[2017-08-10] MEDS ORDERED: TRAM50TA PO (22:51)
[2017-08-11] VITALS (23 sets, daily range): BP systolic 72–123; BP diastolic 40–82; PULSE 80–112; RESP 18–38; TEMP 97.9–98.7; O2SAT 92–99
[2017-08-11] MEDS ORDERED: CHLORHEXIDINE GLUCONATE 2 % 1 PACK (2 CLOTHS)(extra cloths) TOPICAL PRN (02:30)
[2017-08-11] MEDS: CHLORHEXIDINE GLUCONATE 2 % 1 PACK (2 CLOTHS)(taper/protocol) TOPICAL SCH (04:00)
[2017-08-11] MEDS ORDERED: MORPHINE SULFATE 2 MG/ML SYRINGE IV PUSH PRN (05:00)
[2017-08-11] MEDS ORDERED: MISCELLANEOUS NURSING INFORMATION XX SCH (05:00)
[2017-08-11] MEDS ORDERED: SODIUM CHLORIDE 0.9% FLUSH 10 ML FLUSH IV FLUSH PRN (05:00)
[2017-08-11] MEDS ORDERED: BISACODYL 10 MG SUPP RECTAL PRN (05:00)
[2017-08-11] MEDS ORDERED: ONDANSETRON HCL 4 MG/2 ML VIAL IV PUSH PRN (05:00)
[2017-08-11] MEDS ORDERED: TEMAZEPAM 15 MG CAP PO PRN (05:00)
[2017-08-11] MEDS ORDERED: Vancomycin Consult Pharmacy 1 EA OTHER SCH (05:00)
[2017-08-11] MEDS ORDERED: SENNOSIDES 8.6 MG TAB PO PRN (05:00)
[2017-08-11] MEDS ORDERED: LACTULOSE SYRUP 20 GM/30 ML CUP PO PRN (05:00)
[2017-08-11] MEDS ORDERED: MAGNESIUM HYDROXIDE SUSP 30 ML CUP PO PRN (05:00)
[2017-08-11] MEDS ORDERED: CHLORHEXIDINE GLUCONATE 2 % 1 PACK (2 CLOTHS) TOP PRN (05:00)
--- NOTE | 2017-08-11 05:01 | HHI.HP ---
[facility] Service Critical Care Medicine Primary Care Physician Thomas Apple MD Admission Diagnosis AFIB RVR; Sepsis PNA; Poss Arterial Occlusion LLE; Hypotension Diagnosis: Travel History International Travel<30 Days: No Contact w/Intl Traveler <30 Da: No Traveled to Known Affected Are: No History of Present Illness 82-year-old female complains of increasing dyspnea for the last week. She has had a cough which is chronic however has been worse over the past couple days. No fever or chest pain. She also complains of worsening dyspnea on exertion. The patient also reports palpitations. She reports compliance with Xarelto and Lasix. She reports a history of CHF and atrial fibrillation. She also reports a history of peripheral artery disease. She has also been complaining of worsening left extremity pain that is 9 out of 10. Review of Systems Constitutional: COMPLAINS OF: Fatigue, DENIES: Diaphoretic episodes, Fever, Weight gain, Weight loss, Chills, Dizziness, Change in appetite, Night Sweats Endocrine: DENIES: Abnorml menstrual pattern, Heat/cold intolerance, Polydipsia , Polyuria, Polyphagia Eyes: DENIES: Blurred vision, Diplopia, Eye inflammation, Eye pain, Vision loss , Photosensitivity, Double Vision Ears, nose, mouth, throat: DENIES: Tinnitus, Hearing loss, Vertigo, Nasal discharge, Oral lesions, Throat pain, Hoarseness, Ear Pain, Running Nose, Epistaxis, Sinus Pain, Toothache, Odynophagia Respiratory: COMPLAINS OF: Cough, Shortness of breath, DENIES: Apneas, Snoring , Wheezing, Hemoptysis, Sputum production Cardiovascular: DENIES: Chest pain, Palpitations, Syncope, Dyspnea on Exertion , PND, Lower Extremity Edema, Orthopnea, Claudication Gastrointestinal: DENIES: Abdominal pain, Black stools, Bloody stools, Constipation, Diarrhea, Nausea, Vomiting, Difficulty Swallowing, Anorexia Genitourinary: DENIES: Abnormal vaginal bleeding, Dysmenorrhea, Dyspareunia, Sexual dysfunction, Urinary frequency, Urinary incontinence, Urgency, Hematuria , Dysuria, Nocturia, Vaginal discharge Musculoskeletal: DENIES: Joint pain, Muscle aches, Stiffness, Joint Swelling, Back pain, Neck pain Integumentary: DENIES: Abnormal pigmentation, Pruritus, Rash, Nail changes, Breast masses, Breast skin changes, Nipple discharge Hematologic/lymphatic: DENIES: Bruising, Lymphadenopathy Immunologic/allergic: DENIES: Eczema, Urticaria Neurologic: DENIES: Abnormal gait, Headache, Localized weakness, Paresthesias, Seizures, Speech Problems, Tremor, Poor Balance Psychiatric: DENIES: Anxiety, Confusion, Mood changes, Depression, Hallucinations, Agitation, Suicidal Ideation, Homicidal Ideation, Delusions Past Family Social History Allergies: Coded Allergies: No Known Allergies (Verified Adverse Reaction, Unknown, 08/10/17) Past Medical History Hypertension Atrial fibrillation Chronic systolic congestive heart failure Chronic hypoxic respiratory failure Chronic obstructive pulmonary disease History CVA Atherosclerosis History gout Peripheral vascular disease History of rectal prolapse history of C. difficile infection 2 Rheumatoid arthritis hands and feet Past Surgical History Cataract surgery EGD/colonoscopy Partial hysterectomy Reported Medications Reported Meds & Active Scripts Active Combigan Opth Drops (Brimonidine-Timolol Opth Drops) 0.2-0.5% Soln 1 Drop LEFT EYE Q12HR Tylenol (Acetaminophen) 325 Mg Tab 650 Mg PO Q4H PRN Xarelto (Rivaroxaban) 15 Mg Tab 15 Mg PO DAILY Potassium Chloride Microencaps 20 Meq Tab 20 Meq PO DAILY Cardizem CD 24 HR (Diltiazem CD 24 HR) 120 Mg Caper 120 Mg PO BID Reported Tramadol (Tramadol HCl) 50 Mg Tab 50 Mg PO Q6H PRN Folic Acid 0.8 Mg Tab 1 Mg PO DAILY Travatan Z Opth Drops (Travoprost) 0.004 % Soln 1 Drop LEFT EYE HS Trazodone (Trazodone HCl) 50 Mg Tab 50 Mg PO HS Cilostazol 50 Mg Tab 50 Mg PO BID Azopt Opth Drops (Brinzolamide) 1% Susp 1 Drop LEFT EYE BID Fosamax (Alendronate Sodium) 70 Mg Tab 70 Mg PO Q7D Plaquenil (Hydroxychloroquine Sulfate) 200 Mg Tab 200 Mg PO BID Take with food Metoprolol Tartrate 25 Mg Tab 25 Mg PO BID Prednisone 5 Mg Tab 5 Mg PO DAILY Methotrexate 2.5 Mg Tab 6 Tab PO Q7D Losartan (Losartan Potassium) 25 Mg Tab 25 Mg PO HS Docusate Sodium 100 Mg Tab 100 Mg PO DIRECTED Ipratropium Neb (Ipratropium [place]) 0.5 Mg/2.5 Ml Amp 0.5 Mg NEB Q6HR NEB PRN Proair Hfa 8.5 GM Inh (Albuterol Sulfate) 90 Mcg/Act Aer 2 Puff INH Q4-6H PRN 108 mcg/actuation Magnesium (Magnesium Oxide) 400 Mg Tablet 1 Tab PO BID Protonix (Pantoprazole Sodium) 20 Mg Tab 20 Mg PO DAILY Allopurinol 100 Mg Tab 100 Mg PO DAILY Lasix (Furosemide) 40 Mg Tab 40 Mg PO BID Active Ordered Medications Current Medications Medications (Trade) Dose Ordered Sig/Jenifer Route PRN Reason Start Time Stop Time Status Last Admin Dose Admin Sodium Chloride (NS Flush) 2 ml UNSCH PRN IVF FLUSH AFTER USING IV ACCESS 08/10/17 18:45 Miscellaneous Information Patient in critical care unit? Ass... Q361D .XX 08/11/17 02:30 Chlorhexidine Gluconate (Chlorhexidine 2% Cloth) 3 pack DAILY@04 TOPICAL 08/11/17 04:00 08/15/17 04:01 Chlorhexidine Gluconate (Chlorhexidine 2% Cloth) 3 pack UNSCH PRN TOPICAL HYGIENIC CARE 08/11/17 02:30 08/16/17 02:19 Allopurinol (Zyloprim) 100 mg DAILY PO 08/11/17 09:00 Cilostazol (Pletal) 50 mg BID PO 08/11/17 09:00 Diltiazem HCl (Cardizem Cd) 120 mg BID PO 08/11/17 09:00 Folic Acid (Folate) 1 mg DAILY PO 08/11/17 09:00 Furosemide (Lasix) 40 mg BID PO 08/11/17 09:00 Hydroxychloroquine Sulfate (Plaquenil) 200 mg BID PO 08/11/17 09:00 Methotrexate (Rheumatrex) 15 mg Q7D PO 08/11/17 09:00 Metoprolol Tartrate (Lopressor) 25 mg BID PO 08/11/17 09:00 Rivaroxaban (Xarelto) 15 mg DAILY PO 08/11/17 09:00 UNV Trazodone HCl (Desyrel) 50 mg HS PO 08/11/17 21:00 Non-Formulary Medication 1 drop Q12HR LEFT EYE 08/11/17 09:00 UNV Non-Formulary Medication 1 drop BID LEFT EYE 08/11/17 09:00 UNV Non-Formulary Medication 1 drop HS LEFT EYE 08/11/17 21:00 UNV Sodium Chloride (NS Flush) 2 ml UNSCH PRN IV FLUSH FLUSH AFTER USING IV ACCESS 08/11/17 05:00 UNV Sodium Chloride (NS Flush) 2 ml BID IV FLUSH 08/11/17 09:00 UNV Acetaminophen (Tylenol) 650 mg Q6H PRN PO PAIN 1-5 AND/OR FEVER >101F 08/11/17 05:00 Morphine Sulfate (Morphine Inj) 2 mg Q2H PRN IV PUSH PAIN SCALE 6 TO 10 08/11/17 05:00 Famotidine (Pepcid) 20 mg Q12HR PO 08/11/17 09:00 Ondansetron HCl (Zofran Inj) 4 mg Q6H PRN IV PUSH NAUSEA OR VOMITING 08/11/17 05:00 Temazepam (Restoril) 15 mg HS PRN PO INSOMNIA 08/11/17 05:00 Albuterol/ Ipratropium (Duoneb Neb) 1 ampule Q6HR NEB INH 08/11/17 10:00 UNV Miscellaneous Information 1 Q361D XX 08/11/17 05:00 UNV Chlorhexidine Gluconate (Chlorhexidine 2% Cloth) 3 pack Taper DAILY@04 TOP 08/12/17 04:00 08/08/18 03:59 UNV Chlorhexidine Gluconate (Chlorhexidine 2% Cloth) 3 pack UNSCH PRN TOP HYGIENIC CARE 08/11/17 05:00 UNV Senna/Docusate Sodium (Venita-Colace) 1 tab BID PO 08/11/17 09:00 Magnesium Hydroxide (Milk Of Magnesia Liq) 30 ml Q12H PRN PO Mild constipation 08/11/17 05:00 Sennosides (Senokot) 17.2 mg Q12H PRN PO Moderate constipation 08/11/17 05:00 UNV Bisacodyl (Dulcolax Supp) 10 mg DAILY PRN RECTAL SEVERE CONSITIPATION/ IF NPO 08/11/17 05:00 Lactulose (Lactulose Liq) 30 ml DAILY PRN PO SEVERE CONSITIPATION/ IF PO 08/11/17 05:00 Piperacillin Sod/ Tazobactam Sod 100 ml @ 200 mls/hr Q6H IV 08/11/17 05:00 Azithromycin 500 mg/Sodium Chloride 250 ml @ 250 mls/hr Q24H IV 08/11/17 20:00 Pharmacy Profile Note 0 ml @ 0 mls/hr UNSCH XX 08/11/17 05:00 UNV Methylprednisolone Sodium Succinate (SoluMEDROL INJ) 40 mg Q12H IV PUSH 08/11/17 05:00 Family History Reviewed is significant for cancer, heart disease, diabetes Social History Patient states that she quit smoking 16 years ago prior to that she smoked 2-3 pack a cigarettes a day for 15 years. She drinks 1 beer monthly. Denies any illicit drug use Physical Exam Vital Signs Vital Signs Date Time Temp Pulse Resp B/P (MAP) Pulse Ox O2 Delivery O2 Flow Rate FiO2 08/11/17 01:40 104 18 102/50 (67) 99 Nasal Cannula 4.00 08/11/17 00:30 108 20 97/48 (64) 96 Nasal Cannula 4.00 08/10/17 23:30 110 20 95/50 (65) 95 Nasal Cannula 4.00 08/10/17 23:00 107 20 82/47 (59) 95 Nasal Cannula 4.00 08/10/17 22:24 106 20 89/43 (58) 95 Nasal Cannula 4.00 08/10/17 21:47 106 20 86/49 (61) 95 Nasal Cannula 4.00 08/10/17 21:00 112 20 90/45 (60) 97 Nasal Cannula 4.00 08/10/17 20:34 109 20 98/48 (65) 98 Nasal Cannula 4.00 08/10/17 20:15 112 20 96/48 (64) 97 Room Air 4.00 08/10/17 20:00 98.8 128 20 87/49 (62) 97 Nasal Cannula 4.00 08/10/17 19:45 116 20 104/44 (64) 98 Nasal Cannula 4.00 08/10/17 19:30 135 20 82/46 (58) 97 Nasal Cannula 4.00 08/10/17 19:15 135 20 62/39 (47) 97 Nasal Cannula 4.00 08/10/17 19:00 112 100 Nasal Cannula 4.00 08/10/17 19:00 122 16 75/39 (51) 100 Nasal Cannula 3.00 08/10/17 18:54 146 20 85/53 (64) 98 Nasal Cannula 4.00 08/10/17 18:46 148 20 64/44 (51) 97 Nasal Cannula 4.00 08/10/17 18:45 138 20 62/39 (47) 98 Nasal Cannula 4.00 08/10/17 18:30 152 20 82/38 (53) 98 Nasal Cannula 4.00 08/10/17 18:28 140 97 Nasal Cannula 4.00 08/10/17 18:26 145 20 89/52 (64) 97 Nasal Cannula 4.00 08/10/17 18:25 95 Nasal Cannula 4.00 08/10/17 18:25 97 Nasal Cannula 4.00 08/10/17 18:02 97.8 158 28 74/56 (62) 81 Physical Exam GENERAL: 82-year-old female mild to moderate distress secondary to pain and/or anxiety SKIN: Warm and dry. HEAD: Atraumatic. Normocephalic. EYES: Pupils equal and round. No scleral icterus. No injection or drainage. ENT: No nasal bleeding or discharge. Mucous membranes pink and moist. NECK: Trachea midline. No JVD. CARDIOVASCULAR: Irregular. Tachycardia. Rate approx 150s. RESPIRATORY: Tachypnea. Wheezing present. GASTROINTESTINAL: Abdomen soft, non-tender, nondistended. Hepatic and splenic margins not palpable. MUSCULOSKELETAL: Extremities without clubbing, cyanosis, or edema. No obvious deformities. There is a palpable posterior tibialis pulse on the right side. On the left lower extremity there is no dopplerable pulse. There is no erythema or induration about the calf on either side to suggest DVT. NEUROLOGICAL: Awake and alert. No obvious cranial nerve deficits. Motor grossly within normal limits. Five out of 5 muscle strength in the arms and legs. Normal speech. Laboratory Laboratory Tests Test 08/10/17 18:25 08/10/17 18:50 08/10/17 19:30 08/10/17 21:52 White Blood Count 29.4 Red Blood Count 3.11 Hemoglobin 9.4 Hematocrit 28.1 Mean Corpuscular Volume 90.4 Mean Corpuscular Hemoglobin 30.4 Mean Corpuscular Hemoglobin Concent 33.5 Red Cell Distribution Width 14.8 Platelet Count 470 Mean Platelet Volume 7.6 Neutrophils (%) (Auto) 87.7 Lymphocytes (%) (Auto) 4.3 Monocytes (%) (Auto) 4.8 Eosinophils (%) (Auto) 0.0 Basophils (%) (Auto) 3.2 Neutrophils # (Auto) 25.8 Lymphocytes # (Auto) 1.3 Monocytes # (Auto) 1.4 Eosinophils # (Auto) 0.0 Basophils # (Auto) 0.9 CBC Comment AUTO DIFF Differential Comment AUTO DIFF CONFIRMED Platelet Estimate HIGH Platelet Morphology Comment NORMAL Red Cell Morphology Comment NORMAL Prothrombin Time 16.9 Prothromb Time International Ratio 1.7 Activated Partial Thromboplast Time 40.4 Blood Urea Nitrogen 18 Creatinine 1.60 Random Glucose 180 Total Protein 7.4 Albumin 2.6 Calcium Level 9.0 Magnesium Level 1.8 Alkaline Phosphatase 112 Aspartate Amino Transf (AST/SGOT) 32 Alanine Aminotransferase (ALT/SGPT) 24 Total Bilirubin 0.6 Sodium Level 135 Potassium Level 3.6 Chloride Level 97 Carbon Dioxide Level 27.6 Anion Gap 10 Estimat Glomerular Filtration Rate 31 Total Creatine Kinase 80 Troponin I 0.02 B-Type Natriuretic Peptide 43 Blood Gas Puncture Site LT RADIAL Blood Gas Patient Temperature 98.6 Blood Gas HCO3 26 Blood Gas Base Excess 2.4 Blood Gas Oxygen Saturation 96 Arterial Blood pH 7.45 Arterial Blood Partial Pressure CO2 39 Arterial Blood Partial Pressure O2 87 Arterial Blood Oxygen Content 12.7 Arterial Blood Carboxyhemoglobin 2.0 Arterial Blood Methemoglobin 0.8 Blood Gas Hemoglobin 9.4 Oxygen Delivery Device NASAL CANNULA Blood Gas Liter Flow 4 Lactic Acid Level 3.7 2.1 Test 08/10/17 22:13 08/11/17 02:20 Urine Color YELLOW Urine Turbidity CLEAR Urine pH 7.0 Urine Specific Adell 1.015 Urine Protein NEG Urine Glucose (UA) NEG Urine Ketones NEG Urine Occult Blood NEG Urine Nitrite NEG Urine Bilirubin NEG Urine Urobilinogen 0.2 Urine Leukocyte Esterase SMALL Urine RBC 0-3 Urine WBC 6-8 Urine Squamous Epithelial Cells > 8 Urine Bacteria OCC Microscopic Urinalysis Comment CULT NOT INDICATED Date/Time Source Procedure Growth Status 08/10/17 19:30 Blood Peripheral Aerobic Blood Culture Pending Received 08/10/17 19:30 Blood Peripheral Anaerobic Blood Culture Pending Received Result Diagram: 08/10/17182408/10/171824 Imaging Last 24 hours Impressions Chest X-Ray 08/10/17 1836 Signed Impressions: Service Date/Time: Thursday, August 10, 2017 18:52 - CONCLUSION: 1. Persistent diffuse interstitial disease being worse in the bases. 2. Mild increased density seen at the left base which may worsen some superimposed consolidation or atelectasis. 3. Blunting of the costophrenic angles which may represent minimal effusions. Lexx Lynch MD Septic Shock Reassessment Septic shock perfusion: reassessment completed Caprini VTE Risk Assessment Caprini VTE Risk Assessment: Mod/High Risk (score >= 2) Caprini Risk Assessment Model Point Value = 1 Point Value = 2 Point Value = 3 Point Value = 5 Age 41-60 Minor surgery BMI > 25 kg/m2 Swollen legs Varicose veins or History of unexplained or recurrent spontaneous Oral contraceptives or hormone replacement Sepsis (< 1 month) Serious lung disease, including pneumonia (< 1 month) Abnormal pulmonary function Acute myocardial infarction Congestive heart failure (< 1 month) History of inflammatory bowel disease Medical patient at bed rest Age 61-74 Arthroscopic surgery Major open surgery (> 45 min) Laparoscopic surgery (> 45 min) Malignancy Confined to bed (> 72 hours) Immobilizing plaster cast Central venous access Age >= 75 History of VTE Family history of VTE Factor V Leiden Prothrombin [id number] Lupus anticoagulant Anticardiolipin antibodies Elevated serum homocysteine Heparin-induced thrombocytopenia Other congenital or acquired thrombophilia Stroke (< 1 month) Elective arthroplasty Hip, pelvis, or leg fracture Acute spinal cord injury (< 1 month) Prophylaxis Regimen Total Risk Factor Score Risk Level Prophylaxis Regimen 0-1 Low Early ambulation 2 Moderate Order ONE of the following: *Sequential Compression Device (SCD) *Heparin 5000 units SQ BID 3-4 Higher Order ONE of the following medications: *Heparin 5000 units SQ TID *Enoxaparin/Lovenox 40 mg SQ daily (WT < 150 kg, CrCl > 30 mL/min) *Enoxaparin/Lovenox 30 mg SQ daily (WT < 150 kg, CrCl > 10-29 mL/min) *Enoxaparin/Lovenox 30 mg SQ BID (WT < 150 kg, CrCl > 30 mL/min) AND/OR *Sequential Compression Device (SCD) 5 or more Highest Order ONE of the following medications: *Heparin 5000 units SQ TID (Preferred with Epidurals) *Enoxaparin/Lovenox 40 mg SQ daily (WT < 150 kg, CrCl > 30 mL/min) *Enoxaparin/Lovenox 30 mg SQ daily (WT < 150 kg, CrCl > 10-29 mL/min) *Enoxaparin/Lovenox 30 mg SQ BID (WT < 150 kg, CrCl > 30 mL/min) AND *Sequential Compression Device (SCD) Assessment and Plan Assessment and Plan Respiratory failure -Pneumonia -Broad-spectrum antibiotic -Panculture -Follow-up cultures and de-escalate -DuoNeb scheduled and as needed -IV steroid A. fib with RVR -Continue diltiazem -Rate control after digoxin -Telemetry -Series of EKGs and cardiac enzymes -Continue Xarelto Left lower extremity pain Peripheral vascular disease -CTA when renal function improves -Vascular surgery consultation based on results Rheumatoid arthritis -Continue Plaquenil -Continue methotrexate Chronic obstructive pulmonary disease -DuoNeb scheduled and as needed -IV steroid History gout -Allopurinol DVT GI prophylaxis -Arnaldo's and SCDs -Xarelto -Pepcid Critical Care: The total critical care time was 35 minutes. Time to perform other separately billable procedures was not included in the critical care time. Gentry Shetty MD Aug 11, 2017 5:01 am
[2017-08-11] MEDS: methylPREDNISolone SOD SUCC 40 MG/1 ML VIAL IV PUSH SCH ×2 (05:16→17:38)
[2017-08-11] MEDS: PIPERACIL-TAZO 4.5 GM PREMIX 100 ML IV SCH ×4 (05:16→23:00)
[2017-08-11] MEDS: SODIUM BICARBONATE 8.4% INJ 150 MEQ in WATER STERILE FOR INJ 850 ML IV SCH ×2 (05:59→15:25)
[2017-08-11] MEDS ORDERED: VANCOMYCIN INJ 850 MG in SODIUM CHLOR 0.9% 250 ML INJ 250 ML IV SCH (06:00)
[2017-08-11] MEDS: RESP: ALBUTEROL 2.5 MG/IPRATROPIUM 0.5 MG NEB (SCH) INH ×3 (08:25→21:33)
[2017-08-11 08:26] LABS: AUTOMATED NEUTROPHIL # 18.3 TH/MM3 (1.8-7.7); BASOPHIL # 0.1 TH/MM3 (0-0.2); BASOPHIL % 0.4 % (0.0-2.0); HEMATOCRIT 26.6 % (35.0-46.0); HEMOGLOBIN 8.6 GM/DL (11.6-15.3); LYMPHOCYTE # 0.8 TH/MM3 (1.0-4.8); MEAN CORPUSCULAR HEMOGLOBIN 29.5 PG (27.0-34.0); MEAN CORPUSCULAR HGB CONC 32.4 % (32.0-36.0); MEAN PLATELET VOLUME 7.1 FL (7.0-11.0); MONO % 2.7 % (0.0-8.0); MONOCYTE # 0.5 TH/MM3 (0-0.9); NEUT % 92.9 % (16.0-70.0); PLATELET COUNT 415 TH/MM3 (150-450); RED BLOOD COUNT 2.92 MIL/MM3 (4.00-5.30); RED CELL DISTRIBUTION WIDTH 14.3 % (11.6-17.2); WHITE BLOOD COUNT 19.7 TH/MM3 (4.0-11.0)
[2017-08-11 08:42] LABS: ALBUMIN 2.4 GM/DL (3.4-5.0); ALT (GPT) 18 U/L (10-53); AST (GOT) 20 U/L (15-37); BICARBONATE 26.3 MEQ/L (21.0-32.0); BLOOD UREA NITROGEN 15 MG/DL (7-18); CALCIUM 8.3 MG/DL (8.5-10.1); CHLORIDE 104 MEQ/L (98-107); CREATININE 1.14 MG/DL (0.50-1.00); GLOMERULAR FILTRATION RATE 46 ML/MIN (>89); GLUCOSE,RANDOM 92 MG/DL (74-106); MAGNESIUM 1.7 MG/DL (1.5-2.5); SODIUM (NA) 140 MEQ/L (136-145)
[2017-08-11 08:47] LABS: ALKALINE PHOSPHATASE 97 U/L (45-117); PHOSPHORUS 2.6 MG/DL (2.5-4.9); TOTAL BILIRUBIN ADULT 0.5 MG/DL (0.2-1.0); TOTAL PROTEIN 6.6 GM/DL (6.4-8.2); TROPONIN I 0.03 NG/ML (0.02-0.05)
[2017-08-11] MEDS: DOCUSATE SODIUM 50 MG/SENNA 8.6 MG TAB PO SCH ×2 (08:52→20:16)
[2017-08-11] MEDS: FOLIC ACID 1 MG TAB PO SCH (08:52)
[2017-08-11] MEDS: ALLOPURINOL 100 MG TAB PO SCH (08:52)
[2017-08-11] MEDS: RIVAROXABAN 15 MG TAB PO SCH (08:52)
[2017-08-11] MEDS: DILTIAZEM-CD 120 MG CAP ER PO SCH ×2 (08:52→20:16)
[2017-08-11] MEDS: TIMOLOL MALEATE 0.5% OPHT SOLN 5 ML BTL LEFT EYE SCH ×2 (08:53→20:17)
[2017-08-11] MEDS: METOPROLOL TARTRATE 25 MG TAB PO SCH ×2 (08:53→20:16)
[2017-08-11] MEDS: HYDROXYCHLOROQUINE SULFATE 200 MG TAB PO SCH ×2 (08:53→20:16)
[2017-08-11] MEDS: BRIMONIDINE TARTRATE 0.2% OPHT SOLN 5 ML BTL LEFT EYE SCH ×2 (08:53→20:17)
[2017-08-11] MEDS: FAMOTIDINE 20 MG TAB PO SCH ×2 (08:53→20:16)
[2017-08-11] MEDS: SODIUM CHLORIDE 0.9% FLUSH 10 ML FLUSH IV FLUSH SCH ×2 (08:54→20:16)
[2017-08-11] MEDS: AZOPT EYE LEFT EYE SCH ×2 (08:54→21:00)
[2017-08-11] MEDS: CILOSTAZOL 50 MG TAB PO SCH ×2 (08:59→20:16)
[2017-08-11] MEDS ORDERED: NON-FORMULARY DRUG (Brimonidine-Timolol Opth Drops (Combigan Opth Drops) 1 DROP) LEFT EYE SCH (09:00)
[2017-08-11] MEDS: METHOTREXATE 2.5 MG TAB PO SCH (09:00)
[2017-08-11] MEDS ORDERED: FUROSEMIDE 40 MG TAB PO SCH (09:00)
--- NOTE | 2017-08-11 11:03 | PD.VS.CON ---
History of Present Illness Chief Complaint: LLE pain, PAD Consult Requested by: ICU team History of Present Illness 82 yo female with 2 days of worsening L LE pain, motor intact. Known PAD. No wounds and no antecedent rest pain or claudication, but patient lives in assisted living and walks only with walker. Admitted through [place] ED with presumed pneumonia and renal insufficiency. Past/Family/Social History Past Medical History a fib lung nodule CHF COPD ? CVA PAD rheumatoid arthritis Past Surgical History D&C with partial hysterectomy endoscopy with cauterization of bleeding ulcers Social History lives in [facility], wants to transition to half-way from [place] Family History [facility] Home Medications Active Scripts Brimonidine-Timolol Opth Drops (Combigan Opth Drops) 0.2-0.5% Soln, 1 DROP LEFT EYE Q12HR for Glaucoma, #1 BOTTLE 0 Refills Prov:Mervin Martinez MD 05/04/17 Acetaminophen (Tylenol) 325 Mg Tab, 650 MG PO Q4H Y for pain, #90 TAB 0 Refills Prov:Renzo Cristina MD 03/01/17 Rivaroxaban (Xarelto) 15 Mg Tab, 15 MG PO DAILY for Blood Clot Prevention, #30 TAB 0 Refills Prov:Mervin Senior MD 10/29/16 Potassium Chloride Microencaps (Potassium Chloride Microencaps) 20 Meq Tab, 20 MEQ PO DAILY for Nutritional Supplement, #30 TAB 0 Refills Prov:Mervin Senior MD 10/29/16 Diltiazem CD 24 HR (Cardizem CD 24 HR) 120 Mg Caper, 120 MG PO BID for A-fib, # 60 CAP 0 Refills Prov:Mervin Senior MD 10/29/16 Reported Medications Tramadol (Tramadol) 50 Mg Tab, 50 MG PO Q6H Y for PAIN, TAB 0 Refills 08/10/17 Folic Acid (Folic Acid) 0.8 Mg Tab, 1 MG PO DAILY for Nutritional Supplement, TAB 0 Refills 07/25/17 Travoprost Opth Drops (Travatan Z Opth Drops) 0.004 % Soln, 1 DROP LEFT EYE HS for Glaucoma, #1 BOTTLE 0 Refills 07/25/17 Trazodone (Trazodone) 50 Mg Tab, 50 MG PO HS for Control Depression, #30 TAB 0 Refills 3/14/18 Cilostazol (Cilostazol) 50 Mg Tab, 50 MG PO BID for INTERMITTENT CLAUDICATION, TAB 0 Refills 07/25/17 Brinzolamide Opth Drops (Azopt Opth Drops) 1% Susp, 1 DROP LEFT EYE BID, BOTTLE 07/25/17 Alendronate (Fosamax) 70 Mg Tab, 70 MG PO Q7D for Osteoporosis Treatment, #4 TAB 0 Refills 07/25/17 Hydroxychloroquine (Plaquenil) 200 Mg Tab, 200 MG PO BID, #60 TAB 0 Refills Take with food 03/06/17 Metoprolol Tartrate (Metoprolol Tartrate) 25 Mg Tab, 25 MG PO BID, #60 TAB 0 Refills 03/01/17 Prednisone (Prednisone) 5 Mg Tab, 5 MG PO DAILY, TAB 0 Refills 03/01/17 Methotrexate (Methotrexate) 2.5 Mg Tab, 6 TAB PO Q7D, TAB 0 Refills 03/01/17 Losartan (Losartan) 25 Mg Tab, 25 MG PO HS for Blood Pressure Management, #30 TAB 0 Refills 12/19/16 Docusate Sodium (Docusate Sodium) 100 Mg Tab, 100 MG PO DIRECTED, TAB 10/25/16 Ipratropium Neb (Ipratropium Neb) 0.5 Mg/2.5 Ml Amp, 0.5 MG NEB Q6HR NEB Y for SHORTNESS OF BREATH, #120 NEBULE 0 Refills 10/25/16 Albuterol 8.5 GM Inh (Proair Hfa 8.5 GM Inh) 90 Mcg/Act Aer, 2 PUFF INH Q4-6H Y for SHORTNESS OF BREATH, #1 INHALER 0 Refills 108 mcg/actuation 10/25/16 Magnesium Oxide (Magnesium) 400 Mg Tablet, 1 TAB PO BID 10/25/16 Pantoprazole (Protonix) 20 Mg Tab, 20 MG PO DAILY for Reflux, #30 TAB 0 Refills 10/25/16 Allopurinol (Allopurinol) 100 Mg Tab, 100 MG PO DAILY for Gout, #30 TAB 0 Refills 10/25/16 Furosemide (Lasix) 40 Mg Tab, 40 MG PO BID, #30 TAB 0 Refills 10/25/16 Discontinued Reported Medications Lactobacillus Acidophilus (Probiotic) 1 Cap Cap, 1 CAP PO DAILY for Nutritional Supplement, #90 CAP 0 Refills 10/25/16 Coded Allergies: No Known Allergies (Verified Adverse Reaction, Unknown, 08/10/17) Review of Systems Constitutional: COMPLAINS OF: Chills Cardiovascular: DENIES: Chest pain, Lower Extremity Edema, Claudication Physical Exam Vitals/I&O Date Time Temp Pulse Resp B/P (MAP) Pulse Ox O2 Delivery O2 Flow Rate FiO2 08/11/17 08:26 95 Nasal Cannula 3.00 08/11/17 06:00 107 08/11/17 06:00 98.2 107 24 120/57 (78) 95 08/11/17 05:39 19 08/11/17 05:00 98.7 110 34 112/59 (76) 92 08/11/17 04:00 103 08/11/17 01:40 104 18 102/50 (67) 99 Nasal Cannula 4.00 08/11/17 00:30 108 20 97/48 (64) 96 Nasal Cannula 4.00 08/10/17 23:30 110 20 95/50 (65) 95 Nasal Cannula 4.00 08/10/17 23:00 107 20 82/47 (59) 95 Nasal Cannula 4.00 08/10/17 22:24 106 20 89/43 (58) 95 Nasal Cannula 4.00 08/10/17 21:47 106 20 86/49 (61) 95 Nasal Cannula 4.00 08/10/17 21:00 112 20 90/45 (60) 97 Nasal Cannula 4.00 08/10/17 20:34 109 20 98/48 (65) 98 Nasal Cannula 4.00 08/10/17 20:15 112 20 96/48 (64) 97 Room Air 4.00 08/10/17 20:00 98.8 128 20 87/49 (62) 97 Nasal Cannula 4.00 08/10/17 19:45 116 20 104/44 (64) 98 Nasal Cannula 4.00 08/10/17 19:30 135 20 82/46 (58) 97 Nasal Cannula 4.00 08/10/17 19:15 135 20 62/39 (47) 97 Nasal Cannula 4.00 08/10/17 19:00 112 100 Nasal Cannula 4.00 08/10/17 19:00 122 16 75/39 (51) 100 Nasal Cannula 3.00 08/10/17 18:54 146 20 85/53 (64) 98 Nasal Cannula 4.00 08/10/17 18:46 148 20 64/44 (51) 97 Nasal Cannula 4.00 08/10/17 18:45 138 20 62/39 (47) 98 Nasal Cannula 4.00 08/10/17 18:30 152 20 82/38 (53) 98 Nasal Cannula 4.00 08/10/17 18:28 140 97 Nasal Cannula 4.00 08/10/17 18:26 145 20 89/52 (64) 97 Nasal Cannula 4.00 08/10/17 18:25 95 Nasal Cannula 4.00 08/10/17 18:25 97 Nasal Cannula 4.00 08/10/17 18:02 97.8 158 28 74/56 (62) 81 08/11/17 08/11/17 08/11/17 07:00 15:00 23:00 Intake Total 400 ml Output Total 200 ml Balance 200 ml Neuro: alert, pleasant, no distress HEENT: NC/AT; anicteric sclera Neck: no JVD Heart: irreg rate Lungs: clear Abdomen: NT Vascular: no palpable femoral pulses Extremities: no pedal pulses motor intact and only moderate L calf tenderness Laboratory Tests Test 08/10/17 18:25 08/10/17 18:50 08/10/17 19:30 08/10/17 21:52 White Blood Count 29.4 Red Blood Count 3.11 Hemoglobin 9.4 Hematocrit 28.1 Mean Corpuscular Volume 90.4 Mean Corpuscular Hemoglobin 30.4 Mean Corpuscular Hemoglobin Concent 33.5 Red Cell Distribution Width 14.8 Platelet Count 470 Mean Platelet Volume 7.6 Neutrophils (%) (Auto) 87.7 Lymphocytes (%) (Auto) 4.3 Monocytes (%) (Auto) 4.8 Eosinophils (%) (Auto) 0.0 Basophils (%) (Auto) 3.2 Neutrophils # (Auto) 25.8 Lymphocytes # (Auto) 1.3 Monocytes # (Auto) 1.4 Eosinophils # (Auto) 0.0 Basophils # (Auto) 0.9 CBC Comment AUTO DIFF Differential Comment AUTO DIFF CONFIRMED Platelet Estimate HIGH Platelet Morphology Comment NORMAL Red Cell Morphology Comment NORMAL Prothrombin Time 16.9 Prothromb Time International Ratio 1.7 Activated Partial Thromboplast Time 40.4 Blood Urea Nitrogen 18 Creatinine 1.60 Random Glucose 180 Total Protein 7.4 Albumin 2.6 Calcium Level 9.0 Magnesium Level 1.8 Alkaline Phosphatase 112 Aspartate Amino Transf (AST/SGOT) 32 Alanine Aminotransferase (ALT/SGPT) 24 Total Bilirubin 0.6 Sodium Level 135 Potassium Level 3.6 Chloride Level 97 Carbon Dioxide Level 27.6 Anion Gap 10 Estimat Glomerular Filtration Rate 31 Total Creatine Kinase 80 Troponin I 0.02 B-Type Natriuretic Peptide 43 Blood Gas Puncture Site LT RADIAL Blood Gas Patient Temperature 98.6 Blood Gas HCO3 26 Blood Gas Base Excess 2.4 Blood Gas Oxygen Saturation 96 Arterial Blood pH 7.45 Arterial Blood Partial Pressure CO2 39 Arterial Blood Partial Pressure O2 87 Arterial Blood Oxygen Content 12.7 Arterial Blood Carboxyhemoglobin 2.0 Arterial Blood Methemoglobin 0.8 Blood Gas Hemoglobin 9.4 Oxygen Delivery Device NASAL CANNULA Blood Gas Liter Flow 4 Lactic Acid Level 3.7 2.1 Test 08/10/17 22:13 08/11/17 02:20 08/11/17 07:28 Urine Color YELLOW Urine Turbidity CLEAR Urine pH 7.0 Urine Specific [place] 1.015 Urine Protein NEG Urine Glucose (UA) NEG Urine Ketones NEG Urine Occult Blood NEG Urine Nitrite NEG Urine Bilirubin NEG Urine Urobilinogen 0.2 Urine Leukocyte Esterase SMALL Urine RBC 0-3 Urine WBC 6-8 Urine Squamous Epithelial Cells > 8 Urine Bacteria OCC Microscopic Urinalysis Comment CULT NOT INDICATED Nasal Screen MRSA (PCR) MRSA NOT DETECTED White Blood Count 19.7 Red Blood Count 2.92 Hemoglobin 8.6 Hematocrit 26.6 Mean Corpuscular Volume 91.0 Mean Corpuscular Hemoglobin 29.5 Mean Corpuscular Hemoglobin Concent 32.4 Red Cell Distribution Width 14.3 Platelet Count 415 Mean Platelet Volume 7.1 Neutrophils (%) (Auto) 92.9 Lymphocytes (%) (Auto) 4.0 Monocytes (%) (Auto) 2.7 Eosinophils (%) (Auto) 0.0 Basophils (%) (Auto) 0.4 Neutrophils # (Auto) 18.3 Lymphocytes # (Auto) 0.8 Monocytes # (Auto) 0.5 Eosinophils # (Auto) 0.0 Basophils # (Auto) 0.1 CBC Comment DIFF FINAL Differential Comment Blood Urea Nitrogen 15 Creatinine 1.14 Random Glucose 92 Total Protein 6.6 Albumin 2.4 Calcium Level 8.3 Phosphorus Level 2.6 Magnesium Level 1.7 Alkaline Phosphatase 97 Aspartate Amino Transf (AST/SGOT) 20 Alanine Aminotransferase (ALT/SGPT) 18 Total Bilirubin 0.5 Sodium Level 140 Potassium Level 3.5 Chloride Level 104 Carbon Dioxide Level 26.3 Anion Gap 10 Estimat Glomerular Filtration Rate 46 Troponin I 0.03 Date/Time Source Procedure Growth Status 08/11/17 05:30 Blood Peripheral Aerobic Blood Culture Pending Received 08/11/17 05:30 Blood Peripheral Anaerobic Blood Culture Pending Received 08/11/17 08:10 Urine Random Urine Legionella Antigen - Final PRESUMPTIVE NEGATIVE FOR LEGIONELLA P... Complete 08/11/17 08:10 Urine Random Urine Streptococcus pneumoniae Antigen (M - Final PRESUMPTIVE NEGATIVE FOR STREPTOCOCCU... Complete Last 48 hours Impressions Chest X-Ray 08/10/17 1836 Signed Impressions: Service Date/Time: Thursday, August 10, 2017 18:52 - CONCLUSION: 1. Persistent diffuse interstitial disease being worse in the bases. 2. Mild increased density seen at the left base which may worsen some superimposed consolidation or atelectasis. 3. Blunting of the costophrenic angles which may represent minimal effusions. 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 NC CT from May shows severe calcific aorto-iliac occlusive disease. 1. ABIs today - ordered 2. CV risk factor modification (ASA, statin) 3. hep gtt ideally if no medical contra-indication 4. Will hold off CTA given adm with renal insufficiency. eGFR improved 31 to 46 with gentle hydration and should continue. Will need CTA within a few days 5. May require inflow procedure but nothing emergent. Certainly ABF, although best hemodynamically, is not in her best interest so options are groin reconstruction and iliac endovascular intervention or more likely ax-fem with groin reconstruction. 6. Neurovascular checks. 7. OOB ad clarissa and ambulate ad clarissa. Ulisses Dan MD [facility] RPVI geological technician [facility] - Heart and Vascular Surgery at [facility]. [phone] Ulisses Dan MD Aug 11, 2017 11:03
--- NOTE | 2017-08-11 14:04 | EKG ---
Date Performed: 08/10/2017 Time Performed: 18:47:55 PTAGE: 82 years EKG: ATRIAL FIBRILLATION WITH RAPID VENTRICULAR RESPONSE BORDERLINE LEFT AXIS DEVIATION NONSPECI FIC ST-T CHANGE ABNORMALITY ABNORMAL RHYTHM ECG Compared to PREVIOUS TRACING , atrial fibrillation is now present. ST-T changes are now present. PREV IOUS TRACIN03/31/2017 20.03 DOCTOR: Kenneth Rojas Interpretating Date/Time 08/11/2017 14:03:05
--- NOTE | 2017-08-11 14:04 | EKG ---
Date Performed: 08/11/2017 Time Performed: 10:15:09 PTAGE: 82 years EKG: Sinus rhythm POSSIBLE ANTERIOR MYOCARDIAL INFARCTION , OF INDETERMINATE AGE ABNORMAL ECG Compared to PREVIOUS TRACING , ST-T changes have resolved and sinus rhythm has replaced atrial fibril lation. PREVIOUS TRACIN08/10/2017 18.47 DOCTOR: Kenneth Rojas Interpretating Date/Time 08/11/2017 14:03:37
[2017-08-11] MEDS: traZODone HCL 50 MG TAB PO SCH (20:16)
[2017-08-11] MEDS: AZITHROMYCIN INJ 500 MG in SODIUM CHLOR 0.9% 250 ML INJ 250 ML IV SCH (20:17)
[2017-08-11] MEDS: LATANOPROST 0.005% OPHT SOLN 2.5 ML BTL LEFT EYE SCH (21:00)
[2017-08-12] VITALS (13 sets, daily range): BP systolic 83–116; BP diastolic 49–57; PULSE 84–100; RESP 16–26; TEMP 97.4–98.5; O2SAT 93–99
[2017-08-12] MEDS: RESP: ALBUTEROL 2.5 MG/IPRATROPIUM 0.5 MG NEB (SCH) INH ×3 (03:28→20:45)
[2017-08-12] MEDS: CHLORHEXIDINE GLUCONATE 2 % 1 PACK (2 CLOTHS)(taper/protocol) TOPICAL SCH (04:00)
[2017-08-12] MEDS ORDERED: CHLORHEXIDINE GLUCONATE 2 % 1 PACK (2 CLOTHS) TOP SCH (04:00)
[2017-08-12] MEDS: methylPREDNISolone SOD SUCC 40 MG/1 ML VIAL IV PUSH SCH (05:00)
[2017-08-12] MEDS: PIPERACIL-TAZO 4.5 GM PREMIX 100 ML IV SCH (05:00)
[2017-08-12 06:02] LABS: BASOPHIL % 0.1 % (0.0-2.0); HEMATOCRIT 23.4 % (35.0-46.0); HEMOGLOBIN 7.8 GM/DL (11.6-15.3); LYMPH % 4.7 % (9.0-44.0); LYMPHOCYTE # 0.6 TH/MM3 (1.0-4.8); MEAN CELL VOLUME 90.6 FL (80.0-100.0); MEAN CORPUSCULAR HEMOGLOBIN 30.3 PG (27.0-34.0); MEAN CORPUSCULAR HGB CONC 33.5 % (32.0-36.0); MEAN PLATELET VOLUME 7.4 FL (7.0-11.0); MONO % 3.3 % (0.0-8.0); MONOCYTE # 0.4 TH/MM3 (0-0.9); NEUT % 91.9 % (16.0-70.0); PLATELET COUNT 419 TH/MM3 (150-450); RED BLOOD COUNT 2.59 MIL/MM3 (4.00-5.30)
[2017-08-12 06:35] LABS: ALKALINE PHOSPHATASE 83 U/L (45-117); ALT (GPT) 16 U/L (10-53); AST (GOT) 16 U/L (15-37); BICARBONATE 30.3 MEQ/L (21.0-32.0); BLOOD UREA NITROGEN 20 MG/DL (7-18); CALCIUM 7.5 MG/DL (8.5-10.1); CHLORIDE 99 MEQ/L (98-107); CREATININE 1.11 MG/DL (0.50-1.00); GLOMERULAR FILTRATION RATE 47 ML/MIN (>89); GLUCOSE,RANDOM 127 MG/DL (74-106); MAGNESIUM 1.8 MG/DL (1.5-2.5); RANDOM VANCOMYCIN 7.1 COMMENT; SODIUM (NA) 138 MEQ/L (136-145); TOTAL BILIRUBIN ADULT 0.4 MG/DL (0.2-1.0); TOTAL PROTEIN 5.7 GM/DL (6.4-8.2)
--- NOTE | 2017-08-12 07:19 | RADRPT ---
EXAM DATE/TIME: 08/11/2017 00:00 [place] COMPARISON: No previous studies available for comparison. INDICATIONS : Weak In Arms and Legs, History of PAD TECHNIQUE: Four-cuff ankle and brachial pressures were obtained. Pulse cuff waveform tracings of the ankles were recorded, and ankle-brachial indices were calculated. PRESSURES (mmHg): Brachial (arm): Right 111 Left IV SITE Ankle: Right 61 Left 42 MARK: Right 0.55 Left 0.38 TBI: Right 0.00 Left 0.00 PULSED CUFF WAVEFORMS: Abnormally blunted bilaterally at the level of the ankle. No toe reading to be obtained. CONCLUSION: 1. Severe peripheral artery disease on the left. 2. Moderate peripheral arteries disease on the right. Imtiaz Tony MD on August 12, 2017 at 7:15 Board Certified Radiologist. This report was verified electronically.
--- NOTE | 2017-08-12 08:38 | PD.VS.PN ---
Subjective Subjective/Hospital Course Pt overall feels weak this morning but not worse. Leg feels fine and according to her, was able to walk PVRs show significant arterial insufficiency, c/w physical exam Objective Vitals/I&O Date Time Temp Pulse Resp B/P (MAP) Pulse Ox O2 Delivery O2 Flow Rate FiO2 08/12/17 06:00 84 08/12/17 04:00 97.7 88 21 91/55 (67) 94 08/12/17 04:00 88 08/12/17 02:00 84 08/12/17 00:00 84 08/12/17 00:00 98.3 84 20 83/49 (60) 96 08/11/17 23:00 80 08/11/17 22:00 86 08/11/17 21:33 93 Nasal Cannula 3.00 08/11/17 20:00 97.9 95 23 110/57 (74) 96 08/11/17 20:00 95 08/11/17 18:00 91 21 99/52 (68) 96 08/11/17 18:00 91 08/11/17 17:00 87 20 122/56 (78) 97 08/11/17 16:00 86 08/11/17 16:00 98.3 86 23 111/56 (74) 96 08/11/17 16:00 86 23 111/56 (74) 96 08/11/17 15:00 87 08/11/17 15:00 83 19 72/40 (51) 99 08/11/17 14:01 98.0 87 38 107/66 (80) 94 08/11/17 14:00 87 08/11/17 13:00 84 20 104/52 (69) 97 08/11/17 12:00 98.7 08/11/17 12:00 98.7 85 18 109/58 (75) 97 08/11/17 12:00 85 08/11/17 11:00 84 20 111/55 (73) 97 08/11/17 10:00 92 35 121/72 (88) 94 08/11/17 10:00 92 08/11/17 09:00 112 19 123/60 (81) 94 08/12/17 08/12/17 08/12/17 07:00 15:00 23:00 Intake Total 100 ml Balance 100 ml Physical Exam no palpable femoral or pedal pulses foot pink and perfused motor intact no tissue loss Laboratory Laboratory Tests Test 08/11/17 12:10 08/11/17 17:50 08/12/17 04:40 Troponin I 0.02 LESS THAN 0.02 White Blood Count 13.0 Red Blood Count 2.59 Hemoglobin 7.8 Hematocrit 23.4 Mean Corpuscular Volume 90.6 Mean Corpuscular Hemoglobin 30.3 Mean Corpuscular Hemoglobin Concent 33.5 Red Cell Distribution Width 14.0 Platelet Count 419 Mean Platelet Volume 7.4 Neutrophils (%) (Auto) 91.9 Lymphocytes (%) (Auto) 4.7 Monocytes (%) (Auto) 3.3 Eosinophils (%) (Auto) 0.0 Basophils (%) (Auto) 0.1 Neutrophils # (Auto) 12.0 Lymphocytes # (Auto) 0.6 Monocytes # (Auto) 0.4 Eosinophils # (Auto) 0.0 Basophils # (Auto) 0.0 CBC Comment DIFF FINAL Differential Comment Blood Urea Nitrogen 20 Creatinine 1.11 Random Glucose 127 Total Protein 5.7 Albumin 2.0 Calcium Level 7.5 Phosphorus Level 3.0 Magnesium Level 1.8 Alkaline Phosphatase 83 Aspartate Amino Transf (AST/SGOT) 16 Alanine Aminotransferase (ALT/SGPT) 16 Total Bilirubin 0.4 Sodium Level 138 Potassium Level 2.8 Chloride Level 99 Carbon Dioxide Level 30.3 Anion Gap 9 Estimat Glomerular Filtration Rate 47 Random Vancomycin Level 7.1 Date/Time Source Procedure Growth Status 08/11/17 05:30 Blood Peripheral Aerobic Blood Culture Pending Received 08/11/17 05:30 Blood Peripheral Anaerobic Blood Culture Pending Received 08/11/17 08:10 Urine Random Urine Legionella Antigen - Final PRESUMPTIVE NEGATIVE FOR LEGIONELLA P... Complete 08/11/17 08:10 Urine Random Urine Streptococcus pneumoniae Antigen (M - Final PRESUMPTIVE NEGATIVE FOR STREPTOCOCCU... Complete Imaging Last 48 hours Impressions Chest X-Ray 08/10/17 1836 Signed Impressions: Service Date/Time: Thursday, August 10, 2017 18:52 - CONCLUSION: 1. Persistent diffuse interstitial disease being worse in the bases. 2. Mild increased density seen at the left base which may worsen some superimposed consolidation or atelectasis. 3. Blunting of the costophrenic angles which may represent minimal effusions. Lexx Lynch MD Assessment and Plan Plan Severe PAD but not acute. NC CT from May shows severe calcific aorto-iliac occlusive disease. PVR yesterday confirms this No indication for acute intervention and in fact, this can be managed as an outpatient. Likely to need inflow procedure but electively. 1. CV risk factor modification (ASA, statin) 2. Ok from vascular surgery standpoint to get OOB/ambulate ad clarissa 3. Hold off CTA as would not change acute management (eGFR 47 from 46) 4. Ok to d/c home from vascular surgery standpoint and I'll arrange close outpatient f/u 5. Pt agrees to plan Ulisses Dan MD FACS RPVI coal trimmer machine operator [facility] - Heart and Vascular Surgery at [facility]. [phone] Ulisses Dan MD Aug 12, 2017 08:38
[2017-08-12] MEDS: AZOPT EYE LEFT EYE SCH ×2 (09:00→21:00)
[2017-08-12] MEDS ORDERED: MAGNESIUM SULFATE 1 GM PREMIX 100 ML IV ONE (09:00)
--- NOTE | 2017-08-12 09:14 | HHI.PR ---
Subjective Remarks Overall feeling much better. Breathing more comfortable. Still has a cough. No leg pain at rest. K is low Objective Vitals Vital Signs Date Time Temp Pulse Resp B/P (MAP) Pulse Ox O2 Delivery O2 Flow Rate FiO2 08/12/17 06:00 84 08/12/17 04:00 97.7 88 21 91/55 (67) 94 08/12/17 04:00 88 08/12/17 02:00 84 08/12/17 00:00 84 08/12/17 00:00 98.3 84 20 83/49 (60) 96 08/11/17 23:00 80 08/11/17 22:00 86 08/11/17 21:33 93 Nasal Cannula 3.00 08/11/17 20:00 97.9 95 23 110/57 (74) 96 08/11/17 20:00 95 08/11/17 18:00 91 21 99/52 (68) 96 08/11/17 18:00 91 08/11/17 17:00 87 20 122/56 (78) 97 08/11/17 16:00 86 08/11/17 16:00 98.3 86 23 111/56 (74) 96 08/11/17 16:00 86 23 111/56 (74) 96 08/11/17 15:00 87 08/11/17 15:00 83 19 72/40 (51) 99 08/11/17 14:01 98.0 87 38 107/66 (80) 94 08/11/17 14:00 87 08/11/17 13:00 84 20 104/52 (69) 97 08/11/17 12:00 98.7 08/11/17 12:00 98.7 85 18 109/58 (75) 97 08/11/17 12:00 85 08/11/17 11:00 84 20 111/55 (73) 97 08/11/17 10:00 92 35 121/72 (88) 94 08/11/17 10:00 92 I/O 08/11/17 08/11/17 08/11/17 08/12/17 08/12/17 08/12/17 07:00 15:00 23:00 07:00 15:00 23:00 Intake Total 400 ml 890 ml 750 ml 100 ml Output Total 200 ml 875 ml 500 ml Balance 200 ml 15 ml 250 ml 100 ml Intake Oral 300 ml 790 ml 200 ml IV Total 100 ml 100 ml 550 ml 100 ml Output Urine Total 200 ml 875 ml 500 ml # Voids 1 5 2 # Bowel Movements 0 0 Result Diagram: 08/12/17 0440 08/12/17 0440 Imaging Last Impressions Chest X-Ray 08/10/17 1836 Signed Impressions: Service Date/Time: Thursday, August 10, 2017 18:52 - CONCLUSION: 1. Persistent diffuse interstitial disease being worse in the bases. 2. Mild increased density seen at the left base which may worsen some superimposed consolidation or atelectasis. 3. Blunting of the costophrenic angles which may represent minimal effusions. Lexx Lynch MD Objective Remarks GENERAL: This is a well-nourished, well-developed patient, in no apparent distress. CARDIOVASCULAR: Normal rate and regular rhythm without murmurs, gallops, or rubs. RESPIRATORY: Diminished breath sounds at the bases bilaterally. Otherwise breath sounds equal and clear to auscultation bilaterally. GASTROINTESTINAL: Abdomen soft, non-tender, non-distended. Normal active bowel sounds MUSCULOSKELETAL: Extremities without cyanosis, or edema. NEURO: Alert & Oriented x4 to person, place, time, situation. Moves all ext x4 PSYCH: Appropriate mood and affect. A/P Assessment and Plan 82-year-old female with: Respiratory failure secondary to pneumonia -Pneumonia. -De-escalate antibiotics to Rocephin and azithromycin. May probably switch to oral tomorrow if she remains stable. -Follow cultures -Transitioned to oral steroids A. fib with RVR -Continue diltiazem, metoprolol, and Xarelto. Left lower extremity pain Peripheral vascular disease -Vascular surgery following. Severe PAD but nothing acute. Outpatient follow- up will be arranged. Continue with risk factor modification - Patient was started on Pletal. She states her symptoms significantly improved. Rheumatoid arthritis -Continue Plaquenil -Continue methotrexate Chronic obstructive pulmonary disease -DuoNeb scheduled and as needed -steroid History gout -Allopurinol DVT GI prophylaxis -Arnaldo's and SCDs -Xarelto -Pepcid Discharge Planning Transfer to Med/surg Savita Landa MD Aug 12, 2017 09:14
[2017-08-12] MEDS: cefTRIAXone INJ 1,000 MG in SODIUM CHLORIDE 0.9% INJ 100 ML IV SCH (09:50)
[2017-08-12] MEDS: DOCUSATE SODIUM 50 MG/SENNA 8.6 MG TAB PO SCH ×2 (09:51→22:19)
[2017-08-12] MEDS: HYDROXYCHLOROQUINE SULFATE 200 MG TAB PO SCH ×2 (09:51→22:37)
[2017-08-12] MEDS: CILOSTAZOL 50 MG TAB PO SCH ×2 (09:51→22:38)
[2017-08-12] MEDS: RIVAROXABAN 15 MG TAB PO SCH (09:51)
[2017-08-12] MEDS: FOLIC ACID 1 MG TAB PO SCH (09:51)
[2017-08-12] MEDS: ALLOPURINOL 100 MG TAB PO SCH (09:51)
[2017-08-12] MEDS: FAMOTIDINE 20 MG TAB PO SCH ×2 (09:51→22:50)
[2017-08-12] MEDS: DILTIAZEM-CD 120 MG CAP ER PO SCH ×2 (09:51→22:19)
[2017-08-12] MEDS: BRIMONIDINE TARTRATE 0.2% OPHT SOLN 5 ML BTL LEFT EYE SCH ×2 (09:52→22:38)
[2017-08-12] MEDS: TIMOLOL MALEATE 0.5% OPHT SOLN 5 ML BTL LEFT EYE SCH ×2 (09:52→21:00)
[2017-08-12] MEDS: SODIUM CHLORIDE 0.9% FLUSH 10 ML FLUSH IV FLUSH SCH ×2 (09:52→22:37)
[2017-08-12] MEDS: POTASSIUM CHLOR 20 MEQ PREMIX 100 ML IV SCH ×2 (11:31→16:25)
[2017-08-12] MEDS ORDERED: VANCOMYCIN 1,000 MG/NS 250 ML IV ONE ×2 (12:00)
[2017-08-12] MEDS: predniSONE 20 MG TAB PO SCH ×2 (13:39→17:11)
[2017-08-12] MEDS: ACETAMINOPHEN 325 MG TAB PO PRN ×2 (16:25→22:27)
[2017-08-12] MEDS: AZITHROMYCIN INJ 500 MG in SODIUM CHLOR 0.9% 250 ML INJ 250 ML IV SCH (22:19)
[2017-08-12] MEDS: traZODone HCL 50 MG TAB PO SCH (22:19)
[2017-08-12] MEDS: LATANOPROST 0.005% OPHT SOLN 2.5 ML BTL LEFT EYE SCH (22:38)
[2017-08-13] MEDS: RESP: ALBUTEROL 2.5 MG/IPRATROPIUM 0.5 MG NEB (SCH) INH ×4 (03:50→21:28)
[2017-08-13] MEDS: CHLORHEXIDINE GLUCONATE 2 % 1 PACK (2 CLOTHS)(taper/protocol) TOPICAL SCH ×2 (03:59→04:00)
[2017-08-13 08:00] VITALS: BP 108/55; PULSE 87; RESP 18; TEMP 97.8; O2SAT 100
[2017-08-13 08:00] LABS: HEMATOCRIT 22.9 % (35.0-46.0); HEMOGLOBIN 7.6 GM/DL (11.6-15.3); MEAN CELL VOLUME 90.5 FL (80.0-100.0); MEAN CORPUSCULAR HEMOGLOBIN 30.2 PG (27.0-34.0); MEAN CORPUSCULAR HGB CONC 33.4 % (32.0-36.0); MEAN PLATELET VOLUME 7.2 FL (7.0-11.0); PLATELET COUNT 443 TH/MM3 (150-450); RED BLOOD COUNT 2.52 MIL/MM3 (4.00-5.30); RED CELL DISTRIBUTION WIDTH 14.7 % (11.6-17.2); WHITE BLOOD COUNT 13.3 TH/MM3 (4.0-11.0)
[2017-08-13 08:25] LABS: BICARBONATE 31.2 MEQ/L (21.0-32.0); CALCIUM 7.9 MG/DL (8.5-10.1); CREATININE 1.03 MG/DL (0.50-1.00)
--- NOTE | 2017-08-13 08:41 | HHI.PR ---
Subjective Remarks in no acute distress. sob improving. has occasional cough. no fever. Objective Vitals Vital Signs Date Time Temp Pulse Resp B/P (MAP) Pulse Ox O2 Delivery O2 Flow Rate FiO2 08/13/17 08:00 97.8 87 18 108/55 (72) 100 08/12/17 23:56 98.0 90 22 102/56 (71) 95 08/12/17 23:50 20 08/12/17 20:45 96 Nasal Cannula 3.00 08/12/17 20:00 98.5 88 22 93/55 (68) 93 08/12/17 16:00 97.4 91 16 116/57 (76) 93 08/12/17 14:00 95 08/12/17 12:00 90 08/12/17 12:00 98.1 90 26 95/55 (68) 96 08/12/17 10:00 100 08/12/17 09:00 95 Nasal Cannula 3.00 I/O 08/12/17 08/12/17 08/12/17 08/13/17 08/13/17 08/13/17 07:00 15:00 23:00 07:00 15:00 23:00 Intake Total 200 ml 200 ml 100 ml 480 ml Balance 200 ml 200 ml 100 ml 480 ml Intake Oral 480 ml IV Total 200 ml 200 ml 100 ml # Voids 1 2 # Bowel Movements 0 Result Diagram: 08/13/17 0614 08/13/17 0614 Imaging Last Impressions Chest X-Ray 08/10/17 1836 Signed Impressions: Service Date/Time: Thursday, August 10, 2017 18:52 - CONCLUSION: 1. Persistent diffuse interstitial disease being worse in the bases. 2. Mild increased density seen at the left base which may worsen some superimposed consolidation or atelectasis. 3. Blunting of the costophrenic angles which may represent minimal effusions. Lexx Lynch MD Objective Remarks GENERAL: This is a well-nourished, well-developed patient, in no apparent distress. CARDIOVASCULAR: Regular rate and regular rhythm without murmurs, gallops, or rubs. RESPIRATORY: diminished air entry in bases. GASTROINTESTINAL: Abdomen soft, non-tender, nondistended. Normal, active bowel sounds MUSCULOSKELETAL: Extremities without clubbing, cyanosis, or edema. NEURO: Alert & Oriented x4 to person, place, time, situation. Moves all ext x4 Medications and IVs Inpatient Medications Acetaminophen (Tylenol) 650 mg Q6H PRN PO PAIN 1-5 AND/OR FEVER >101F Last administered on 08/12/17 22:27; Start 08/11/17 at 05:00 Albuterol/ Ipratropium (Duoneb Neb) 1 ampule Q6HR NEB INH Last administered on 08/12/17 20:45; Start 08/11/17 at 10:00 Allopurinol (Zyloprim) 100 mg DAILY PO Last administered on 08/12/17 09:51; Start 08/11/17 at 09:00 Azithromycin 500 mg/Sodium Chloride 250 ml @ 250 mls/hr Q24H IV Last administered on 08/12/17 22:19; Start 08/11/17 at 20:00 Bisacodyl (Dulcolax Supp) 10 mg DAILY PRN RECTAL SEVERE CONSITIPATION/ IF NPO ; Start 08/11/17 at 05:00 Brimonidine Tartrate (Alphagan 0.2% Opth Soln) 1 drop Q12HR LEFT EYE Last administered on 08/12/17 22:38; Start 08/11/17 at 09:00 Cefepime HCl 2000 mg/Sodium Chloride 100 ml @ 200 mls/hr ONCE STAT IV Last administered on 08/10/17 19:44; Start 08/10/17 at 19:04; Stop 08/10/17 at 19:33 ; Status DC Ceftriaxone Sodium 1000 mg/ Sodium Chloride 100 ml @ 200 mls/hr Q24H IV Last administered on 08/12/17at 09:50; Start 08/12/17 at 11:00 Chlorhexidine Gluconate (Chlorhexidine 2% Cloth) 3 pack UNSCH PRN TOP HYGIENIC CARE; Start 08/11/17 at 05:00; Stop 08/11/17 at 05:11; Status DC Cilostazol (Pletal) 50 mg BID PO Last administered on 08/12/17 22:38; Start at 09:00 Digoxin (Lanoxin Inj) 0.25 mg ONCE ONCE IV PUSH Last administered on 19:44; Start 08/10/17 at 19:15; Stop 08/10/17 at 19:16; Status DC Diltiazem HCl (Cardizem Cd) 120 mg BID PO Last administered on 08/12/17 22:19; Start 08/11/17 at 09:00 Famotidine (Pepcid) 20 mg Q12HR PO Last administered on 08/12/17at 22:50; Start 08/11/17 at 09:00 Folic Acid (Folate) 1 mg DAILY PO Last administered on 08/12/17 09:51; Start at 09:00 Furosemide (Lasix) 40 mg BID PO ; Start 08/11/17 at 09:00; Stop 08/11/17 at 09: 00; Status DC Hydroxychloroquine Sulfate (Plaquenil) 200 mg BID PO Last administered on at 22:37; Start 08/11/17 at 09:00 Lactulose (Lactulose Liq) 30 ml DAILY PRN PO SEVERE CONSITIPATION/ IF PO; Start 08/11/17 at 05:00 Latanoprost (Xalatan 0.005% Opth Soln) 1 drop HS LEFT EYE Last administered on 08/12/17at 22:38; Start 08/11/17 at 21:00 Magnesium Hydroxide (Milk Of Magnesia Liq) 30 ml Q12H PRN PO Mild constipation ; Start 08/11/17 at 05:00 Magnesium Sulfate/ Dextrose 100 ml @ 100 mls/hr ONCE ONCE IV Last administered on 08/12/17at 09:51; Start 08/12/17 at 09:00; Stop 08/12/17 at 09:59; Status DC Methotrexate (Rheumatrex) 15 mg Q7D PO Last administered on 08/11/17at 09:00; Start 08/11/17 at 09:00 Methylprednisolone Sodium Succinate (SoluMEDROL INJ) 40 mg Q12H IV PUSH Last administered on 08/12/17at 05:00; Start 08/11/17 at 05:00; Stop 08/12/17 at 09:23; Status DC Metoprolol Tartrate (Lopressor) 25 mg BID PO Last administered on 08/11/17at 08: 53; Start 08/11/17 at 09:00; Status Future Hold Miscellaneous Information 1 Q361D XX ; Start 08/11/17 at 05:00; Stop 08/11/17 at 05:11; Status DC Morphine Sulfate (Morphine Inj) 2 mg Q2H PRN IV PUSH PAIN SCALE 6 TO 10 Last administered on 08/11/17at 05:16; Start 08/11/17 at 05:00 Non-Formulary Medication 1 drop Q12HR LEFT EYE ; Start 08/11/17 at 09:00; Stop 08/11/17 at 09:00; Status DC Ondansetron HCl (Zofran Inj) 4 mg Q6H PRN IV PUSH NAUSEA OR VOMITING; Start at 05:00 Patient Own Medication PT OWN MED: AZOPT EYE DR... BID LEFT EYE ; Start at 09:00 Pharmacy Profile Note 0 ml @ 0 mls/hr UNSCH OTHER ; Start 08/11/17 at 05:00 Piperacillin Sod/ Tazobactam Sod 100 ml @ 200 mls/hr Q6H IV Last administered on 08/12/17at 05:00; Start 08/11/17 at 05:00; Stop 08/12/17 at 09:23; Status DC Potassium Chloride 100 ml @ 50 mls/hr Q2H IV Last administered on 08/12/17at 16: 25; Start 08/12/17 at 08:30; Stop 08/12/17 at 12:29; Status DC Prednisone (Deltasone) 20 mg TID PO Last administered on 08/12/17at 17:11; Start 08/12/17 at 13:00 Rivaroxaban (Xarelto) 15 mg DAILY PO Last administered on 08/12/17at 09:51; Start 08/11/17 at 09:00 Senna/Docusate Sodium (Venita-Colace) 1 tab BID PO Last administered on 08/12/17at 22:19; Start 08/11/17 at 09:00 Sennosides (Senokot) 17.2 mg Q12H PRN PO Moderate constipation; Start 08/11/17 at 05:00 Sodium Bicarbonate 150 meq/Sterile Water 1,000 ml @ 150 mls/hr Q6H40M IV Last administered on 08/11/17at 15:25; Start 08/11/17 at 05:30; Stop 08/11/17 at 16:08 ; Status DC Sodium Chloride (NS Flush) 2 ml BID IV FLUSH Last administered on 08/12/17at 22: 37; Start 08/11/17 at 09:00 Temazepam (Restoril) 15 mg HS PRN PO INSOMNIA; Start 08/11/17 at 05:00 Timolol Maleate (Timoptic 0.5% Opth Soln) 1 drop Q12HR LEFT EYE Last administered on 08/12/17at 09:52; Start 08/11/17 at 09:00 Trazodone HCl (Desyrel) 50 mg HS PO Last administered on 08/12/17at 22:19; Start 08/11/17 at 21:00 Vancomycin HCl 850 mg/Sodium Chloride 258.5 ml @ 250 mls/hr DAILY@0600 IV Last administered on 08/11/17at 05:59; Start 08/11/17 at 06:00; Stop 08/11/17 at 12:00; Status DC Vancomycin HCl 1000 mg/Sodium Chloride 250 ml @ 250 mls/hr ONCE ONCE IV Last administered on 08/12/17at 13:39; Start 08/12/17 at 12:00; Stop 08/12/17 at 12:59; Status DC A/P Assessment and Plan A/P Respiratory failure secondary to pneumonia -Pneumonia. -continue Rocephin and azithromycin. -blood cultures negative. -Transitioned to oral steroids A. fib with RVR -Continue diltiazem and Xarelto. hold cardizem due to low BP. Left lower extremity pain Peripheral vascular disease -Vascular surgery following. Severe PAD but nothing acute. Outpatient follow- up will be arranged. Continue with risk factor modification - Patient was started on Pletal. She states her symptoms significantly improved. Rheumatoid arthritis -Continue Plaquenil -Continue methotrexate Chronic obstructive pulmonary disease -DuoNeb scheduled and as needed -steroid -patient is oxygen dependent. Anemia- chronic- will monitor; CBC in am. Hypokalemia; will replace and monitor. History gout -Allopurinol DVT GI prophylaxis -Arnaldo's and SCDs -Xarelto -Pepcid Discharge Planning case management for dc planning to SNF. Jose Villatoro MD Aug 13, 2017 08:41
[2017-08-13] MEDS ORDERED: POTASSIUM CHLORIDE 10 MEQ CONTROLLED RELEASE TAB PO ONE ×2 (08:45→13:00)
[2017-08-13 08:48] VITALS: O2SAT 91
[2017-08-13] MEDS: TIMOLOL MALEATE 0.5% OPHT SOLN 5 ML BTL LEFT EYE SCH ×2 (09:00→21:56)
[2017-08-13] MEDS: ALLOPURINOL 100 MG TAB PO SCH (10:52)
[2017-08-13] MEDS: DOCUSATE SODIUM 50 MG/SENNA 8.6 MG TAB PO SCH ×2 (10:52→21:00)
[2017-08-13] MEDS: DILTIAZEM-CD 120 MG CAP ER PO SCH ×2 (10:52→21:54)
[2017-08-13] MEDS: FAMOTIDINE 20 MG TAB PO SCH (10:53)
[2017-08-13] MEDS: predniSONE 20 MG TAB PO SCH ×3 (10:53→18:38)
[2017-08-13] MEDS: RIVAROXABAN 15 MG TAB PO SCH (10:53)
[2017-08-13] MEDS: HYDROXYCHLOROQUINE SULFATE 200 MG TAB PO SCH ×2 (10:53→21:54)
[2017-08-13] MEDS: BRIMONIDINE TARTRATE 0.2% OPHT SOLN 5 ML BTL LEFT EYE SCH ×2 (10:54→21:55)
[2017-08-13] MEDS: FOLIC ACID 1 MG TAB PO SCH (10:54)
[2017-08-13] MEDS: AZOPT EYE LEFT EYE SCH ×2 (10:58→21:00)
[2017-08-13] MEDS: SODIUM CHLORIDE 0.9% FLUSH 10 ML FLUSH IV FLUSH SCH ×2 (10:58→21:54)
[2017-08-13] MEDS: CILOSTAZOL 50 MG TAB PO SCH ×2 (11:11→21:54)
[2017-08-13] MEDS: cefTRIAXone INJ 1,000 MG in SODIUM CHLORIDE 0.9% INJ 100 ML IV SCH (11:11)
[2017-08-13 12:00] VITALS: BP 103/51; PULSE 97; RESP 19; TEMP 97.7; O2SAT 93
[2017-08-13 16:00] VITALS: BP 107/56; PULSE 96; RESP 19; TEMP 98.5; O2SAT 96
--- NOTE | 2017-08-13 19:18 | ECHRPT ---
Indication: HEART FAILURE CONCLUSIONS Normal left ventricular size. Normal LV systolic function (EF 60-65%). Wall thickness is normal. Mild RV enlargement. The left atrial size is cosk-ma-lktollphwy dilated. The right atrial size is twvs-jt-vklucmmpis dilated. Mild mitral annular calcification. Aortic valve sclerosis is present. There is mild tricuspid valve regurgitation. The estimated pulmonary arterial pressure is 44 mmHg. BP: 102 / 56 HR: 90 Rhythm: Sinus MEASUREMENTS (Male / Female) Normal Values Technical Quality:Fair 2D ECHO LV Diastolic Diameter PLAX 4.4 cm 4.2 - 5.9 / 3.9 - 5.3 cm LV Systolic Diameter PLAX 3.2 cm IVS Diastolic Thickness 0.7 cm 0.6 - 1.0 / 0.6 - 0.9 cm LVPW Diastolic Thickness 0.7 cm 0.6 - 1.0 / 0.6 - 0.9 cm LV Relative Wall Thickness 0.3 RV Internal Dim ED PLAX 2.3 cm LVOT Diameter 1.7 cm Aortic Root Diameter 2.4 cm LA Systolic Diameter LX 3.6 cm 3.0 - 4.0 / 2.7 - 3.8 cm M-MODE AV Cusp Separation MM 1.4 cm DOPPLER AV Peak Velocity 233.0 cm/s AV Peak Gradient 21.7 mmHg AV Mean Gradient 10.0 mmHg AV Velocity Time Integral 38.8 cm LVOT Peak Velocity 112.0 cm/s LVOT Peak Gradient 5.0 mmHg LVOT Velocity Time Integral 18.9 cm AV Area Cont Eq vti 1.1 cm AV Area Cont Eq pk 1.1 cm Mitral E Point Velocity 60.1 cm/s Mitral A Point Velocity 133.0 cm/s Mitral E to A Ratio 0.5 TR Peak Velocity 293.3 cm/s TR Peak Gradient 34.4 mmHg Right Atrial Pressure 10.0 mmHg Pulmonary Artery Systolic Pressu 44.4 mmHg Right Ventricular Systolic Press 44.4 mmHg PV Peak Velocity 77.5 cm/s PV Peak Gradient 2.4 mmHg FINDINGS LEFT VENTRICLE Normal left ventricular size. Wall thickness is normal. The left ventricular systolic function is normal with an estimated ejection fraction in the range of 60-65%. RIGHT VENTRICLE Normal right ventricular systolic function. Mild RV enlargement. LEFT ATRIUM The left atrial size is dfby-yx-qlnhgsuajd dilated. RIGHT ATRIUM The right atrial size is nixt-ca-xrxvoocxke dilated. ATRIAL SEPTUM No atrial level shunt is demonstrated by color flow Doppler interrogation. AORTA The aortic root and proximal ascending aorta are not well visualized. MITRAL VALVE Mild mitral annular calcification. AORTIC VALVE Aortic valve sclerosis is present. TRICUSPID VALVE There is mild tricuspid valve regurgitation. The estimated pulmonary arterial pressure is 44.4 mmHg. PULMONARY VALVE No pulmonary valve regurgitation or stenosis. VESSELS The inferior vena cava is normal in size. PERICARDIUM No pericardial effusion. Mica Shaikh MD, FACC (Electronically Signed) Final Date:13 August 2017 19:17
[2017-08-13 20:00] VITALS: BP 126/59; PULSE 103; RESP 20; TEMP 97.7; O2SAT 93
[2017-08-13 21:29] VITALS: O2SAT 94
[2017-08-13] MEDS: traZODone HCL 50 MG TAB PO SCH (21:53)
[2017-08-13] MEDS: AZITHROMYCIN INJ 500 MG in SODIUM CHLOR 0.9% 250 ML INJ 250 ML IV SCH (21:54)
[2017-08-13] MEDS: LATANOPROST 0.005% OPHT SOLN 2.5 ML BTL LEFT EYE SCH (21:54)
[2017-08-14] VITALS (7 sets, daily range): BP systolic 104–123; BP diastolic 57–65; PULSE 95–113; RESP 20; TEMP 97.7–98.4; O2SAT 93–98
[2017-08-14] MEDS: RESP: ALBUTEROL 2.5 MG/IPRATROPIUM 0.5 MG NEB (SCH) INH ×4 (03:40→21:09)
[2017-08-14] MEDS: CHLORHEXIDINE GLUCONATE 2 % 1 PACK (2 CLOTHS)(taper/protocol) TOPICAL SCH (04:00)
[2017-08-14 05:39] LABS: AUTOMATED NEUTROPHIL # 11.9 TH/MM3 (1.8-7.7); BASOPHIL % 0.1 % (0.0-2.0); HEMATOCRIT 22.2 % (35.0-46.0); HEMOGLOBIN 7.2 GM/DL (11.6-15.3); LYMPH % 4.8 % (9.0-44.0); LYMPHOCYTE # 0.6 TH/MM3 (1.0-4.8); MEAN CELL VOLUME 90.7 FL (80.0-100.0); MEAN CORPUSCULAR HEMOGLOBIN 29.5 PG (27.0-34.0); MEAN CORPUSCULAR HGB CONC 32.5 % (32.0-36.0); MEAN PLATELET VOLUME 7.3 FL (7.0-11.0); MONO % 1.6 % (0.0-8.0); MONOCYTE # 0.2 TH/MM3 (0-0.9); NEUT % 93.5 % (16.0-70.0); PLATELET COUNT 429 TH/MM3 (150-450); RED BLOOD COUNT 2.45 MIL/MM3 (4.00-5.30); RED CELL DISTRIBUTION WIDTH 14.5 % (11.6-17.2); WHITE BLOOD COUNT 12.7 TH/MM3 (4.0-11.0)
[2017-08-14 06:12] LABS: BICARBONATE 28.7 MEQ/L (21.0-32.0); CALCIUM 8.5 MG/DL (8.5-10.1); CREATININE 0.95 MG/DL (0.50-1.00)
[2017-08-14] MEDS: BRIMONIDINE TARTRATE 0.2% OPHT SOLN 5 ML BTL LEFT EYE SCH ×2 (09:00→21:29)
[2017-08-14] MEDS: DOCUSATE SODIUM 50 MG/SENNA 8.6 MG TAB PO SCH ×2 (09:00→21:30)
[2017-08-14] MEDS: TIMOLOL MALEATE 0.5% OPHT SOLN 5 ML BTL LEFT EYE SCH ×2 (09:00→21:30)
[2017-08-14] MEDS: AZOPT EYE LEFT EYE SCH ×2 (09:00→21:30)
[2017-08-14] MEDS: predniSONE 20 MG TAB PO SCH ×3 (09:10→17:41)
[2017-08-14] MEDS: ALLOPURINOL 100 MG TAB PO SCH (09:10)
[2017-08-14] MEDS: FAMOTIDINE 20 MG TAB PO SCH (09:10)
[2017-08-14] MEDS: HYDROXYCHLOROQUINE SULFATE 200 MG TAB PO SCH ×2 (09:11→21:27)
[2017-08-14] MEDS: RIVAROXABAN 15 MG TAB PO SCH (09:11)
[2017-08-14] MEDS: CILOSTAZOL 50 MG TAB PO SCH ×2 (09:11→21:27)
[2017-08-14] MEDS: DILTIAZEM-CD 120 MG CAP ER PO SCH ×2 (09:11→21:28)
[2017-08-14] MEDS: FOLIC ACID 1 MG TAB PO SCH (09:11)
[2017-08-14] MEDS: SODIUM CHLORIDE 0.9% FLUSH 10 ML FLUSH IV FLUSH SCH ×2 (09:13→21:30)
--- NOTE | 2017-08-14 11:09 | HHI.PR ---
Subjective Remarks in no acute distress. however sob is somewhat worse today. still has cough. no fever. no rectal bleed and melena reported. H/H trend noted. Objective Vitals Vital Signs Date Time Temp Pulse Resp B/P (MAP) Pulse Ox O2 Delivery O2 Flow Rate FiO2 08/14/17 09:35 94 Nasal Cannula 4.00 08/14/17 00:00 97.7 104 20 123/65 (84) 98 08/13/17 21:29 94 Nasal Cannula 3.00 08/13/17 20:00 97.7 103 20 126/59 (81) 93 08/13/17 16:00 98.5 96 19 107/56 (73) 96 08/13/17 12:00 97.7 97 19 103/51 (68) 93 I/O 08/13/17 08/13/17 08/13/17 08/14/17 08/14/17 08/14/17 07:00 15:00 23:00 07:00 15:00 23:00 Intake Total 480 ml 720 ml 250 ml 0 ml Balance 480 ml 720 ml 250 ml 0 ml Intake Oral 480 ml 720 ml IV Total 250 ml 0 ml # Voids 2 4 3 # Bowel Movements 0 1 Result Diagram: 08/14/17 0517 08/14/17 0417 Imaging Last Impressions Chest X-Ray 08/10/17 1836 Signed Impressions: Service Date/Time: Thursday, August 10, 2017 18:52 - CONCLUSION: 1. Persistent diffuse interstitial disease being worse in the bases. 2. Mild increased density seen at the left base which may worsen some superimposed consolidation or atelectasis. 3. Blunting of the costophrenic angles which may represent minimal effusions. Lexx Lynch MD Objective Remarks GENERAL: This is a well-nourished, well-developed patient, in no apparent distress. CARDIOVASCULAR: Regular rate and regular rhythm without murmurs, gallops, or rubs. RESPIRATORY: diminished air entry in bases. GASTROINTESTINAL: Abdomen soft, non-tender, nondistended. Normal, active bowel sounds MUSCULOSKELETAL: Extremities without clubbing, cyanosis, or edema. NEURO: Alert & Oriented x4 to person, place, time, situation. Moves all ext x4 Medications and IVs Inpatient Medications Acetaminophen (Tylenol) 650 mg Q6H PRN PO PAIN 1-5 AND/OR FEVER >101F Last administered on 08/12/17at 22:27; Start 08/11/17 at 05:00 Albuterol/ Ipratropium (Duoneb Neb) 1 ampule Q6HR NEB INH Last administered on 08/14/17 09:35; Start 08/11/17 at 10:00 Allopurinol (Zyloprim) 100 mg DAILY PO Last administered on 08/14/17 09:10; Start 08/11/17 at 09:00 Azithromycin 500 mg/Sodium Chloride 250 ml @ 250 mls/hr Q24H IV Last administered on 08/13/17 21:54; Start 08/11/17 at 20:00 Bisacodyl (Dulcolax Supp) 10 mg DAILY PRN RECTAL SEVERE CONSITIPATION/ IF NPO ; Start 08/11/17 at 05:00 Brimonidine Tartrate (Alphagan 0.2% Opt Soln) 1 drop Q12HR LEFT EYE Last administered on 08/14/17 09:00; Start 08/11/17 at 09:00 Cefepime HCl 2000 mg/Sodium Chloride 100 ml @ 200 mls/hr ONCE STAT IV Last administered on 08/10/17 19:44; Start 08/10/17 at 19:04; Stop 08/10/17 at 19:33 ; Status DC Ceftriaxone Sodium 1000 mg/ Sodium Chloride 100 ml @ 200 mls/hr Q24H IV Last administered on 08/13/17 11:11; Start 08/12/17 at 11:00 Chlorhexidine Gluconate (Chlorhexidine 2% Cloth) 3 pack UNSCH PRN TOP HYGIENIC CARE; Start 08/11/17 at 05:00; Stop 08/11/17 at 05:11; Status DC Cilostazol (Pletal) 50 mg BID PO Last administered on 08/14/17 09:11; Start at 09:00 Digoxin (Lanoxin Inj) 0.25 mg ONCE ONCE IV PUSH Last administered on 19:44; Start 08/10/17 at 19:15; Stop 08/10/17 at 19:16; Status DC Diltiazem HCl (Cardizem Cd) 120 mg BID PO Last administered on 08/14/17 09:11; Start 08/11/17 at 09:00 Famotidine (Pepcid) 20 mg DAILY PO Last administered on 08/14/17at 09:10; Start 08/14/17 at 09:00 Folic Acid (Folate) 1 mg DAILY PO Last administered on 08/14/17at 09:11; Start at 09:00 Furosemide (Lasix) 40 mg BID PO ; Start 08/11/17 at 09:00; Stop 08/11/17 at 09: 00; Status DC Hydroxychloroquine Sulfate (Plaquenil) 200 mg BID PO Last administered on at 09:11; Start 08/11/17 at 09:00 Lactulose (Lactulose Liq) 30 ml DAILY PRN PO SEVERE CONSITIPATION/ IF PO; Start 08/11/17 at 05:00 Latanoprost (Xalatan 0.005% Opth Soln) 1 drop HS LEFT EYE Last administered on 08/13/17at 21:54; Start 08/11/17 at 21:00 Magnesium Hydroxide (Milk Of Magnesia Liq) 30 ml Q12H PRN PO Mild constipation ; Start 08/11/17 at 05:00 Magnesium Sulfate/ Dextrose 100 ml @ 100 mls/hr ONCE ONCE IV Last administered on 08/12/17at 09:51; Start 08/12/17 at 09:00; Stop 08/12/17 at 09:59; Status DC Methotrexate (Rheumatrex) 15 mg Q7D PO Last administered on 08/11/17at 09:00; Start 08/11/17 at 09:00 Methylprednisolone Sodium Succinate (SoluMEDROL INJ) 40 mg Q12H IV PUSH Last administered on 08/12/17at 05:00; Start 08/11/17 at 05:00; Stop 08/12/17 at 09:23; Status DC Metoprolol Tartrate (Lopressor) 25 mg BID PO Last administered on 08/11/17at 08: 53; Start 08/11/17 at 09:00; Status Future Hold Miscellaneous Information 1 Q361D XX ; Start 08/11/17 at 05:00; Stop 08/11/17 at 05:11; Status DC Morphine Sulfate (Morphine Inj) 2 mg Q2H PRN IV PUSH PAIN SCALE 6 TO 10 Last administered on 08/11/17at 05:16; Start 08/11/17 at 05:00 Non-Formulary Medication 1 drop Q12HR LEFT EYE ; Start 08/11/17 at 09:00; Stop 08/11/17 at 09:00; Status DC Ondansetron HCl (Zofran Inj) 4 mg Q6H PRN IV PUSH NAUSEA OR VOMITING; Start at 05:00 Patient Own Medication PT OWN MED: AZOPT EYE [email or web address] BID LEFT EYE Last administered on 08/13/17at 21:00; Start 08/11/17 at 09:00 Pharmacy Profile Note 0 ml @ 0 mls/hr UNSCH OTHER ; Start 08/11/17 at 05:00; Stop 08/13/17 at 11:25; Status DC Piperacillin Sod/ Tazobactam Sod 100 ml @ 200 mls/hr Q6H IV Last administered on 08/12/17at 05:00; Start 08/11/17 at 05:00; Stop 08/12/17 at 09:23; Status DC Potassium Chloride (KCl) 40 meq ONCE ONCE PO Last administered on 08/13/17at 15: 40; Start 08/13/17 at 13:00; Stop 08/13/17 at 13:01; Status DC Prednisone (Deltasone) 20 mg TID PO Last administered on 08/14/17 09:10; Start 08/12/17 at 13:00 Rivaroxaban (Xarelto) 15 mg DAILY PO Last administered on 08/14/17at 09:11; Start 08/11/17 at 09:00 Senna/Docusate Sodium (Venita-Colace) 1 tab BID PO Last administered on 08/13/17at 10:52; Start 08/11/17 at 09:00 Sennosides (Senokot) 17.2 mg Q12H PRN PO Moderate constipation; Start 08/11/17 at 05:00 Sodium Bicarbonate 150 meq/Sterile Water 1,000 ml @ 150 mls/hr Q6H40M IV Last administered on 08/11/17at 15:25; Start 08/11/17 at 05:30; Stop 08/11/17 at 16:08 ; Status DC Sodium Chloride (NS Flush) 2 ml BID IV FLUSH Last administered on 08/14/17at 09: 13; Start 08/11/17 at 09:00 Temazepam (Restoril) 15 mg HS PRN PO INSOMNIA; Start 08/11/17 at 05:00 Timolol Maleate (Timoptic 0.5% Opth Soln) 1 drop Q12HR LEFT EYE Last administered on 08/14/17at 09:00; Start 08/11/17 at 09:00 Trazodone HCl (Desyrel) 50 mg HS PO Last administered on 08/13/17at 21:53; Start 08/11/17 at 21:00 Vancomycin HCl 850 mg/Sodium Chloride 258.5 ml @ 250 mls/hr DAILY@0600 IV Last administered on 08/11/17at 05:59; Start 08/11/17 at 06:00; Stop 08/11/17 at 12:00; Status DC Vancomycin HCl 1000 mg/Sodium Chloride 250 ml @ 250 mls/hr ONCE ONCE IV Last administered on 08/12/17at 13:39; Start 08/12/17 at 12:00; Stop 08/12/17 at 12:59; Status DC A/P Assessment and Plan A/P Respiratory failure secondary to pneumonia -Pneumonia. -continue Rocephin and azithromycin. -blood cultures negative. -Transitioned to oral steroids A. fib with RVR -Continue diltiazem and Xarelto. hold metoprolol due to low BP. Left lower extremity pain Peripheral vascular disease -Vascular surgery following. Severe PAD but nothing acute. Outpatient follow- up will be arranged. Continue with risk factor modification - Patient was started on Pletal. She states her symptoms significantly improved. Rheumatoid arthritis -Continue Plaquenil -Continue methotrexate Chronic obstructive pulmonary disease -DuoNeb scheduled and as needed -steroid -patient is oxygen dependent. Anemia- chronic- but gradually trending down. repeat H/H today- check the stool for blood and anemia w/u. will transfuse with PRBC with further drop in H/H. Hypokalemia; replaced. History gout -Allopurinol DVT GI prophylaxis -Arnaldo's and SCDs -Xarelto -Pepcid Discharge Planning not ready for discharge due to worsening anemia. dc planning to [facility] with [facility]. d/w case management. Jose Villatoro MD Aug 14, 2017 11:09
--- NOTE | 2017-08-14 11:10 | HHI.FF ---
Face to Face Verification Diagnosis: (1) Anemia (2) COPD with acute exacerbation (3) PNA (pneumonia) Physical Therapy Order: Evaluate and Treat Home Health Nursing Order: Medical education Signs/symptoms of disease process Medication education-adverse effect Nursing assessment with vital signs I have seen patient Zoë Cummings on 08/14/17. My clinical findings support the need for the requested home health care services because: Ltd mobility - disease progression Patient has SOB I certify that my clinical findings support that this patient is homebound because: Hx COPD- exertion dyspnea/weakness Jose Villatoro MD Aug 14, 2017 11:10
[2017-08-14] MEDS: cefTRIAXone INJ 1,000 MG in SODIUM CHLORIDE 0.9% INJ 100 ML IV SCH (11:32)
[2017-08-14 12:17] LABS: HEMATOCRIT 23.4 % (35.0-46.0); HEMOGLOBIN 7.6 GM/DL (11.6-15.3)
[2017-08-14 12:43] LABS: IRON (FE) 42 MCG/DL (50-170); TOTAL IRON BINDING CAPACITY 221 MCG/DL (250-450)
[2017-08-14 12:45] LABS: FERRITIN 205 NG/ML (8-252)
[2017-08-14] MEDS ORDERED: RESP: ALBUTEROL 1.25 MG/3 ML NEB (PRN) NEB (19:00)
[2017-08-14] MEDS: ALPRAZolam 0.25 MG TAB PO PRN (21:27)
[2017-08-14] MEDS: traZODone HCL 50 MG TAB PO SCH (21:27)
[2017-08-14] MEDS: LATANOPROST 0.005% OPHT SOLN 2.5 ML BTL LEFT EYE SCH (21:30)
[2017-08-14] MEDS: AZITHROMYCIN INJ 500 MG in SODIUM CHLOR 0.9% 250 ML INJ 250 ML IV SCH (21:36)
[2017-08-15] VITALS (8 sets, daily range): BP systolic 98–149; BP diastolic 53–71; PULSE 95–102; RESP 18–20; TEMP 97.5–98.2; O2SAT 94–99
[2017-08-15] MEDS: RESP: ALBUTEROL 2.5 MG/IPRATROPIUM 0.5 MG NEB (SCH) INH (02:40)
[2017-08-15] MEDS: CHLORHEXIDINE GLUCONATE 2 % 1 PACK (2 CLOTHS)(taper/protocol) TOPICAL SCH (04:00)
[2017-08-15 08:33] LABS: HEMATOCRIT 23.4 % (35.0-46.0); HEMOGLOBIN 7.7 GM/DL (11.6-15.3)
[2017-08-15] MEDS: AZOPT EYE LEFT EYE SCH ×2 (09:00→21:00)
[2017-08-15] MEDS: BRIMONIDINE TARTRATE 0.2% OPHT SOLN 5 ML BTL LEFT EYE SCH ×2 (10:23→21:21)
[2017-08-15] MEDS: CILOSTAZOL 50 MG TAB PO SCH ×2 (10:26→21:18)
[2017-08-15] MEDS: predniSONE 20 MG TAB PO SCH ×3 (10:26→17:21)
[2017-08-15] MEDS: HYDROXYCHLOROQUINE SULFATE 200 MG TAB PO SCH ×2 (10:26→21:18)
[2017-08-15] MEDS: RIVAROXABAN 15 MG TAB PO SCH (10:27)
[2017-08-15] MEDS: ALLOPURINOL 100 MG TAB PO SCH (10:27)
[2017-08-15] MEDS: FAMOTIDINE 20 MG TAB PO SCH (10:27)
[2017-08-15] MEDS: FOLIC ACID 1 MG TAB PO SCH (10:27)
[2017-08-15] MEDS: DOCUSATE SODIUM 50 MG/SENNA 8.6 MG TAB PO SCH ×2 (10:27→21:00)
[2017-08-15] MEDS: DILTIAZEM-CD 120 MG CAP ER PO SCH ×2 (10:28→21:18)
--- NOTE | 2017-08-15 12:01 | HHI.PR ---
Subjective Remarks in no acute distress. still with sob; she says that her sob seems to be getting worse. no fever. has occasional cough. d/w the RN. Objective Vitals Vital Signs Date Time Temp Pulse Resp B/P (MAP) Pulse Ox O2 Delivery O2 Flow Rate FiO2 08/15/17 08:00 98.1 101 18 98/53 (68) 99 08/15/17 02:42 96 Nasal Cannula 4.00 08/15/17 00:00 97.8 99 20 116/56 (76) 97 08/14/17 20:00 98.4 109 20 119/60 (79) 96 08/14/17 16:00 97.7 106 20 110/57 (74) 94 08/14/17 15:54 95 Nasal Cannula 4.00 08/14/17 12:00 97.7 113 20 104/59 (74) 93 I/O 08/14/17 08/14/17 08/14/17 08/15/17 08/15/17 08/15/17 07:00 15:00 23:00 07:00 15:00 23:00 Intake Total 250 ml 100 ml 720 ml 240 ml Balance 250 ml 100 ml 720 ml 240 ml Intake Oral 720 ml 240 ml IV Total 250 ml 100 ml 0 ml # Voids 3 4 3 # Bowel Movements 1 Result Diagram: 08/15/17 0659 08/14/17 0417 Imaging Last Impressions Chest X-Ray 08/10/17 1836 Signed Impressions: Service Date/Time: Thursday, August 10, 2017 18:52 - CONCLUSION: 1. Persistent diffuse interstitial disease being worse in the bases. 2. Mild increased density seen at the left base which may worsen some superimposed consolidation or atelectasis. 3. Blunting of the costophrenic angles which may represent minimal effusions. Lexx Lynch MD Objective Remarks GENERAL: This is a well-nourished, well-developed patient, in no apparent distress. CARDIOVASCULAR: Regular rate and regular rhythm without murmurs, gallops, or rubs. RESPIRATORY: diminished air entry in bases. GASTROINTESTINAL: Abdomen soft, non-tender, nondistended. Normal, active bowel sounds MUSCULOSKELETAL: Extremities without clubbing, cyanosis, or edema. NEURO: Alert & Oriented x4 to person, place, time, situation. Moves all ext x4 Medications and IVs Inpatient Medications Acetaminophen (Tylenol) 650 mg Q6H PRN PO PAIN 1-5 AND/OR FEVER >101F Last administered on 08/12/17 22:27; Start 08/11/17 at 05:00 Albuterol Sulfate (Albuterol Neb) 1.25 mg Q2HR NEB PRN NEB SHORTNESS OF BREATH ; Start 08/14/17 at 19:00 Albuterol/ Ipratropium (Duoneb Neb) 1 ampule Q6HR NEB INH Last administered on 08/15/17at 02:40; Start 08/11/17 at 10:00; Stop 08/15/17 at 09:59; Status DC Allopurinol (Zyloprim) 100 mg DAILY PO Last administered on 08/15/17 10:27; Start 08/11/17 at 09:00 Alprazolam (Xanax) 0.25 mg Q8H PRN PO ANXIETY Last administered on 08/14/17 21: 27; Start 08/14/17 at 19:00 Azithromycin 500 mg/Sodium Chloride 250 ml @ 250 mls/hr Q24H IV Last administered on 08/14/17at 21:36; Start 08/11/17 at 20:00 Bisacodyl (Dulcolax Supp) 10 mg DAILY PRN RECTAL SEVERE CONSITIPATION/ IF NPO ; Start 08/11/17 at 05:00 Brimonidine Tartrate (Alphagan 0.2% Opt Soln) 1 drop Q12HR LEFT EYE Last administered on 08/15/17at 10:23; Start 08/11/17 at 09:00 Cefepime HCl 2000 mg/Sodium Chloride 100 ml @ 200 mls/hr ONCE STAT IV Last administered on 08/10/17at 19:44; Start 08/10/17 at 19:04; Stop 08/10/17 at 19:33 ; Status DC Ceftriaxone Sodium 1000 mg/ Sodium Chloride 100 ml @ 200 mls/hr Q24H IV Last administered on 08/14/17at 11:32; Start 08/12/17 at 11:00 Chlorhexidine Gluconate (Chlorhexidine 2% Cloth) 3 pack UNSCH PRN TOP HYGIENIC CARE; Start 08/11/17 at 05:00; Stop 08/11/17 at 05:11; Status DC Cilostazol (Pletal) 50 mg BID PO Last administered on 08/15/17 10:26; Start at 09:00 Digoxin (Lanoxin Inj) 0.25 mg ONCE ONCE IV PUSH Last administered on 19:44; Start 08/10/17 at 19:15; Stop 08/10/17 at 19:16; Status DC Diltiazem HCl (Cardizem Cd) 120 mg BID PO Last administered on 08/15/17 10:28; Start 08/11/17 at 09:00 Famotidine (Pepcid) 20 mg DAILY PO Last administered on 08/15/17 10:27; Start 08/14/17 at 09:00 Folic Acid (Folate) 1 mg DAILY PO Last administered on 08/15/17 10:27; Start at 09:00 Furosemide (Lasix) 40 mg BID PO ; Start 08/11/17 at 09:00; Stop 08/11/17 at 09: 00; Status DC Hydroxychloroquine Sulfate (Plaquenil) 200 mg BID PO Last administered on 10:26; Start 08/11/17 at 09:00 Lactulose (Lactulose Liq) 30 ml DAILY PRN PO SEVERE CONSITIPATION/ IF PO; Start 08/11/17 at 05:00 Latanoprost (Xalatan 0.005% Opth Soln) 1 drop HS LEFT EYE Last administered on 08/14/17at 21:30; Start 08/11/17 at 21:00 Magnesium Hydroxide (Milk Of Magnesia Liq) 30 ml Q12H PRN PO Mild constipation ; Start 08/11/17 at 05:00 Magnesium Sulfate/ Dextrose 100 ml @ 100 mls/hr ONCE ONCE IV Last administered on 08/12/17at 09:51; Start 08/12/17 at 09:00; Stop 08/12/17 at 09:59; Status DC Methotrexate (Rheumatrex) 15 mg Q7D PO Last administered on 08/11/17at 09:00; Start 08/11/17 at 09:00 Methylprednisolone Sodium Succinate (SoluMEDROL INJ) 40 mg Q12H IV PUSH Last administered on 08/12/17at 05:00; Start 08/11/17 at 05:00; Stop 08/12/17 at 09:23; Status DC Metoprolol Tartrate (Lopressor) 25 mg BID PO Last administered on 08/11/17at 08: 53; Start 08/11/17 at 09:00; Status Future Hold Miscellaneous Information 1 Q361D XX ; Start 08/11/17 at 05:00; Stop 08/11/17 at 05:11; Status DC Morphine Sulfate (Morphine Inj) 2 mg Q2H PRN IV PUSH PAIN SCALE 6 TO 10 Last administered on 08/11/17at 05:16; Start 08/11/17 at 05:00 Non-Formulary Medication 1 drop Q12HR LEFT EYE ; Start 08/11/17 at 09:00; Stop 08/11/17 at 09:00; Status DC Ondansetron HCl (Zofran Inj) 4 mg Q6H PRN IV PUSH NAUSEA OR VOMITING; Start at 05:00 Patient Own Medication PT OWN MED: AZOPT EYE DR... BID LEFT EYE Last administered on 08/14/17at 21:30; Start 08/11/17 at 09:00 Pharmacy Profile Note 0 ml @ 0 mls/hr UNSCH OTHER ; Start 08/11/17 at 05:00; Stop 08/13/17 at 11:25; Status DC Piperacillin Sod/ Tazobactam Sod 100 ml @ 200 mls/hr Q6H IV Last administered on 08/12/17at 05:00; Start 08/11/17 at 05:00; Stop 08/12/17 at 09:23; Status DC Potassium Chloride (KCl) 40 meq ONCE ONCE PO Last administered on 08/13/17at 15: 40; Start 08/13/17 at 13:00; Stop 08/13/17 at 13:01; Status DC Prednisone (Deltasone) 20 mg TID PO Last administered on 08/15/17 10:26; Start 08/12/17 at 13:00 Rivaroxaban (Xarelto) 15 mg DAILY PO Last administered on 08/15/17 10:27; Start 08/11/17 at 09:00 Senna/Docusate Sodium (Venita-Colace) 1 tab BID PO Last administered on 08/15/17at 10:27; Start 08/11/17 at 09:00 Sennosides (Senokot) 17.2 mg Q12H PRN PO Moderate constipation; Start 08/11/17 at 05:00 Sodium Bicarbonate 150 meq/Sterile Water 1,000 ml @ 150 mls/hr Q6H40M IV Last administered on 08/11/17at 15:25; Start 08/11/17 at 05:30; Stop 08/11/17 at 16:08 ; Status DC Sodium Chloride (NS Flush) 2 ml BID IV FLUSH Last administered on 08/14/17at 21: 30; Start 08/11/17 at 09:00 Temazepam (Restoril) 15 mg HS PRN PO INSOMNIA; Start 08/11/17 at 05:00 Timolol Maleate (Timoptic 0.5% Opt Sol) 1 drop Q12HR LEFT EYE Last administered on 08/14/17 21:30; Start 08/11/17 at 09:00 Trazodone HCl (Desyrel) 50 mg HS PO Last administered on 08/14/17at 21:27; Start 08/11/17 at 21:00 Vancomycin HCl 850 mg/Sodium Chloride 258.5 ml @ 250 mls/hr DAILY@0600 IV Last administered on 08/11/17at 05:59; Start 08/11/17 at 06:00; Stop 08/11/17 at 12:00; Status DC Vancomycin HCl 1000 mg/Sodium Chloride 250 ml @ 250 mls/hr ONCE ONCE IV Last administered on 08/12/17at 13:39; Start 08/12/17 at 12:00; Stop 08/12/17 at 12:59; Status DC A/P Assessment and Plan A/P Respiratory failure secondary to pneumonia -continue Rocephin and azithromycin. -blood cultures negative. -Transitioned to oral steroids A. fib with RVR -Continue diltiazem - hold Xarelto due to GI bleed. hold metoprolol due to low BP. Left lower extremity pain Peripheral vascular disease -Vascular surgery following. Severe PAD but nothing acute. Outpatient follow- up will be arranged. Continue with risk factor modification - Patient was started on Pletal. She states her symptoms significantly improved. Rheumatoid arthritis -Continue Plaquenil -Continue methotrexate Chronic obstructive pulmonary disease- sob seems to be getting worse- -DuoNeb scheduled and as needed -steroid -patient is oxygen dependent. -will consult . Anemia- chronic- but gradually trending down- hemoccult is positive. hold Xarelto- consult GI- continue to monitor H/H and transfuse as needed. Hypokalemia; replaced. History gout -Allopurinol DVT GI prophylaxis -Arnaldo's and SCDs -Xarelto ( on hold due to anemia/ GI bleed) -Pepcid Discharge Planning not ready for discharge due to anemia/ positive hemoccult. dc planning to [facility] with [facility] when stable. d/w case management. Jsoe Villatoro MD Aug 15, 2017 12:00
[2017-08-15] MEDS: TIMOLOL MALEATE 0.5% OPHT SOLN 5 ML BTL LEFT EYE SCH ×2 (12:31→21:21)
[2017-08-15] MEDS: SODIUM CHLORIDE 0.9% FLUSH 10 ML FLUSH IV FLUSH SCH ×2 (12:32→21:18)
[2017-08-15] MEDS: cefTRIAXone INJ 1,000 MG in SODIUM CHLORIDE 0.9% INJ 100 ML IV SCH (12:35)
[2017-08-15] MEDS ORDERED: RESP: ALBUTEROL 2.5 MG/IPRATROPIUM 0.5 MG NEB (SCH) NEB (14:00)
--- NOTE | 2017-08-15 15:00 | PD.CONS ---
HPI History of Present Illness This is a 82 year old F with PMH significant for COPD requiring home O2 of 4 L via NC, PAD, CHF, a-fib, and CKD who presented to the hospital on August 10 with complaints of SOB and elevated heart rate with exertion. Our service has been consulted to evaluate pt for anemia with positive Hemoccult stool. Pt denies any GI symptoms including acid reflux, nausea, vomiting, abdominal pain, constipation, diarrhea, weight loss, obvious blood in stool. Pt denies ETOH, NSAIDs. Is on Xarelto for above mentioned cardiac issues. Last EGD in 2015 --> Mild antral gastropathy. 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 Previous EGD and colonoscopy in 2014 revealed bleeding gastric and duodenal AVMs, bleeding duodenal ulcer, diverticulosis, internal hemorrhoids, and rectal prolapse. (Tessa Nugent) PFSH Past Medical History PAD A-fib CHF COPD Gastric AVM Duodenal AVM Duodenal ulcer Rheumatoid arthritis Osteoarthritis Past Surgical History EGD Colonoscopy Hysterectomy (Tessa Nugent) Coded Allergies: No Known Allergies (Verified Adverse Reaction, Unknown, 08/10/17) Social History Denies ETOH Denies smoking (Tessa Nugent) Review of Systems Gastrointestinal: DENIES: Abdominal pain, Black stools, Bloody stools, Constipation, Diarrhea, Nausea, Vomiting, Difficulty Swallowing, Odynophagia, Swelling of Abdomen, Heartburn, Hematemesis (Tessa Nugent) GI Exam Vitals I&O Vital Signs Date Time Temp Pulse Resp B/P (MAP) Pulse Ox O2 Delivery O2 Flow Rate FiO2 08/15/17 12:00 97.5 102 18 108/56 (73) 97 08/15/17 08:00 98.1 101 18 98/53 (68) 99 08/15/17 02:42 96 Nasal Cannula 4.00 08/15/17 00:00 97.8 99 20 116/56 (76) 97 08/14/17 20:00 98.4 109 20 119/60 (79) 96 08/14/17 16:00 97.7 106 20 110/57 (74) 94 08/14/17 15:54 95 Nasal Cannula 4.00 I/O 08/14/17 08/14/17 08/14/17 08/15/174/18 4/4/18 07:00 15:00 23:00 07:00 15:00 23:00 Intake Total 250 ml 100 ml 720 ml 240 ml Balance 250 ml 100 ml 720 ml 240 ml Intake Oral 720 ml 240 ml IV Total 250 ml 100 ml 0 ml # Voids 3 4 3 # Bowel Movements 1 Imaging Last Impressions Chest X-Ray 08/10/17 1836 Signed Impressions: Service Date/Time: Thursday, August 10, 2017 18:52 - CONCLUSION: 1. Persistent diffuse interstitial disease being worse in the bases. 2. Mild increased density seen at the left base which may worsen some superimposed consolidation or atelectasis. 3. Blunting of the costophrenic angles which may represent minimal effusions. Lexx Lynch MD Laboratory Test 08/15/17 06:59 Hemoglobin 7.7 GM/DL Hematocrit 23.4 % Date/Time Source Procedure Growth Status 08/11/17 05:30 Blood Peripheral Aerobic Blood Culture - Preliminary NO GROWTH IN 4 DAYS Resulted 08/11/17 05:30 Blood Peripheral Anaerobic Blood Culture - Preliminary NO GROWTH IN 4 DAYS Resulted 08/14/17 14:11 Stool Stool Stool Occult Blood (LILIAN) - Final HEMOCCULT POSITIVE Complete 08/11/17 08:10 Urine Random Urine Legionella Antigen - Final PRESUMPTIVE NEGATIVE FOR LEGIONELLA P... Complete 08/11/17 08:10 Urine Random Urine Streptococcus pneumoniae Antigen (M - Final PRESUMPTIVE NEGATIVE FOR STREPTOCOCCU... Complete Physical Examination HEENT: Normocephalic; atraumatic CHEST: Labored respirations, tachypneic, shallow CARDIAC: Irregularly irregular, elevated rate ABDOMEN: Soft, nondistended, nontender; bowel sounds active SKIN: Normal; no rash; no jaundice. DRYING OVEN TENDER: No focal deficits; alert and oriented times three. (Tessa Nugent) Assessment and Plan Plan Assessment: - Anemia with positive Hemoccult stool- Pt denies history of anemia, however states her PCP sometimes has her take iron supplements. Iron studies during this admission low. Also has known CKD. However, H/H seems to be trending down since end of last year Denies GI symptoms including acid reflux, nausea, vomiting, abdominal pain, constipation, diarrhea, visible blood in stool History of GIB Last EGD in 2016 --> Mild antral gastropathy. 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 Previous EGD and colonoscopy in 2015 revealed bleeding gastric and duodenal AVMs, bleeding duodenal ulcer, diverticulosis, internal hemorrhoids, and rectal prolapse. - Anticoagulation with Xarelto- hx of a-fib, PAD, CHF - CKD- likely one of the multifactorial causes for anemia - COPD- wears 4 L O2 via NC at home, complaining of SOB Chest x-ray noted. - Rheumatoid arthritis- on immunosuppressants Plan: Will need EGD/colonoscopy Timing dependent on respiratory status Pulmonology consult pending For now, will monitor H/H Supportive care Further recommendations based on clinical course Pt has been seen and examined by myself and Dr. Hassan and this note is written on his behalf (Tessa Nugent) Physician Comments Seen and examined with BEKAH, no active bleeding. Agreeable to egd/colonoscopy once respiratory status improves. Monitor labs. Transfuse as needed. Will follow. Thank you (Olivia Hassan MD) Tessa Nugent Aug 15, 2017 15:00 Olivia Hassan MD Aug 15, 2017 16:38
[2017-08-15] MEDS: RESP: ALBUTEROL 2.5 MG/IPRATROPIUM 0.5 MG NEB (SCH) NEB ×2 (15:25→19:03)
[2017-08-15] MEDS: traZODone HCL 50 MG TAB PO SCH (21:18)
[2017-08-15] MEDS: methylPREDNISolone SOD SUCC 40 MG/1 ML VIAL IV SCH (21:18)
[2017-08-15] MEDS: LATANOPROST 0.005% OPHT SOLN 2.5 ML BTL LEFT EYE SCH (21:21)
[2017-08-15] MEDS: AZITHROMYCIN INJ 500 MG in SODIUM CHLOR 0.9% 250 ML INJ 250 ML IV SCH (21:25)
[2017-08-16] VITALS (7 sets, daily range): BP systolic 121–132; BP diastolic 56–78; PULSE 81–112; RESP 20–22; TEMP 97.3–97.9; O2SAT 94–100
[2017-08-16 05:26] LABS: AUTOMATED NEUTROPHIL # 11.9 TH/MM3 (1.8-7.7); BASOPHIL % 0.2 % (0.0-2.0); HEMATOCRIT 25.1 % (35.0-46.0); HEMOGLOBIN 8.2 GM/DL (11.6-15.3); LYMPH % 6.2 % (9.0-44.0); LYMPHOCYTE # 0.8 TH/MM3 (1.0-4.8); MEAN CORPUSCULAR HEMOGLOBIN 29.5 PG (27.0-34.0); MEAN CORPUSCULAR HGB CONC 32.5 % (32.0-36.0); MEAN PLATELET VOLUME 7.1 FL (7.0-11.0); MONO % 1.2 % (0.0-8.0); MONOCYTE # 0.2 TH/MM3 (0-0.9); NEUT % 92.4 % (16.0-70.0); PLATELET COUNT 463 TH/MM3 (150-450); RED BLOOD COUNT 2.76 MIL/MM3 (4.00-5.30); RED CELL DISTRIBUTION WIDTH 14.3 % (11.6-17.2); WHITE BLOOD COUNT 12.9 TH/MM3 (4.0-11.0)
--- NOTE | 2017-08-16 07:02 | RADRPT ---
EXAM DATE/TIME: 08/16/2017 06:15 [place] COMPARISON: CHEST SINGLE AP, August 10, 2017, 18:52. INDICATIONS : Short of breath MEDICAL HISTORY : Chronic obstructive pulmonary disease. Arthritis. SURGICAL HISTORY : Hysterectomy. ENCOUNTER: Subsequent ACUITY: 4 - 6 days PAIN SCORE: 0/10 LOCATION: Bilateral chest FINDINGS: Heart and mediastinum are unremarkable for technique. There are atherosclerotic calcifications of the aorta due to chronic atherosclerotic disease. Chronic reticular interstitial process is seen in the lungs no change. There may be a small right pleural effusion and a tiny left pleural effusion. Focal consolidation is not seen. CONCLUSION: Small right pleural effusion possible tiny left pleural effusion and otherwise chronic changes. Chhaya Golden MD on August 16, 2017 at 6:59 Board Certified Radiologist. This report was verified electronically.
[2017-08-16] MEDS: RESP: ALBUTEROL 2.5 MG/IPRATROPIUM 0.5 MG NEB (SCH) NEB ×4 (07:56→21:11)
[2017-08-16] MEDS: methylPREDNISolone SOD SUCC 40 MG/1 ML VIAL IV SCH ×2 (07:57→19:30)
[2017-08-16] MEDS: HYDROXYCHLOROQUINE SULFATE 200 MG TAB PO SCH ×2 (07:57→19:30)
[2017-08-16] MEDS: DILTIAZEM-CD 120 MG CAP ER PO SCH ×2 (07:57→19:30)
[2017-08-16] MEDS: DOCUSATE SODIUM 50 MG/SENNA 8.6 MG TAB PO SCH ×2 (07:57→19:31)
[2017-08-16] MEDS: FOLIC ACID 1 MG TAB PO SCH (07:57)
[2017-08-16] MEDS: CILOSTAZOL 50 MG TAB PO SCH ×2 (07:57→19:30)
[2017-08-16] MEDS: ALLOPURINOL 100 MG TAB PO SCH (07:58)
[2017-08-16] MEDS: SODIUM CHLORIDE 0.9% FLUSH 10 ML FLUSH IV FLUSH SCH ×2 (07:59→19:30)
[2017-08-16] MEDS: TIMOLOL MALEATE 0.5% OPHT SOLN 5 ML BTL LEFT EYE SCH ×2 (07:59→19:38)
[2017-08-16] MEDS: BRIMONIDINE TARTRATE 0.2% OPHT SOLN 5 ML BTL LEFT EYE SCH ×2 (07:59→19:38)
[2017-08-16] MEDS: FAMOTIDINE 20 MG TAB PO SCH (09:00)
[2017-08-16] MEDS: AZOPT EYE LEFT EYE SCH ×2 (09:00→19:31)
--- NOTE | 2017-08-16 09:22 | HHI.PR ---
Subjective Remarks in no acute distress. sob is better today. no fever. overall looks better today. Objective Vitals Vital Signs Date Time Temp Pulse Resp B/P (MAP) Pulse Ox O2 Delivery O2 Flow Rate FiO2 08/16/17 08:00 97.3 90 21 132/62 (85) 97 08/16/17 08:00 Nasal Cannula 4.00 08/16/17 07:59 95 Nasal Cannula 4.00 08/16/17 00:00 97.8 81 20 132/78 (96) 94 08/15/17 21:15 94 Nasal Cannula 4.00 08/15/17 20:00 97.8 95 20 149/71 (97) 94 08/15/17 16:00 98.2 102 19 137/67 (90) 95 08/15/17 15:25 99 Nasal Cannula 4.00 08/15/17 12:58 95 Nasal Cannula 4.00 08/15/17 12:00 97.5 102 18 108/56 (73) 97 I/O 08/15/17 08/15/17 08/15/17 08/16/17 08/16/17 08/16/17 07:00 15:00 23:00 07:00 15:00 23:00 Intake Total 240 ml 960 ml 490 ml Balance 240 ml 960 ml 490 ml Intake Oral 240 ml 960 ml 240 ml IV Total 250 ml # Voids 3 4 3 # Bowel Movements 1 Result Diagram: 08/16/17 0256 08/14/17 0417 Imaging Last Impressions Chest X-Ray 08/16/17 0600 Signed Impressions: Service Date/Time: August 06:15 - CONCLUSION: Small right pleural effusion possible tiny left pleural effusion and otherwise chronic changes. Chhaya Golden MD Objective Remarks GENERAL: This is a well-nourished, well-developed patient, in no apparent distress. CARDIOVASCULAR: Regular rate and regular rhythm without murmurs, gallops, or rubs. RESPIRATORY: diminished air entry in bases. GASTROINTESTINAL: Abdomen soft, non-tender, nondistended. Normal, active bowel sounds MUSCULOSKELETAL: Extremities without clubbing, cyanosis, or edema. NEURO: Alert & Oriented x4 to person, place, time, situation. Moves all ext x4 Medications and IVs Inpatient Medications Acetaminophen (Tylenol) 650 mg Q6H PRN PO PAIN 1-5 AND/OR FEVER >101F Last administered on 08/12/17 22:27; Start 08/11/17 at 05:00 Albuterol Sulfate (Albuterol Neb) 1.25 mg Q2HR NEB PRN NEB SHORTNESS OF BREATH ; Start 08/14/17 at 19:00 Albuterol/ Ipratropium (Duoneb Neb) 1 ampule QID NEB NEB Last administered on 08/16/17 07:56; Start 08/15/17 at 16:00 Allopurinol (Zyloprim) 100 mg DAILY PO Last administered on 08/16/17 07:58; Start 08/11/17 at 09:00 Alprazolam (Xanax) 0.25 mg Q8H PRN PO ANXIETY Last administered on 08/14/17 21: 27; Start 08/14/17 at 19:00 Azithromycin 500 mg/Sodium Chloride 250 ml @ 250 mls/hr Q24H IV Last administered on 08/15/17 21:25; Start 08/11/17 at 20:00 Bisacodyl (Dulcolax Supp) 10 mg DAILY PRN RECTAL SEVERE CONSITIPATION/ IF NPO ; Start 08/11/17 at 05:00 Brimonidine Tartrate (Alphagan 0.2% Opt Soln) 1 drop Q12HR LEFT EYE Last administered on 08/16/17 07:59; Start 08/11/17 at 09:00 Cefepime HCl 2000 mg/Sodium Chloride 100 ml @ 200 mls/hr ONCE STAT IV Last administered on 08/10/17at 19:44; Start 08/10/17 at 19:04; Stop 08/10/17 at 19:33 ; Status DC Ceftriaxone Sodium 1000 mg/ Sodium Chloride 100 ml @ 200 mls/hr Q24H IV Last administered on 08/15/17 12:35; Start 08/12/17 at 11:00 Chlorhexidine Gluconate (Chlorhexidine 2% Cloth) 3 pack UNSCH PRN TOP HYGIENIC CARE; Start 08/11/17 at 05:00; Stop 08/11/17 at 05:11; Status DC Cilostazol (Pletal) 50 mg BID PO Last administered on 08/16/17 07:57; Start at 09:00 Digoxin (Lanoxin Inj) 0.25 mg ONCE ONCE IV PUSH Last administered on 19:44; Start 08/10/17 at 19:15; Stop 08/10/17 at 19:16; Status DC Diltiazem HCl (Cardizem Cd) 120 mg BID PO Last administered on 08/16/17 07:57; Start 08/11/17 at 09:00 Famotidine (Pepcid) 20 mg DAILY PO Last administered on 08/15/17 10:27; Start 08/14/17 at 09:00 Folic Acid (Folate) 1 mg DAILY PO Last administered on 08/16/17 07:57; Start at 09:00 Furosemide (Lasix) 40 mg BID PO ; Start 08/11/17 at 09:00; Stop 08/11/17 at 09: 00; Status DC Hydroxychloroquine Sulfate (Plaquenil) 200 mg BID PO Last administered on 07:57; Start 08/11/17 at 09:00 Lactulose (Lactulose Liq) 30 ml DAILY PRN PO SEVERE CONSITIPATION/ IF PO; Start 08/11/17 at 05:00 Latanoprost (Xalatan 0.005% Opth Soln) 1 drop HS LEFT EYE Last administered on 08/15/17 21:21; Start 08/11/17 at 21:00 Magnesium Hydroxide (Milk Of Magnesia Liq) 30 ml Q12H PRN PO Mild constipation ; Start 08/11/17 at 05:00 Magnesium Sulfate/ Dextrose 100 ml @ 100 mls/hr ONCE ONCE IV Last administered on 08/12/17at 09:51; Start 08/12/17 at 09:00; Stop 08/12/17 at 09:59; Status DC Methotrexate (Rheumatrex) 15 mg Q7D PO Last administered on 08/11/17 09:00; Start 08/11/17 at 09:00 Methylprednisolone Sodium Succinate (SoluMEDROL INJ) 40 mg BID IV Last administered on 08/16/17 07:57; Start 08/15/17 at 21:00 Metoprolol Tartrate (Lopressor) 25 mg BID PO Last administered on 08/11/17at 08: 53; Start 08/11/17 at 09:00; Status Future Hold Miscellaneous Information 1 Q361D XX ; Start 08/11/17 at 05:00; Stop 08/11/17 at 05:11; Status DC Morphine Sulfate (Morphine Inj) 2 mg Q2H PRN IV PUSH PAIN SCALE 6 TO 10 Last administered on 08/11/17at 05:16; Start 08/11/17 at 05:00 Non-Formulary Medication 1 drop Q12HR LEFT EYE ; Start 08/11/17 at 09:00; Stop 08/11/17 at 09:00; Status DC Ondansetron HCl (Zofran Inj) 4 mg Q6H PRN IV PUSH NAUSEA OR VOMITING; Start at 05:00 Patient Own Medication PT OWN MED: AZOPT EYE DRChandrakant.. BID LEFT EYE Last administered on 08/14/17at 21:30; Start 08/11/17 at 09:00 Pharmacy Profile Note 0 ml @ 0 mls/hr UNSCH OTHER ; Start 08/11/17 at 05:00; Stop 08/13/17 at 11:25; Status DC Piperacillin Sod/ Tazobactam Sod 100 ml @ 200 mls/hr Q6H IV Last administered on 08/12/17at 05:00; Start 08/11/17 at 05:00; Stop 08/12/17 at 09:23; Status DC Potassium Chloride (KCl) 40 meq ONCE ONCE PO Last administered on 08/13/17at 15: 40; Start 08/13/17 at 13:00; Stop 08/13/17 at 13:01; Status DC Prednisone (Deltasone) 20 mg TID PO Last administered on 08/15/17at 17:21; Start 08/12/17 at 13:00; Stop 08/15/17 at 19:02; Status DC Rivaroxaban (Xarelto) 15 mg DAILY PO Last administered on 08/15/17at 10:27; Start 08/11/17 at 09:00; Status Future Hold Senna/Docusate Sodium (Venita-Colace) 1 tab BID PO Last administered on 08/16/17at 07:57; Start 08/11/17 at 09:00 Sennosides (Senokot) 17.2 mg Q12H PRN PO Moderate constipation; Start 08/11/17 at 05:00 Sodium Bicarbonate 150 meq/Sterile Water 1,000 ml @ 150 mls/hr Q6H40M IV Last administered on 08/11/17at 15:25; Start 08/11/17 at 05:30; Stop 08/11/17 at 16:08 ; Status DC Sodium Chloride (NS Flush) 2 ml BID IV FLUSH Last administered on 08/16/17at 07: 59; Start 08/11/17 at 09:00 Temazepam (Restoril) 15 mg HS PRN PO INSOMNIA; Start 08/11/17 at 05:00 Timolol Maleate (Timoptic 0.5% Opth Soln) 1 drop Q12HR LEFT EYE Last administered on 08/16/17at 07:59; Start 08/11/17 at 09:00 Trazodone HCl (Desyrel) 50 mg HS PO Last administered on 08/15/17 21:18; Start 08/11/17 at 21:00 Vancomycin HCl 850 mg/Sodium Chloride 258.5 ml @ 250 mls/hr DAILY@0600 IV Last administered on 08/11/17at 05:59; Start 08/11/17 at 06:00; Stop 08/11/17 at 12:00; Status DC Vancomycin HCl 1000 mg/Sodium Chloride 250 ml @ 250 mls/hr ONCE ONCE IV Last administered on 08/12/17at 13:39; Start 08/12/17 at 12:00; Stop 08/12/17 at 12:59; Status DC A/P Assessment and Plan A/P Respiratory failure secondary to pneumonia -continue Rocephin and azithromycin. -blood cultures negative. -Transitioned to oral steroids A. fib with RVR -Continue diltiazem - hold Xarelto due to GI bleed. hold metoprolol due to low BP. Left lower extremity pain Peripheral vascular disease -Vascular surgery following. Severe PAD but nothing acute. Outpatient follow- up will be arranged. Continue with risk factor modification - Patient was started on Pletal. She states her symptoms significantly improved. Rheumatoid arthritis -Continue Plaquenil -Continue methotrexate Chronic obstructive pulmonary disease- sob seems to be improving today. -DuoNeb scheduled and as needed -steroid; will taper down. -patient is oxygen dependent. - consulted . Anemia- chronic- but gradually trended down- hemoccult is positive. hold Xarelto- consulted GI- continue to monitor H/H and transfuse as needed. EGD/ colonoscopy when respiratory status improves. Hypokalemia; replaced. History gout -Allopurinol DVT GI prophylaxis -Arnaldo's and SCDs -Xarelto ( on hold due to anemia/ GI bleed) -Pepcid Discharge Planning not ready for discharge due to anemia/ positive hemoccult. d/w the patient again today and she agreed with rehab; case management will be consulted. Jose Villatoro MD Aug 16, 2017 09:22
[2017-08-16] MEDS: cefTRIAXone INJ 1,000 MG in SODIUM CHLORIDE 0.9% INJ 100 ML IV SCH (11:12)
--- NOTE | 2017-08-16 13:50 | HHI.GIFU ---
Subjective Remarks In the bed Awake and answers questions appropriately Currently denies any nausea, vomiting, or hematemesis Oxygen at 4 L continuous Afebrile (Meryl Lobo) Objective Vitals I&O Vital Signs Date Time Temp Pulse Resp B/P (MAP) Pulse Ox O2 Delivery O2 Flow Rate FiO2 08/16/17 11:24 97.9 108 22 123/69 (87) 100 08/16/17 08:00 97.3 90 21 132/62 (85) 97 08/16/17 08:00 Nasal Cannula 4.00 08/16/17 07:59 95 Nasal Cannula 4.00 08/16/17 00:00 97.8 81 20 132/78 (96) 94 08/15/17 21:15 94 Nasal Cannula 4.00 08/15/17 20:00 97.8 95 20 149/71 (97) 94 08/15/17 16:00 98.2 102 19 137/67 (90) 95 08/15/17 15:25 99 Nasal Cannula 4.00 I/O 08/15/17 08/15/17 08/15/17 08/16/17 08/16/17 08/16/17 06:59 14:59 22:59 06:59 14:59 22:59 Intake Total 240 ml 960 ml 490 ml Balance 240 ml 960 ml 490 ml Intake Oral 240 ml 960 ml 240 ml IV Total 250 ml # Voids 3 4 3 # Bowel Movements 1 Laboratory Laboratory Tests Test 08/16/17 02:56 White Blood Count 12.9 Red Blood Count 2.76 Hemoglobin 8.2 Hematocrit 25.1 Mean Corpuscular Volume 91.0 Mean Corpuscular Hemoglobin 29.5 Mean Corpuscular Hemoglobin Concent 32.5 Red Cell Distribution Width 14.3 Platelet Count 463 Mean Platelet Volume 7.1 Neutrophils (%) (Auto) 92.4 Lymphocytes (%) (Auto) 6.2 Monocytes (%) (Auto) 1.2 Eosinophils (%) (Auto) 0.0 Basophils (%) (Auto) 0.2 Neutrophils # (Auto) 11.9 Lymphocytes # (Auto) 0.8 Monocytes # (Auto) 0.2 Eosinophils # (Auto) 0.0 Basophils # (Auto) 0.0 CBC Comment DIFF FINAL Differential Comment Date/Time Source Procedure Growth Status 08/11/17 05:30 Blood Peripheral Aerobic Blood Culture - Final NO GROWTH IN 5 DAYS Complete 08/11/17 05:30 Blood Peripheral Anaerobic Blood Culture - Final NO GROWTH IN 5 DAYS Complete 08/14/17 14:11 Stool Stool Stool Occult Blood (LILIAN) - Final HEMOCCULT POSITIVE Complete 08/11/17 08:10 Urine Random Urine Legionella Antigen - Final PRESUMPTIVE NEGATIVE FOR LEGIONELLA P... Complete 08/11/17 08:10 Urine Random Urine Streptococcus pneumoniae Antigen (M - Final PRESUMPTIVE NEGATIVE FOR STREPTOCOCCU... Complete Imaging Last Impressions Chest X-Ray 08/16/17 0600 Signed Impressions: Service Date/Time: , August 16, 2017 06:15 - CONCLUSION: Small right pleural effusion possible tiny left pleural effusion and otherwise chronic changes. Chhaya Golden MD Physical Exam HEENT: Pupils round and reactive to light; normocephalic; atraumatic; pale but no jaundice NECK: Neck is supple, no obvious JVD CHEST: Chest without obvious rhonchi or wheezing CARDIAC: Regular rate and rhythm ABDOMEN: Round, Soft, nondistended, nontender; no hepatosplenomegaly; bowel sounds are present in all four quadrants. EXTREMITIES: No LE edema. SKIN: Pale no rash; no jaundice. BROOM BUNDLER: No focal deficits; alert and oriented times three. (Meryl Lobo) Assessment and Plan Plan Assessment: History - Anemia with positive Hemoccult stool- Pt denies history of anemia, however states her PCP sometimes has her take iron supplements. Iron studies during this admission low. Also has known CKD. However, H/H seems to be trending down since end of last year Denies GI symptoms including acid reflux, nausea, vomiting, abdominal pain, constipation, diarrhea, visible blood in stool History of GIB Last EGD in 2016 --> Mild antral gastropathy. 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 Previous EGD and colonoscopy in 2014 revealed bleeding gastric and duodenal AVMs, bleeding duodenal ulcer, diverticulosis, internal hemorrhoids, and rectal prolapse. - Anticoagulation with Xarelto- hx of a-fib, PAD, CHF - CKD- likely one of the multifactorial causes for anemia - COPD- wears 4 L O2 via NC at home, complaining of SOB Chest x-ray noted. - Rheumatoid arthritis- on immunosuppressants 08/16/17, patient is resting in the bed pale, alert, answers questions appropriately. Patient denies any current symptoms of nausea vomiting no diarrhea no constipation. Does note stools are loose. Discussed needed options of EGD and colonoscopy with the patient and the prep involved. She understands process. PT INR 1.7. Current hemoglobin 8.2. Currently patient denies any shortness of breath oxygen at 4 L which is patient's baseline that she uses at home and tenuously. Plan: Consent for EGD/colonoscopy in a.m. Prep mag citrate 3 bottles with Dulcolax. PT INR and CBC at 05 100 in the morning Nothing to eat or drink at midnight and afterwards until procedure complete Clear liquids encouraged this p.m. Monitor for any acute bleeding and transfuse as necessary Monitor labs PPI Supportive care Further recommendations based on clinical course Pt has been seen and examined by myself and Dr. Hassan and this note is written on his behalf (Meryl Lobo) Physician Comments Seen and examined with [employer], egd/colonoscopy planned for tomorrow if respiratory status stable. Mag citrate prep. (Olivia Hassan MD) Meryl Lobo Aug 16, 2017 13:49 Olivia Hassan MD Aug 16, 2017 17:41
[2017-08-16] MEDS ORDERED: IOHEXOL 350 MG/ML 10 ML VIAL (for RAD DIAG) IVCONTRAST ONE (15:33)
[2017-08-16] MEDS ORDERED: BISACODYL EC 5 MG TABEC PO ONE ×2 (16:15→18:00)
[2017-08-16] MEDS: MAGNESIUM CITRATE SOLN 300 ML BTL PO SCH ×2 (16:17→19:30)
--- NOTE | 2017-08-16 16:29 | RADRPT ---
EXAM DATE/TIME: 08/16/2017 15:18 [place] COMPARISON: CT PULMONARY ANGIOGRAM, December 19, 2016, 13:22. CHEST SINGLE AP, December 19, 2016, 11:25. CHEST SING LE AP, March 06, 2017, 14:39. CHEST SINGLE AP, August 16, 2017, 6:15. INDICATIONS : Shortness of breath IV CONTRAST: 55 cc Omnipaque 350 (iohexol) IV RADIATION DOSE: 5.06 CTDIvol (mGy) MEDICAL HISTORY : Chronic obstructive pulmonary disease. Cardiovascular disease Diverticulitis.Hypertension, anemia, as thma SURGICAL HISTORY : Tubal ligation. ENCOUNTER: Initial ACUITY: 1 day PAIN SCALE: 3/10 LOCATION: chest TECHNIQUE: Volumetric scanning of the chest was performed. Using automated exposure control and adjustment of t he mA and/or kV according to patient size, radiation dose was kept as low as reasonably achievable to obtain optimal diagnostic quality images. DICOM format image data is available electronically for review and comparison. Follow-up recommendations for detected pulmonary nodules are based at a minimum on nodule size and pa tient risk factors according to Fleischner Society Guidelines. FINDINGS: Comparison is made to multiple prior chest x-rays and to a CT pulmonary angiogram performed in December 2016. The examination is abnormal demonstrating a new right suprahilar mass which measures 3.0 x 3. 4 cm. The mass partially encases the upper lobe bronchus and the upper lobe pulmonary artery. This is a new finding compared to prior CT. There is also a moderate size right pleural effusion measurin g 3.3 cm, a new finding. In the lungs, prior CT isn't demonstrated peripheral interstitial opacities and lower lobe bronchiect asis. On today's examination, there is a new area of lacy interstitial opacities in the right suprah ilar region adjacent to the suprahilar mass. There is also a subsegmental area of consolidation with air bronchograms in the anterior left lower lobe. Wide windows for bony detail demonstrates diffuse osteopenia. CONCLUSION: 1. There is a new right suprahilar mass measuring 3.4 cm, highly suspicious for malignancy. 2. Moderate size right pleural effusion. 3. Subsegmental consolidative infiltrate in the anterior left lower lobe. 4. Chronic interstitial lung disease and bronchiectasis is similar to prior. Joe Green MD on August 16, 2017 at 16:21 Board Certified Radiologist. This report was verified electronically.
[2017-08-16] MEDS: traZODone HCL 50 MG TAB PO SCH (19:30)
[2017-08-16] MEDS: AZITHROMYCIN INJ 500 MG in SODIUM CHLOR 0.9% 250 ML INJ 250 ML IV SCH (19:31)
[2017-08-16] MEDS: LATANOPROST 0.005% OPHT SOLN 2.5 ML BTL LEFT EYE SCH (19:38)
[2017-08-17] VITALS (7 sets, daily range): BP systolic 110–136; BP diastolic 60–68; PULSE 53–104; RESP 17–20; TEMP 97.2–98.4; O2SAT 93–99
[2017-08-17] MEDS: MAGNESIUM CITRATE SOLN 300 ML BTL PO SCH (04:24)
[2017-08-17 05:51] LABS: HEMATOCRIT 27.7 % (35.0-46.0); HEMOGLOBIN 9.1 GM/DL (11.6-15.3); LYMPH % 4.8 % (9.0-44.0); LYMPHOCYTE # 0.8 TH/MM3 (1.0-4.8); MEAN CELL VOLUME 90.5 FL (80.0-100.0); MEAN CORPUSCULAR HEMOGLOBIN 29.8 PG (27.0-34.0); MEAN CORPUSCULAR HGB CONC 32.9 % (32.0-36.0); MONO % 3.1 % (0.0-8.0); MONOCYTE # 0.5 TH/MM3 (0-0.9); NEUT % 92.1 % (16.0-70.0); PLATELET COUNT 484 TH/MM3 (150-450); RED BLOOD COUNT 3.06 MIL/MM3 (4.00-5.30); RED CELL DISTRIBUTION WIDTH 14.2 % (11.6-17.2); WHITE BLOOD COUNT 17.3 TH/MM3 (4.0-11.0)
[2017-08-17 05:57] LABS: INTERNATIONAL NORMALIZED RATIO 1.1 RATIO
[2017-08-17] MEDS: RESP: ALBUTEROL 2.5 MG/IPRATROPIUM 0.5 MG NEB (SCH) NEB ×4 (07:50→20:00)
[2017-08-17] MEDS: AZOPT EYE LEFT EYE SCH ×2 (09:00→20:34)
--- NOTE | 2017-08-17 09:13 | HHI.PR ---
Subjective Remarks in no acute distress. looks and feels much more comfortable. no fever. awaiting EGD/colonoscopy today. Objective Vitals Vital Signs Date Time Temp Pulse Resp B/P (MAP) Pulse Ox O2 Delivery O2 Flow Rate FiO2 08/17/17 08:00 97.9 104 17 110/63 (79) 96 08/17/17 07:52 97 Nasal Cannula 4.00 08/17/17 00:00 97.2 85 20 125/68 (87) 99 08/16/17 21:13 99 Nasal Cannula 4.00 08/16/17 20:00 97.8 112 22 130/66 (87) 97 08/16/17 19:26 97 Nasal Cannula 4.00 Humidified 08/16/17 15:31 97.8 102 21 121/56 (77) 97 08/16/17 11:24 97.9 108 22 123/69 (87) 100 I/O 08/16/17 08/16/17 08/16/17 08/17/17 08/17/17 08/17/17 07:00 15:00 23:00 07:00 15:00 23:00 Intake Total 490 ml 950 ml 320 ml Output Total 600 ml Balance 490 ml 350 ml 320 ml Intake Oral 240 ml 700 ml 320 ml IV Total 250 ml 250 ml Output Urine Total 600 ml # Voids 3 3 # Bowel Movements 3 Result Diagram: 08/17/17 0524 08/14/17 0417 Imaging Last Impressions Chest X-Ray 08/16/17 0600 Signed Impressions: Service Date/Time: August 06:15 - CONCLUSION: Small right pleural effusion possible tiny left pleural effusion and otherwise chronic changes. Chhaya Golden MD Chest CT 08/16/17 0000 Signed Impressions: Service Date/Time: August 15:18 - CONCLUSION: 1. There is a new right suprahilar mass measuring 3.4 cm, highly suspicious for malignancy. 2. Moderate size right pleural effusion. 3. Subsegmental consolidative infiltrate in the anterior left lower lobe. 4. Chronic interstitial lung disease and bronchiectasis is similar to prior. Joe Green MD Objective Remarks GENERAL: This is a well-nourished, well-developed patient, in no apparent distress. CARDIOVASCULAR: Regular rate and regular rhythm without murmurs, gallops, or rubs. RESPIRATORY: diminished air entry in bases. GASTROINTESTINAL: Abdomen soft, non-tender, nondistended. Normal, active bowel sounds MUSCULOSKELETAL: Extremities without clubbing, cyanosis, or edema. NEURO: Alert & Oriented x4 to person, place, time, situation. Moves all ext x4 Medications and IVs Inpatient Medications Acetaminophen (Tylenol) 650 mg Q6H PRN PO PAIN 1-5 AND/OR FEVER >101F Last administered on 08/12/17 22:27; Start 08/11/17 at 05:00 Albuterol Sulfate (Albuterol Neb) 1.25 mg Q2HR NEB PRN NEB SHORTNESS OF BREATH ; Start 08/14/17 at 19:00 Albuterol/ Ipratropium (Duoneb Neb) 1 ampule QID NEB NEB Last administered on 08/17/17 07:50; Start 08/15/17 at 16:00 Allopurinol (Zyloprim) 100 mg DAILY PO Last administered on 08/16/17 07:58; Start 08/11/17 at 09:00 Alprazolam (Xanax) 0.25 mg Q8H PRN PO ANXIETY Last administered on 08/14/17 21: 27; Start 08/14/17 at 19:00 Azithromycin 500 mg/Sodium Chloride 250 ml @ 250 mls/hr Q24H IV Last administered on 08/16/17 19:31; Start 08/11/17 at 20:00 Bisacodyl (Dulcolax Ec) 10 mg ONCE ONCE PO Last administered on 08/16/17 16:17 ; Start 08/16/17 at 18:00; Stop 08/16/17 at 18:01; Status DC Bisacodyl (Dulcolax Supp) 10 mg DAILY PRN RECTAL SEVERE CONSITIPATION/ IF NPO ; Start 08/11/17 at 05:00 Brimonidine Tartrate (Alphagan 0.2% Opth Soln) 1 drop Q12HR LEFT EYE Last administered on 08/16/17 19:38; Start 08/11/17 at 09:00 Cefepime HCl 2000 mg/Sodium Chloride 100 ml @ 200 mls/hr ONCE STAT IV Last administered on 08/10/17at 19:44; Start 08/10/17 at 19:04; Stop 08/10/17 at 19:33 ; Status DC Ceftriaxone Sodium 1000 mg/ Sodium Chloride 100 ml @ 200 mls/hr Q24H IV Last administered on 08/16/17 11:12; Start 08/12/17 at 11:00 Chlorhexidine Gluconate (Chlorhexidine 2% Cloth) 3 pack UNSCH PRN TOP HYGIENIC CARE; Start 08/11/17 at 05:00; Stop 08/11/17 at 05:11; Status DC Cilostazol (Pletal) 50 mg BID PO Last administered on 08/16/17 19:30; Start at 09:00 Digoxin (Lanoxin Inj) 0.25 mg ONCE ONCE IV PUSH Last administered on at 19:44; Start 08/10/17 at 19:15; Stop 08/10/17 at 19:16; Status DC Diltiazem HCl (Cardizem Cd) 120 mg BID PO Last administered on 08/16/17 19:30; Start 08/11/17 at 09:00 Famotidine (Pepcid) 20 mg DAILY PO Last administered on 08/15/17 10:27; Start 08/14/17 at 09:00 Folic Acid (Folate) 1 mg DAILY PO Last administered on 08/16/17 07:57; Start at 09:00 Furosemide (Lasix) 40 mg BID PO ; Start 08/11/17 at 09:00; Stop 08/11/17 at 09: 00; Status DC Hydroxychloroquine Sulfate (Plaquenil) 200 mg BID PO Last administered on 19:30; Start 08/11/17 at 09:00 Lactulose (Lactulose Liq) 30 ml DAILY PRN PO SEVERE CONSITIPATION/ IF PO; Start 08/11/17 at 05:00 Latanoprost (Xalatan 0.005% Opth Soln) 1 drop HS LEFT EYE Last administered on 08/16/17 19:38; Start 08/11/17 at 21:00 Magnesium Hydroxide (Milk Of Magnesia Liq) 30 ml Q12H PRN PO Mild constipation ; Start 08/11/17 at 05:00 Magnesium Citrate (Citroma Liq) 300 ml 0500,1600,2000 PO Last administered on 4 /6/18at 04:24; Start 08/16/17 at 16:00; Stop 08/17/17 at 05:01; Status DC Magnesium Sulfate/ Dextrose 100 ml @ 100 mls/hr ONCE ONCE IV Last administered on 08/12/17at 09:51; Start 08/12/17 at 09:00; Stop 08/12/17 at 09:59; Status DC Methotrexate (Rheumatrex) 15 mg Q7D PO Last administered on 08/11/17at 09:00; Start 08/11/17 at 09:00 Methylprednisolone Sodium Succinate (SoluMEDROL INJ) 20 mg BID IV Last administered on 08/16/17at 19:30; Start 08/16/17 at 21:00 Metoprolol Tartrate (Lopressor) 25 mg BID PO Last administered on 08/11/17at 08: 53; Start 08/11/17 at 09:00; Status Future Hold Miscellaneous Information 1 Q361D XX ; Start 08/11/17 at 05:00; Stop 08/11/17 at 05:11; Status DC Morphine Sulfate (Morphine Inj) 2 mg Q2H PRN IV PUSH PAIN SCALE 6 TO 10 Last administered on 08/11/17at 05:16; Start 08/11/17 at 05:00 Non-Formulary Medication 1 drop Q12HR LEFT EYE ; Start 08/11/17 at 09:00; Stop 08/11/17 at 09:00; Status DC Ondansetron HCl (Zofran Inj) 4 mg Q6H PRN IV PUSH NAUSEA OR VOMITING; Start at 05:00 Patient Own Medication PT OWN MED: [facility] DRChandrakant.. BID LEFT EYE Last administered on 08/16/17at 09:00; Start 08/11/17 at 09:00 Pharmacy Profile Note 0 ml @ 0 mls/hr UNSCH OTHER ; Start 08/11/17 at 05:00; Stop 08/13/17 at 11:25; Status DC Piperacillin Sod/ Tazobactam Sod 100 ml @ 200 mls/hr Q6H IV Last administered on 08/12/17at 05:00; Start 08/11/17 at 05:00; Stop 08/12/17 at 09:23; Status DC Potassium Chloride (KCl) 40 meq ONCE ONCE PO Last administered on 08/13/17at 15: 40; Start 08/13/17 at 13:00; Stop 08/13/17 at 13:01; Status DC Prednisone (Deltasone) 20 mg TID PO Last administered on 08/15/17 17:21; Start 08/12/17 at 13:00; Stop 08/15/17 at 19:02; Status DC Rivaroxaban (Xarelto) 15 mg DAILY PO Last administered on 08/15/17 10:27; Start 08/11/17 at 09:00; Status Future Hold Senna/Docusate Sodium (Venita-Colace) 1 tab BID PO Last administered on 08/16/17 07:57; Start 08/11/17 at 09:00 Sennosides (Senokot) 17.2 mg Q12H PRN PO Moderate constipation; Start 08/11/17 at 05:00 Sodium Bicarbonate 150 meq/Sterile Water 1,000 ml @ 150 mls/hr Q6H40M IV Last administered on 08/11/17 15:25; Start 08/11/17 at 05:30; Stop 08/11/17 at 16:08 ; Status DC Sodium Chloride (NS Flush) 2 ml BID IV FLUSH Last administered on 08/16/17 19: 30; Start 08/11/17 at 09:00 Temazepam (Restoril) 15 mg HS PRN PO INSOMNIA; Start 08/11/17 at 05:00 Timolol Maleate (Timoptic 0.5% Opt Soln) 1 drop Q12HR LEFT EYE Last administered on 08/16/17 19:38; Start 08/11/17 at 09:00 Trazodone HCl (Desyrel) 50 mg HS PO Last administered on 08/16/17 19:30; Start 08/11/17 at 21:00 Vancomycin HCl 850 mg/Sodium Chloride 258.5 ml @ 250 mls/hr DAILY@0600 IV Last administered on 08/11/17at 05:59; Start 08/11/17 at 06:00; Stop 08/11/17 at 12:00; Status DC Vancomycin HCl 1000 mg/Sodium Chloride 250 ml @ 250 mls/hr ONCE ONCE IV Last administered on 08/12/17at 13:39; Start 08/12/17 at 12:00; Stop 08/12/17 at 12:59; Status DC A/P Assessment and Plan A/P Respiratory failure secondary to pneumonia -continue Rocephin and azithromycin. -blood cultures negative. -Transition to oral steroids soon Lung mass CT chest with suprahilar mass- suspect malignancy along with right pleural effusion awaiting pulmonary f/u and recommendations A. fib with RVR -Continue diltiazem - hold Xarelto due to GI bleed. hold metoprolol due to low BP. -will resume metoprolol soon if BP stable. Left lower extremity pain Peripheral vascular disease -Vascular surgery following. Severe PAD but nothing acute. Outpatient follow- up will be arranged. Continue with risk factor modification - Patient was started on Pletal. She states her symptoms significantly improved. Rheumatoid arthritis -Continue Plaquenil -Continue methotrexate Chronic obstructive pulmonary disease- sob seems to be improving today. -DuoNeb scheduled and as needed -steroid; will taper down. -patient is oxygen dependent. - consulted . Anemia- chronic- but gradually trended down- hemoccult is positive. hold Xarelto- consulted GI- continue to monitor H/H and transfuse as needed. EGD/ colonoscopy today. Hypokalemia; replaced. History gout -Allopurinol DVT GI prophylaxis -Arnaldo's and SCDs -Xarelto ( on hold due to anemia/ GI bleed) -Pepcid Discharge Planning awaiting GI w/u and pulmonary f/u and recommendations. dc planning to SNF. Jose Villatoro MD Aug 17, 2017 09:12
--- NOTE | 2017-08-17 11:31 | GIPROC ---
[facility] [address] [facility]. [facility], [address] EGD PROCEDURE REPORT EXAM DATE: 08/17/2017 PATIENT NAME: Zoë Cummings MR #: [id number] BIRTHDATE: 1935 ATTENDING: Olivia Hassan MD ORDER #: [id number] CREDIT RISK MANAGEMENT DIRECTOR: Pat Rich and Nayeli Sinclair STATUS: inpatient INDICATIONS: The patient is a 82 yr old female here for an EGD due to iron deficiency anemia PROCEDURE PERFORMED: EGD w/ biopsy MEDICATIONS: None and Per Anesthesia. TOPICAL ANESTHETIC: CONSENT: The patient understands the risks and benefits of the procedure and understands that these risks include, but are not limited to: sedation, allergic reaction, infection, perforation and/or bleeding. Alternative means of evaluation and treatment include, among others: physical exam, x-rays, and/or surgical intervention. The patient elects to proceed with this endoscopic procedure. medical equipment was checked for proper function. Hand hygiene and appropriate measures for infection prevention was taken. After the risks, benefits and alternatives of the procedure were thoroughly explained, Informed consent was verified, confirmed and timeout was successfully executed by the treatment team. The patient was anesthetized with topical anesthesia and the EC-[id number] (Pedi C) endoscope was introduced through the mouth and advanced to the second portion of the duodenum. Retroflexed views revealed no abnormalities The gastroscope was then slowly withdrawn and removed. ESOPHAGUS: The mucosa of the esophagus appeared normal. STOMACH: There was erythematous moderate gastritis in the gastric antrum. A biopsy was performed using cold forceps. Sample sent for histology. There was a moderate amount of residual food seen in the gastric body. Based on this, I suspect the patient has some level of gastroparesis. DUODENUM: The duodenal mucosa appeared normal in the bulb and second portion of the duodenum. ADVERSE EVENTS: There were no complications. IMPRESSIONS: 1. The esophagus appeared normal 2. There was erythematous gastritis in the gastric antrum; biopsy was performed 3. Food residue in the gastric body 4. Normal duodenal mucosa in the bulb and second portion of the duodenum 5. Retroflexed views revealed no abnormalities RECOMMENDATIONS: 1. Await biopsy results. Biopsy results will not be ready for 7-10 days. If you don't hear from us in two weeks, call our office for biopsy results. 2. Continue PPI PATIENT CONDITION: stable DISPOSITION: Inpatient REPEAT EXAM: Return 1 year EGD pending biopsy results Olivia Hassan MD eSigned: Olivia Hassan MD 08/17/2017 11:31 AM cc: PATIENT NAME: Zoë Cummings Treeso MR#: [id number]
--- NOTE | 2017-08-17 11:33 | GIPROC ---
[facility] [address] [facility]. [facility], [address] COLONOSCOPY PROCEDURE REPORT EXAM DATE: 08/17/2017 PATIENT NAME: Zoë Cummings MR #: [id number] BIRTHDATE: 1935 ENDOSCOPIST: Olivia Hassan MD ORDER #: [id number] FLEET SALES MANAGER: Pat Rich and Nayeli Sinclair STATUS: inpatient INDICATIONS: The patient is a 82 yr old female here for a colonoscopy due to iron deficiency anemia PROCEDURE PERFORMED: Colonoscopy, diagnostic MEDICATIONS: None and Per Anesthesia. PREP QUALITY: The [place] Bowel Prep Score was Right colon 1, Mid colon 2, and Left colon 1. Total = 4. PREP TYPE:Magnesium Citrate ESTIMATED BLOOD LOSS: None CONSENT: The patient understands the risks and benefits of the procedure and understands that these risks include, but are not limited to: sedation, allergic reaction, infection, perforation and/or bleeding. Alternative means of evaluation and treatment include, among others: physical exam, x-rays, and/or surgical intervention. The patient elects to proceed with this endoscopic procedure. medical equipment was checked for proper function. Hand hygiene and appropriate measures for infection prevention was taken. After the risks, benefits and alternatives of the procedure were thoroughly explained, Informed consent was verified, confirmed and timeout was successfully executed by the treatment team. A digital exam revealed external hemorrhoids The Pentax EC-[id number] endoscope was introduced through the anus and advanced to the cecum, which was identified by both the appendix and ileocecal valve. The instrument was then slowly withdrawn as the colon was fully examined. COLON FINDINGS: Moderate diverticulosis was noted in the sigmoid colon. No bleeding was noted from the diverticulosis. Poor prep. Retroflexed views revealed internal hemorrhoids and Retroflexed views revealed medium internal hemorrhoids The scope was then completely withdrawn from the patient and the procedure terminated. PROCEDURE WITHDRAWAL TIME:7minutes ADVERSE EVENTS: There were no complications. IMPRESSIONS: 1. Moderate diverticulosis was noted in the sigmoid colon 2. Poor prep 3. Retroflexed views revealed internal hemorrhoids 4. Retroflexed views revealed medium internal hemorrhoids 5. Revealed external hemorrhoids RECOMMENDATIONS: 1. Benefiber 2 tsp daily 2. Continue surveillance 3. Yearly hemoccult 4. No seeds, nuts and popcorn in diet RECALL: Return 1 month Colonoscopy Olivia Hassan MD eSigned: Olivia Hassan MD 08/17/2017 11:33 AM cc: PATIENT NAME: Zoë Cummings MR#: [id number]
[2017-08-17] MEDS ORDERED: PROPOFOL 200 MG/20 ML AMP IV ONE (12:00)
[2017-08-17] MEDS ORDERED: LIDOCAINE HCL 1% PF 5 ML SYRINGE OTHER ONE (12:00)
[2017-08-17] MEDS ORDERED: PHENYLEPH/NS 1000 MCG/10 ML SYR IV ONE (12:00)
[2017-08-17] MEDS: ALLOPURINOL 100 MG TAB PO SCH (12:04)
[2017-08-17] MEDS: FAMOTIDINE 20 MG TAB PO SCH (12:04)
[2017-08-17] MEDS: cefTRIAXone INJ 1,000 MG in SODIUM CHLORIDE 0.9% INJ 100 ML IV SCH (12:04)
[2017-08-17] MEDS: CILOSTAZOL 50 MG TAB PO SCH (12:04)
[2017-08-17] MEDS: DILTIAZEM-CD 120 MG CAP ER PO SCH ×2 (12:04→20:34)
[2017-08-17] MEDS: DOCUSATE SODIUM 50 MG/SENNA 8.6 MG TAB PO SCH ×2 (12:05→20:35)
[2017-08-17] MEDS: FOLIC ACID 1 MG TAB PO SCH (12:05)
[2017-08-17] MEDS: HYDROXYCHLOROQUINE SULFATE 200 MG TAB PO SCH ×2 (12:08→20:35)
[2017-08-17] MEDS: methylPREDNISolone SOD SUCC 40 MG/1 ML VIAL IV SCH ×2 (12:09→20:29)
[2017-08-17] MEDS: TIMOLOL MALEATE 0.5% OPHT SOLN 5 ML BTL LEFT EYE SCH ×2 (12:13→20:26)
[2017-08-17] MEDS: SODIUM CHLORIDE 0.9% FLUSH 10 ML FLUSH IV FLUSH SCH ×2 (12:13→20:25)
[2017-08-17] MEDS: BRIMONIDINE TARTRATE 0.2% OPHT SOLN 5 ML BTL LEFT EYE SCH ×2 (12:13→20:26)
[2017-08-17] MEDS: LATANOPROST 0.005% OPHT SOLN 2.5 ML BTL LEFT EYE SCH (20:27)
[2017-08-17] MEDS: traZODone HCL 50 MG TAB PO SCH (20:34)
[2017-08-18] VITALS (7 sets, daily range): BP systolic 116–130; BP diastolic 55–79; PULSE 76–97; RESP 16–18; TEMP 97–97.9; O2SAT 92–98
[2017-08-18] MEDS: RESP: ALBUTEROL 2.5 MG/IPRATROPIUM 0.5 MG NEB (SCH) NEB ×4 (07:38→20:00)
[2017-08-18] MEDS: DOCUSATE SODIUM 50 MG/SENNA 8.6 MG TAB PO SCH ×2 (09:00→19:53)
[2017-08-18] MEDS: AZOPT EYE LEFT EYE SCH ×2 (09:00→19:51)
--- NOTE | 2017-08-18 09:10 | HHI.PR ---
Subjective Remarks in no acute distress. sob improving. no fever. no new complaints. Objective Vitals Vital Signs Date Time Temp Pulse Resp B/P (MAP) Pulse Ox O2 Delivery O2 Flow Rate FiO2 08/18/17 08:00 97.9 76 17 125/61 (82) 98 08/18/17 07:39 95 Nasal Cannula 4.00 08/18/17 00:09 97.9 92 18 125/64 (84) 97 08/17/17 20:30 Nasal Cannula 4.00 Humidified 08/17/17 20:00 98.3 53 18 128/60 (82) 96 08/17/17 16:02 93 Nasal Cannula 4.00 08/17/17 16:00 98.4 96 17 136/63 (87) 98 08/17/17 12:00 97.5 101 17 130/64 (86) 97 08/17/17 11:44 99 20 140/77 (98) 93 08/17/17 11:35 97.5 99 18 141/74 (96) 95 I/O 08/17/17 08/17/17 08/17/17 08/18/17 08/18/17 08/18/17 07:00 15:00 23:00 07:00 15:00 23:00 Intake Total 320 ml 200 ml 0 ml Balance 320 ml 200 ml 0 ml Intake Oral 320 ml 0 ml IV Total 0 ml Other 200 ml # Voids 3 3 3 # Bowel Movements 3 2 2 1 Result Diagram: 08/17/17 0524 08/14/17 0417 Imaging Last Impressions Chest X-Ray 08/16/17 0600 Signed Impressions: Service Date/Time: August 06:15 - CONCLUSION: Small right pleural effusion possible tiny left pleural effusion and otherwise chronic changes. Chhaya Golden MD Chest CT 08/16/17 0000 Signed Impressions: Service Date/Time: August 15:18 - CONCLUSION: 1. There is a new right suprahilar mass measuring 3.4 cm, highly suspicious for malignancy. 2. Moderate size right pleural effusion. 3. Subsegmental consolidative infiltrate in the anterior left lower lobe. 4. Chronic interstitial lung disease and bronchiectasis is similar to prior. Joe Green MD Objective Remarks GENERAL: in no apparent distress. CARDIOVASCULAR: Regular rate and regular rhythm without murmurs, gallops, or rubs. RESPIRATORY: diminished air entry in bases. GASTROINTESTINAL: Abdomen soft, non-tender, nondistended. Normal, active bowel sounds MUSCULOSKELETAL: Extremities without clubbing, cyanosis, or edema. NEURO: Alert & Oriented x4 to person, place, time, situation. Moves all ext x4 Procedures EGD/ colonoscopy. Medications and IVs Inpatient Medications Acetaminophen (Tylenol) 650 mg Q6H PRN PO PAIN 1-5 AND/OR FEVER >101F Last administered on 08/12/17 22:27; Start 08/11/17 at 05:00 Albuterol Sulfate (Albuterol Neb) 1.25 mg Q2HR NEB PRN NEB SHORTNESS OF BREATH ; Start 08/14/17 at 19:00 Albuterol/ Ipratropium (Duoneb Neb) 1 ampule QID NEB NEB Last administered on 08/18/17 07:38; Start 08/15/17 at 16:00 Allopurinol (Zyloprim) 100 mg DAILY PO Last administered on 08/17/17 12:04; Start 08/11/17 at 09:00 Alprazolam (Xanax) 0.25 mg Q8H PRN PO ANXIETY Last administered on 08/14/17 21: 27; Start 08/14/17 at 19:00 Azithromycin 500 mg/Sodium Chloride 250 ml @ 250 mls/hr Q24H IV Last administered on 08/16/17 19:31; Start 08/11/17 at 20:00; Stop 08/17/17 at 14:03; Status DC Bisacodyl (Dulcolax Ec) 10 mg ONCE ONCE PO Last administered on 08/16/17 16:17 ; Start 08/16/17 at 18:00; Stop 08/16/17 at 18:01; Status DC Bisacodyl (Dulcolax Supp) 10 mg DAILY PRN RECTAL SEVERE CONSITIPATION/ IF NPO ; Start 08/11/17 at 05:00 Brimonidine Tartrate (Alphagan 0.2% Opth Soln) 1 drop Q12HR LEFT EYE Last administered on 08/17/17 20:26; Start 08/11/17 at 09:00 Cefepime HCl 2000 mg/Sodium Chloride 100 ml @ 200 mls/hr ONCE STAT IV Last administered on 08/10/17at 19:44; Start 08/10/17 at 19:04; Stop 08/10/17 at 19:33 ; Status DC Ceftriaxone Sodium 1000 mg/ Sodium Chloride 100 ml @ 200 mls/hr Q24H IV Last administered on 08/17/17at 12:04; Start 08/12/17 at 11:00 Chlorhexidine Gluconate (Chlorhexidine 2% Cloth) 3 pack UNSCH PRN TOP HYGIENIC CARE; Start 08/11/17 at 05:00; Stop 08/11/17 at 05:11; Status DC Cilostazol (Pletal) 50 mg BID PO Last administered on 08/17/17at 12:04; Start at 09:00; Stop 08/17/17 at 14:03; Status DC Digoxin (Lanoxin Inj) 0.25 mg ONCE ONCE IV PUSH Last administered on at 19:44; Start 08/10/17 at 19:15; Stop 08/10/17 at 19:16; Status DC Diltiazem HCl (Cardizem Cd) 120 mg BID PO Last administered on 08/17/17 20:34; Start 08/11/17 at 09:00 Famotidine (Pepcid) 20 mg DAILY PO Last administered on 08/17/17 12:04; Start 08/14/17 at 09:00 Folic Acid (Folate) 1 mg DAILY PO Last administered on 08/17/17at 12:05; Start at 09:00 Furosemide (Lasix) 40 mg BID PO ; Start 08/11/17 at 09:00; Stop 08/11/17 at 09: 00; Status DC Hydroxychloroquine Sulfate (Plaquenil) 200 mg BID PO Last administered on at 20:35; Start 08/11/17 at 09:00 Lactulose (Lactulose Liq) 30 ml DAILY PRN PO SEVERE CONSITIPATION/ IF PO; Start 08/11/17 at 05:00 Latanoprost (Xalatan 0.005% Opth Soln) 1 drop HS LEFT EYE Last administered on 08/17/17at 20:27; Start 08/11/17 at 21:00 Magnesium Hydroxide (Milk Of Magnesia Liq) 30 ml Q12H PRN PO Mild constipation ; Start 08/11/17 at 05:00 Magnesium Citrate (Citroma Liq) 300 ml 0500,1600,2000 PO Last administered on at 04:24; Start 08/16/17 at 16:00; Stop 08/17/17 at 05:01; Status DC Magnesium Sulfate/ Dextrose 100 ml @ 100 mls/hr ONCE ONCE IV Last administered on 08/12/17at 09:51; Start 08/12/17 at 09:00; Stop 08/12/17 at 09:59; Status DC Methotrexate (Rheumatrex) 15 mg Q7D PO Last administered on 08/11/17at 09:00; Start 08/11/17 at 09:00 Methylprednisolone Sodium Succinate (SoluMEDROL INJ) 20 mg BID IV Last administered on 08/17/17at 20:29; Start 08/16/17 at 21:00 Metoprolol Tartrate (Lopressor) 25 mg BID PO Last administered on 08/11/17at 08: 53; Start 08/11/17 at 09:00; Status Future Hold Miscellaneous Information 1 Q361D XX ; Start 08/11/17 at 05:00; Stop 08/11/17 at 05:11; Status DC Morphine Sulfate (Morphine Inj) 2 mg Q2H PRN IV PUSH PAIN SCALE 6 TO 10 Last administered on 08/11/17at 05:16; Start 08/11/17 at 05:00 Non-Formulary Medication 1 drop Q12HR LEFT EYE ; Start 08/11/17 at 09:00; Stop 08/11/17 at 09:00; Status DC Ondansetron HCl (Zofran Inj) 4 mg Q6H PRN IV PUSH NAUSEA OR VOMITING; Start at 05:00 Patient Own Medication PT OWN MED: AZOPT EYE DR... BID LEFT EYE Last administered on 08/16/17at 09:00; Start 08/11/17 at 09:00 Pharmacy Profile Note 0 ml @ 0 mls/hr UNSCH OTHER ; Start 08/11/17 at 05:00; Stop 08/13/17 at 11:25; Status DC Piperacillin Sod/ Tazobactam Sod 100 ml @ 200 mls/hr Q6H IV Last administered on 08/12/17at 05:00; Start 08/11/17 at 05:00; Stop 08/12/17 at 09:23; Status DC Potassium Chloride (KCl) 40 meq ONCE ONCE PO Last administered on 08/13/17at 15: 40; Start 08/13/17 at 13:00; Stop 08/13/17 at 13:01; Status DC Prednisone (Deltasone) 20 mg TID PO Last administered on 08/15/17 17:21; Start 08/12/17 at 13:00; Stop 08/15/17 at 19:02; Status DC Rivaroxaban (Xarelto) 15 mg DAILY PO Last administered on 08/15/17 10:27; Start 08/11/17 at 09:00; Stop 08/17/17 at 14:03; Status DC Senna/Docusate Sodium (Venita-Colace) 1 tab BID PO Last administered on 08/17/17at 12:05; Start 08/11/17 at 09:00 Sennosides (Senokot) 17.2 mg Q12H PRN PO Moderate constipation; Start 08/11/17 at 05:00 Sodium Bicarbonate 150 meq/Sterile Water 1,000 ml @ 150 mls/hr Q6H40M IV Last administered on 08/11/17at 15:25; Start 08/11/17 at 05:30; Stop 08/11/17 at 16:08 ; Status DC Sodium Chloride (NS Flush) 2 ml BID IV FLUSH Last administered on 08/17/17at 20: 25; Start 08/11/17 at 09:00 Temazepam (Restoril) 15 mg HS PRN PO INSOMNIA; Start 08/11/17 at 05:00 Timolol Maleate (Timoptic 0.5% Opt Soln) 1 drop Q12HR LEFT EYE Last administered on 08/17/17 20:26; Start 08/11/17 at 09:00 Trazodone HCl (Desyrel) 50 mg HS PO Last administered on 08/17/17 20:34; Start 08/11/17 at 21:00 Vancomycin HCl 850 mg/Sodium Chloride 258.5 ml @ 250 mls/hr DAILY@0600 IV Last administered on 08/11/17at 05:59; Start 08/11/17 at 06:00; Stop 08/11/17 at 12:00; Status DC Vancomycin HCl 1000 mg/Sodium Chloride 250 ml @ 250 mls/hr ONCE ONCE IV Last administered on 08/12/17at 13:39; Start 08/12/17 at 12:00; Stop 08/12/17 at 12:59; Status DC A/P Assessment and Plan A/P Respiratory failure secondary to pneumonia -continue Rocephin and azithromycin. -blood cultures negative. -Transition to oral steroids . Lung mass CT chest with suprahilar mass- suspect malignancy along with right pleural effusion previously d/w - plan for bronchoscopy on Sunday. A. fib with RVR -Continue diltiazem - hold Xarelto for planned bronchoscopy-. -will resume metoprolol at a lower dose. Left lower extremity pain Peripheral vascular disease -Vascular surgery following. Severe PAD but nothing acute. Outpatient follow- up will be arranged. Continue with risk factor modification - Patient was started on Pletal. She states her symptoms significantly improved. Rheumatoid arthritis -Continue Plaquenil -Continue methotrexate Chronic obstructive pulmonary disease- sob seems to be improving today. -DuoNeb scheduled and as needed -steroid; will switch to prednisone. -patient is oxygen dependent. - consulted . Anemia- chronic- due to GI bleed. hold Xarelto for planned procedure. s/p EGD/ colonoscopy with gastritis/ diverticulosis, internal and external hemorrhoids. Hypokalemia; replaced. History gout -Allopurinol DVT GI prophylaxis -Arnaldo's and SCDs -Xarelto ( on hold for planned bronchoscopy) -Pepcid Discharge Planning awaiting bronchoscopy on Sunday. dc planning to SNF. Jose Villatoro MD Aug 18, 2017 09:10
[2017-08-18] MEDS: FAMOTIDINE 20 MG TAB PO SCH (10:15)
[2017-08-18] MEDS: FOLIC ACID 1 MG TAB PO SCH (10:16)
[2017-08-18] MEDS: methylPREDNISolone SOD SUCC 40 MG/1 ML VIAL IV SCH ×2 (10:16→19:51)
[2017-08-18] MEDS: HYDROXYCHLOROQUINE SULFATE 200 MG TAB PO SCH ×2 (10:16→19:54)
[2017-08-18] MEDS: ALLOPURINOL 100 MG TAB PO SCH (10:16)
[2017-08-18] MEDS: DILTIAZEM-CD 120 MG CAP ER PO SCH ×2 (10:16→19:52)
[2017-08-18] MEDS: TIMOLOL MALEATE 0.5% OPHT SOLN 5 ML BTL LEFT EYE SCH ×2 (10:17→19:52)
[2017-08-18] MEDS: BRIMONIDINE TARTRATE 0.2% OPHT SOLN 5 ML BTL LEFT EYE SCH ×2 (10:18→19:52)
[2017-08-18] MEDS: METHOTREXATE 2.5 MG TAB PO SCH (10:26)
[2017-08-18] MEDS: cefTRIAXone INJ 1,000 MG in SODIUM CHLORIDE 0.9% INJ 100 ML IV SCH (11:26)
[2017-08-18] MEDS: SODIUM CHLORIDE 0.9% FLUSH 10 ML FLUSH IV FLUSH SCH ×2 (15:45→19:51)
[2017-08-18] MEDS: LATANOPROST 0.005% OPHT SOLN 2.5 ML BTL LEFT EYE SCH (19:52)
[2017-08-18] MEDS: traZODone HCL 50 MG TAB PO SCH (19:53)
[2017-08-19] VITALS (7 sets, daily range): BP systolic 117–147; BP diastolic 55–79; PULSE 80–99; RESP 16–18; TEMP 97.3–97.7; O2SAT 94–100
[2017-08-19] MEDS: RESP: ALBUTEROL 2.5 MG/IPRATROPIUM 0.5 MG NEB (SCH) NEB ×5 (08:40→19:51)
[2017-08-19] MEDS: AZOPT EYE LEFT EYE SCH ×2 (09:00→19:39)
[2017-08-19] MEDS: TIMOLOL MALEATE 0.5% OPHT SOLN 5 ML BTL LEFT EYE SCH ×2 (09:24→19:39)
[2017-08-19] MEDS: DOCUSATE SODIUM 50 MG/SENNA 8.6 MG TAB PO SCH ×2 (09:25→19:38)
[2017-08-19] MEDS: predniSONE 20 MG TAB PO SCH (09:25)
[2017-08-19] MEDS: DILTIAZEM-CD 120 MG CAP ER PO SCH ×2 (09:25→19:38)
[2017-08-19] MEDS: HYDROXYCHLOROQUINE SULFATE 200 MG TAB PO SCH ×2 (09:25→19:39)
[2017-08-19] MEDS: ALLOPURINOL 100 MG TAB PO SCH (09:26)
[2017-08-19] MEDS: METOPROLOL TARTRATE 25 MG TAB PO SCH (09:26)
[2017-08-19] MEDS: FAMOTIDINE 20 MG TAB PO SCH (09:26)
[2017-08-19] MEDS: FOLIC ACID 1 MG TAB PO SCH (09:26)
[2017-08-19] MEDS: BRIMONIDINE TARTRATE 0.2% OPHT SOLN 5 ML BTL LEFT EYE SCH ×2 (09:27→19:39)
[2017-08-19] MEDS: SODIUM CHLORIDE 0.9% FLUSH 10 ML FLUSH IV FLUSH SCH ×2 (09:28→19:40)
--- NOTE | 2017-08-19 10:21 | HHI.PR ---
Subjective Remarks in no acute distress. sob at her baseline. no new complaints. Objective Vitals Vital Signs Date Time Temp Pulse Resp B/P (MAP) Pulse Ox O2 Delivery O2 Flow Rate FiO2 08/19/17 08:40 97 Nasal Cannula 4.00 08/19/17 08:00 97.3 80 18 117/58 (77) 100 08/19/17 00:00 97.5 83 18 126/79 (95) 98 08/18/17 20:12 93 Nasal Cannula 4.00 08/18/17 20:00 97.7 97 18 118/58 (78) 92 08/18/17 19:45 Nasal Cannula 4.00 Humidified 08/18/17 16:00 97.9 91 16 116/55 (75) 94 08/18/17 12:00 97.0 80 17 130/79 (96) 95 I/O 08/18/17 08/18/17 08/18/17 08/19/17 08/19/17 08/19/17 07:00 15:00 23:00 07:00 15:00 23:00 Intake Total 100 ml 1200 ml Output Total 200 ml Balance 100 ml 1200 ml -200 ml Intake Oral 1200 ml IV Total 100 ml Output Urine Total 200 ml # Voids 3 6 # Bowel Movements 1 3 1 Result Diagram: 08/17/17 0524 Imaging Last Impressions Chest X-Ray 08/16/17 0600 Signed Impressions: Service Date/Time: August 06:15 - CONCLUSION: Small right pleural effusion possible tiny left pleural effusion and otherwise chronic changes. Chhaya Golden MD Chest CT 08/16/17 0000 Signed Impressions: Service Date/Time: August 15:18 - CONCLUSION: 1. There is a new right suprahilar mass measuring 3.4 cm, highly suspicious for malignancy. 2. Moderate size right pleural effusion. 3. Subsegmental consolidative infiltrate in the anterior left lower lobe. 4. Chronic interstitial lung disease and bronchiectasis is similar to prior. Joe Green MD Objective Remarks GENERAL: in no apparent distress. CARDIOVASCULAR: Regular rate and regular rhythm without murmurs, gallops, or rubs. RESPIRATORY: diminished air entry in bases. GASTROINTESTINAL: Abdomen soft, non-tender, nondistended. Normal, active bowel sounds MUSCULOSKELETAL: Extremities without clubbing, cyanosis, or edema. NEURO: Alert & Oriented x4 to person, place, time, situation. Moves all ext x4 Procedures EGD/ colonoscopy. Medications and IVs Inpatient Medications Acetaminophen (Tylenol) 650 mg Q6H PRN PO PAIN 1-5 AND/OR FEVER >101F Last administered on 08/12/17 22:27; Start 08/11/17 at 05:00 Albuterol Sulfate (Albuterol Neb) 1.25 mg Q2HR NEB PRN NEB SHORTNESS OF BREATH ; Start 08/14/17 at 19:00 Albuterol/ Ipratropium (Duoneb Neb) 1 ampule QID NEB NEB Last administered on 08/19/17 08:40; Start 08/15/17 at 16:00 Allopurinol (Zyloprim) 100 mg DAILY PO Last administered on 08/19/17 09:26; Start 08/11/17 at 09:00 Alprazolam (Xanax) 0.25 mg Q8H PRN PO ANXIETY Last administered on 08/14/17 21: 27; Start 08/14/17 at 19:00 Azithromycin 500 mg/Sodium Chloride 250 ml @ 250 mls/hr Q24H IV Last administered on 08/16/17 19:31; Start 08/11/17 at 20:00; Stop 08/17/17 at 14:03; Status DC Bisacodyl (Dulcolax Ec) 10 mg ONCE ONCE PO Last administered on 08/16/17 16:17 ; Start 08/16/17 at 18:00; Stop 08/16/17 at 18:01; Status DC Bisacodyl (Dulcolax Supp) 10 mg DAILY PRN RECTAL SEVERE CONSITIPATION/ IF NPO ; Start 08/11/17 at 05:00 Brimonidine Tartrate (Alphagan 0.2% Opth Soln) 1 drop Q12HR LEFT EYE Last administered on 08/19/17 09:27; Start 08/11/17 at 09:00 Cefepime HCl 2000 mg/Sodium Chloride 100 ml @ 200 mls/hr ONCE STAT IV Last administered on 08/10/17at 19:44; Start 08/10/17 at 19:04; Stop 08/10/17 at 19:33 ; Status DC Ceftriaxone Sodium 1000 mg/ Sodium Chloride 100 ml @ 200 mls/hr Q24H IV Last administered on 08/18/17 11:26; Start 08/12/17 at 11:00 Chlorhexidine Gluconate (Chlorhexidine 2% Cloth) 3 pack UNSCH PRN TOP HYGIENIC CARE; Start 08/11/17 at 05:00; Stop 08/11/17 at 05:11; Status DC Cilostazol (Pletal) 50 mg BID PO Last administered on 08/17/17at 12:04; Start at 09:00; Stop 08/17/17 at 14:03; Status DC Digoxin (Lanoxin Inj) 0.25 mg ONCE ONCE IV PUSH Last administered on at 19:44; Start 08/10/17 at 19:15; Stop 08/10/17 at 19:16; Status DC Diltiazem HCl (Cardizem Cd) 120 mg BID PO Last administered on 08/19/17 09:25; Start 08/11/17 at 09:00 Famotidine (Pepcid) 20 mg DAILY PO Last administered on 08/19/17 09:26; Start 08/14/17 at 09:00 Folic Acid (Folate) 1 mg DAILY PO Last administered on 08/19/17 09:26; Start at 09:00 Furosemide (Lasix) 40 mg BID PO ; Start 08/11/17 at 09:00; Stop 08/11/17 at 09: 00; Status DC Hydroxychloroquine Sulfate (Plaquenil) 200 mg BID PO Last administered on 09:25; Start 08/11/17 at 09:00 Lactulose (Lactulose Liq) 30 ml DAILY PRN PO SEVERE CONSITIPATION/ IF PO; Start 08/11/17 at 05:00 Latanoprost (Xalatan 0.005% Opth Soln) 1 drop HS LEFT EYE Last administered on 08/18/17 19:52; Start 08/11/17 at 21:00 Magnesium Hydroxide (Milk Of Magnesia Liq) 30 ml Q12H PRN PO Mild constipation ; Start 08/11/17 at 05:00 Magnesium Citrate (Citroma Liq) 300 ml 0500,1600,2000 PO Last administered on at 04:24; Start 08/16/17 at 16:00; Stop 08/17/17 at 05:01; Status DC Magnesium Sulfate/ Dextrose 100 ml @ 100 mls/hr ONCE ONCE IV Last administered on 08/12/17at 09:51; Start 08/12/17 at 09:00; Stop 08/12/17 at 09:59; Status DC Methotrexate (Rheumatrex) 15 mg Q7D PO Last administered on 08/18/17at 10:26; Start 08/11/17 at 09:00 Methylprednisolone Sodium Succinate (SoluMEDROL INJ) 20 mg BID IV Last administered on 08/18/17at 19:51; Start 08/16/17 at 21:00; Stop 08/18/17 at 22:00; Status DC Metoprolol Tartrate (Lopressor) 25 mg DAILY PO Last administered on 08/19/17at 09 :26; Start 08/19/17 at 09:00 Miscellaneous Information 1 Q361D XX ; Start 08/11/17 at 05:00; Stop 08/11/17 at 05:11; Status DC Morphine Sulfate (Morphine Inj) 2 mg Q2H PRN IV PUSH PAIN SCALE 6 TO 10 Last administered on 08/11/17at 05:16; Start 08/11/17 at 05:00 Non-Formulary Medication 1 drop Q12HR LEFT EYE ; Start 08/11/17 at 09:00; Stop 08/11/17 at 09:00; Status DC Ondansetron HCl (Zofran Inj) 4 mg Q6H PRN IV PUSH NAUSEA OR VOMITING; Start at 05:00 Patient Own Medication PT OWN MED: AZOPT EYE BID LEFT EYE Last administered on 08/16/17at 09:00; Start 08/11/17 at 09:00 Pharmacy Profile Note 0 ml @ 0 mls/hr UNSCH OTHER ; Start 08/11/17 at 05:00; Stop 08/13/17 at 11:25; Status DC Piperacillin Sod/ Tazobactam Sod 100 ml @ 200 mls/hr Q6H IV Last administered on 08/12/17at 05:00; Start 08/11/17 at 05:00; Stop 08/12/17 at 09:23; Status DC Potassium Chloride (KCl) 40 meq ONCE ONCE PO Last administered on 4/2/18at 15: 40; Start 08/13/17 at 13:00; Stop 08/13/17 at 13:01; Status DC Prednisone (Deltasone) 40 mg DAILY PO Last administered on 08/19/17 09:25; Start 08/19/17 at 09:00 Rivaroxaban (Xarelto) 15 mg DAILY PO Last administered on 08/15/17 10:27; Start 08/11/17 at 09:00; Stop 08/17/17 at 14:03; Status DC Senna/Docusate Sodium (Venita-Colace) 1 tab BID PO Last administered on 08/19/17 09:25; Start 08/11/17 at 09:00 Sennosides (Senokot) 17.2 mg Q12H PRN PO Moderate constipation; Start 08/11/17 at 05:00 Sodium Bicarbonate 150 meq/Sterile Water 1,000 ml @ 150 mls/hr Q6H40M IV Last administered on 08/11/17 15:25; Start 08/11/17 at 05:30; Stop 08/11/17 at 16:08 ; Status DC Sodium Chloride (NS Flush) 2 ml BID IV FLUSH Last administered on 08/19/17 09: 28; Start 08/11/17 at 09:00 Temazepam (Restoril) 15 mg HS PRN PO INSOMNIA; Start 08/11/17 at 05:00 Timolol Maleate (Timoptic 0.5% Opt Soln) 1 drop Q12HR LEFT EYE Last administered on 08/19/17 09:24; Start 08/11/17 at 09:00 Trazodone HCl (Desyrel) 50 mg HS PO Last administered on 08/18/17 19:53; Start 08/11/17 at 21:00 Vancomycin HCl 850 mg/Sodium Chloride 258.5 ml @ 250 mls/hr DAILY@0600 IV Last administered on 08/11/17 05:59; Start 08/11/17 at 06:00; Stop 08/11/17 at 12:00; Status DC Vancomycin HCl 1000 mg/Sodium Chloride 250 ml @ 250 mls/hr ONCE ONCE IV Last administered on 08/12/17 13:39; Start 08/12/17 at 12:00; Stop 08/12/17 at 12:59; Status DC A/P Assessment and Plan A/P Respiratory failure secondary to pneumonia -continue Rocephin. -blood cultures negative. -Transition to oral steroids . Lung mass CT chest with suprahilar mass- suspect malignancy along with right pleural effusion previously d/w - plan for bronchoscopy on Sunday. A. fib with RVR -Continue diltiazem - hold Xarelto for planned bronchoscopy-. -resumed metoprolol at a lower dose. Left lower extremity pain Peripheral vascular disease -Vascular surgery following. Severe PAD but nothing acute. Outpatient follow- up will be arranged. Continue with risk factor modification - Patient was started on Pletal. She states her symptoms significantly improved. Rheumatoid arthritis -Continue Plaquenil -Continue methotrexate Chronic obstructive pulmonary disease- sob seems to be improving today. -DuoNeb scheduled and as needed -steroid; switched to prednisone. -patient is oxygen dependent. - consulted as noted above. Anemia- chronic- due to GI bleed. hold Xarelto for planned procedure. s/p EGD/ colonoscopy with gastritis/ diverticulosis, internal and external hemorrhoids. Hypokalemia; replaced. History gout -Allopurinol DVT GI prophylaxis -Arnaldo's and SCDs -Xarelto ( on hold for planned bronchoscopy) -Pepcid Discharge Planning awaiting bronchoscopy on Sunday. dc planning to SNF. Jose Villatoro MD Aug 19, 2017 10:21
[2017-08-19] MEDS: cefTRIAXone INJ 1,000 MG in SODIUM CHLORIDE 0.9% INJ 100 ML IV SCH (11:26)
[2017-08-19] MEDS ORDERED: DEXT 5%-NACL 0.45% 1000 ML INJ 1,000 ML IV SCH (11:42)
[2017-08-19] MEDS ORDERED: RESP: LIDOCAINE HCL 4% PF 5 ML NEB NEB SCH (11:45)
[2017-08-19] MEDS ORDERED: RESP: ALBUTEROL CONC 2.5 MG/0.5 ML NEB NEB SCH (11:45)
--- NOTE | 2017-08-19 12:34 | HHI.GIFU ---
Subjective Remarks Resting in the bed States she is feeling much better States dyspnea under control and she is breathing better Denies any nausea vomiting diarrhea or constipation, positive for mild bloating hemoglobin 9.1 (Meryl Lobo) Objective Vitals I&O Vital Signs Date Time Temp Pulse Resp B/P (MAP) Pulse Ox O2 Delivery O2 Flow Rate FiO2 08/19/17 08:40 97 Nasal Cannula 4.00 08/19/17 08:00 97.3 80 18 117/58 (77) 100 08/19/17 00:00 97.5 83 18 126/79 (95) 98 08/18/17 20:12 93 Nasal Cannula 4.00 08/18/17 20:00 97.7 97 18 118/58 (78) 92 08/18/17 19:45 Nasal Cannula 4.00 Humidified 08/18/17 16:00 97.9 91 16 116/55 (75) 94 I/O 08/18/17 08/18/17 08/18/17 08/19/17 08/19/17 08/19/17 07:00 15:00 23:00 07:00 15:00 23:00 Intake Total 100 ml 1200 ml Output Total 200 ml Balance 100 ml 1200 ml -200 ml Intake Oral 1200 ml IV Total 100 ml Output Urine Total 200 ml # Voids 3 6 # Bowel Movements 1 3 1 Laboratory Date/Time Source Procedure Growth Status 08/11/17 05:30 Blood Peripheral Aerobic Blood Culture - Final NO GROWTH IN 5 DAYS Complete 08/11/17 05:30 Blood Peripheral Anaerobic Blood Culture - Final NO GROWTH IN 5 DAYS Complete 08/14/17 14:11 Stool Stool Stool Occult Blood (LILIAN) - Final HEMOCCULT POSITIVE Complete 08/11/17 08:10 Urine Random Urine Legionella Antigen - Final PRESUMPTIVE NEGATIVE FOR LEGIONELLA P... Complete 08/11/17 08:10 Urine Random Urine Streptococcus pneumoniae Antigen (M - Final PRESUMPTIVE NEGATIVE FOR STREPTOCOCCU... Complete Imaging Last Impressions Chest X-Ray 08/16/17 0600 Signed Impressions: Service Date/Time: August 06:15 - CONCLUSION: Small right pleural effusion possible tiny left pleural effusion and otherwise chronic changes. Chhaya Golden MD Chest CT 08/16/17 0000 Signed Impressions: Service Date/Time: August 15:18 - CONCLUSION: 1. There is a new right suprahilar mass measuring 3.4 cm, highly suspicious for malignancy. 2. Moderate size right pleural effusion. 3. Subsegmental consolidative infiltrate in the anterior left lower lobe. 4. Chronic interstitial lung disease and bronchiectasis is similar to prior. Joe Green MD Physical Exam HEENT: Pupils round and reactive to light; normocephalic; atraumatic; pale but no jaundice NECK: Neck is supple, O2 is on CHEST: Chest without obvious rhonchi or wheezing, mild diminished sounds CARDIAC: Regular rate and rhythm ABDOMEN: Mild bloating Round, Soft, nontender; no hepatosplenomegaly; bowel sounds are present in all four quadrants. EXTREMITIES: No LE edema. SKIN: Pale no rash; no jaundice. SLIVER FORMER: No focal deficits; alert and oriented times three. (Meryl Lobo) Assessment and Plan Plan Assessment: History - Anemia with positive Hemoccult stool- Pt denies history of anemia, however states her PCP sometimes has her take iron supplements. Iron studies during this admission low. Also has known CKD. However, H/H seems to be trending down since end of last year Denies GI symptoms including acid reflux, nausea, vomiting, abdominal pain, constipation, diarrhea, visible blood in stool History of GIB Last EGD in 2015 --> Mild antral gastropathy. 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 Previous EGD and colonoscopy in 2014 revealed bleeding gastric and duodenal AVMs, bleeding duodenal ulcer, diverticulosis, internal hemorrhoids, and rectal prolapse. - Anticoagulation with Xarelto- hx of a-fib, PAD, CHF - CKD- likely one of the multifactorial causes for anemia - COPD- wears 4 L O2 via NC at home, complaining of SOB Chest x-ray noted. - Rheumatoid arthritis- on immunosuppressants 08/16/17, patient is resting in the bed pale, alert, answers questions appropriately. Patient denies any current symptoms of nausea vomiting no diarrhea no constipation. Does note stools are loose. Discussed needed options of EGD and colonoscopy with the patient and the prep involved. She understands process. PT INR 1.7. Current hemoglobin 8.2. Currently patient denies any shortness of breath oxygen at 4 L which is patient's baseline that she uses at home and tenuously. Colonoscopy done on 08/17/17 shows moderate diverticulosis and medium internal hemorrhoids. EGD done on 08/17/17 shows esophagus normal, erythematous gastritis. Food residue in the gastric body Plan Await biopsy results from EGD and colonoscopy. Biopsy results will not be ready for 7-10 days. If you don't hear from us in two weeks, call our office for biopsy results. Continue PPI Return in one year for EGD follow-up Benefiber 2 tsp daily Continue surveillance Yearly hemoccult No seeds, nuts and popcorn in diet Return 1 month Colonoscopy Monitor for any acute bleeding and transfuse as necessary Monitor labs Supportive care Further recommendations based on clinical course Pt has been seen and examined by myself and Dr. Hassan and this note is written on his behalf (Meryl Lobo) Physician Comments Seen and examined with BEKAH, doing well. NO bleeding. GI will sign off. Fu gi after dc. Thank you (Olivia Hassan MD) Meryl Lobo Aug 19, 2017 12:33 Olivia Hassan MD Aug 19, 2017 14:15
[2017-08-19] MEDS: traZODone HCL 50 MG TAB PO SCH (19:38)
[2017-08-19] MEDS: LATANOPROST 0.005% OPHT SOLN 2.5 ML BTL LEFT EYE SCH (19:39)
[2017-08-20] VITALS (9 sets, daily range): BP systolic 123–148; BP diastolic 63–74; PULSE 64–78; RESP 16–24; TEMP 97.4–98.3; O2SAT 92–100
[2017-08-20] MEDS: DILTIAZEM-CD 120 MG CAP ER PO SCH ×2 (08:23→20:34)
[2017-08-20] MEDS: FOLIC ACID 1 MG TAB PO SCH (08:23)
[2017-08-20] MEDS: FAMOTIDINE 20 MG TAB PO SCH (08:23)
[2017-08-20] MEDS: HYDROXYCHLOROQUINE SULFATE 200 MG TAB PO SCH ×2 (08:23→20:34)
[2017-08-20] MEDS: DOCUSATE SODIUM 50 MG/SENNA 8.6 MG TAB PO SCH ×2 (08:24→20:35)
[2017-08-20] MEDS: ALLOPURINOL 100 MG TAB PO SCH (08:24)
[2017-08-20] MEDS: predniSONE 20 MG TAB PO SCH (08:24)
[2017-08-20] MEDS: METOPROLOL TARTRATE 25 MG TAB PO SCH (08:25)
[2017-08-20] MEDS: BRIMONIDINE TARTRATE 0.2% OPHT SOLN 5 ML BTL LEFT EYE SCH ×2 (08:28→22:36)
[2017-08-20] MEDS: TIMOLOL MALEATE 0.5% OPHT SOLN 5 ML BTL LEFT EYE SCH ×2 (08:28→22:36)
[2017-08-20] MEDS: SODIUM CHLORIDE 0.9% FLUSH 10 ML FLUSH IV FLUSH SCH ×2 (08:31→20:34)
[2017-08-20] MEDS: AZOPT EYE LEFT EYE SCH ×2 (08:31→21:00)
[2017-08-20] MEDS: RESP: ALBUTEROL 2.5 MG/IPRATROPIUM 0.5 MG NEB (SCH) NEB ×3 (08:59→21:17)
--- NOTE | 2017-08-20 09:03 | HHI.PR ---
Subjective Remarks in no acute distress. looks comfortable on oxygen via N/C. no fever. no new complaints. awaiting bronchoscopy. Objective Vitals Vital Signs Date Time Temp Pulse Resp B/P (MAP) Pulse Ox O2 Delivery O2 Flow Rate FiO2 08/20/17 08:00 98.0 75 17 139/74 (95) 99 08/20/17 00:00 97.4 78 16 148/70 (96) 98 08/19/17 20:00 97.6 84 16 147/72 (97) 95 08/19/17 19:54 98 Nasal Cannula 4.00 08/19/17 19:30 Nasal Cannula 4.00 Humidified 08/19/17 16:00 97.4 93 18 139/55 (83) 94 08/19/17 12:00 97.7 99 18 141/64 (89) 95 I/O 08/19/17 08/19/17 08/19/17 08/20/17 08/20/17 08/20/17 07:00 15:00 23:00 07:00 15:00 23:00 Intake Total 860 ml Output Total 200 ml Balance -200 ml 860 ml Intake Oral 860 ml Output Urine Total 200 ml # Voids 3 3 # Bowel Movements 1 1 2 Result Diagram: 08/17/17 0524 Imaging Last Impressions Chest X-Ray 08/16/17 0600 Signed Impressions: Service Date/Time: August 06:15 - CONCLUSION: Small right pleural effusion possible tiny left pleural effusion and otherwise chronic changes. Chhaya Golden MD Chest CT 08/16/17 0000 Signed Impressions: Service Date/Time: August 15:18 - CONCLUSION: 1. There is a new right suprahilar mass measuring 3.4 cm, highly suspicious for malignancy. 2. Moderate size right pleural effusion. 3. Subsegmental consolidative infiltrate in the anterior left lower lobe. 4. Chronic interstitial lung disease and bronchiectasis is similar to prior. Joe Green MD Objective Remarks GENERAL: in no apparent distress. CARDIOVASCULAR: Regular rate and regular rhythm without murmurs, gallops, or rubs. RESPIRATORY: diminished air entry in bases. GASTROINTESTINAL: Abdomen soft, non-tender, nondistended. Normal, active bowel sounds MUSCULOSKELETAL: Extremities without clubbing, cyanosis, or edema. NEURO: Alert & Oriented x4 to person, place, time, situation. Moves all ext x4 Procedures EGD/ colonoscopy. Medications and IVs Inpatient Medications Acetaminophen (Tylenol) 650 mg Q6H PRN PO PAIN 1-5 AND/OR FEVER >101F Last administered on 08/12/17 22:27; Start 08/11/17 at 05:00 Albuterol Sulfate (Albuterol Concentrated Neb) 2.5 mg [employer]ER NEB ; Start at 11:45; Stop 08/23/17 at 11:44 Albuterol Sulfate (Albuterol Neb) 1.25 mg Q2HR NEB PRN NEB SHORTNESS OF BREATH ; Start 08/14/17 at 19:00 Albuterol/ Ipratropium (Duoneb Neb) 1 ampule QID NEB NEB Last administered on 08/19/17at 19:51; Start 08/19/17 at 12:00 Allopurinol (Zyloprim) 100 mg DAILY PO Last administered on 08/20/17 08:24; Start 08/11/17 at 09:00 Alprazolam (Xanax) 0.25 mg Q8H PRN PO ANXIETY Last administered on 08/14/17 21: 27; Start 08/14/17 at 19:00 Azithromycin 500 mg/Sodium Chloride 250 ml @ 250 mls/hr Q24H IV Last administered on 08/16/17 19:31; Start 08/11/17 at 20:00; Stop 08/17/17 at 14:03; Status DC Bisacodyl (Dulcolax Ec) 10 mg ONCE ONCE PO Last administered on 08/16/17 16:17 ; Start 08/16/17 at 18:00; Stop 08/16/17 at 18:01; Status DC Bisacodyl (Dulcolax Supp) 10 mg DAILY PRN RECTAL SEVERE CONSITIPATION/ IF NPO ; Start 08/11/17 at 05:00 Brimonidine Tartrate (Alphagan 0.2% Opt Soln) 1 drop Q12HR LEFT EYE Last administered on 08/20/17 08:28; Start 08/11/17 at 09:00 Cefepime HCl 2000 mg/Sodium Chloride 100 ml @ 200 mls/hr ONCE STAT IV Last administered on 3/30/18at 19:44; Start 08/10/17 at 19:04; Stop 08/10/17 at 19:33 ; Status DC Ceftriaxone Sodium 1000 mg/ Sodium Chloride 100 ml @ 200 mls/hr Q24H IV Last administered on 08/19/17at 11:26; Start 08/12/17 at 11:00 Chlorhexidine Gluconate (Chlorhexidine 2% Cloth) 3 pack UNSCH PRN TOP HYGIENIC CARE; Start 08/11/17 at 05:00; Stop 08/11/17 at 05:11; Status DC Cilostazol (Pletal) 50 mg BID PO Last administered on 08/17/17at 12:04; Start at 09:00; Stop 08/17/17 at 14:03; Status DC Dextrose/Sodium Chloride 1,000 ml @ 0 mls/hr Q0M IV ; Start 08/19/17 at 11:42 Digoxin (Lanoxin Inj) 0.25 mg ONCE ONCE IV PUSH Last administered on at 19:44; Start 08/10/17 at 19:15; Stop 08/10/17 at 19:16; Status DC Diltiazem HCl (Cardizem Cd) 120 mg BID PO Last administered on 08/20/17 08:23; Start 08/11/17 at 09:00 Famotidine (Pepcid) 20 mg DAILY PO Last administered on 08/20/17 08:23; Start 08/14/17 at 09:00 Folic Acid (Folate) 1 mg DAILY PO Last administered on 08/20/17at 08:23; Start at 09:00 Furosemide (Lasix) 40 mg BID PO ; Start 08/11/17 at 09:00; Stop 08/11/17 at 09: 00; Status DC Hydroxychloroquine Sulfate (Plaquenil) 200 mg BID PO Last administered on 08:23; Start 08/11/17 at 09:00 Lactulose (Lactulose Liq) 30 ml DAILY PRN PO SEVERE CONSITIPATION/ IF PO; Start 08/11/17 at 05:00 Latanoprost (Xalatan 0.005% Opth Soln) 1 drop HS LEFT EYE Last administered on 08/19/17at 19:39; Start 08/11/17 at 21:00 Lidocaine HCl (Lidocaine Pf 4% Neb) 3 ml [employer] ASSEMBLER NEB ; Start 08/19/17 at 11:45; Stop 08/23/17 at 11:44 Magnesium Hydroxide (Milk Of Magnesia Liq) 30 ml Q12H PRN PO Mild constipation ; Start 08/11/17 at 05:00 Magnesium Citrate (Citroma Liq) 300 ml 0500,1600,2000 PO Last administered on at 04:24; Start 08/16/17 at 16:00; Stop 08/17/17 at 05:01; Status DC Magnesium Sulfate/ Dextrose 100 ml @ 100 mls/hr ONCE ONCE IV Last administered on 08/12/17at 09:51; Start 08/12/17 at 09:00; Stop 08/12/17 at 09:59; Status DC Methotrexate (Rheumatrex) 15 mg Q7D PO Last administered on 08/18/17at 10:26; Start 08/11/17 at 09:00 Methylprednisolone Sodium Succinate (SoluMEDROL INJ) 20 mg BID IV Last administered on 08/18/17at 19:51; Start 08/16/17 at 21:00; Stop 08/18/17 at 22:00; Status DC Metoprolol Tartrate (Lopressor) 25 mg DAILY PO Last administered on 08/20/17at 08 :25; Start 08/19/17 at 09:00 Miscellaneous Information 1 Q361D XX ; Start 08/11/17 at 05:00; Stop 08/11/17 at 05:11; Status DC Morphine Sulfate (Morphine Inj) 2 mg Q2H PRN IV PUSH PAIN SCALE 6 TO 10 Last administered on 08/11/17at 05:16; Start 08/11/17 at 05:00 Non-Formulary Medication 1 drop Q12HR LEFT EYE ; Start 08/11/17 at 09:00; Stop 08/11/17 at 09:00; Status DC Ondansetron HCl (Zofran Inj) 4 mg Q6H PRN IV PUSH NAUSEA OR VOMITING; Start at 05:00 Patient Own Medication PT OWN MED: AZOPT EYE DR... BID LEFT EYE Last administered on 08/16/17at 09:00; Start 08/11/17 at 09:00 Pharmacy Profile Note 0 ml @ 0 mls/hr UNSCH OTHER ; Start 08/11/17 at 05:00; Stop 08/13/17 at 11:25; Status DC Piperacillin Sod/ Tazobactam Sod 100 ml @ 200 mls/hr Q6H IV Last administered on 08/12/17at 05:00; Start 08/11/17 at 05:00; Stop 08/12/17 at 09:23; Status DC Potassium Chloride (KCl) 40 meq ONCE ONCE PO Last administered on 08/13/17at 15: 40; Start 08/13/17 at 13:00; Stop 08/13/17 at 13:01; Status DC Prednisone (Deltasone) 40 mg DAILY PO Last administered on 08/20/17 08:24; Start 08/19/17 at 09:00 Rivaroxaban (Xarelto) 15 mg DAILY PO Last administered on 08/15/17at 10:27; Start 08/11/17 at 09:00; Stop 08/17/17 at 14:03; Status DC Senna/Docusate Sodium (Venita-Colace) 1 tab BID PO Last administered on 08/20/17at 08:24; Start 08/11/17 at 09:00 Sennosides (Senokot) 17.2 mg Q12H PRN PO Moderate constipation; Start 08/11/17 at 05:00 Sodium Bicarbonate 150 meq/Sterile Water 1,000 ml @ 150 mls/hr Q6H40M IV Last administered on 08/11/17at 15:25; Start 08/11/17 at 05:30; Stop 08/11/17 at 16:08 ; Status DC Sodium Chloride (NS Flush) 2 ml BID IV FLUSH Last administered on 08/20/17at 08: 31; Start 08/11/17 at 09:00 Temazepam (Restoril) 15 mg HS PRN PO INSOMNIA; Start 08/11/17 at 05:00 Timolol Maleate (Timoptic 0.5% Opt Soln) 1 drop Q12HR LEFT EYE Last administered on 08/20/17at 08:28; Start 08/11/17 at 09:00 Trazodone HCl (Desyrel) 50 mg HS PO Last administered on 08/19/17at 19:38; Start 08/11/17 at 21:00 Vancomycin HCl 850 mg/Sodium Chloride 258.5 ml @ 250 mls/hr DAILY@0600 IV Last administered on 08/11/17at 05:59; Start 08/11/17 at 06:00; Stop 08/11/17 at 12:00; Status DC Vancomycin HCl 1000 mg/Sodium Chloride 250 ml @ 250 mls/hr ONCE ONCE IV Last administered on 08/12/17at 13:39; Start 08/12/17 at 12:00; Stop 08/12/17 at 12:59; Status DC A/P Assessment and Plan A/P Respiratory failure secondary to pneumonia -treated with Rocephin and Zithromax. -blood cultures negative. -Transitioned to oral steroids . Lung mass CT chest with suprahilar mass- suspect malignancy along with right pleural effusion previously d/w - plan for bronchoscopy today. A. fib with RVR- now HR controlled. -Continue diltiazem - hold Xarelto for planned bronchoscopy-. -resumed metoprolol at a lower dose. Left lower extremity pain Peripheral vascular disease -Vascular surgery following. Severe PAD but nothing acute. Outpatient follow- up will be arranged. Continue with risk factor modification - Patient was started on Pletal. She states her symptoms significantly improved. Rheumatoid arthritis -Continue Plaquenil -Continue methotrexate Chronic obstructive pulmonary disease- sob seems to be improving today. -DuoNeb scheduled and as needed -steroid; switched to prednisone. -patient is oxygen dependent. - consulted as noted above. Anemia- chronic- hold Xarelto for planned procedure. s/p EGD/ colonoscopy with gastritis/ diverticulosis, internal and external hemorrhoids. Hypokalemia; replaced. History gout -Allopurinol DVT GI prophylaxis -Arnaldo's and SCDs -Xarelto ( on hold for planned bronchoscopy) -Pepcid Discharge Planning awaiting bronchoscopy. dc planning to SNF when cleared by pulmonary. see med list. f/u; pcp, pulmonary and GI. d/w the patient. Jose Villatoro MD Aug 20, 2017 09:03
[2017-08-20] MEDS ORDERED: PRED5TAB PO (09:07)
[2017-08-20] MEDS ORDERED: TRAM50TA PO (09:07)
[2017-08-20] MEDS: cefTRIAXone INJ 1,000 MG in SODIUM CHLORIDE 0.9% INJ 100 ML IV SCH (11:00)
[2017-08-20 11:54] LABS: CHOLESTEROL/ HDL RATIO 2.02 RATIO; HDL CHOLESTEROL 84.6 MG/DL (40.0-60.0)
[2017-08-20] MEDS ORDERED: RESP: ALBUTEROL 2.5 MG/IPRATROPIUM 0.5 MG NEB (PRN) NEB (13:15)
--- NOTE | 2017-08-20 13:19 | MP ---
cc: Trang Esposito MD DATE OF OPERATION: 08/20/2017 PROCEDURE: Bronchoscopy. INDICATION: Right perihilar mass. FINDINGS: After informed consent was obtained, the patient underwent diagnostic bronchoscopy with general anesthesia and ultrasound guidance. Examination of the mid to distal trachea was normal other than purulent secretions. The left main stem bronchus, upper lobe and lower lobe orifices again revealed purulent secretions but no endobronchial pathology. Examination of the right main stem bronchus down to the takeoff of the right upper lobe revealed some narrowing at the takeoff of the right upper lobe, but initially nothing else in endobronchial fashion. The right middle and lower lobes were normal other than again scattered purulent secretions which were aspirated and submitted for culture. Next, utilizing ultrasound guidance, a lymph node was identified in the right station 2 and 3 aspirates were obtained. Minimal bleeding. Following this, reexamination of the right upper lobe revealed some irregular mucosa in the anterior segment, and this area was washed and brushed, submitted for cytologies. Biopsy of the right upper lobe anterior segment catherine was then done and submitted for routine pathology. She had no significant bleeding, tolerated the procedure well and is being prepared for recovery. MD DEBRA Alvarado/JONTAHAN , 01:06 PM , 01:18 PM [email or web address]
--- NOTE | 2017-08-20 14:17 | RADRPT ---
EXAM DATE/TIME: 08/20/2017 14:49 [facility] COMPARISON: CT THORAX W CONTRAST, August 16, 2017, 15:18. CHEST SINGLE AP, August 16, 2017, 6:15. INDICATIONS : Post-op bronchoscopy. Right lung biopsy. MEDICAL HISTORY : Hypertension. Stroke. Atrial fibrillation. SURGICAL HISTORY : None. ENCOUNTER: Initial ACUITY: 2 weeks PAIN SCORE: Non-responsive. LOCATION: Right chest FINDINGS: Lower lobe interstitial prominence with persistent patchy airspace disease and very small right and v jeana trace left pleural effusions. No pneumothorax. Cardiomediastinal contours are within normal limit s. Remainder of the exam is unchanged. CONCLUSION: 1. No pneumothorax status post bronchoscopy. 2. Persistent very small right and trace left pleural effusions with associated lower lung zone airsp sumeet disease. Nelson العراقي MD on August 20, 2017 at 14:13 Board Certified Radiologist. This report was verified electronically.
[2017-08-20] MEDS ORDERED: methylPREDNISolone SOD SUCC 125 MG/2 ML VIAL ONE (15:12)
[2017-08-20] MEDS ORDERED: methylPREDNISolone SOD SUCC 125 MG/2 ML VIAL IV PUSH ONE (15:16)
[2017-08-20] MEDS ORDERED: LACTATED RINGER'S 1000 ML INJ 1,000 ML IV SCH (15:30)
[2017-08-20] MEDS ORDERED: FUROSEMIDE 20 MG/2 ML VIAL ONE (15:47)
[2017-08-20] MEDS ORDERED: FUROSEMIDE 20 MG/2 ML VIAL IV PUSH ONE (16:00)
--- NOTE | 2017-08-20 16:23 | HHI.CCPN ---
Subjective Remarks/Hospital Course 82-year-old female complains of increasing dyspnea for the last week. She has had a cough which is chronic however has been worse over the past couple days. No fever or chest pain. She also complains of worsening dyspnea on exertion. The patient also reports palpitations. She reports compliance with Xarelto and Lasix. She reports a history of CHF and atrial fibrillation. She also reports a history of peripheral artery disease. She has also been complaining of worsening left extremity pain that is 9 out of 10. 08/20 Reconsult Patient s/p bronch wih biopsy by Dr. Ruiz post bronch patient became hypoxic initial ABG showed acute hypoxemic and hypercapneic resp acidosis ( PH 7.17, PCO2: 87, PaO2: 82). She was placed on BIPAP 29/12 with 60% FIO2. More awake per nursing staff. Objective Vital Signs Date Time Temp Pulse Resp B/P (MAP) Pulse Ox O2 Delivery O2 Flow Rate FiO2 08/20/17 10:50 97.8 64 18 134/74 (94) 100 08/20/17 09:01 Nasal Cannula 4.00 Result Diagram: 08/17/17 0524 Other Results Laboratory Tests Test 08/20/17 10:30 Triglycerides Level 94 MG/DL Cholesterol Level 171 MG/DL LDL Cholesterol 68 MG/DL HDL Cholesterol 84.6 MG/DL Cholesterol/HDL Ratio 2.02 RATIO Imaging Last Impressions Chest X-Ray 08/20/17 0000 Signed Impressions: Service Date/Time: Sunday, August 20, 2017 14:49 - CONCLUSION: 1. No pneumothorax status post bronchoscopy. 2. Persistent very small right and trace left pleural effusions with associated lower lung zone airspace disease. Nelson العراقي MD Chest CT 08/16/17 0000 Signed Impressions: Service Date/Time: August 15:18 - CONCLUSION: 1. There is a new right suprahilar mass measuring 3.4 cm, highly suspicious for malignancy. 2. Moderate size right pleural effusion. 3. Subsegmental consolidative infiltrate in the anterior left lower lobe. 4. Chronic interstitial lung disease and bronchiectasis is similar to prior. Joe Green MD Procedures EGD/ colonoscopy. Objective Remarks GENERAL: Patient is 82 yo on BIPAP in mild distress SKIN: Warm and dry. HEAD: Normocephalic. EYES: No scleral icterus. No injection or drainage. NECK: Supple, trachea midline. No JVD or lymphadenopathy. CARDIOVASCULAR: Regular rate and rhythm without murmurs, gallops, or rubs. RESPIRATORY: Breath sounds equal bilaterally. No accessory muscle use. GASTROINTESTINAL: Abdomen soft, non-tender, nondistended. MUSCULOSKELETAL: No cyanosis, or edema. Neuro: Awake. A/P Assessment and Plan 1) Acute hypercapnic and hypoxic Respiratory failure 2)COPD exac, on 4L home oxygen 3)Right suprahilar lung mass s/p bronch with biopsy 4)A. fib 5)Peripheral vascular disease 6)Rheumatoid arthritis 7)History gout 8)Anemia Neuro: Awake, alert. Avoid sedatives Pulm: Continue with oxygen keep sats >92% Bronchodilators, Solumederol 60mg Q6, d/c PO prednisone Continue with BIPAP and repeat ABG if any worsening in her resp acidosis or clinical status will proceed with intubation s/p bronchm brushing and biopsy today Follow up on cultures and cytology CXR post bronch: No pneumothorax status post bronchoscopy. Persistent very small right and trace left pleural effusions with associated lower lung zone airspace disease. CV: Monitor HR and BP keep MAP>65mmHg On Cardizem CD 120mg BID GI: Keep NPO for now, on Pepcid for GI prophylaxis : Monitor renal function, I/O's, electrolytes replacement as needed. d/c IVF and diurese with Lasix 40mg x1 Heme: Monitor CBC, on Folic acid GI is following ID: Continue with abx ( Rocephin), monitor for signs of infections ( fever, WBC) Follow up on cultures Endo: SSI if needed for glycemic control On MTX, Plaquenil for RA GI prophylaxis DVT prophylaxis Check labs Level 3 Ray Nguyen MD Aug 20, 2017 16:23
[2017-08-20] MEDS ORDERED: RESP: ALBUTEROL 2.5 MG/IPRATROPIUM 0.5 MG NEB (SCH) NEB ONE (17:15)
[2017-08-20] MEDS: methylPREDNISolone SOD SUCC 125 MG/2 ML VIAL IV PUSH SCH ×2 (18:43→23:02)
[2017-08-20] MEDS ORDERED: CHLORHEXIDINE GLUCONATE 2 % 1 PACK (2 CLOTHS)(extra cloths) TOPICAL PRN (20:30)
[2017-08-20] MEDS: MUPIROCIN 2% OINT 1 APPLIC/GM SYR NASAL SCH (20:34)
[2017-08-20] MEDS: traZODone HCL 50 MG TAB PO SCH (20:34)
[2017-08-20 21:09] LABS: AUTOMATED NEUTROPHIL # 29.6 TH/MM3 (1.8-7.7); BASOPHIL % 0.1 % (0.0-2.0); HEMATOCRIT 32.6 % (35.0-46.0); HEMOGLOBIN 10.2 GM/DL (11.6-15.3); LYMPH % 0.8 % (9.0-44.0); LYMPHOCYTE # 0.3 TH/MM3 (1.0-4.8); MEAN CELL VOLUME 93.1 FL (80.0-100.0); MEAN CORPUSCULAR HEMOGLOBIN 29.2 PG (27.0-34.0); MEAN CORPUSCULAR HGB CONC 31.4 % (32.0-36.0); MEAN PLATELET VOLUME 7.4 FL (7.0-11.0); MONO % 5.2 % (0.0-8.0); MONOCYTE # 1.6 TH/MM3 (0-0.9); NEUT % 93.9 % (16.0-70.0); PLATELET COUNT 445 TH/MM3 (150-450); RED CELL DISTRIBUTION WIDTH 15.1 % (11.6-17.2); WHITE BLOOD COUNT 31.5 TH/MM3 (4.0-11.0)
[2017-08-20 21:24] LABS: BICARBONATE 33.6 MEQ/L (21.0-32.0); CREATININE 1.04 MG/DL (0.50-1.00); PHOSPHORUS 4.9 MG/DL (2.5-4.9)
[2017-08-20 22:04] LABS: LYMPHOCYTES 1 % (9-44); MONOCYTES 3 % (0-8); NEUTROPHIL # MANUAL DIFF 30.2 TH/MM3 (1.8-7.7); POLYS (SEG NEUTROPHILS) 95 % (16-70); PROMYELOCYTES 1 % (0-0)
[2017-08-20 22:05] LABS: TOXIC GRANULATION 2+ (NORMAL)
[2017-08-20] MEDS: LATANOPROST 0.005% OPHT SOLN 2.5 ML BTL LEFT EYE SCH (22:36)
[2017-08-20] MEDS: CHLORHEXIDINE GLUCONATE 2 % 1 PACK (2 CLOTHS)(taper/protocol) TOPICAL SCH (23:02)
[2017-08-21] VITALS (14 sets, daily range): BP systolic 109–138; BP diastolic 52–64; PULSE 61–74; RESP 13–28; TEMP 97.8–98.7; O2SAT 95–99
[2017-08-21 05:22] LABS: AUTOMATED NEUTROPHIL # 28.9 TH/MM3 (1.8-7.7); BASOPHIL % 0.1 % (0.0-2.0); HEMATOCRIT 30.7 % (35.0-46.0); HEMOGLOBIN 9.7 GM/DL (11.6-15.3); LYMPH % 1.4 % (9.0-44.0); LYMPHOCYTE # 0.4 TH/MM3 (1.0-4.8); MEAN CELL VOLUME 92.2 FL (80.0-100.0); MEAN CORPUSCULAR HGB CONC 31.5 % (32.0-36.0); MEAN PLATELET VOLUME 7.8 FL (7.0-11.0); MONO % 2.2 % (0.0-8.0); MONOCYTE # 0.6 TH/MM3 (0-0.9); NEUT % 96.3 % (16.0-70.0); PLATELET COUNT 402 TH/MM3 (150-450); RED BLOOD COUNT 3.33 MIL/MM3 (4.00-5.30); RED CELL DISTRIBUTION WIDTH 15.5 % (11.6-17.2)
[2017-08-21] MEDS: methylPREDNISolone SOD SUCC 125 MG/2 ML VIAL IV PUSH SCH ×2 (05:24→12:18)
[2017-08-21 05:41] LABS: BICARBONATE 33.8 MEQ/L (21.0-32.0); CALCIUM 8.8 MG/DL (8.5-10.1); CREATININE 1.02 MG/DL (0.50-1.00)
[2017-08-21] MEDS: RESP: ALBUTEROL 2.5 MG/IPRATROPIUM 0.5 MG NEB (SCH) NEB ×4 (07:45→20:26)
--- NOTE | 2017-08-21 07:57 | HHI.CCPN ---
Subjective Remarks/Hospital Course 82-year-old female complains of increasing dyspnea for the last week. She has had a cough which is chronic however has been worse over the past couple days. No fever or chest pain. She also complains of worsening dyspnea on exertion. The patient also reports palpitations. She reports compliance with Xarelto and Lasix. She reports a history of CHF and atrial fibrillation. She also reports a history of peripheral artery disease. She has also been complaining of worsening left extremity pain that is 9 out of 10. 08/20 Reconsult Patient s/p bronch wih biopsy by Dr. Esposito post bronch patient became hypoxic initial ABG showed acute hypoxemic and hypercapneic resp acidosis ( PH 7.17, PCO2: 87, PaO2: 82) She was placed on BIPAP 29/12 with 60% FIO2. More awake per nursing staff. 08/21 Patient is off BIPAP on 4L oxygen. Afebrile. Awake and alert requesting something to eat. Objective Vital Signs Date Time Temp Pulse Resp B/P (MAP) Pulse Ox O2 Delivery O2 Flow Rate FiO2 08/21/17 07:00 97 Nasal Cannula 4.00 Humidified 08/21/17 06:00 66 08/21/17 04:00 98.5 16 109/52 (71) 08/20/17 17:45 60 Intake and Output 08/21/17 08/21/17 08/22/17 08:00 16:00 00:00 Intake Total 0 ml Output Total 600 ml Balance -600 ml Result Diagram: 08/21/17 0326 08/21/17 0326 Other Results Laboratory Tests Test 08/20/17 10:30 08/20/17 16:16 08/20/17 19:01 08/21/17 03:26 Triglycerides Level 94 MG/DL Cholesterol Level 171 MG/DL LDL Cholesterol 68 MG/DL HDL Cholesterol 84.6 MG/DL Cholesterol/HDL Ratio 2.02 RATIO Blood Gas Puncture Site RT BRACHIAL Blood Gas Patient Temperature 98.6 Blood Gas HCO3 30 mmol/L Blood Gas Base Excess 4.2 mmol/L Blood Gas Oxygen Saturation 92 % Arterial Blood pH 7.31 Arterial Blood Partial Pressure CO2 62 mmHg Arterial Blood Partial Pressure O2 72 mmHg Arterial Blood Oxygen Content 12.6 Vol % Arterial Blood Carboxyhemoglobin 1.3 % Arterial Blood Methemoglobin 1.1 % Blood Gas Hemoglobin 9.7 G/DL Oxygen Delivery Device [id number] Blood Gas Inspired Oxygen 70 % White Blood Count 31.5 TH/MM3 30.0 TH/MM3 Red Blood Count 3.50 MIL/MM3 3.33 MIL/MM3 Hemoglobin 10.2 GM/DL 9.7 GM/DL Hematocrit 32.6 % 30.7 % Mean Corpuscular Volume 93.1 FL 92.2 FL Mean Corpuscular Hemoglobin 29.2 PG 29.0 PG Mean Corpuscular Hemoglobin Concent 31.4 % 31.5 % Red Cell Distribution Width 15.1 % 15.5 % Platelet Count 445 TH/MM3 402 TH/MM3 Mean Platelet Volume 7.4 FL 7.8 FL Neutrophils (%) (Auto) 93.9 % 96.3 % Lymphocytes (%) (Auto) 0.8 % 1.4 % Monocytes (%) (Auto) 5.2 % 2.2 % Eosinophils (%) (Auto) 0.0 % 0.0 % Basophils (%) (Auto) 0.1 % 0.1 % Neutrophils # (Auto) 29.6 TH/MM3 28.9 TH/MM3 Lymphocytes # (Auto) 0.3 TH/MM3 0.4 TH/MM3 Monocytes # (Auto) 1.6 TH/MM3 0.6 TH/MM3 Eosinophils # (Auto) 0.0 TH/MM3 0.0 TH/MM3 Basophils # (Auto) 0.0 TH/MM3 0.0 TH/MM3 CBC Comment AUTO DIFF DIFF FINAL Differential Total Cells Counted 100 Neutrophils % (Manual) 95 % Lymphocytes % 1 % Monocytes % 3 % Neutrophils # (Manual) 30.2 TH/MM3 Promyelocytes 1 % Differential Comment FINAL DIFF MANUAL Toxic Granulation 2+ Platelet Estimate NORMAL Platelet Morphology Comment CLUMPED Blood Urea Nitrogen 34 MG/DL 35 MG/DL Creatinine 1.04 MG/DL 1.02 MG/DL Random Glucose 101 MG/DL 100 MG/DL Calcium Level 9.0 MG/DL 8.8 MG/DL Phosphorus Level 4.9 MG/DL Magnesium Level 2.0 MG/DL Sodium Level 138 MEQ/L 139 MEQ/L Potassium Level 5.0 MEQ/L 4.8 MEQ/L Chloride Level 100 MEQ/L 98 MEQ/L Carbon Dioxide Level 33.6 MEQ/L 33.8 MEQ/L Anion Gap 4 MEQ/L 7 MEQ/L Estimat Glomerular Filtration Rate 51 ML/MIN 52 ML/MIN Imaging Last Impressions Chest X-Ray 08/20/17 0000 Signed Impressions: Service Date/Time: Sunday, August 20, 2017 14:49 - CONCLUSION: 1. No pneumothorax status post bronchoscopy. 2. Persistent very small right and trace left pleural effusions with associated lower lung zone airspace disease. Nelson العراقي MD Chest CT 08/16/17 0000 Signed Impressions: Service Date/Time: August 15:18 - CONCLUSION: 1. There is a new right suprahilar mass measuring 3.4 cm, highly suspicious for malignancy. 2. Moderate size right pleural effusion. 3. Subsegmental consolidative infiltrate in the anterior left lower lobe. 4. Chronic interstitial lung disease and bronchiectasis is similar to prior. Joe Green MD Procedures EGD/ colonoscopy. Objective Remarks GENERAL: Patient is 82 yo lying in bed in no acute resp distress SKIN: Warm and dry. HEAD: Normocephalic. EYES: No scleral icterus. No injection or drainage. NECK: Supple, trachea midline. No JVD or lymphadenopathy. CARDIOVASCULAR: Regular rate and rhythm without murmurs, gallops, or rubs. RESPIRATORY: Breath sounds equal bilaterally. No accessory muscle use. GASTROINTESTINAL: Abdomen soft, non-tender, nondistended. MUSCULOSKELETAL: No cyanosis, or edema. Neuro: Awake. A/P Assessment and Plan 1) Acute hypercapnic and hypoxic Respiratory failure - improving 2)COPD exac, on 4L home oxygen 3)Right suprahilar lung mass s/p bronch with biopsy 4)A. fib 5)Peripheral vascular disease 6)Rheumatoid arthritis 7)History gout 8)Anemia 9) Leukocytosis 10) ? post obstructive pneumonia Neuro: Awake, alert. Avoid sedatives Pulm: Continue with oxygen keep sats >92% Bronchodilators, Solumederol 60mg Q6, check ABG NIPPV PRN for resp distress s/p bronch, brushing and biopsy 08/20 path negative for malignancy Follow up on cultures and cytology CXR post bronch: No pneumothorax status post bronchoscopy. Persistent very small right and trace left pleural effusions with associated lower lung zone airspace disease. Pulm- Dr. Esposito CV: Monitor HR and BP keep MAP>65mmHg On Lopressor 25mg daily, d/c Cardizem CD GI: on Pepcid for GI prophylaxis, speech eval, diet per speech : Monitor renal function, I/O's, electrolytes replacement as needed. Heme: Monitor CBC, on Folic acid GI is following ID: Change abx to Zosyn, give Vanco 1gram x1 )d/c rocephin, monitor for signs of infections ( fever, WBC) Check UA with cx if indicated, check C-diff PCR Endo: SSI if needed for glycemic control On MTX, Plaquenil for RA GI prophylaxis DVT prophylaxis Level 3 Ray Nguyen MD Aug 21, 2017 07:57
[2017-08-21] MEDS ORDERED: DEXTROSE 50% IN WATER 50 ML VIAL(D50) IV PUSH PRN (08:00)
[2017-08-21] MEDS: INSULIN NovoLIN REGULAR SUPPLEMENTAL SCALE SQ SCH ×3 (08:00→21:03)
[2017-08-21] MEDS ORDERED: VANCOMYCIN INJ 1,000 MG in SODIUM CHLOR 0.9% 250 ML INJ 250 ML IV ONE (08:00)
[2017-08-21] MEDS ORDERED: GLUCAGON 1 MG/ML VIAL OTHER PRN (08:00)
[2017-08-21] MEDS ORDERED: PIPERACIL-TAZO 4.5 GM PREMIX 100 ML IV SCH (08:00)
[2017-08-21] MEDS: DOCUSATE SODIUM 50 MG/SENNA 8.6 MG TAB PO SCH ×2 (09:00→21:04)
[2017-08-21] MEDS ORDERED: PIPERACIL-TAZO 4.5 GM PREMIX 100 ML IV ONE (09:00)
[2017-08-21] MEDS: AZOPT EYE LEFT EYE SCH ×2 (09:00→21:00)
[2017-08-21] MEDS: FAMOTIDINE 20 MG TAB PO SCH (09:33)
[2017-08-21] MEDS: FOLIC ACID 1 MG TAB PO SCH (09:33)
[2017-08-21] MEDS: METOPROLOL TARTRATE 25 MG TAB PO SCH (09:33)
[2017-08-21] MEDS: SODIUM CHLORIDE 0.9% FLUSH 10 ML FLUSH IV FLUSH SCH ×2 (09:33→21:03)
[2017-08-21] MEDS: HYDROXYCHLOROQUINE SULFATE 200 MG TAB PO SCH ×2 (09:34→21:04)
[2017-08-21] MEDS: MUPIROCIN 2% OINT 1 APPLIC/GM SYR NASAL SCH ×2 (09:34→21:04)
[2017-08-21] MEDS: ALLOPURINOL 100 MG TAB PO SCH (09:34)
[2017-08-21] MEDS: BRIMONIDINE TARTRATE 0.2% OPHT SOLN 5 ML BTL LEFT EYE SCH ×2 (09:35→21:03)
[2017-08-21] MEDS: TIMOLOL MALEATE 0.5% OPHT SOLN 5 ML BTL LEFT EYE SCH ×2 (09:35→21:03)
[2017-08-21] MEDS: PIPERACILLIN/TAZ 2.25 GM VIAL 2.25 GM in SODIUM CHLORIDE 0.9% INJ 50 ML IV SCH ×2 (14:50→21:02)
[2017-08-21 16:04] LABS: BILIRUBIN, URINE NEG (NEG); BLOOD, URINE NEG (NEG); GLUCOSE,URINE NEG (NEG); KETONE, URINE NEG (NEG); MUCUS URINE FEW /lpf (OCC); NITRITE,URINE NEG (NEG); PH, URINE 5.5 (5.0-8.5); URINE COLOR LIGHT-YELLOW (YELLW/STRAW); URINE LEUKOCYTE ESTERASE NEG (NEG)
[2017-08-21] MEDS: traZODone HCL 50 MG TAB PO SCH (21:04)
[2017-08-21] MEDS: LATANOPROST 0.005% OPHT SOLN 2.5 ML BTL LEFT EYE SCH (21:04)
[2017-08-21] MEDS: predniSONE 20 MG TAB PO SCH (21:05)
[2017-08-21] MEDS: CHLORHEXIDINE GLUCONATE 2 % 1 PACK (2 CLOTHS)(taper/protocol) TOPICAL SCH (21:05)
[2017-08-22] VITALS (14 sets, daily range): BP systolic 150–174; BP diastolic 70–137; PULSE 73–89; RESP 16–26; TEMP 97.6–98.9; O2SAT 94–98
[2017-08-22] MEDS: INSULIN NovoLIN REGULAR SUPPLEMENTAL SCALE SQ SCH ×4 (02:14→20:18)
[2017-08-22] MEDS: PIPERACILLIN/TAZ 2.25 GM VIAL 2.25 GM in SODIUM CHLORIDE 0.9% INJ 50 ML IV SCH ×4 (02:15→20:18)
[2017-08-22] MEDS: ACETAMINOPHEN 325 MG TAB PO PRN (05:29)
[2017-08-22 05:43] LABS: AUTOMATED NEUTROPHIL # 26.3 TH/MM3 (1.8-7.7); HEMATOCRIT 28.5 % (35.0-46.0); HEMOGLOBIN 9.2 GM/DL (11.6-15.3); LYMPH % 0.8 % (9.0-44.0); LYMPHOCYTE # 0.2 TH/MM3 (1.0-4.8); MEAN CELL VOLUME 90.7 FL (80.0-100.0); MEAN CORPUSCULAR HEMOGLOBIN 29.3 PG (27.0-34.0); MEAN CORPUSCULAR HGB CONC 32.3 % (32.0-36.0); MEAN PLATELET VOLUME 7.6 FL (7.0-11.0); MONOCYTE # 1.1 TH/MM3 (0-0.9); NEUT % 95.2 % (16.0-70.0); PLATELET COUNT 356 TH/MM3 (150-450); RED BLOOD COUNT 3.14 MIL/MM3 (4.00-5.30); RED CELL DISTRIBUTION WIDTH 15.1 % (11.6-17.2); WHITE BLOOD COUNT 27.6 TH/MM3 (4.0-11.0)
[2017-08-22 05:59] LABS: BICARBONATE 32.6 MEQ/L (21.0-32.0); CALCIUM 8.6 MG/DL (8.5-10.1); CREATININE 0.83 MG/DL (0.50-1.00)
[2017-08-22] MEDS: RESP: ALBUTEROL 2.5 MG/IPRATROPIUM 0.5 MG NEB (SCH) NEB ×3 (07:33→19:52)
--- NOTE | 2017-08-22 07:46 | HHI.CCPN ---
Subjective Remarks/Hospital Course 82-year-old female complains of increasing dyspnea for the last week. She has had a cough which is chronic however has been worse over the past couple days. No fever or chest pain. She also complains of worsening dyspnea on exertion. The patient also reports palpitations. She reports compliance with Xarelto and Lasix. She reports a history of CHF and atrial fibrillation. She also reports a history of peripheral artery disease. She has also been complaining of worsening left extremity pain that is 9 out of 10. 08/20 Reconsult Patient s/p bronch wih biopsy by Dr. Esposito post bronch patient became hypoxic initial ABG showed acute hypoxemic and hypercapneic resp acidosis ( PH 7.17, PCO2: 87, PaO2: 82) She was placed on BIPAP 29/12 with 60% FIO2. More awake per nursing staff. 08/21 Patient is off BIPAP on 4L oxygen. Afebrile. Awake and alert requesting something to eat. 08/22 No events overnight. Afebrile. Objective Vital Signs Date Time Temp Pulse Resp B/P (MAP) Pulse Ox O2 Delivery O2 Flow Rate FiO2 08/22/17 06:00 80 08/22/17 04:00 97.8 18 159/137 (144) 97 08/21/17 20:26 Nasal Cannula 4.00 08/20/17 17:45 60 Intake and Output 08/22/17 08/22/17 08/23/17 08:00 16:00 00:00 Intake Total 530 ml Output Total 700 ml Balance -170 ml Result Diagram: 08/22/17 0438 08/22/17 0438 Other Results Laboratory Tests Test 08/21/17 08:45 08/21/17 12:08 08/22/17 04:38 Blood Gas Puncture Site RT RADIAL Blood Gas Patient Temperature 98.6 Blood Gas HCO3 33 mmol/L Blood Gas Base Excess 7.9 mmol/L Blood Gas Oxygen Saturation 88 % Arterial Blood pH 7.39 Arterial Blood Partial Pressure CO2 55 mmHg Arterial Blood Partial Pressure O2 60 mmHg Arterial Blood Oxygen Content 11.9 Vol % Arterial Blood Carboxyhemoglobin 1.5 % Arterial Blood Methemoglobin 1.2 % Blood Gas Hemoglobin 9.6 G/DL Oxygen Delivery Device NASAL CANNULA Blood Gas Liter Flow 4 L/M Urine Color LIGHT-YELLOW Urine Turbidity CLEAR Urine pH 5.5 Urine Specific [place] 1.013 Urine Protein NEG mg/dL Urine Glucose (UA) NEG mg/dL Urine Ketones NEG mg/dL Urine Occult Blood NEG Urine Nitrite NEG Urine Bilirubin NEG Urine Urobilinogen LESS THAN 2.0 MG/DL Urine Leukocyte Esterase NEG Urine Mucus FEW /lpf Microscopic Urinalysis Comment CATH-CULT NOT IND White Blood Count 27.6 TH/MM3 Red Blood Count 3.14 MIL/MM3 Hemoglobin 9.2 GM/DL Hematocrit 28.5 % Mean Corpuscular Volume 90.7 FL Mean Corpuscular Hemoglobin 29.3 PG Mean Corpuscular Hemoglobin Concent 32.3 % Red Cell Distribution Width 15.1 % Platelet Count 356 TH/MM3 Mean Platelet Volume 7.6 FL Neutrophils (%) (Auto) 95.2 % Lymphocytes (%) (Auto) 0.8 % Monocytes (%) (Auto) 4.0 % Eosinophils (%) (Auto) 0.0 % Basophils (%) (Auto) 0.0 % Neutrophils # (Auto) 26.3 TH/MM3 Lymphocytes # (Auto) 0.2 TH/MM3 Monocytes # (Auto) 1.1 TH/MM3 Eosinophils # (Auto) 0.0 TH/MM3 Basophils # (Auto) 0.0 TH/MM3 CBC Comment DIFF FINAL Differential Comment Blood Urea Nitrogen 28 MG/DL Creatinine 0.83 MG/DL Random Glucose 127 MG/DL Calcium Level 8.6 MG/DL Sodium Level 138 MEQ/L Potassium Level 4.2 MEQ/L Chloride Level 98 MEQ/L Carbon Dioxide Level 32.6 MEQ/L Anion Gap 7 MEQ/L Estimat Glomerular Filtration Rate 66 ML/MIN Imaging Last Impressions Chest X-Ray 08/20/17 0000 Signed Impressions: Service Date/Time: Sunday, August 20, 2017 14:49 - CONCLUSION: 1. No pneumothorax status post bronchoscopy. 2. Persistent very small right and trace left pleural effusions with associated lower lung zone airspace disease. Nelson العراقي MD Chest CT 08/16/17 0000 Signed Impressions: Service Date/Time: August 15:18 - CONCLUSION: 1. There is a new right suprahilar mass measuring 3.4 cm, highly suspicious for malignancy. 2. Moderate size right pleural effusion. 3. Subsegmental consolidative infiltrate in the anterior left lower lobe. 4. Chronic interstitial lung disease and bronchiectasis is similar to prior. Joe Green MD Procedures EGD/ colonoscopy. Objective Remarks GENERAL: Patient is 82 yo lying in bed in no acute resp distress SKIN: Warm and dry. HEAD: Normocephalic. EYES: No scleral icterus. No injection or drainage. NECK: Supple, trachea midline. No JVD or lymphadenopathy. CARDIOVASCULAR: Regular rate and rhythm without murmurs, gallops, or rubs. RESPIRATORY: Breath sounds equal bilaterally. No accessory muscle use. GASTROINTESTINAL: Abdomen soft, non-tender, nondistended. MUSCULOSKELETAL: No cyanosis, or edema. Neuro: Awake. A/P Assessment and Plan 1) Acute hypercapnic and hypoxic Respiratory failure - improving 2)COPD exac, on 4L home oxygen 3)Right suprahilar lung mass s/p bronch with biopsy 4)A. fib 5)Peripheral vascular disease 6)Rheumatoid arthritis 7)History gout 8)Anemia 9) Leukocytosis 10) ? post obstructive pneumonia Neuro: Awake, alert. Avoid sedatives Pulm: Continue with oxygen keep sats >92% Bronchodilators, Prednisone 20mg BID NIPPV PRN for resp distress s/p bronch, brushing and biopsy 08/20 path negative for malignancy Follow up on cultures and cytology CXR post bronch: No pneumothorax status post bronchoscopy. Persistent very small right and trace left pleural effusions with associated lower lung zone airspace disease. Pulm- Dr. Esposito CV: Monitor HR and BP keep MAP>65mmHg Increase Lopressor 25mg BID GI: on Pepcid for GI prophylaxis, on po diet : Monitor renal function, I/O's, electrolytes replacement as needed. Heme: Monitor CBC, on Folic acid GI is following ID: Continue Zosyn,s/p Vanco 1gram x1 monitor for signs of infections ( fever, WBC) WBC is trending down Bronch washing: GNR Endo: SSI if needed for glycemic control On MTX, Plaquenil for RA GI prophylaxis DVT prophylaxis Will sign off and transfer care to [facility] Level 2 Ray Nguyen MD Aug 22, 2017 07:46
[2017-08-22] MEDS: SODIUM CHLORIDE 0.9% FLUSH 10 ML FLUSH IV FLUSH SCH ×2 (08:38→20:19)
[2017-08-22] MEDS: BRIMONIDINE TARTRATE 0.2% OPHT SOLN 5 ML BTL LEFT EYE SCH ×2 (08:38→20:19)
[2017-08-22] MEDS: MUPIROCIN 2% OINT 1 APPLIC/GM SYR NASAL SCH ×2 (08:39→20:19)
[2017-08-22] MEDS: HYDROXYCHLOROQUINE SULFATE 200 MG TAB PO SCH ×2 (08:39→20:19)
[2017-08-22] MEDS: TIMOLOL MALEATE 0.5% OPHT SOLN 5 ML BTL LEFT EYE SCH ×2 (08:39→20:19)
[2017-08-22] MEDS: ALLOPURINOL 100 MG TAB PO SCH (08:39)
[2017-08-22] MEDS: FOLIC ACID 1 MG TAB PO SCH (08:39)
[2017-08-22] MEDS: predniSONE 20 MG TAB PO SCH ×2 (08:39→20:19)
[2017-08-22] MEDS: DOCUSATE SODIUM 50 MG/SENNA 8.6 MG TAB PO SCH ×2 (08:39→20:19)
[2017-08-22] MEDS: FAMOTIDINE 20 MG TAB PO SCH (08:39)
[2017-08-22] MEDS: METOPROLOL TARTRATE 25 MG TAB PO SCH ×2 (08:41→20:19)
[2017-08-22] MEDS: traZODone HCL 50 MG TAB PO SCH (20:19)
[2017-08-22] MEDS: LATANOPROST 0.005% OPHT SOLN 2.5 ML BTL LEFT EYE SCH (20:20)
[2017-08-22] MEDS: AZOPT EYE LEFT EYE SCH (20:24)
[2017-08-23] VITALS (15 sets, daily range): BP systolic 152–207; BP diastolic 68–93; PULSE 74–88; RESP 20–24; TEMP 97.9–98.8; O2SAT 95–99
[2017-08-23] MEDS: INSULIN NovoLIN REGULAR SUPPLEMENTAL SCALE SQ SCH ×4 (02:00→20:22)
[2017-08-23] MEDS: CHLORHEXIDINE GLUCONATE 2 % 1 PACK (2 CLOTHS)(taper/protocol) TOPICAL SCH (03:19)
[2017-08-23] MEDS: PIPERACILLIN/TAZ 2.25 GM VIAL 2.25 GM in SODIUM CHLORIDE 0.9% INJ 50 ML IV SCH ×2 (03:19→08:52)
[2017-08-23 04:47] LABS: AUTOMATED NEUTROPHIL # 28.7 TH/MM3 (1.8-7.7); HEMATOCRIT 29.7 % (35.0-46.0); HEMOGLOBIN 9.5 GM/DL (11.6-15.3); LYMPH % 0.8 % (9.0-44.0); LYMPHOCYTE # 0.3 TH/MM3 (1.0-4.8); MEAN CELL VOLUME 91.5 FL (80.0-100.0); MEAN CORPUSCULAR HEMOGLOBIN 29.4 PG (27.0-34.0); MEAN CORPUSCULAR HGB CONC 32.2 % (32.0-36.0); MEAN PLATELET VOLUME 8.1 FL (7.0-11.0); MONO % 5.3 % (0.0-8.0); MONOCYTE # 1.6 TH/MM3 (0-0.9); NEUT % 93.9 % (16.0-70.0); PLATELET COUNT 323 TH/MM3 (150-450); RED BLOOD COUNT 3.24 MIL/MM3 (4.00-5.30); WHITE BLOOD COUNT 30.6 TH/MM3 (4.0-11.0)
[2017-08-23 05:11] LABS: BICARBONATE 33.1 MEQ/L (21.0-32.0); CALCIUM 8.4 MG/DL (8.5-10.1); CREATININE 0.73 MG/DL (0.50-1.00)
[2017-08-23] MEDS: RESP: ALBUTEROL 2.5 MG/IPRATROPIUM 0.5 MG NEB (SCH) NEB ×3 (07:41→20:06)
[2017-08-23] MEDS: SODIUM CHLORIDE 0.9% FLUSH 10 ML FLUSH IV FLUSH SCH ×2 (08:53→20:25)
[2017-08-23] MEDS: TIMOLOL MALEATE 0.5% OPHT SOLN 5 ML BTL LEFT EYE SCH ×2 (08:53→20:22)
[2017-08-23] MEDS: MUPIROCIN 2% OINT 1 APPLIC/GM SYR NASAL SCH ×2 (08:53→20:25)
[2017-08-23] MEDS: BRIMONIDINE TARTRATE 0.2% OPHT SOLN 5 ML BTL LEFT EYE SCH ×2 (08:53→20:23)
[2017-08-23] MEDS: HYDROXYCHLOROQUINE SULFATE 200 MG TAB PO SCH ×2 (08:54→20:23)
[2017-08-23] MEDS: METOPROLOL TARTRATE 25 MG TAB PO SCH ×2 (08:54→20:23)
[2017-08-23] MEDS: predniSONE 20 MG TAB PO SCH ×2 (08:54→20:23)
[2017-08-23] MEDS: DOCUSATE SODIUM 50 MG/SENNA 8.6 MG TAB PO SCH ×2 (08:54→20:23)
[2017-08-23] MEDS: ALLOPURINOL 100 MG TAB PO SCH (08:54)
[2017-08-23] MEDS: FAMOTIDINE 20 MG TAB PO SCH (08:54)
[2017-08-23] MEDS: FOLIC ACID 1 MG TAB PO SCH (08:59)
[2017-08-23 09:28] LABS: BANDS 3 % (0-6); MONOCYTES 3 % (0-8); NEUTROPHIL # MANUAL DIFF 29.7 TH/MM3 (1.8-7.7); POLYS (SEG NEUTROPHILS) 94 % (16-70)
--- NOTE | 2017-08-23 11:36 | HHI.PR ---
Subjective Remarks 82-year-old female complains of increasing dyspnea for the last week. She has had a cough which is chronic however has been worse over the past couple days. No fever or chest pain. She also complains of worsening dyspnea on exertion. The patient also reports palpitations. She reports compliance with Xarelto and Lasix. She reports a history of CHF and atrial fibrillation. She also reports a history of peripheral artery disease. She has also been complaining of worsening left extremity pain that is 9 out of 10. 08/20 Reconsult Patient s/p bronch wih biopsy by Dr. Esposito post bronch patient became hypoxic initial ABG showed acute hypoxemic and hypercapnic resp acidosis ( PH 7.17, PCO2: 87, PaO2: 82) She was placed on BIPAP 29/12 with 60% FIO2. More awake per nursing staff. 08/21 Patient is off BIPAP on 4L oxygen. Afebrile. Awake and alert requesting something to eat. 08/22 No events overnight. Afebrile. 08-23 MUCH MORE ALERT TRANSFERRED TO OUR [facility] NEED[facility] PT AND OT Objective Vitals Vital Signs Date Time Temp Pulse Resp B/P (MAP) Pulse Ox O2 Delivery O2 Flow Rate FiO2 08/23/17 10:00 79 08/23/17 08:59 97.9 88 24 207/93 (131) 95 08/23/17 08:00 87 08/23/17 07:43 99 Nasal Cannula 4.00 08/23/17 07:00 100 Nasal Cannula 4.00 Humidified 08/23/17 06:00 81 08/23/17 04:00 82 08/23/17 04:00 97.9 82 23 168/80 (109) 97 08/23/17 02:00 74 08/23/17 00:00 98.7 81 24 177/81 (113) 96 08/23/17 00:00 81 08/22/17 22:00 80 08/22/17 20:00 98.2 87 22 174/79 (110) 98 08/22/17 20:00 87 08/22/17 19:52 95 Nasal Cannula 4.00 08/22/17 19:00 96 Nasal Cannula 4.00 Humidified 08/22/17 18:00 89 08/22/17 16:00 98.9 86 24 150/70 (96) 95 4/11/18 16:00 86 08/22/17 14:00 85 08/22/17 12:00 81 08/22/17 12:00 97.8 81 21 162/75 (104) 97 I/O 08/22/17 08/22/17 08/22/17 08/23/17 08/23/17 08/23/17 07:00 15:00 23:00 07:00 15:00 23:00 Intake Total 530 ml 970 ml 530 ml 50 ml Output Total 700 ml 400 ml 325 ml Balance -170 ml 570 ml 205 ml 50 ml Intake Oral 480 ml 920 ml 480 ml IV Total 50 ml 50 ml 50 ml 50 ml Output Urine Total 700 ml 400 ml 325 ml # Voids 1 1 # Bowel Movements 0 1 2 Result Diagram: 08/23/17 0326 08/23/17 0326 Other Results Laboratory Tests Test 08/20/17 16:16 08/20/17 19:01 08/21/17 03:26 08/21/17 08:45 Blood Gas Puncture Site RT BRACHIAL RT RADIAL Blood Gas Patient Temperature 98.6 98.6 Blood Gas HCO3 30 mmol/L 33 mmol/L Blood Gas Base Excess 4.2 mmol/L 7.9 mmol/L Blood Gas Oxygen Saturation 92 % 88 % Arterial Blood pH 7.31 7.39 Arterial Blood Partial Pressure CO2 62 mmHg 55 mmHg Arterial Blood Partial Pressure O2 72 mmHg 60 mmHg Arterial Blood Oxygen Content 12.6 Vol % 11.9 Vol % Arterial Blood Carboxyhemoglobin 1.3 % 1.5 % Arterial Blood Methemoglobin 1.1 % 1.2 % Blood Gas Hemoglobin 9.7 G/DL 9.6 G/DL Oxygen Delivery Device [id number] NASAL CANNULA Blood Gas Inspired Oxygen 70 % White Blood Count 31.5 TH/MM3 30.0 TH/MM3 Red Blood Count 3.50 MIL/MM3 3.33 MIL/MM3 Hemoglobin 10.2 GM/DL 9.7 GM/DL Hematocrit 32.6 % 30.7 % Mean Corpuscular Volume 93.1 FL 92.2 FL Mean Corpuscular Hemoglobin 29.2 PG 29.0 PG Mean Corpuscular Hemoglobin Concent 31.4 % 31.5 % Red Cell Distribution Width 15.1 % 15.5 % Platelet Count 445 TH/MM3 402 TH/MM3 Mean Platelet Volume 7.4 FL 7.8 FL Neutrophils (%) (Auto) 93.9 % 96.3 % Lymphocytes (%) (Auto) 0.8 % 1.4 % Monocytes (%) (Auto) 5.2 % 2.2 % Eosinophils (%) (Auto) 0.0 % 0.0 % Basophils (%) (Auto) 0.1 % 0.1 % Neutrophils # (Auto) 29.6 TH/MM3 28.9 TH/MM3 Lymphocytes # (Auto) 0.3 TH/MM3 0.4 TH/MM3 Monocytes # (Auto) 1.6 TH/MM3 0.6 TH/MM3 Eosinophils # (Auto) 0.0 TH/MM3 0.0 TH/MM3 Basophils # (Auto) 0.0 TH/MM3 0.0 TH/MM3 CBC Comment AUTO DIFF DIFF FINAL Differential Total Cells Counted 100 Neutrophils % (Manual) 95 % Lymphocytes % 1 % Monocytes % 3 % Neutrophils # (Manual) 30.2 TH/MM3 Promyelocytes 1 % Differential Comment FINAL DIFF MANUAL Toxic Granulation 2+ Platelet Estimate NORMAL Platelet Morphology Comment CLUMPED Blood Urea Nitrogen 34 MG/DL 35 MG/DL Creatinine 1.04 MG/DL 1.02 MG/DL Random Glucose 101 MG/DL 100 MG/DL Calcium Level 9.0 MG/DL 8.8 MG/DL Phosphorus Level 4.9 MG/DL Magnesium Level 2.0 MG/DL Sodium Level 138 MEQ/L 139 MEQ/L Potassium Level 5.0 MEQ/L 4.8 MEQ/L Chloride Level 100 MEQ/L 98 MEQ/L Carbon Dioxide Level 33.6 MEQ/L 33.8 MEQ/L Anion Gap 4 MEQ/L 7 MEQ/L Estimat Glomerular Filtration Rate 51 ML/MIN 52 ML/MIN Blood Gas Liter Flow 4 L/M Test 08/21/17 12:08 08/22/17 04:38 08/23/17 03:26 Urine Color LIGHT-YELLOW Urine Turbidity CLEAR Urine pH 5.5 Urine Specific [place] 1.013 Urine Protein NEG mg/dL Urine Glucose (UA) NEG mg/dL Urine Ketones NEG mg/dL Urine Occult Blood NEG Urine Nitrite NEG Urine Bilirubin NEG Urine Urobilinogen LESS THAN 2.0 MG/DL Urine Leukocyte Esterase NEG Urine Mucus FEW /lpf Microscopic Urinalysis Comment CATH-CULT NOT IND White Blood Count 27.6 TH/MM3 30.6 TH/MM3 Red Blood Count 3.14 MIL/MM3 3.24 MIL/MM3 Hemoglobin 9.2 GM/DL 9.5 GM/DL Hematocrit 28.5 % 29.7 % Mean Corpuscular Volume 90.7 FL 91.5 FL Mean Corpuscular Hemoglobin 29.3 PG 29.4 PG Mean Corpuscular Hemoglobin Concent 32.3 % 32.2 % Red Cell Distribution Width 15.1 % 15.0 % Platelet Count 356 TH/MM3 323 TH/MM3 Mean Platelet Volume 7.6 FL 8.1 FL Neutrophils (%) (Auto) 95.2 % 93.9 % Lymphocytes (%) (Auto) 0.8 % 0.8 % Monocytes (%) (Auto) 4.0 % 5.3 % Eosinophils (%) (Auto) 0.0 % 0.0 % Basophils (%) (Auto) 0.0 % 0.0 % Neutrophils # (Auto) 26.3 TH/MM3 28.7 TH/MM3 Lymphocytes # (Auto) 0.2 TH/MM3 0.3 TH/MM3 Monocytes # (Auto) 1.1 TH/MM3 1.6 TH/MM3 Eosinophils # (Auto) 0.0 TH/MM3 0.0 TH/MM3 Basophils # (Auto) 0.0 TH/MM3 0.0 TH/MM3 CBC Comment DIFF FINAL AUTO DIFF Differential Comment FINAL DIFF MANUAL Blood Urea Nitrogen 28 MG/DL 23 MG/DL Creatinine 0.83 MG/DL 0.73 MG/DL Random Glucose 127 MG/DL 112 MG/DL Calcium Level 8.6 MG/DL 8.4 MG/DL Sodium Level 138 MEQ/L 139 MEQ/L Potassium Level 4.2 MEQ/L 3.5 MEQ/L Chloride Level 98 MEQ/L 100 MEQ/L Carbon Dioxide Level 32.6 MEQ/L 33.1 MEQ/L Anion Gap 7 MEQ/L 6 MEQ/L Estimat Glomerular Filtration Rate 66 ML/MIN 77 ML/MIN Differential Total Cells Counted 100 Neutrophils % (Manual) 94 % Band Neutrophils % 3 % Monocytes % 3 % Neutrophils # (Manual) 29.7 TH/MM3 Platelet Estimate NORMAL Platelet Morphology Comment CLUMPED Imaging Last Impressions Chest X-Ray 08/20/17 0000 Signed Impressions: Service Date/Time: Sunday, August 20, 2017 14:49 - CONCLUSION: 1. No pneumothorax status post bronchoscopy. 2. Persistent very small right and trace left pleural effusions with associated lower lung zone airspace disease. Nelson العراقي MD Chest CT 08/16/17 0000 Signed Impressions: Service Date/Time: August 15:18 - CONCLUSION: 1. There is a new right suprahilar mass measuring 3.4 cm, highly suspicious for malignancy. 2. Moderate size right pleural effusion. 3. Subsegmental consolidative infiltrate in the anterior left lower lobe. 4. Chronic interstitial lung disease and bronchiectasis is similar to prior. Joe Green MD Objective Remarks GENERAL: Awake alert and oriented 3 talkative and cooperative SKIN: Warm and dry. HEAD: Atraumatic. Normocephalic. EYES: Pupils equal and round. No scleral icterus. No injection or drainage. Extraocular muscles intact ENT: No nasal bleeding or discharge. Mucous membranes pink and moist. Tongue is midline supple supple NECK: Trachea midline. No JVD. Supple CARDIOVASCULAR: IRRegular rate and rhythm. S1-S2 no S3 or S4 RESPIRATORY: No accessory muscle use. Breath sounds equal bilaterally. Decreased breath sounds bilaterally GASTROINTESTINAL: Abdomen soft, non-tender, nondistended. Hepatic and splenic margins not palpable. MUSCULOSKELETAL: Extremities without clubbing, cyanosis, or edema. No obvious deformities. NEUROLOGICAL: Awake and alert. No obvious cranial nerve deficits. Motor grossly within normal limits. 4 out of 5 muscle strength in the arms and legs. Normal speech. PSYCHIATRIC: Appropriate mood and affect; insight and judgment normal. Procedures EGD/ colonoscopy. Medications and IVs Current Medications Sodium Chloride (NS Flush) 2 ml UNSCH PRN IVF FLUSH AFTER USING IV ACCESS; Start 08/10/17 at 18:45 Sodium Chloride 500 ml @ 500 mls/hr BOLUS ONCE IV Last administered on at 18:45; Start 08/10/17 at 18:45; Stop 08/10/17 at 19:44; Status DC Digoxin (Lanoxin Inj) 0.25 mg ONCE ONCE IV PUSH Last administered on at 19:44; Start 08/10/17 at 19:15; Stop 08/10/17 at 19:16; Status DC Cefepime HCl 2000 mg/Sodium Chloride 100 ml @ 200 mls/hr ONCE STAT IV Last administered on 08/10/17at 19:44; Start 08/10/17 at 19:04; Stop 08/10/17 at 19:33 ; Status DC Azithromycin 500 mg/Sodium Chloride 250 ml @ 250 mls/hr ONCE STAT IV Last administered on 08/10/17at 20:37; Start 08/10/17 at 19:04; Stop 08/10/17 at 20:03 ; Status DC Miscellaneous Information Patient in critical care unit? Ass... Q361D .XX ; Start 08/11/17 at 02:30 Chlorhexidine Gluconate (Chlorhexidine 2% Cloth) 3 pack DAILY@04 TOPICAL Last administered on 08/11/17at 04:00; Start 08/11/17 at 04:00; Stop 08/15/17 at 04:01 ; Status DC Chlorhexidine Gluconate (Chlorhexidine 2% Cloth) 3 pack UNSCH PRN TOPICAL HYGIENIC CARE; Start 08/11/17 at 02:30; Stop 08/16/17 at 02:19; Status DC Allopurinol (Zyloprim) 100 mg DAILY PO Last administered on 08/23/17at 08:54; Start 08/11/17 at 09:00 Cilostazol (Pletal) 50 mg BID PO Last administered on 08/17/17at 12:04; Start at 09:00; Stop 08/17/17 at 14:03; Status DC Diltiazem HCl (Cardizem Cd) 120 mg BID PO Last administered on 08/20/17at 20:34; Start 08/11/17 at 09:00; Stop 08/21/17 at 07:49; Status DC Folic Acid (Folate) 1 mg DAILY PO Last administered on 08/23/17at 08:59; Start 08/11/17 at 09:00 Furosemide (Lasix) 40 mg BID PO ; Start 08/11/17 at 09:00; Stop 08/11/17 at 09: 00; Status DC Hydroxychloroquine Sulfate (Plaquenil) 200 mg BID PO Last administered on at 08:54; Start 08/11/17 at 09:00 Methotrexate (Rheumatrex) 15 mg Q7D PO Last administered on 08/18/17at 10:26; Start 08/11/17 at 09:00 Metoprolol Tartrate (Lopressor) 25 mg BID PO Last administered on 08/11/17at 08: 53; Start 08/11/17 at 09:00; Stop 08/22/17 at 07:46; Status DC Rivaroxaban (Xarelto) 15 mg DAILY PO Last administered on 08/15/17at 10:27; Start 08/11/17 at 09:00; Stop 08/17/17 at 14:03; Status DC Trazodone HCl (Desyrel) 50 mg HS PO Last administered on 08/22/17at 20:19; Start 08/11/17 at 21:00 Non-Formulary Medication 1 drop Q12HR LEFT EYE ; Start 08/11/17 at 09:00; Stop 08/11/17 at 09:00; Status DC Patient Own Medication PT OWN MED: AZOPT EYE DR... BID LEFT EYE Last administered on 08/16/17at 09:00; Start 08/11/17 at 09:00 Latanoprost (Xalatan 0.005% Opt Soln) 1 drop HS LEFT EYE Last administered on 08/22/17at 20:20; Start 08/11/17 at 21:00 Sodium Chloride (NS Flush) 2 ml UNSCH PRN IV FLUSH FLUSH AFTER USING IV ACCESS ; Start 08/11/17 at 05:00 Sodium Chloride (NS Flush) 2 ml BID IV FLUSH Last administered on 08/23/17at 08: 53; Start 08/11/17 at 09:00 Acetaminophen (Tylenol) 650 mg Q6H PRN PO PAIN 1-5 AND/OR FEVER >101F Last administered on 08/22/17at 05:29; Start 08/11/17 at 05:00 Morphine Sulfate (Morphine Inj) 2 mg Q2H PRN IV PUSH PAIN SCALE 6 TO 10 Last administered on 08/11/17at 05:16; Start 08/11/17 at 05:00 Famotidine (Pepcid) 20 mg Q12HR PO Last administered on 08/13/17at 10:53; Start 08/11/17 at 09:00; Stop 08/13/17 at 16:05; Status DC Ondansetron HCl (Zofran Inj) 4 mg Q6H PRN IV PUSH NAUSEA OR VOMITING; Start at 05:00 Temazepam (Restoril) 15 mg HS PRN PO INSOMNIA; Start 08/11/17 at 05:00 Albuterol/ Ipratropium (Duoneb Neb) 1 ampule Q6HR NEB INH Last administered on 08/15/17at 02:40; Start 08/11/17 at 10:00; Stop 08/15/17 at 09:59; Status DC Miscellaneous Information 1 Q361D XX ; Start 08/11/17 at 05:00; Stop 08/11/17 at 05:11; Status DC Chlorhexidine Gluconate (Chlorhexidine 2% Cloth) 3 pack Taper DAILY@04 TOP ; Start 08/12/17 at 04:00; Stop 08/12/17 at 04:00; Status DC Chlorhexidine Gluconate (Chlorhexidine 2% Cloth) 3 pack UNSCH PRN TOP HYGIENIC CARE; Start 08/11/17 at 05:00; Stop 08/11/17 at 05:11; Status DC Senna/Docusate Sodium (Venita-Colace) 1 tab BID PO Last administered on at 20:19; Start 08/11/17 at 09:00 Magnesium Hydroxide (Milk Of Magnesia Liq) 30 ml Q12H PRN PO Mild constipation ; Start 08/11/17 at 05:00 Sennosides (Senokot) 17.2 mg Q12H PRN PO Moderate constipation; Start 08/11/17 at 05:00 Bisacodyl (Dulcolax Supp) 10 mg DAILY PRN RECTAL SEVERE CONSITIPATION/ IF NPO ; Start 08/11/17 at 05:00 Lactulose (Lactulose Liq) 30 ml DAILY PRN PO SEVERE CONSITIPATION/ IF PO; Start 08/11/17 at 05:00 Piperacillin Sod/ Tazobactam Sod 100 ml @ 200 mls/hr Q6H IV Last administered on 08/12/17at 05:00; Start 08/11/17 at 05:00; Stop 08/12/17 at 09:23; Status DC Azithromycin 500 mg/Sodium Chloride 250 ml @ 250 mls/hr Q24H IV Last administered on 08/16/17at 19:31; Start 08/11/17 at 20:00; Stop 08/17/17 at 14:03; Status DC Pharmacy Profile Note 0 ml @ 0 mls/hr UNSCH OTHER ; Start 08/11/17 at 05:00; Stop 08/13/17 at 11:25; Status DC Methylprednisolone Sodium Succinate (SoluMEDROL INJ) 40 mg Q12H IV PUSH Last administered on 08/12/17at 05:00; Start 08/11/17 at 05:00; Stop 08/12/17 at 09:23; Status DC Vancomycin HCl 850 mg/Sodium Chloride 258.5 ml @ 250 mls/hr DAILY@0600 IV Last administered on 08/11/17at 05:59; Start 08/11/17 at 06:00; Stop 08/11/17 at 12:00; Status DC Brimonidine Tartrate (Alphagan 0.2% Opt Soln) 1 drop Q12HR LEFT EYE Last administered on 08/23/17at 08:53; Start 08/11/17 at 09:00 Timolol Maleate (Timoptic 0.5% Opt Soln) 1 drop Q12HR LEFT EYE Last administered on 08/23/17at 08:53; Start 08/11/17 at 09:00 Sodium Bicarbonate 150 meq/Sterile Water 1,000 ml @ 150 mls/hr Q6H40M IV Last administered on 08/11/17at 15:25; Start 08/11/17 at 05:30; Stop 08/11/17 at 16:08 ; Status DC Potassium Chloride 100 ml @ 50 mls/hr Q2H IV Last administered on 08/12/17at 16: 25; Start 08/12/17 at 08:30; Stop 08/12/17 at 12:29; Status DC Magnesium Sulfate/ Dextrose 100 ml @ 100 mls/hr ONCE ONCE IV Last administered on 08/12/17at 09:51; Start 08/12/17 at 09:00; Stop 08/12/17 at 09:59; Status DC Ceftriaxone Sodium 1000 mg/ Sodium Chloride 100 ml @ 200 mls/hr Q24H IV Last administered on 08/19/17at 11:26; Start 08/12/17 at 11:00; Stop 08/21/17 at 07:49; Status DC Prednisone (Deltasone) 20 mg TID PO Last administered on 08/15/17at 17:21; Start 08/12/17 at 13:00; Stop 08/15/17 at 19:02; Status DC Vancomycin HCl 1000 mg/Sodium Chloride 250 ml @ 250 mls/hr ONCE ONCE IV Last administered on 08/12/17at 13:39; Start 08/12/17 at 12:00; Stop 08/12/17 at 12:59; Status DC Potassium Chloride (KCl) 40 meq ONCE ONCE PO Last administered on 08/13/17at 11: 00; Start 08/13/17 at 08:45; Stop 08/13/17 at 09:29; Status DC Potassium Chloride (KCl) 40 meq ONCE ONCE PO Last administered on 08/13/17at 15: 40; Start 08/13/17 at 13:00; Stop 08/13/17 at 13:01; Status DC Famotidine (Pepcid) 20 mg DAILY PO Last administered on 08/23/17at 08:54; Start 08/14/17 at 09:00 Albuterol Sulfate (Albuterol Neb) 1.25 mg Q2HR NEB PRN NEB SHORTNESS OF BREATH ; Start 08/14/17 at 19:00 Alprazolam (Xanax) 0.25 mg Q8H PRN PO ANXIETY Last administered on 08/14/17at 21: 27; Start 08/14/17 at 19:00 Albuterol/ Ipratropium (Duoneb Neb) 1 ampule Q6HR NEB NEB ; Start 08/15/17 at 14 :00; Stop 08/15/17 at 14:51; Status DC Albuterol/ Ipratropium (Duoneb Neb) 1 ampule QID NEB NEB Last administered on 08/19/17at 11:05; Start 08/15/17 at 16:00; Stop 08/19/17 at 11:45; Status DC Methylprednisolone Sodium Succinate (SoluMEDROL INJ) 40 mg BID IV Last administered on 08/16/17at 07:57; Start 08/15/17 at 21:00; Stop 08/16/17 at 09:24; Status DC Methylprednisolone Sodium Succinate (SoluMEDROL INJ) 20 mg BID IV Last administered on 08/18/17at 19:51; Start 08/16/17 at 21:00; Stop 08/18/17 at 22:00; Status DC Magnesium Citrate (Citroma Liq) 300 ml 0500,1600,2000 PO Last administered on at 04:24; Start 08/16/17 at 16:00; Stop 08/17/17 at 05:01; Status DC Bisacodyl (Dulcolax Ec) 10 mg ONCE ONCE PO ; Start 08/16/17 at 16:15; Stop at 16:15; Status DC Iohexol (Omnipaque 350 Inj) 55 ml STK-MED ONCE IVCONTRAST Last administered on 08/16/17at 15:33; Start 08/16/17 at 15:33; Stop 08/16/17 at 15:34; Status DC Bisacodyl (Dulcolax Ec) 10 mg ONCE ONCE PO Last administered on 08/16/17at 16:17 ; Start 08/16/17 at 18:00; Stop 08/16/17 at 18:01; Status DC Prednisone (Deltasone) 40 mg DAILY PO Last administered on 08/20/17at 08:24; Start 08/19/17 at 09:00; Stop 08/20/17 at 16:27; Status DC Metoprolol Tartrate (Lopressor) 25 mg DAILY PO Last administered on 08/21/17at 09:33; Start 08/19/17 at 09:00; Stop 08/22/17 at 07:46; Status DC Albuterol/ Ipratropium (Duoneb Neb) 1 ampule QID NEB NEB Last administered on 08/21/17at 15:08; Start 08/19/17 at 12:00; Stop 08/21/17 at 15:43; Status DC Dextrose/Sodium Chloride 1,000 ml @ 0 mls/hr Q0M IV ; Start 08/19/17 at 11:42; Stop 08/20/17 at 16:28; Status DC Albuterol Sulfate (Albuterol Concentrated Neb) 2.5 mg KNIFE [employer]ISHER NEB Last administered on 08/20/17at 11:14; Start 08/19/17 at 11:45; Stop 08/23/17 at 11:44 Lidocaine HCl (Lidocaine Pf 4% Neb) 3 ml K[employer]IFE [employer] NEB Last administered on at 11:14; Start 08/19/17 at 11:45; Stop 08/23/17 at 11:44 Propofol (Diprivan 200 Mg/20 ml Inj) 200 mg STK-MED ONCE IV ; Start 08/17/17 at 12:00; Stop 08/20/17 at 07:36; Status DC Lidocaine HCl (Xylocaine-Mpf 1% Inj) 5 ml STK-MED ONCE OTHER ; Start 08/17/17 at 12:00; Stop 08/20/17 at 07:36; Status DC Phenylephrine HCl (Neosynephrine/ NS 1000 Mcg/10ml Syr) 1,000 mcg STK-MED ONCE IV ; Start 08/17/17 at 12:00; Stop 08/20/17 at 07:36; Status DC Albuterol/ Ipratropium (Duoneb Neb) 1 ampule UNSCH X1 PRN NEB SHORTNESS OF BREATH; Start 08/20/17 at 13:15; Stop 08/21/17 at 13:14; Status DC Methylprednisolone Sodium Succinate (SoluMEDROL INJ) 125 mg STK-MED ONCE .ROUTE ; Start 08/20/17 at 15:12; Stop 08/20/17 at 15:13; Status DC Furosemide (Lasix Inj) 40 mg STK-MED ONCE .ROUTE ; Start 08/20/17 at 15:47; Stop 08/20/17 at 15:48; Status DC Methylprednisolone Sodium Succinate (SoluMEDROL INJ) 60 mg Q6HR IV PUSH Last administered on 08/21/17at 12:18; Start 08/20/17 at 18:00; Stop 08/21/17 at 15:43 ; Status DC Methylprednisolone Sodium Succinate (SoluMEDROL INJ) 60 mg NOW ONCE IV PUSH Last administered on 08/20/17at 15:16; Start 08/20/17 at 15:16; Stop 08/20/17 at 17: 08; Status DC Albuterol/ Ipratropium (Duoneb Neb) 1 ampule ONCE ONCE NEB ; Start 08/20/17 at 17:15; Stop 08/20/17 at 17:16; Status DC Lactated Ringer's 1,000 ml @ 50 mls/hr Q20H IV ; Start 08/20/17 at 15:30; Stop 08/20/17 at 17:12; Status DC Furosemide (Lasix Inj) 40 mg NOW ONCE IV PUSH Last administered on 08/20/17at 15 :47; Start 08/20/17 at 16:00; Stop 08/20/17 at 17:15; Status DC Miscellaneous Information Patient in critical care unit? Ass... Q361D .XX Last administered on 08/20/17at 20:30; Start 08/20/17 at 20:30 Mupirocin (Bactroban Nasal 2% Oint) 1 applic BID NASAL Last administered on 04/30at 08:53; Start 08/20/17 at 21:00 Chlorhexidine Gluconate (Chlorhexidine 2% Cloth) 3 pack DAILY@04 TOPICAL Last administered on 08/23/17at 03:19; Start 08/21/17 at 04:00; Stop 08/25/17 at 04:01 Chlorhexidine Gluconate (Chlorhexidine 2% Cloth) 3 pack UNSCH PRN TOPICAL HYGIENIC CARE; Start 08/20/17 at 20:30; Stop 08/25/17 at 20:23 Vancomycin HCl 1000 mg/Sodium Chloride 250 ml @ 250 mls/hr ONCE ONCE IV Last administered on 08/21/17at 09:33; Start 08/21/17 at 08:00; Stop 08/21/17 at 08:59 ; Status DC Piperacillin Sod/ Tazobactam Sod 100 ml @ 200 mls/hr Q6H IV ; Start 08/21/17 at 08:00; Stop 08/21/17 at 08:52; Status DC Dextrose (D50w (Vial) Inj) 50 ml UNSCH PRN IV PUSH HYPOGLYCEMIA-SEE COMMENTS; Start 08/21/17 at 08:00 Glucagon (Glucagon Inj) 1 mg UNSCH PRN OTHER HYPOGLYCEMIA-SEE COMMENTS; Start 08/21/17 at 08:00 Insulin Human Regular (NovoLIN R SUPPLEMENTAL SCALE) 1 Q6H SQ Last administered on 08/22/17at 20:18; Start 08/21/17 at 08:00 Piperacillin Sod/ Tazobactam Sod 100 ml @ 200 mls/hr ONCE ONCE IV Last administered on 08/21/17at 09:33; Start 08/21/17 at 09:00; Stop 08/21/17 at 09:29 ; Status DC Piperacillin Sod/ Tazobactam Sod 2.25 gm/Sodium Chloride 50 ml @ 100 mls/hr Q6H IV Last administered on 08/23/17at 08:52; Start 08/21/17 at 15:00 Albuterol/ Ipratropium (Duoneb Neb) 1 ampule TID NEB NEB Last administered on 08/23/17at 07:41; Start 08/21/17 at 20:00 Prednisone (Deltasone) 20 mg BID PO Last administered on 08/23/17at 08:54; Start 08/21/17 at 21:00 Metoprolol Tartrate (Lopressor) 25 mg BID PO Last administered on 08/23/17at 08: 54; Start 08/22/17 at 09:00 A/P Assessment and Plan Assessment and Plan 1) Acute hypercapnic and hypoxic Respiratory failure - improving 2)COPD exac, on 4L home oxygen 3)Right suprahilar lung mass s/p bronch with biopsy 4)A. fib 5)Peripheral vascular disease 6)Rheumatoid arthritis 7)History gout 8)Anemia 9) Leukocytosis 10) ? post obstructive pneumonia Neuro: Awake, alert. Avoid sedatives Pulm: Continue with oxygen keep sats >92% Bronchodilators, Prednisone 20mg BID NIPPV PRN for resp distress s/p bronch, brushing and biopsy 08/20 path negative for malignancy Follow up on cultures and cytology CXR post bronch: No pneumothorax status post bronchoscopy. Persistent very small right and trace left pleural effusions with associated lower lung zone airspace disease. Pulm- Dr. Esposito CV: Monitor HR and BP keep MAP>65mmHg Increase Lopressor 25mg BID GI: on Pepcid for GI prophylaxis, on po diet : Monitor renal function, I/O's, electrolytes replacement as needed. Heme: Monitor CBC, on Folic acid GI is following ID: Continue Zosyn,s/p Vanco 1gram x1 monitor for signs of infections ( fever, WBC) WBC is trending down Bronch washing: GNR Endo: SSI if needed for glycemic control On MTX, Plaquenil for RA GI prophylaxis DVT prophylaxis Physical therapy and Occupational Therapy Can move out of the ICU A.m. labs Discharge Planning Transfer out of ICU Archie Ortiz DO Aug 23, 2017 11:36
[2017-08-23] MEDS: LATANOPROST 0.005% OPHT SOLN 2.5 ML BTL LEFT EYE SCH (20:23)
[2017-08-23] MEDS: traZODone HCL 50 MG TAB PO SCH (20:23)
[2017-08-23] MEDS: AZOPT EYE LEFT EYE SCH (20:27)
[2017-08-23] MEDS: CIPROFLOXACIN 500 MG TAB PO SCH (21:38)
[2017-08-24] VITALS (15 sets, daily range): BP systolic 138–171; BP diastolic 67–78; PULSE 74–93; RESP 17–18; TEMP 97.3–98.2; O2SAT 93–100
[2017-08-24] MEDS: INSULIN NovoLIN REGULAR SUPPLEMENTAL SCALE SQ SCH ×4 (02:00→20:38)
[2017-08-24] MEDS: CHLORHEXIDINE GLUCONATE 2 % 1 PACK (2 CLOTHS)(taper/protocol) TOPICAL SCH (04:00)
[2017-08-24] MEDS: RESP: ALBUTEROL 2.5 MG/IPRATROPIUM 0.5 MG NEB (SCH) NEB ×3 (08:01→20:17)
[2017-08-24 08:30] LABS: AUTOMATED NEUTROPHIL # 24.8 TH/MM3 (1.8-7.7); BASOPHIL % 0.1 % (0.0-2.0); HEMATOCRIT 29.7 % (35.0-46.0); HEMOGLOBIN 9.7 GM/DL (11.6-15.3); LYMPHOCYTE # 0.5 TH/MM3 (1.0-4.8); MEAN CELL VOLUME 90.1 FL (80.0-100.0); MEAN CORPUSCULAR HEMOGLOBIN 29.4 PG (27.0-34.0); MEAN CORPUSCULAR HGB CONC 32.6 % (32.0-36.0); MEAN PLATELET VOLUME 8.3 FL (7.0-11.0); MONO % 5.6 % (0.0-8.0); MONOCYTE # 1.5 TH/MM3 (0-0.9); NEUT % 92.3 % (16.0-70.0); PLATELET COUNT 306 TH/MM3 (150-450); RED BLOOD COUNT 3.29 MIL/MM3 (4.00-5.30); RED CELL DISTRIBUTION WIDTH 15.1 % (11.6-17.2); WHITE BLOOD COUNT 26.9 TH/MM3 (4.0-11.0)
[2017-08-24 08:41] LABS: ALBUMIN 1.9 GM/DL (3.4-5.0); BICARBONATE 36.4 MEQ/L (21.0-32.0); BLOOD UREA NITROGEN 21 MG/DL (7-18); CALCIUM 8.1 MG/DL (8.5-10.1); CHLORIDE 99 MEQ/L (98-107); GLUCOSE,RANDOM 81 MG/DL (74-106); MAGNESIUM 1.7 MG/DL (1.5-2.5); SODIUM (NA) 139 MEQ/L (136-145)
[2017-08-24] MEDS: MUPIROCIN 2% OINT 1 APPLIC/GM SYR NASAL SCH ×2 (08:49→20:21)
[2017-08-24] MEDS: METOPROLOL TARTRATE 25 MG TAB PO SCH ×2 (08:49→20:21)
[2017-08-24] MEDS: CIPROFLOXACIN 500 MG TAB PO SCH (08:49)
[2017-08-24] MEDS: ALLOPURINOL 100 MG TAB PO SCH (08:49)
[2017-08-24] MEDS: FOLIC ACID 1 MG TAB PO SCH (08:50)
[2017-08-24] MEDS: predniSONE 20 MG TAB PO SCH (08:50)
[2017-08-24] MEDS: FAMOTIDINE 20 MG TAB PO SCH (08:50)
[2017-08-24] MEDS: SODIUM CHLORIDE 0.9% FLUSH 10 ML FLUSH IV FLUSH SCH ×2 (08:52→20:21)
[2017-08-24 08:55] LABS: ALKALINE PHOSPHATASE 101 U/L (45-117); ALT (GPT) 78 U/L (10-53); AST (GOT) 23 U/L (15-37); CREATININE 0.66 MG/DL (0.50-1.00); FREE T4 0.87 NG/DL (0.76-1.46); GLOMERULAR FILTRATION RATE 86 ML/MIN (>89); TOTAL BILIRUBIN ADULT 0.3 MG/DL (0.2-1.0); TOTAL PROTEIN 4.6 GM/DL (6.4-8.2)
[2017-08-24] MEDS: BRIMONIDINE TARTRATE 0.2% OPHT SOLN 5 ML BTL LEFT EYE SCH ×2 (09:00→20:47)
[2017-08-24] MEDS: AZOPT EYE LEFT EYE SCH ×2 (09:00→20:25)
[2017-08-24] MEDS: TIMOLOL MALEATE 0.5% OPHT SOLN 5 ML BTL LEFT EYE SCH ×2 (09:00→20:22)
[2017-08-24] MEDS: DOCUSATE SODIUM 50 MG/SENNA 8.6 MG TAB PO SCH ×2 (09:00→20:21)
[2017-08-24] MEDS: HYDROXYCHLOROQUINE SULFATE 200 MG TAB PO SCH ×2 (14:43→20:22)
--- NOTE | 2017-08-24 15:56 | HHI.PR ---
Subjective Remarks Patient is concerned about probable cancer diagnosis. His daughter at bedside. Awaiting input from oncologist. She reports difficulty with taking deep breaths. Otherwise states she is feeling better overall since arrival to the hospital. Objective Vitals Vital Signs Date Time Temp Pulse Resp B/P (MAP) Pulse Ox O2 Delivery O2 Flow Rate FiO2 08/24/17 13:31 80 08/24/17 13:31 96 Nasal Cannula 3.00 08/24/17 12:00 97.3 81 18 138/74 (95) 96 08/24/17 10:46 80 08/24/17 10:46 98 Nasal Cannula 3.00 08/24/17 08:04 98 Nasal Cannula 3.00 08/24/17 08:00 97.9 75 18 157/77 (103) 100 08/24/17 04:30 97.3 74 17 154/67 (96) 100 08/24/17 04:30 Nasal Cannula 4.00 Humidified 08/24/17 04:05 75 08/24/17 00:49 75 08/24/17 00:00 97.9 75 18 162/74 (103) 99 08/24/17 00:00 Nasal Cannula 4.00 Humidified 08/24/17 00:00 75 08/23/17 22:00 77 08/23/17 20:06 97 Nasal Cannula 4.00 08/23/17 20:00 98.2 87 23 176/77 (110) 96 08/23/17 20:00 87 08/23/17 19:00 95 Nasal Cannula 4.00 Humidified 08/23/17 18:00 87 08/23/17 16:00 82 08/23/17 16:00 98.3 82 23 178/80 (112) 98 I/O 08/23/17 08/23/17 08/23/17 08/24/17 08/24/17 08/24/17 07:00 15:00 23:00 07:00 15:00 23:00 Intake Total 530 ml 50 ml 720 ml 420 ml Output Total 325 ml 900 ml 100 ml Balance 205 ml 50 ml -180 ml 320 ml Intake Oral 480 ml 720 ml 420 ml IV Total 50 ml 50 ml Output Urine Total 325 ml 900 ml 100 ml # Voids 1 1 2 # Bowel Movements 2 3 0 Result Diagram: 4/13/18 0718 4/13/18 0718 Objective Remarks GENERAL: This is a well-nourished, well-developed patient, in no apparent distress. CARDIOVASCULAR: Normal rate and regular rhythm without murmurs, gallops, or rubs. RESPIRATORY: Diminished breath sounds at the bases bilaterally. Bilateral basilar crackles. Spasmodic cough. GASTROINTESTINAL: Abdomen soft, non-tender, non-distended. Normal active bowel sounds MUSCULOSKELETAL: Extremities without cyanosis, or edema. NEURO: Alert & Oriented x4 to person, place, time, situation. Moves all ext x4 PSYCH: Appropriate mood and affect. Procedures EGD/ colonoscopy. A/P Assessment and Plan 82-year-old female with: Respiratory failure secondary to pneumonia and lung mass. Patient underwent bronchoscopy and had postoperative hypoxemic and hypercapnic respiratory failure. She was on BiPAP, status post ICU course. -Appreciate pulmonology following. On ciprofloxacin and oral steroids. - Continue breathing treatments - Bronchial washings showing squamous cell carcinoma. Oncology has been consulted. -Follow cultures A. fib -Continue metoprolol, and resume Xarelto. Left lower extremity pain Peripheral vascular disease -Vascular surgery following. Severe PAD but nothing acute. Outpatient follow- up will be arranged. Rheumatoid arthritis -Continue Plaquenil -Continue methotrexate Chronic obstructive pulmonary disease -DuoNeb scheduled and as needed -steroid History gout -Allopurinol DVT GI prophylaxis -Arnaldo's and SCDs -Savita oMntero MD Aug 24, 2017 15:56
[2017-08-24] MEDS: ALPRAZolam 0.25 MG TAB PO PRN (16:42)
[2017-08-24 16:45] LABS: HEMOGLOBIN A1C 5.4 % (4.3-6.0)
[2017-08-24] MEDS: traZODone HCL 50 MG TAB PO SCH (20:21)
[2017-08-24] MEDS: LATANOPROST 0.005% OPHT SOLN 2.5 ML BTL LEFT EYE SCH (20:47)
[2017-08-24] MEDS ORDERED: LEVOFLOXACIN 750 MG TAB PO SCH (21:00)
[2017-08-25] VITALS (11 sets, daily range): BP systolic 148–191; BP diastolic 70–88; PULSE 74–95; RESP 17–20; TEMP 97.4–98.1; O2SAT 86–99
[2017-08-25] MEDS: INSULIN NovoLIN REGULAR SUPPLEMENTAL SCALE SQ SCH ×3 (02:00→14:00)
[2017-08-25] MEDS: CHLORHEXIDINE GLUCONATE 2 % 1 PACK (2 CLOTHS)(taper/protocol) TOPICAL SCH (04:00)
[2017-08-25 06:33] LABS: HEMOGLOBIN 10.5 GM/DL (11.6-15.3); MEAN CELL VOLUME 91.1 FL (80.0-100.0); MEAN CORPUSCULAR HEMOGLOBIN 29.7 PG (27.0-34.0); MEAN CORPUSCULAR HGB CONC 32.6 % (32.0-36.0); MEAN PLATELET VOLUME 8.5 FL (7.0-11.0); PLATELET COUNT 302 TH/MM3 (150-450); RED BLOOD COUNT 3.52 MIL/MM3 (4.00-5.30); WHITE BLOOD COUNT 27.4 TH/MM3 (4.0-11.0)
[2017-08-25 06:57] LABS: BICARBONATE 34.8 MEQ/L (21.0-32.0); CALCIUM 8.4 MG/DL (8.5-10.1); CREATININE 0.68 MG/DL (0.50-1.00)
[2017-08-25] MEDS ORDERED: RIVAROXABAN 15 MG TAB PO SCH (09:00)
[2017-08-25] MEDS ORDERED: predniSONE 20 MG TAB PO SCH ×2 (09:00→21:00)
[2017-08-25] MEDS: SODIUM CHLORIDE 0.9% FLUSH 10 ML FLUSH IV FLUSH SCH (09:00)
[2017-08-25] MEDS: AZOPT EYE LEFT EYE SCH (09:00)
[2017-08-25] MEDS: METHOTREXATE 2.5 MG TAB PO SCH (09:00)
[2017-08-25] MEDS: MUPIROCIN 2% OINT 1 APPLIC/GM SYR NASAL SCH (09:00)
[2017-08-25] MEDS: FAMOTIDINE 20 MG TAB PO SCH (09:55)
[2017-08-25] MEDS: DOCUSATE SODIUM 50 MG/SENNA 8.6 MG TAB PO SCH (09:56)
[2017-08-25] MEDS: HYDROXYCHLOROQUINE SULFATE 200 MG TAB PO SCH (09:56)
[2017-08-25] MEDS: ALLOPURINOL 100 MG TAB PO SCH (09:56)
[2017-08-25] MEDS: METOPROLOL TARTRATE 25 MG TAB PO SCH (09:56)
[2017-08-25] MEDS: ALPRAZolam 0.25 MG TAB PO PRN (10:03)
[2017-08-25] MEDS: BRIMONIDINE TARTRATE 0.2% OPHT SOLN 5 ML BTL LEFT EYE SCH (10:08)
[2017-08-25] MEDS: TIMOLOL MALEATE 0.5% OPHT SOLN 5 ML BTL LEFT EYE SCH (10:09)
[2017-08-25] MEDS: RESP: ALBUTEROL 2.5 MG/IPRATROPIUM 0.5 MG NEB (SCH) NEB (10:10)
[2017-08-25] MEDS ORDERED: LORazepam 0.5 MG TAB PO PRN (13:45)
[2017-08-25] MEDS ORDERED: RESP: ALBUTEROL 2.5 MG/IPRATROPIUM 0.5 MG NEB (SCH) NEB (14:00)
--- NOTE | 2017-08-25 16:22 | HHI.PR ---
Subjective Remarks Patient reports she is feeling somewhat anxious today. Breathing is stable. No new issues. Objective Vitals Vital Signs Date Time Temp Pulse Resp B/P (MAP) Pulse Ox O2 Delivery O2 Flow Rate FiO2 08/25/17 12:14 97.7 82 17 148/70 (96) 95 08/25/17 10:13 86 Nasal Cannula 3.00 08/25/17 08:14 97.7 95 17 191/88 (122) 90 08/25/17 05:48 97.4 77 20 150/71 (97) 97 08/25/17 04:30 74 08/25/17 01:08 98.1 76 20 154/76 (102) 98 08/25/17 00:30 78 08/24/17 21:57 Nasal Cannula 3.00 08/24/17 20:30 89 08/24/17 20:17 95 Nasal Cannula 4.00 08/24/17 20:00 98.1 83 18 171/78 (109) 96 08/24/17 18:10 100 Room Air 08/24/17 18:10 80 08/24/17 18:08 90 08/24/17 18:08 93 Nasal Cannula 3.00 I/O 08/24/17 08/24/17 08/24/17 08/25/17 08/25/17 08/25/17 07:00 15:00 23:00 07:00 15:00 23:00 Intake Total 420 ml 480 ml 120 ml Output Total 100 ml 850 ml Balance 320 ml -370 ml 120 ml Intake Oral 420 ml 480 ml 120 ml Output Urine Total 100 ml 850 ml # Voids 2 1 1 # Bowel Movements 0 1 Result Diagram: 08/25/17 0545 08/25/17 0545 Objective Remarks GENERAL: This is a well-nourished, well-developed patient, in no apparent distress. CARDIOVASCULAR: Normal rate and regular rhythm without murmurs, gallops, or rubs. RESPIRATORY: Diminished breath sounds at the bases bilaterally. Bilateral basilar crackles. Spasmodic cough. GASTROINTESTINAL: Abdomen soft, non-tender, non-distended. Normal active bowel sounds MUSCULOSKELETAL: Extremities without cyanosis, or edema. NEURO: Alert & Oriented x4 to person, place, time, situation. Moves all ext x4 PSYCH: Appropriate mood and affect. Procedures EGD/ colonoscopy. A/P Assessment and Plan 82-year-old female with: Respiratory failure secondary to pneumonia and lung mass. Patient underwent bronchoscopy and had postoperative hypoxemic and hypercapnic respiratory failure. She was on BiPAP, status post ICU course. -Appreciate pulmonology following. On ciprofloxacin and oral steroids. - Continue breathing treatments - Bronchial washings showing squamous cell carcinoma. Oncology has been consulted. -Follow cultures A. fib -Continue metoprolol, and resume Xarelto. Left lower extremity pain Peripheral vascular disease -Vascular surgery following. Severe PAD but nothing acute. Outpatient follow- up will be arranged. Rheumatoid arthritis -Continue Plaquenil -Continue methotrexate Chronic obstructive pulmonary disease -DuoNeb scheduled and as needed -steroid History gout -Allopurinol Anxiety: - Continue Xanax as needed. DVT GI prophylaxis -Arnaldo's and SCDs -Savita Montero MD Aug 25, 2017 16:22
[2017-08-25] MEDS ORDERED: DEXTROSE 50% IN WATER 50 ML SYRINGE ONE (16:37)
--- NOTE | 2017-08-25 17:00 | HHI.CCPN ---
Subjective Remarks/Hospital Course 82-year-old female complains of increasing dyspnea for the last week. She has had a cough which is chronic however has been worse over the past couple days. No fever or chest pain. She also complains of worsening dyspnea on exertion. The patient also reports palpitations. She reports compliance with Xarelto and Lasix. She reports a history of CHF and atrial fibrillation. She also reports a history of peripheral artery disease. She has also been complaining of worsening left extremity pain that is 9 out of 10. 08/20 Reconsult Patient s/p bronch wih biopsy by Dr. Esposito post bronch patient became hypoxic initial ABG showed acute hypoxemic and hypercapneic resp acidosis ( PH 7.17, PCO2: 87, PaO2: 82) She was placed on BIPAP 29/12 with 60% FIO2. More awake per nursing staff. 08/21 Patient is off BIPAP on 4L oxygen. Afebrile. Awake and alert requesting something to eat. 08/22 No events overnight. Afebrile. RECONSULT NOTE: 08/25: called to floor for CODE BLUE. presenting rhythm was asystole. pupils fixed and dilated. ACLS was performed. multiple rounds of epinephrine. glucose was 32 at that time, 1 amp d50 given and recheck 48, another 3 amps given. ROSC obtained. GCS 3. emergently transferred to ICU. I emergently intubated the patient during the code blue (see separate procedure notes). Son at bedside stating she had signed "paperwork" saying she wouldn't want life support, but medical decision-maker (daughter) is on her way in to confirm. patient is unresponsive. Objective Vital Signs Date Time Temp Pulse Resp B/P (MAP) Pulse Ox O2 Delivery O2 Flow Rate FiO2 08/25/17 12:14 97.7 82 17 148/70 (96) 95 08/25/17 10:13 Nasal Cannula 3.00 Intake and Output 08/25/17 08/25/17 08/26/17 08:00 16:00 00:00 Intake Total 120 ml Balance 120 ml Result Diagram: 08/25/17 0545 08/25/17 0545 Imaging Last Impressions Chest X-Ray 08/20/17 0000 Signed Impressions: Service Date/Time: Sunday, August 20, 2017 14:49 - CONCLUSION: 1. No pneumothorax status post bronchoscopy. 2. Persistent very small right and trace left pleural effusions with associated lower lung zone airspace disease. Nelson العراقي MD Chest CT 08/16/17 0000 Signed Impressions: Service Date/Time: August 15:18 - CONCLUSION: 1. There is a new right suprahilar mass measuring 3.4 cm, highly suspicious for malignancy. 2. Moderate size right pleural effusion. 3. Subsegmental consolidative infiltrate in the anterior left lower lobe. 4. Chronic interstitial lung disease and bronchiectasis is similar to prior. Joe Green MD Procedures EGD/ colonoscopy. Objective Remarks GENERAL: Patient is 82 yo lying in bed, unresponsive. HEAD: Normocephalic. EYES: No scleral icterus. No injection or drainage. pupils 6mm, fixed, dilated. NECK: trachea midline. No JVD. CARDIOVASCULAR: asystole on presenting rhythm. CPR in progress. RESPIRATORY: Breath sounds equal bilaterally. cyanotic. GASTROINTESTINAL: Abdomen soft, non-tender, nondistended. no guarding. MUSCULOSKELETAL: No cyanosis, or edema. Neuro: GCS 3. pupils as above. RASS -5. -cough. -gag. -corneals. A/P Assessment and Plan Assessment: 82yF with new diagnosis of non-small cell lung cancer, o2 dependent copd and now s/p PEA arrest with severe hypoglycemia. very poor prognosis given terminal cancer. very critically ill. Active problems: non-small cell lung cancer s/p PEA arrest cardiogenic shock severe COPD acute hypoxic and hypercarbic respiratory failure severe life-threatening hypoglycemia Hypoxic Ischemic Encephalopathy/Anoxic brain injury Plan: - admit to ICU - no weaning of mechanical ventilation until hemodynamics improve - wean fio2 for goal spo2 > 90% - vent bundle, hob elevated, nebs - levophed for map > 65 mmHg - d50w pushes and d10w drip for hypoglycemia with frequent glycemic checks - no sedating meds - frequent neuro checks Will discuss with daughter/medical-decisionmaker when she arrives. very poor prognosis and palliation would be appropriate. Critical care time: 62 minutes, exclusive of separately billable procedures. Sammy Stover MD Aug 25, 2017 17:00
--- NOTE | 2017-08-25 17:01 | PD.PROCEDR ---
Procedure Note Procedure Endotracheal Intubation Diagnosis: PEA arrest Indications: Acute hypoxic and hypercarbic respiratory failure Consent: Emergent Anesthesia: No anesthesia was required Description of the Procedure: CPR was in progress. The patient was positioned in the sniffing position. Pre- oxygenation was performed using a [id number]. No anesthesia was required.. A Hannon number 2. Was used for laryngoscopy and a Grade I view was obtained. A 8.0 cuffed endotracheal tube was inserted atraumatically through the vocal cords. Confirmation of correct endotracheal tube placement was made by equal and bilateral breath sounds and colorimetric CO2 detection. The endotracheal tube was secured at 22 cm at the teeth. There were no immediate complications noted. The patient remained hemodynamically stable throughout the procedure. A chest x-ray has been ordered. I personally performed the procedure. Sammy Stover MD Aug 25, 2017 17:01
[2017-08-25] MEDS ORDERED: MORPHINE SULFATE 8 MG/ML INJ IV PUSH ONE (17:15)
[2017-08-25] MEDS ORDERED: MORPHINE SULFATE 4 MG/ML INJ IV PUSH PRN (17:15)
[2017-08-25] MEDS ORDERED: LORazepam 2 MG/ML VIAL IV PUSH ONE (17:15)
[2017-08-25] MEDS ORDERED: LORazepam 2 MG/ML VIAL IV PUSH PRN (17:15)
[2017-08-25] MEDS ORDERED: ATROPINE SULFATE 1 MG/10 ML SYRINGE IV ONE (21:02)
[2017-08-25] MEDS ORDERED: DEXTROSE 50% IN WATER 50 ML SYRINGE IV ONE (21:02)
[2017-08-25] MEDS ORDERED: SODIUM BICARBONATE 8.4% INJ 50 MEQ/50 ML SYR IV ONE (21:02)
[2017-08-25] MEDS ORDERED: EPINEPHrine HCL (1:10,000) 1 MG/10 ML SYRINGE IV ONE (21:02)
[2017-08-26] MEDS ORDERED: FOLIC ACID 1 MG TAB PO SCH (09:00)
== END 2017-08-25 21:03 | disposition expired | DRG 189 ==
LOC: PHED 17:57 → PHEDA 19:38 → HIME 08-11 02:05 → N07A 08-12 15:53 → N03B 08-20 15:22 → HIMW 08-20 18:00 → N04B 08-24 00:30 → N03B 08-25 16:43
PROVIDERS: ADMIT Internal Medicine Critical Care Medicine; ATTEND Family Medicine
PROC: 0DB68ZX Excision of Stomach, Via Natural or Artificial Opening Endoscopic, Diagnostic (ICD-10-PCS; 2017-08-17)
PROC: 0DJD8ZZ Inspection of Lower Intestinal Tract, Via Natural or Artificial Opening Endoscopic (ICD-10-PCS; 2017-08-17)
PROC: 0BB48ZX Excision of Right Upper Lobe Bronchus, Via Natural or Artificial Opening Endoscopic, Diagnostic (ICD-10-PCS; principal; 2017-08-20)
PROC: 5A09357 Assistance with Respiratory Ventilation, Less than 24 Consecutive Hours, Continuous Positive Airway Pressure (ICD-10-PCS; 2017-08-20)
PROC: 0BH18EZ Insertion of Endotracheal Airway into Trachea, Via Natural or Artificial Opening Endoscopic (ICD-10-PCS; 2017-08-25)
DX: J96.21 Acute and chronic respiratory failure with hypoxia (principal); R57.0 Cardiogenic shock; J18.9 Pneumonia, unspecified organism; G93.1 Anoxic brain damage, not elsewhere classified; I13.0 Hypertensive heart and chronic kidney disease with heart failure and stage 1 through stage 4 chronic kidney disease, or unspecified chronic kidney disease; E87.2 Acidosis; J44.0 Chronic obstructive pulmonary disease with (acute) lower respiratory infection; I50.22 Chronic systolic (congestive) heart failure; K92.2 Gastrointestinal hemorrhage, unspecified; C34.01 Malignant neoplasm of right main bronchus; J90 Pleural effusion, not elsewhere classified; J44.1 Chronic obstructive pulmonary disease with (acute) exacerbation; Z99.81 Dependence on supplemental oxygen; I48.91 Unspecified atrial fibrillation; I73.9 Peripheral vascular disease, unspecified; M06.9 Rheumatoid arthritis, unspecified; M10.9 Gout, unspecified; E87.6 Hypokalemia; E16.2 Hypoglycemia, unspecified; J96.02 Acute respiratory failure with hypercapnia; K29.70 Gastritis, unspecified, without bleeding; K64.4 Residual hemorrhoidal skin tags; K64.8 Other hemorrhoids; K57.30 Diverticulosis of large intestine without perforation or abscess without bleeding; M79.662 Pain in left lower leg; N18.9 Chronic kidney disease, unspecified; Z66 Do not resuscitate; D50.0 Iron deficiency anemia secondary to blood loss (chronic); F41.9 Anxiety disorder, unspecified; Z86.73 Personal history of transient ischemic attack (TIA), and cerebral infarction without residual deficits; Z87.891 Personal history of nicotine dependence
CPT/HCPCS: 31500; 31653; 36600; 71045; 71260; 80048; 80053; 80061; 80202; 81001; 82272; 82550; 82728; 82805; 82948; 83036; 83540; 83550; 83605; 83735; 83880; 84100; 84439; 84443; 84484; 85007; 85014; 85018; 85025; 85027; 85610; 85730; 87015; 87040; 87070; 87077; 87102; 87116; 87186; 87205; 87206; 87449; 87641; 88112; 88173; 88305; 88312; 93005; 93306; 93922; 94002; 94640; 94664; 96360; J0171; J0456; J0461; J0692; J0696; J1160; J1940; J2060; J2270; J2370; J2543; J2920; J2930; J3370; J3475; J3480; J7040; J7050; J7512; J7611; J7613; J8610; Q9967